=== PATIENT | male | born 1965 | race African-American/Black ===

== ENCOUNTER 2017-12-25 01:18 | Emergency (ER) | payer OTHER ==
[2017-12-25] MEDS ORDERED: LEVETIRACETAM 500 MG/5 ML VIAL IV ONE (01:39)
[2017-12-25] MEDS ORDERED: LORazepam 2 MG/ML VIAL ONE (01:39)
[2017-12-25] MEDS ORDERED: NA CHLORIDE 0.9% 1,000 ML ONE (01:40)
[2017-12-25] MEDS ORDERED: NA CHLORIDE 0.9% 100 ML IV ONE (01:40)
[2017-12-25 01:45] LABS: Absolute Lymphocytes (CBC) 3.4 K/uL (0.7-4.9); Absolute Monocytes 0.6 K/uL (0.1-1.3); Absolute Neutrophil 2.6 K/uL (1.8-8.0); Basophils % 1.4 % (0-1.3); Eosinophils % 2.6 % (0-4.4); Hematocrit 45.6 % (39.6-49.0); Lymphocytes % 49.5 % (15.3-44.8); MCH 29.7 pg (27.0-35.0); MCV 92.3 fL (80-100); MPV 8.7 fL (7.6-11.3); Monocytes % 8.7 % (3.3-12.3); RBC Red Blood Cell Count 4.94 M/uL (4.33-5.43)
[2017-12-25 01:54] LABS: Bicarbonate 17 mEq/L (21-31); Glucose Level 170 mg/dL (65-120); Potassium 3.6 mEq/L (3.6-5.0); Sodium Level 133 mEq/L (135-145)
[2017-12-25 02:00] LABS: ALT/SGPT 57 IU/L (10-60); AST/SGOT 63 IU/L (10-42); Albumin 4.6 g/dL (3.2-5.5); Alkaline Phosphatase 60 IU/L (42-121); BUN Blood Urea Nitrogen 8 mg/dL (6-20); Bilirubin Direct 0.1 mg/dL (0-0.2); Bilirubin Total 1.1 mg/dL (0.3-1.2); Creatine Phosphokinase 294 IU/L (22-269); Magnesium 2.3 mg/dL (1.8-2.5); Protein, Total 7.7 g/dL (6.0-8.3)
[2017-12-25 02:03] LABS: CKMB Creatine Kinase MB 2.4 ng/ml (0.3-4.0)
[2017-12-25 02:36] LABS: Protime INR 1.09
[2017-12-25 02:37] LABS: Alcohol Serum/Plasma < 10 mg/dl; Salicylates Level < 4.0 mg/dl (<30)
--- NOTE | 2017-12-25 03:10 | EDPHYS ---
Physician Documentation [facility] Name: Brenden Osman Age: 52 yrs Sex: Male : 1965 Arrival Date: 12/25/2017 Time: :19 Bed 8 Private MD: ED Pancho Connelly HPI: 12/25 01:20 This 52 yrs old Black Male presents to ER via Unassigned with complaints of Seizure. marciano 01:20 The patient presents after having a single isolated seizure. Character of seizure(s): marciano Loss of consciousness: the patient experienced loss of consciousness, Motor activity: generalized, Incontinence: none, Apnea: the patient did not experience apnea. Seizure onset: just prior to arrival. Context: the seizure(s) was witnessed, by family, . Seizure Hx: Last seizure: The patient's last seizure was approximately 1 month(s) ago. Associated injury: The patient did not suffer any apparent associated injury. Current symptoms: Currently, the patient is not experiencing any symptoms. The patient has not experienced similar symptoms in the past. Historical: - Allergies: 01:22 No Known Allergies; ak1 - Home Meds: 01:22 lisinopril 20 mg Oral tab 1 tab once daily [Active]; Keppra 500 mg Oral tab 1 tab daily ak1 [Active]; - PMHx: 01:22 Hypertension; Seizures; ak1 - PSHx: 01:22 None; ak1 - Immunization history:: Adult Immunizations unknown. - Social history:: Smoking status: Patient/guardian denies using tobacco. - Family history:: not pertinent. ROS: 01:20 Constitutional: Negative for fever, chills, and weight loss, Eyes: Negative for injury, marciano pain, redness, and discharge, ENT: Negative for injury, pain, and discharge, Neck: Negative for injury, pain, and swelling, Cardiovascular: Negative for chest pain, palpitations, and edema, Respiratory: Negative for shortness of breath, cough, wheezing, and pleuritic chest pain, Abdomen/GI: Negative for abdominal pain, nausea, vomiting, diarrhea, and constipation, Back: Negative for injury and pain, : Negative for injury, bleeding, discharge, and swelling, MS/Extremity: Negative for injury and deformity, Skin: Negative for injury, rash, and discoloration, Psych: Negative for depression, anxiety, suicide ideation, homicidal ideation, and hallucinations, Allergy/Immunology: Negative for hives, rash, and allergies, Endocrine: Negative for neck swelling, polydipsia, polyuria, polyphagia, and marked weight changes, Hematologic/Lymphatic: Negative for swollen nodes, abnormal bleeding, and unusual bruising. 01:20 Neuro: Positive for seizure activity. Exam: :20 Constitutional: This is a well developed, well nourished patient who is awake, alert, marciano and in no acute distress. Head/Face: Normocephalic, atraumatic. Eyes: Pupils equal round and reactive to light, extra-ocular motions intact. Lids and lashes normal. Conjunctiva and sclera are non-icteric and not injected. Cornea within normal limits. Periorbital areas with no swelling, redness, or edema. ENT: Nares patent. No nasal discharge, no septal abnormalities noted. Tympanic membranes are normal and external auditory canals are clear. Oropharynx with no redness, swelling, or masses, exudates, or evidence of obstruction, uvula midline. Mucous membranes moist. Neck: Trachea midline, no thyromegaly or masses palpated, and no cervical lymphadenopathy. Supple, full range of motion without nuchal rigidity, or vertebral point tenderness. No Meningismus. Chest/axilla: Normal chest wall appearance and motion. Nontender with no deformity. No lesions are appreciated. Cardiovascular: Regular rate and rhythm with a normal S1 and S2. No gallops, murmurs, or rubs. Normal PMI, no JVD. No pulse deficits. Respiratory: Lungs have equal breath sounds bilaterally, clear to auscultation and percussion. No rales, rhonchi or wheezes noted. No increased work of breathing, no retractions or nasal flaring. Abdomen/GI: Soft, non-tender, with normal bowel sounds. No distension or tympany. No guarding or rebound. No evidence of tenderness throughout. Back: No spinal tenderness. No costovertebral tenderness. Full range of motion. Male : Normal genitalia with no discharge or lesions. Skin: Warm, dry with normal turgor. Normal color with no rashes, no lesions, and no evidence of cellulitis. MS/ Extremity: Pulses equal, no cyanosis. Neurovascular intact. Full, normal range of motion. Neuro: Awake and alert, GCS 15, oriented to person, place, time, and situation. Cranial nerves II-XII grossly intact. Motor strength 5/5 in all extremities. Sensory grossly intact. Cerebellar exam normal. Normal gait. Psych: Awake, alert, with orientation to person, place and time. Behavior, mood, and affect are within normal limits. 02:39 Neck: Trachea: is midline with no obvious abnormalities, no acute changes, marciano ROM/movement: is normal, no acute changes, Meningeal signs: are not present, Kernig's sign is negative, Brudzinski's sign is negative. Vital Signs: 01:19 BP 158 / 90; Pulse 134; Resp 20; Temp 98.7(O); Pulse Ox 97% on R/A; Weight 81.65 kg ak1 (R); Height 6 ft. (182.88 cm) (R); Pain 0/10; 01:49 BP 138 / 95; Pulse 104; Resp 18; Pulse Ox 97% on R/A; Pain 0/10; ak1 02:21 BP 133 / 84; Pulse 94; Resp 18; Pulse Ox 97% on R/A; Pain 0/10; ak1 03:15 BP 144 / 94; Pulse 80; Resp 18; Temp 98; Pulse Ox 97% on R/A; Pain 0/10; ak1 01:19 Body Mass Index 24.41 (81.65 kg, 182.88 cm) ak1 Brandie Coma Score: 01:22 Eye Response: spontaneous(4). Verbal Response: oriented(5). Motor Response: obeys ak1 commands(6). Total: 15. MDM: 01:19 Patient medically screened. [facility] 01:23 Data reviewed: vital signs, nurses notes, lab test result(s), EKG, radiologic studies. [facility] 12/25 01:20 Order name: Basic Metabolic Panel; Complete Time: 03:09 [facility] 12/25 01:20 Order name: BNP; Complete Time: 02:38 [facility] 12/25 01:20 Order name: CBC with Diff; Complete Time: 02:02 [facility] 12/25 01:20 Order name: Ckmb; Complete Time: 03:09 [facility] 12/25 01:20 Order name: CPK; Complete Time: 03:09 [facility] 12/25 01:20 Order name: LFT's; Complete Time: 03:09 [facility] 12/25 01:20 Order name: Magnesium; Complete Time: 03:09 [facility] 12/25 01:20 Order name: PT-INR; Complete Time: 02:38 [facility] 12/25 01:20 Order name: Ptt, Activated; Complete Time: 02:38 [facility] 12/25 01:20 Order name: Troponin (emerg Dept Use Only); Complete Time: 02:02 [facility] 12/25 01:20 Order name: Acetaminophen; Complete Time: 03:09 [facility] 12/25 01:20 Order name: ETOH Level; Complete Time: 03:09 [facility] 12/25 01:20 Order name: Salicylate; Complete Time: 03:09 [facility] 12/25 01:20 Order name: XRAY Chest (1 view) 12/25 01:20 Order name: EKG; Complete Time: 01:21 [facility] 12/25 01:20 Order name: Cardiac monitoring; Complete Time: 01:27 [facility] 12/25 01:20 Order name: EKG - Nurse/Tech; Complete Time: 01:49 [facility] 12/25 01:20 Order name: IV Saline Lock; Complete Time: 01:27 [facility] 12/25 01:20 Order name: Labs collected and sent; Complete Time: 01:37 [facility] 12/25 01:20 Order name: O2 Per Protocol; Complete Time: 01:27 [facility] 12/25 01:20 Order name: O2 Sat Monitoring; Complete Time: 01:27 [facility] 12/25 01:20 Order name: Urine Dipstick-Ancillary (obtain specimen); Complete Time: 03:36 [facility] 12/25 01:26 Order name: Seizure Precautions; Complete Time: 01:27 [facility] 12/25 03:33 Order name: Urine Dipstick--Ancillary (enter results) rg2 Administered Medications: 01:48 Drug: Keppra 1000 mg Route: IV; Rate: per protocol; Site: left antecubital; ak1 02:20 Follow up: IV Status: Completed infusion ak1 01:48 Drug: NS 0.9% 1000 ml Route: IV; Rate: 1 bolus; Site: left antecubital; ak1 02:20 Follow up: IV Status: Completed infusion ak1 01:49 Drug: Ativan 1 mg Route: IVP; Site: left antecubital; ak1 01:58 Follow up: Response: No adverse reaction ak1 Disposition: 12/25/17 03:10 Discharged to Home. Impression: Epilepsy and recurrent seizures. - Condition is Stable. - Discharge Instructions: Seizure, Adult, Seizure, Adult, [id number]. - Prescriptions for Keppra 500 mg Oral Tablet - take 1 tablet by ORAL route every 12 hours; 30 tablet. - Medication Reconciliation Form, Thank You Letter, Antibiotic Education, Prescription Opioid Use form. - Family Work Release (12/25/17 03:37). rg2 - Follow up: Private Physician; When: 2 - 3 days; Reason: Recheck today's complaints, Continuance of care, Re-evaluation by your physician. Follow up: Duy Austin; When: 1 - 2 days; Reason: Recheck today's complaints, Re-evaluation by your physician. - Problem is new. - Symptoms have improved. Signatures: Dispatcher [employer] EDMS Pancho Day MD MD cha Pena, Laura, RN RN lp1 Brittney Lindo RN RN ak1 Jazmyne Johnson rg2 Corrections: (The following items were deleted from the chart) 03:37 03:10 12/25/2017 03:10 Discharged to Home. Impression: Epilepsy and recurrent seizures. lp1 Condition is Stable. Discharge Instructions: Seizure, Adult, Seizure, Adult, [id number]. Prescriptions for Keppra 500 mg Oral Tablet - take 1 tablet by ORAL route every 12 hours; 30 tablet. and Forms are Medication Reconciliation Form, Thank You Letter, Antibiotic Education, Prescription Opioid Use. Follow up: Private Physician; When: 2 - 3 days; Reason: Recheck today's complaints, Continuance of care, Re-evaluation by your physician. Follow up: Duy Austin; When: 1 - 2 days; Reason: Recheck today's complaints, Re-evaluation by your physician. Problem is new. Symptoms have improved. marciano
--- NOTE | 2017-12-25 03:10 | ER ---
Nurse's Notes [facility] Name: Brenden Osman Age: 52 yrs Sex: Male : 1965 Arrival Date: 12/25/2017 Time: :19 Bed 8 Private MD: Diagnosis: Epilepsy and recurrent seizures Presentation: 12/25 01:20 Presenting complaint: EMS states: pt had clonic tonic seizure at midnight. pt A\T\OX4 in ak1 ER8. EMS reports FSBG 142. Transition of care: patient was not received from another setting of care. Onset of symptoms was December 25, 2017. Initial Sepsis Screen: Does the patient meet any 2 criteria? No. Patient's initial sepsis screen is negative. Does the patient have a suspected source of infection? No. Patient's initial sepsis screen is negative. Care prior to arrival: 20g to left AC. 01:20 Method Of Arrival: EMS: [facility] ak1 01:20 Acuity: LUCITA 3 ak1 Triage Assessment: 01:22 General: Appears in no apparent distress. Behavior is calm, cooperative. Pain: Denies ak1 pain. EENT: No signs and/or symptoms were reported regarding the EENT system. Neuro: Level of Consciousness is awake, alert, obeys commands, Oriented to person, place, time, situation, Military Pilot are Moves all extremities. Speech is normal, Facial symmetry appears normal. Cardiovascular: Rhythm is sinus tachycardia. Respiratory: No deficits noted. GI: No signs and/or symptoms were reported involving the gastrointestinal system. : No signs and/or symptoms were reported regarding the genitourinary system. Derm: No signs and/or symptoms reported regarding the dermatologic system. Musculoskeletal: No signs and/or symptoms reported regarding the musculoskeletal system. Historical: - Allergies: : No Known Allergies; ak1 - Home Meds: : lisinopril 20 mg Oral tab 1 tab once daily [Active]; Keppra 500 mg Oral tab 1 tab daily ak1 [Active]; - PMHx: : Hypertension; Seizures; ak1 - PSHx: : None; ak1 - Immunization history:: Adult Immunizations unknown. - Social history:: Smoking status: Patient/guardian denies using tobacco. - Family history:: not pertinent. Screenin: Abuse screen: Denies threats or abuse. Denies injuries from another. Nutritional ak1 screening: No deficits noted. Tuberculosis screening: No symptoms or risk factors identified. Fall Risk None identified. Assessment: 01:25 Reassessment: Patient appears in no apparent distress at this time. No changes from ak1 previously documented assessment. Patient and/or family updated on plan of care and expected duration. Pain level reassessed. Patient is alert, oriented x 3, equal unlabored respirations, skin warm/dry/pink. see triage assessment. 02:22 Reassessment: Patient appears in no apparent distress at this time. No changes from ak1 previously documented assessment. Patient and/or family updated on plan of care and expected duration. Pain level reassessed. Patient is alert, oriented x 3, equal unlabored respirations, skin warm/dry/pink. Vital Signs: 01:19 BP 158 / 90; Pulse 134; Resp 20; Temp 98.7(O); Pulse Ox 97% on R/A; Weight 81.65 kg ak1 (R); Height 6 ft. (182.88 cm) (R); Pain 0/10; 01:49 BP 138 / 95; Pulse 104; Resp 18; Pulse Ox 97% on R/A; Pain 0/10; ak1 02:21 BP 133 / 84; Pulse 94; Resp 18; Pulse Ox 97% on R/A; Pain 0/10; ak1 03:15 BP 144 / 94; Pulse 80; Resp 18; Temp 98; Pulse Ox 97% on R/A; Pain 0/10; ak1 01:19 Body Mass Index 24.41 (81.65 kg, 182.88 cm) ak1 Coeymans Coma Score: 01:22 Eye Response: spontaneous(4). Verbal Response: oriented(5). Motor Response: obeys ak1 commands(6). Total: 15. ED Course: 01:19 Patient arrived in ED. ak1 01:19 Pancho Day MD is Attending Physician. [facility] 01:21 Triage completed. ak1 01:22 Arm band placed on Patient placed in an exam room, on a stretcher, on pulse oximetry, ak1 Patient notified of wait time. 01:24 Seizure precautions initiated. ak1 01:24 Maintain EMS IV. Dressing intact. Good blood return noted. Site clean \T\ dry. Gauge \T\ ak 1 site: 20g left AC. 01:36 Brittney Lindo, RN is Primary Nurse. ak1 01:44 X-ray completed. Portable x-ray completed in exam room. Patient tolerated procedure kw well. 01:45 XRAY Chest (1 view) In Process Unspecified. EDND 03:10 Duy Austin MD is Referral Physician. marciano 03:15 No provider procedures requiring assistance completed. ak1 03:37 IV discontinued, intact, bleeding controlled, No redness/swelling at site. Pressure lp1 dressing applied. Administered Medications: 01:48 Drug: Keppra 1000 mg Route: IV; Rate: per protocol; Site: left antecubital; ak1 02:20 Follow up: IV Status: Completed infusion ak1 01:48 Drug: NS 0.9% 1000 ml Route: IV; Rate: 1 bolus; Site: left antecubital; ak1 02:20 Follow up: IV Status: Completed infusion ak1 01:49 Drug: Ativan 1 mg Route: IVP; Site: left antecubital; ak1 01:58 Follow up: Response: No adverse reaction ak1 Outcome: 03:10 Discharge ordered by . marciano 03:36 Discharged to home ambulatory, with family. lp1 03:36 Condition: good 03:36 Discharge instructions given to patient, family, Instructed on discharge instructions, follow up and referral plans. no drinking with medication, no driving heavy equipment, medication usage, Demonstrated understanding of instructions, follow-up care, medications, Prescriptions given X 1. 03:37 Patient left the ED. lp1 Signatures: Dispatcher [employer] [facility] Pancho Day MD MD cha Whitley, Kimberlee kw Pena, Laura, RN RN lp1 Brittney Lindo, RN RN ak1
[2017-12-25 05:44] LABS: Urine Blood TRACE (NEG); Urine Glucose NEGATIVE (NEG); Urine Protein 1+ (NEG)
--- NOTE | 2017-12-25 08:38 | RAD REPORT ---
EXAM DESCRIPTION: RAD - Chest Single View - 12/25/2017 1:47 am CLINICAL HISTORY: Hypertension, history of seizures COMPARISON: 05/20/2016 FINDINGS: Portable technique limits examination quality. The lungs are grossly clear. The heart is normal in size. Mildly tortuous thoracic aorta. No displace d fractures. IMPRESSION: No acute intrathoracic process suspected.
--- NOTE | 2017-12-25 16:23 | EKG ---
Test Date: 2017-12-25 Test Time: 01:31:38 Baked And Graphite Inspector: MURRAY MEASUREMENT RESULTS: Intervals: Rate: 102 KS: 176 QRSD: 94 QT: 336 QTc: 437 Elizabeth: P: 63 KS: 176 QRS: 55 T: 56 INTERPRETIVE STATEMENTS: Sinus tachycardia Minimal voltage criteria for LVH, may be normal variant Nonspecific T wave abnormality Abnormal ECG Compared to ECG 05/20/2017 01:30:01 Left ventricular hypertrophy now present T-wave abnormality now present ST (T wave) deviation no longer present Electronically Signed On 12-25-17 16:19:58 CDT by Oliver Engel
== END 2017-12-25 03:37 | disposition home or self-care (01) ==
LOC: ER 01:18
DX: G40.802 Other epilepsy, not intractable, without status epilepticus (principal); I10 Essential (primary) hypertension
CPT/HCPCS: 36415; 71045; 80048; 80076; 80320; 80329; 81003; 82550; 82553; 83735; 83880; 84484; 85025; 85610; 85730; 93005; 96361; 96365; 96375; 99284; J1953; J7030

== ENCOUNTER 2018-10-17 11:17 | Emergency (ER) | payer OTHER ==
[2018-10-17] MEDS ORDERED: NA CHLORIDE 0.9% 1,000 ML ONE (11:40)
[2018-10-17] MEDS ORDERED: levETIRAcetam 1,000 MG in NA CHLORIDE 0.9% 100 ML IV ONE (11:45)
[2018-10-17 11:49] LABS: Absolute Lymphocytes (CBC) 1.6 K/uL (0.7-4.9); Absolute Monocytes 0.4 K/uL (0.1-1.3); Basophils % 1.1 % (0-1.3); Eosinophils % 1.6 % (0-4.4); Hematocrit 40.9 % (39.6-49.0); Lymphocytes % 26.6 % (15.3-44.8); MPV 8.7 fL (7.6-11.3); RBC Red Blood Cell Count 4.55 M/uL (4.33-5.43)
[2018-10-17 12:05] LABS: Protime INR 1.08
[2018-10-17 12:09] LABS: Albumin 4.1 g/dL (3.4-5.0); Bilirubin Direct 0.2 mg/dL (0-0.2); Bilirubin Total 0.8 mg/dL (0.2-1.0); Magnesium 1.9 mg/dL (1.8-2.4); Potassium 3.7 mmol/L (3.5-5.1); Protein, Total 7.6 g/dL (6.4-8.2)
[2018-10-17 12:26] LABS: Lipase 77 U/L (73-393); Troponin (Emerg Dept Use Only) < 0.02 ng/mL (0.0-0.045)
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
--- NOTE | 2018-10-18 05:56 | EKG ---
Test Date: 2018-10-17 Test Time: 11:23:14 Child Support Investigator: MEASUREMENT RESULTS: Intervals: Rate: 93 NH: 198 QRSD: 92 QT: 364 QTc: 452 [place]: P: 49 NH: 198 QRS: 26 T: 29 INTERPRETIVE STATEMENTS: Normal sinus rhythm Normal ECG Compared to ECG 12/25/2017 01:31:38 Sinus tachycardia no longer present Left ventricular hypertrophy no longer present T-wave abnormality no longer present Electronically Signed On 10-18-18 05:54:50 CDT by Jori Cartagena
== END 2018-10-17 14:24 | disposition home or self-care (01) ==
LOC: ER 11:17
DX: G40.509 Epileptic seizures related to external causes, not intractable, without status epilepticus (principal); V47.5XXA Car driver injured in collision with fixed or stationary object in traffic accident, initial encounter; I10 Essential (primary) hypertension
CPT/HCPCS: 36415; 70450; 71045; 71260; 72125; 74177; 80048; 80076; 80320; 80329; 83690; 83735; 83880; 84484; 85025; 85610; 85730; 86850; 86900; 86901; 93005; 96361; 96374; 99285; J1953; J7030; Q9967

== ENCOUNTER 2019-06-05 18:30 | Emergency (ER) | payer OTHER ==
[2019-06-05] MEDS ORDERED: NA CHLORIDE 0.9% 1,000 ML ONE ×2 (19:00→20:47)
[2019-06-05] MEDS ORDERED: LEVETIRACETAM 500 MG/5 ML VIAL IV ONE (19:00)
[2019-06-05 19:02] LABS: Absolute Lymphocytes (CBC) 1.5 K/uL (0.7-4.9); Basophils % 0.5 % (0-1.3); Hematocrit 39.4 % (39.6-49.0); Lymphocytes % 10.1 % (15.3-44.8); MPV 8.6 fL (7.6-11.3); RBC Red Blood Cell Count 4.48 M/uL (4.33-5.43)
[2019-06-05 19:05] LABS: Protime INR 1.05
[2019-06-05 19:24] LABS: ALT/SGPT 49 U/L (12-78); AST/SGOT 37 U/L (15-37); Albumin 4.1 g/dL (3.4-5.0); Alkaline Phosphatase 57 U/L (45-117); BUN Blood Urea Nitrogen 9 mg/dL (7-18); Bicarbonate 23 mmol/L (21-32); Bilirubin Direct 0.2 mg/dL (0-0.2); Bilirubin Total 1.1 mg/dL (0.2-1.0); CKMB Creatine Kinase MB 2.1 ng/mL (0.3-3.6); Creatine Phosphokinase 619 U/L (39-308); Glucose Level 116 mg/dL (74-106); Lipase 85 U/L (73-393); Magnesium 2.5 mg/dL (1.8-2.4); Protein, Total 7.8 g/dL (6.4-8.2); Sodium Level 136 mmol/L (136-145); Troponin (Emerg Dept Use Only) 0.02 ng/mL (0.0-0.045)
--- NOTE | 2019-06-05 19:35 | RAD REPORT ---
EXAM DESCRIPTION: CT - Head Brain Wo Cont - 06/05/2019 7:10 pm CLINICAL HISTORY: Alteration of awareness/confusion COMPARISON: 2015 TECHNIQUE: Computed axial tomography of the head was obtained. IV contrast was not requested. All CT scans are performed using dose optimization technique as appropriate and may include automated exposure control or mA/KV adjustment according to patient size. FINDINGS: An intracranial bleed is not seen . The ventricles are normal in caliber. No extra-axial fluid collection is noted. Fluid within the sinuses/ mastoids is not seen. IMPRESSION: No acute intracranial abnormality is seen. If patient's symptoms persist MRI of the bra in would be recommended.
--- NOTE | 2019-06-05 20:44 | ER ---
Nurse's Notes [facility] Name: Brenden Osman Age: 53 yrs Sex: Male : 1965 Arrival Date: 06/05/2019 Time: 18:31 Bed 24 Private MD: Diagnosis: Headache;Fever, unspecified;Altered mental status, unspecified Presentation: 06/05 18:55 Presenting complaint: Patient states: family brought the patient from the house, with rv memory loss. does not know when is today and where he is at. no weakness, no speech and visual disturbance. with history of seizure. Transition of care: patient was not received from another setting of care. Onset of symptoms is unknown. Risk Assessment: Do you want to hurt yourself or someone else? Patient reports no desire to harm self or others. Initial Sepsis Screen: Does the patient meet any 2 criteria? No. Patient's initial sepsis screen is negative. Does the patient have a suspected source of infection? No. Patient's initial sepsis screen is negative. Care prior to arrival: None. 18:55 Method Of Arrival: Ambulatory rv 18:55 Acuity: LUCITA 3 rv Historical: - Allergies: 19:04 No Known Allergies; rv - Home Meds: 19:04 Keppra 500 mg Oral tab 1 tab daily [Active]; lisinopril 20 mg Oral tab 1 tab once daily rv [Active]; - PMHx: 19:04 Hypertension; Seizures; rv - PSHx: 19:04 Unable to obtain; rv - Immunization history:: Adult Immunizations up to date. - Family history:: not pertinent. - Social history:: Smoking status: unknown. - Ebola Screening: : No symptoms or risks identified at this time. - Hospitalizations: : No recent hospitalization is reported. Screenin:04 Abuse screen: Denies threats or abuse. Denies injuries from another. Nutritional rv screening: No deficits noted. Tuberculosis screening: No symptoms or risk factors identified. Fall Risk None identified. Assessment: 19:00 General: Appears in no apparent distress. Behavior is combative, quiet, uncooperative. rv Pain: Denies pain. Neuro: Level of Consciousness is confused, Oriented to person. Cardiovascular: Patient's skin is warm and dry. Rhythm is regular. Respiratory: Airway is patent. GI: No signs and/or symptoms were reported involving the gastrointestinal system. : No signs and/or symptoms were reported regarding the genitourinary system. EENT: No signs and/or symptoms were reported regarding the EENT system. Derm: Skin is intact. Musculoskeletal: No signs and/or symptoms reported regarding the musculoskeletal system. Vital Signs: 18:59 BP 144 / 86; Pulse 72; Resp 16; Temp 99.7; Pulse Ox 96% on R/A; Weight 113.4 kg; rv 20:00 BP 139 / 82; Pulse 74; Resp 17; Pulse Ox 97% on R/A; rv 21:00 BP 138 / 66; Pulse 77; Resp 16; Pulse Ox 98% on R/A; rv 22:00 BP 127 / 79; Pulse 72; Resp 15; Pulse Ox 97% on R/A; rv 23:00 BP 118 / 72; Pulse 87; Resp 16; Pulse Ox 97% on R/A; rv 06/06 00:00 BP 111 / 69; Pulse 80; Resp 17; Pulse Ox 96% on R/A; rv 00:30 BP 114 / 71; Pulse 77; Resp 17; Pulse Ox 96% on R/A; rv ED Course: 06/05 18:31 Patient arrived in ED. mr 18:38 Alexander Nolasco MD is Attending Physician. rn 18:54 Marin Rodrigues, RN is Primary Nurse. rv 18:58 Triage completed. rv 19:01 Inserted saline lock: 20 gauge in right antecubital area, using aseptic technique. rv Blood collected. 19:05 Patient has correct armband on for positive identification. Bed in low position. Call rv light in reach. Side rails up X2. monitor car operator on. Pulse ox on. NIBP on. 19:06 Patient placed in the treatment room, on a stretcher, on awake overnight monitor, on pulse rv oximetry, Patient notified of wait time. Arm band placed on right wrist. EKG completed in triage. Results shown to . 19:10 CT Head Brain wo Cont In Process Unspecified. EDMS 19:10 CT completed. Patient tolerated procedure well. Patient moved back from CT. mw3 20:17 Attending Physician role handed off by Alexander Nolasco MD marciano 20:17 Pancho Day MD is Attending Physician. marciano 20:55 Chest Single View XRAY In Process Unspecified. EDMS 22:24 Assist provider with lumbar puncture: Set up LP tray. Performed by Pancho Day MD rv CSF is clear. Sample collected. Sample sent to lab. Puncture site dressed with band aid, Procedure was successful. Patient tolerated. 06/06 00:49 Patient transferred, IV remains in place. rv Administered Medications: 06/05 19:27 Drug: NS 0.9% 1000 ml Route: IV; Rate: 1000 ml; Site: right antecubital; rv 23:29 Follow up: IV Status: Completed infusion rv 19:28 Drug: Keppra 1000 mg Route: IV; Rate: calculated rate; Site: right antecubital; rv 20:05 Follow up: IV Status: Completed infusion rv 20:45 Drug: NS 0.9% 1000 ml Route: IV; Rate: 125 ml/hr; Site: right antecubital; rv 23:22 Follow up: IV Status: Infusion continued upon transfer rv 20:45 Drug: fentaNYL (PF) 25 mcg Route: IVP; Site: right antecubital; rv 23:23 Follow up: Response: No adverse reaction rv 21:00 Drug: Rocephin 2 grams Route: IV; Rate: per protocol; Site: right antecubital; rv 23:22 Follow up: IV Status: Completed infusion rv 21:00 Drug: Zofran 4 mg Route: IVP; Site: right antecubital; rv 23:23 Follow up: Response: No adverse reaction rv 21:00 Drug: Tylenol 1000 mg Route: PO; rv 23:24 Follow up: Response: No adverse reaction rv 21:15 Drug: fentaNYL (PF) 25 mcg {Note: rass 0.} Route: IVP; Site: right antecubital; rv 23:26 Follow up: Response: No adverse reaction rv 21:30 Drug: Acyclovir (20mg/kg) 800 mg Route: IVPB; Site: right antecubital; rv 23:24 Follow up: IV Status: Completed infusion rv Outcome: 20:43 ER care complete, transfer ordered by MD. tariq 06/06 00:48 Transferred by ground EMS to [facility], Transfer form completed. rv X-rays sent w/ patient. Condition: stable Instructed on the need for transfer. 00:49 Patient left the ED. rv Signatures: Dispatcher [employer] Pancho Carrasquillo MD MD cha Rivera, Mary mr Nieto, Roman, MD MD rn Nahun, Joya mw3 Marin Rodrigues, RISHI RN rv
--- NOTE | 2019-06-05 20:44 | EDPHYS ---
Physician Documentation [facility] Name: Brenden Osman Age: 53 yrs Sex: Male : 1965 Arrival Date: 06/05/2019 Time: 18:31 Bed 24 Private MD: ED Physician Pancho Day HPI: 06/05 18:45 This 53 yrs old Black Male presents to ER via Unassigned with complaints of Memory Loss.rn 18:45 The patient's problem is reported as altered mental status. Onset: The symptoms/episode rn began/occurred at an unknown time. The symptoms are alleviated by nothing. The symptoms are aggravated by nothing. Severity of symptoms: At their worst the symptoms were mild in the emergency department the symptoms are unchanged. It is unknown whether or not the patient has had similar symptoms in the past. Family members went to his house today to check on him, noticed he was acting funny. Has hx of seizures, but no witnessed seizure activity. Denies head injury or trauma. Reports had headache earlier this morning. Doesn't recall much of what happened today. family members state he sometimes gets confused after seizures but since didn't see one and patient couldn't tell them what is wrong decided to bring him here. . Historical: - Allergies: 19:04 No Known Allergies; rv - Home Meds: 19:04 Keppra 500 mg Oral tab 1 tab daily [Active]; lisinopril 20 mg Oral tab 1 tab once daily rv [Active]; - PMHx: 19:04 Hypertension; Seizures; rv - PSHx: 19:04 Unable to obtain; rv - Immunization history:: Adult Immunizations up to date. - Family history:: not pertinent. - Social history:: Smoking status: unknown. - Ebola Screening: : No symptoms or risks identified at this time. - Hospitalizations: : No recent hospitalization is reported. ROS: 18:45 Constitutional: Negative for fever, chills, and weight loss, Eyes: Negative for injury, rn pain, redness, and discharge, Neck: Negative for injury, pain, and swelling, Cardiovascular: Negative for chest pain, palpitations, and edema, Respiratory: Negative for shortness of breath, cough, wheezing, and pleuritic chest pain, Abdomen/GI: Negative for abdominal pain, nausea, vomiting, diarrhea, and constipation, MS/Extremity: Negative for injury and deformity, Skin: Negative for injury, rash, and discoloration, Neuro: Negative for weakness, numbness, tingling Exam: 18:45 Constitutional: This is a well developed, well nourished patient who is awake, alert, rn seems confused but answering all questions. Laying in bed with right arm behind head, seems comfortable. Head/Face: Normocephalic, atraumatic. Eyes: Pupils equal round and reactive to light, extra-ocular motions intact. Lids and lashes normal. Conjunctiva and sclera are non-icteric and not injected. Cornea within normal limits. Periorbital areas with no swelling, redness, or edema. ENT: dry MM Neck: Trachea midline, no thyromegaly or masses palpated, and no cervical lymphadenopathy. Supple, full range of motion without nuchal rigidity, or vertebral point tenderness. No Meningismus. Cardiovascular: Regular rate and rhythm. No pulse deficits. Respiratory: No increased work of breathing, no retractions or nasal flaring. Abdomen/GI: soft, non-tender MS/ Extremity: Pulses equal, no cyanosis. Neurovascular intact. Full, normal range of motion. Equal circumference. Neuro: Awake and alert, GCS 15, oriented to person but not place or time. Thinks it is 1980s, and that this is restaurant. Cranial nerves II-XII grossly intact. Motor strength 5/5 in all extremities. Sensory grossly intact. Cerebellar exam normal. 20:30 Radiologist reports: neg marciano 20:30 Neck: ROM/movement: is normal, no acute changes, Meningeal signs: are not present, marciano Kernig's sign is negative, Brudzinski's sign is negative. Vital Signs: 18:59 BP 144 / 86; Pulse 72; Resp 16; Temp 99.7; Pulse Ox 96% on R/A; Weight 113.4 kg; rv 20:00 BP 139 / 82; Pulse 74; Resp 17; Pulse Ox 97% on R/A; rv 21:00 BP 138 / 66; Pulse 77; Resp 16; Pulse Ox 98% on R/A; rv 22:00 BP 127 / 79; Pulse 72; Resp 15; Pulse Ox 97% on R/A; rv 23:00 BP 118 / 72; Pulse 87; Resp 16; Pulse Ox 97% on R/A; rv 06/06 00:00 BP 111 / 69; Pulse 80; Resp 17; Pulse Ox 96% on R/A; rv 00:30 BP 114 / 71; Pulse 77; Resp 17; Pulse Ox 96% on R/A; rv Procedures: 06/05 22:22 Lumbar Puncture: Patient placed in left lateral decubitus position. Prepped with [facility] Betadine. Draped using sterile technique. Collected 20 ml's of Puncture site dressed with band aid, Patient tolerated well. MDM: 18:38 Patient medically screened. rn 18:58 ED course: According to previous notes, takes keppra but patient and family not sure. rn Ordered CT head and tox workup given drinker, and headache. Unknown onset, possibly in AM. family member last known normal was last night when visited. Possibly just post-ictal given seizure history, but unwitnessed so workup ordered to rule out more serious etiology. . 20:30 Data reviewed: vital signs, nurses notes, lab test result(s), EKG, radiologic studies, [facility] CT scan, plain films. 06/05 18:45 Order name: UDS; Complete Time: 22:06/05 18:45 Order name: Basic Metabolic Panel; Complete Time: 20: 06/05 18:45 Order name: CBC with Diff; Complete Time: 20: 06/05 18:45 Order name: Ckmb; Complete Time: : 06/05 18:45 Order name: CPK; Complete Time: : 06/05 18:45 Order name: Hepatic Function; Complete Time: : 06/05 18:45 Order name: Lipase; Complete Time: : 06/05 18:45 Order name: Magnesium; Complete Time: 20: 06/05 18:45 Order name: Protime (+inr); Complete Time: 20: 06/05 18:45 Order name: Ptt, Activated; Complete Time: 20: 06/05 18:45 Order name: Troponin (emerg Dept Use Only); Complete Time: 20: 06/05 18:45 Order name: Acetaminophen; Complete Time: 20: 06/05 18:45 Order name: ETOH Level; Complete Time: 20: 06/05 18:45 Order name: Salicylate; Complete Time: 20: 06/05 18:45 Order name: CT Head Brain wo Cont; Complete Time: 20:26 06/05 18:49 Order name: AMMONIA; Complete Time: 20: 06/05 19:01 Order name: Glucose, Ancillary Testing; Complete Time: 20:26 [facility]CA 06/05 20:29 Order name: Blood Culture Adult (2) [facility] 06/05 20:29 Order name: Spinal Fluid Profile; Complete Time: 00:47 [facility] 06/05 20:31 Order name: Chest Single View XRAY [facility] 06/05 22:06 Order name: Urine Dipstick--Ancillary (enter results); Complete Time: 22:22 cm6 06/05 22:27 Order name: Body Fluid Cell Count; Complete Time: 00:47 EDMS 06/05 22:27 Order name: CSF Culture [facility] 06/05 22:27 Order name: CSF Bacterial Antigens (Tube 1 [facility] 06/05 18:45 Order name: EKG; Complete Time: 18:46 06/05 18:45 Order name: Cardiac monitoring; Complete Time: 19: 06/05 18:45 Order name: EKG - Nurse/Tech; Complete Time: 19: 06/05 18:45 Order name: IV Saline Lock; Complete Time: 19: 06/05 18:45 Order name: Labs collected and sent; Complete Time: 19: 06/05 18:45 Order name: NPO; Complete Time: 19: 06/05 18:45 Order name: O2 Per Protocol; Complete Time: 19: 06/05 18:45 Order name: O2 Sat Monitoring; Complete Time: 19: 06/05 18:57 Order name: Glucose Level; Complete Time: 19: 06/05 20:29 Order name: Lumbar Puncture Setup; Complete Time: 23:22 [facility] 06/05 20:29 Order name: Lumbar Puncture Consent; Complete Time: 23:22 [facility] Administered Medications: 19:27 Drug: NS 0.9% 1000 ml Route: IV; Rate: 1000 ml; Site: right antecubital; rv 23:29 Follow up: IV Status: Completed infusion rv 19:28 Drug: Keppra 1000 mg Route: IV; Rate: calculated rate; Site: right antecubital; rv 20:05 Follow up: IV Status: Completed infusion rv 20:45 Drug: NS 0.9% 1000 ml Route: IV; Rate: 125 ml/hr; Site: right antecubital; rv 23:22 Follow up: IV Status: Infusion continued upon transfer rv 20:45 Drug: fentaNYL (PF) 25 mcg Route: IVP; Site: right antecubital; rv 23:23 Follow up: Response: No adverse reaction rv 21:00 Drug: Rocephin 2 grams Route: IV; Rate: per protocol; Site: right antecubital; rv 23:22 Follow up: IV Status: Completed infusion rv 21:00 Drug: Zofran 4 mg Route: IVP; Site: right antecubital; rv 23:23 Follow up: Response: No adverse reaction rv 21:00 Drug: Tylenol 1000 mg Route: PO; rv 23:24 Follow up: Response: No adverse reaction rv 21:15 Drug: fentaNYL (PF) 25 mcg {Note: rass 0.} Route: IVP; Site: right antecubital; rv 23:26 Follow up: Response: No adverse reaction rv 21:30 Drug: Acyclovir (20mg/kg) 800 mg Route: IVPB; Site: right antecubital; rv 23:24 Follow up: IV Status: Completed infusion rv Disposition: 06/05/19 20:43 Transfer ordered to [facility]. Diagnosis are Headache, Fever, unspecified, Altered mental status, unspecified. - Reason for transfer: Higher level of care. - Accepting physician is to [facility] , neuro. - Condition is Fair. - Problem is new. - Symptoms have improved. Signatures: Dispatcher [employer] EDMS Pancho Day MD MD cha Nieto, Roman, MD MD rn Vicente, Ronaldo, RN RN rv Corrections: (The following items were deleted from the chart) 18:54 18:45 Constitutional: This is a well developed, well nourished patient who is awake, rn alert, seems confused but answering all questions. Head/Face: Normocephalic, atraumatic. rn 06/06 00:49 06/05 20:43 06/05/2019 20:43 Transfer ordered to [facility]. rv Diagnosis is Headache; Fever, unspecified; Altered mental status, unspecified. Reason for transfer: Higher level of care. Accepting physician is to [facility] , neuro. Condition is Fair. Problem is new. Symptoms have improved. marciano
[2019-06-05] MEDS ORDERED: ACETAMINOPHEN 500 MG TAB ONE (20:47)
[2019-06-05] MEDS ORDERED: LIDOCAINE 1% MPF 5 ML VIAL ONE (20:47)
[2019-06-05] MEDS ORDERED: FENTANYL CITR 100 MCG/2 ML ONE (20:56)
[2019-06-05] MEDS ORDERED: ACYCLOVIR NA 500 MG/VIAL IVPB ONE (20:59)
[2019-06-05] MEDS ORDERED: NA CHLORIDE 0.9% 200 ML IV ONE (21:07)
[2019-06-05] MEDS ORDERED: CEFTRIAXONE 1000 MG/VIAL ONE (21:07)
[2019-06-05] MEDS ORDERED: ONDANSETRON 4 MG/2 ML VIAL ONE (21:07)
[2019-06-05 21:15] LABS: Barbiturates NEGATIVE (NEGATIVE); Benzodiazepines NEGATIVE (NEGATIVE); Cocaine NEGATIVE (NEGATIVE); METHAMPHETAM NEGATIVE (NEGATIVE); Methadone NEGATIVE (NEGATIVE); Opiates NEGATIVE (NEGATIVE); Phencyclidine NEGATIVE (NEGATIVE); THC Cannibis NEGATIVE (NEGATIVE)
[2019-06-05 22:18] LABS: Urine Blood TRACE (NEG); Urine Glucose NEGATIVE (NEG); Urine Protein NEGATIVE (NEG); Urine Specific Gravity 1.015 (1.005-1.030)
[2019-06-05 22:48] LABS: Appearance CLEAR (CLEAR); Body Fluid Source CSF; Color of fluid Colorless (COLORLESS); Fluid Total Volume 3 ml
[2019-06-05 22:50] LABS: CSF Glucose 55 mg/dL (40-70)
[2019-06-05 22:57] LABS: Body Fluid WBC 2 /mm^3
[2019-06-05 23:22] LABS: Appearance CLEAR (CLEAR); Body Fluid Source CSF; Color of fluid Colorless (COLORLESS)
[2019-06-05 23:25] LABS: Body Fluid WBC 3 /mm^3
[2019-06-06 01:46] VITALS: TEMP 99.7
[2019-06-06 01:52] VITALS: O2SAT 96
[2019-06-06 01:53] VITALS: BP 114/71
--- NOTE | 2019-06-06 10:57 | RAD REPORT ---
EXAM DESCRIPTION: RAD - Chest Single View - 06/05/2019 8:57 pm CLINICAL HISTORY: COUGH Chest pain. COMPARISON: Chest Single View dated 10/17/2018; Chest Single View dated 12/25/2017; Chest Single View d ated 05/20/2016 FINDINGS: Portable technique limits examination quality. The lungs are grossly clear. The heart is normal in size. No displaced fractures. IMPRESSION: No acute intrathoracic process suspected.
--- NOTE | 2019-06-06 19:54 | EKG ---
Test Date: 2019-06-05 Test Time: 18:52:06 [employer] Officer: [employer] MEASUREMENT RESULTS: Intervals: Rate: 76 OK: 182 QRSD: 84 QT: 374 QTc: 420 [place]: P: 45 OK: 182 QRS: 34 T: 38 INTERPRETIVE STATEMENTS: Normal sinus rhythm Normal ECG Compared to ECG 10/17/2018 11:23:14 No significant changes Electronically Signed On 06-06-19 19:52:53 CDT by Oliver Engel
== END 2019-06-06 00:49 | disposition short-term general hospital (02) ==
LOC: ER 18:30
PROC: 009U3ZX Drainage of Spinal Canal, Percutaneous Approach, Diagnostic (ICD-10-PCS; principal; 2019-06-06)
DX: R51 Headache (principal); R50.9 Fever, unspecified; I10 Essential (primary) hypertension; G40.909 Epilepsy, unspecified, not intractable, without status epilepticus
CPT/HCPCS: 96365; 96367; 96361; 96368; 93005; 87040 ×2; 87070; 85025; 80048; 36415; 80320; 82140; 89050 ×2; 83735; 82550; 80329 ×2; 84157; 85610; 82945; 82947; 80076; 86403 ×6; 80307 ×8; 85730; 81003; 84484; 82553; 83690; 70450; 71045; 62270 ×2; 96375; 99285; 96366; J3010; J1953; J7030 ×2; J0133; J2405

== ENCOUNTER 2019-11-04 12:11 | Inpatient (IN) | payer OTHER ==
[2019-11-04] MEDS ORDERED: levETIRAcetam 1,000 MG in NA CHLORIDE 0.9% 100 ML IV ONE (12:45)
[2019-11-04] MEDS ORDERED: NA CHLORIDE 0.9% 1,000 ML ONE ×2 (13:02→16:03)
--- NOTE | 2019-11-04 13:16 | RAD REPORT ---
EXAM DESCRIPTION: RAD - Chest Single View - 11/04/2019 1:10 pm CLINICAL HISTORY: FEVER Chest pain. COMPARISON: Chest Single View dated 06/05/2019; Chest Single View dated 10/17/2018; Chest Single View dated 12/25/2017; Chest Single View dated 05/20/2016 FINDINGS: Portable technique limits examination quality. The lungs are grossly clear. The heart is normal in size. Tortuous thoracic aorta. IMPRESSION: No acute intrathoracic process suspected.
[2019-11-04 13:23] LABS: Absolute Lymphocytes (CBC) 0.9 K/uL (0.7-4.9); Basophils % 0.8 % (0-1.3); Hematocrit 40.8 % (39.6-49.0); Lymphocytes % 5.8 % (15.3-44.8); RBC Red Blood Cell Count 4.69 M/uL (4.33-5.43)
[2019-11-04 13:31] LABS: Potassium 3.3 mmol/L (3.5-5.1)
[2019-11-04 13:39] LABS: Albumin 4.3 g/dL (3.4-5.0); Bilirubin Direct 0.2 mg/dL (0-0.2); Bilirubin Total 0.9 mg/dL (0.2-1.0)
--- NOTE | 2019-11-04 14:13 | RAD REPORT ---
EXAM DESCRIPTION: CT - Head Brain Wo Cont - 11/04/2019 2:01 pm CLINICAL HISTORY: FEVER Seizure activity, headache, drowsiness COMPARISON: Head Brain Wo Cont dated 06/05/2019; Head Brain Wo Cont dated 05/20/2017 TECHNIQUE: All CT scans are performed using dose optimization technique as appropriate and may inclu de automated exposure control or mA/KV adjustment according to patient size. FINDINGS: No intracranial hemorrhage, hydrocephalus or extra-axial fluid collection.No areas of brai n edema or evidence of midline shift. The paranasal sinuses and mastoids are clear. The calvarium is intact. IMPRESSION: No acute intracranial abnormality.
[2019-11-04 14:19] LABS: Blood Morphology Comment NOT SEEN (NOT SEEN); Platelet Estimate ADEQ; Urine White Blood Cell Casts OK
[2019-11-04] MEDS ORDERED: VANCOMYCIN/NS 1 gm 1 GM/250 ML BAG IVPB ONE (16:00)
[2019-11-04] MEDS ORDERED: MIDAZOLAM HCL 2 MG/2 ML INJ ONE (16:02)
[2019-11-04] MEDS ORDERED: FENTANYL CITR 100 MCG/2 ML ONE (16:03)
[2019-11-04 16:58] LABS: Fluid Total Volume 7.5 ml
[2019-11-04 17:09] LABS: CSF Glucose 85 mg/dL (40-70)
[2019-11-04 17:23] LABS: Protime INR 1.11
[2019-11-04 17:24] LABS: Barbiturates NEGATIVE (NEGATIVE); Benzodiazepines NEGATIVE (NEGATIVE); Cocaine NEGATIVE (NEGATIVE); METHAMPHETAM NEGATIVE (NEGATIVE); Methadone NEGATIVE (NEGATIVE); Opiates NEGATIVE (NEGATIVE); Phencyclidine NEGATIVE (NEGATIVE); THC Cannibis NEGATIVE (NEGATIVE)
[2019-11-04 17:29] LABS: Urine Blood 2+ (NEG); Urine Glucose NEGATIVE (NEG); Urine Protein 1+ (NEG); Urine pH 5.5 (5.0-7.0)
[2019-11-04 17:48] LABS: Urine Bacteria <20 /HPF (NONE SEEN); Urine Culture Reflex Order NOT NEEDED
[2019-11-04] MEDS ORDERED: ACETAMINOPHEN 500 MG TAB ONE (18:01)
[2019-11-04 18:16] LABS: Troponin (Emerg Dept Use Only) 2.71 ng/mL (0.0-0.045)
--- NOTE | 2019-11-04 18:47 | ER ---
Nurse's Notes [facility] Name: Brenden Osman Age: 54 yrs Sex: Male : 1965 Arrival Date: 11/04/2019 Time: 12:13 Bed 6 Private MD: Diagnosis: Severe sepsis;Altered mental status, unspecified;Epilepsy and recurrent seizures;Rhabdomyolysis Presentation: 11/03 12:13 Chief complaint: EMS states: SEIZURE WITNESSED BY PD. Coronavirus screen: Patient bp denies fever greater than 100.4F, cough, shortness of breath, or difficulty breathing. Proceed with normal triage process. Ebola Screen: No symptoms or risks identified at this time. Initial Sepsis Screen: Does the patient meet any 2 criteria? HR > 90 bpm. No. Patient's initial sepsis screen is negative. Does the patient have a suspected source of infection? No. Patient's initial sepsis screen is negative. Risk Assessment: Do you want to hurt yourself or someone else? Patient reports no desire to harm self or others. 12:13 Method Of Arrival: EMS: [facility] bp 12:13 Acuity: LUCITA 3 bp Triage Assessment: 12:15 General: Appears in no apparent distress. comfortable, Behavior is cooperative, bp anxious. Pain: Denies pain. EENT: No deficits noted. Neuro: Level of Consciousness is awake, obeys commands, confused, Oriented to none. Cardiovascular: No deficits noted. Respiratory: Airway is patent Respiratory effort is even, unlabored, Respiratory pattern is regular, symmetrical. GI: No signs and/or symptoms were reported involving the gastrointestinal system. : No signs and/or symptoms were reported regarding the genitourinary system. Derm: No deficits noted. Musculoskeletal: No deficits noted. Historical: - Allergies: 12:15 No Known Allergies; bp - Home Meds: 12:15 Keppra 500 mg Oral tab 1 tab daily [Active]; lisinopril 20 mg Oral tab 1 tab once daily bp [Active]; - PMHx: 12:15 Seizures; Hypertension; bp - Immunization history:: Adult Immunizations unknown. - Social history:: Smoking status: unknown. Screenin:17 Abuse screen: Denies threats or abuse. Denies injuries from another. Nutritional bp screening: No deficits noted. Tuberculosis screening: No symptoms or risk factors identified. Fall Risk No fall in past 12 months (0 pts). Secondary diagnosis (15 points) seizures, No IV (0 pts). Ambulatory Aid- None/Bed Rest/Nurse Assist (0 pts). Gait- Normal/Bed Rest/Wheelchair (0 pts) Mental Status- Oriented to own ability (0 pts). Total Schroeder Fall Scale indicates Low Risk Score (25-44 pts). Fall prevention measures have been instituted. Side Rails Up X 2 Placed close to Nursing Station Frequent Obs/Assesments occuring As available Patient and Family Educated on Fall Prevention Program and strategies. Assessment: 12:17 General: SEE TRIAGE NOTE. bp 13:35 Reassessment: PT REMAINS APHASIC. NO S/S SZ ACTIVITY. bp 14:29 Reassessment: PT REMAINS APHASIC, FOLLOWING COMMANDS BUT EXPRESSING NO COMPREHENSION OF bp ASKED QUESTIONS. 16:30 Reassessment: LP BY MEHDAT SMITH. PT UNCONSENTABLE, AOx0, CONDITION EMERGENT. 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 SUCTION AND AMBU-BAG AT B/S. SEE CONSCIOUS SEDATION FLOWSHEET FOR DETAILS. 18:00 Reassessment: PT NOW VERBAL, AOx2. PER FAMILY, PT HAS NEVER PREVIOUSLY HAD A POST-ICTAL bp PERIOD OF THIS LENGTH. 18:58 Reassessment: Patient appears in no apparent distress at this time. Patient and/or em family updated on plan of care and expected duration. Pain level reassessed. pt alert and oriented to person, date of and location. 19:30 General: Appears in no apparent distress. comfortable, Behavior is calm, cooperative, rr5 appropriate for age, awaiting for room assignment.. 19:30 Pain: Denies pain. Neuro: Level of Consciousness is awake, alert, obeys commands, rr5 Oriented to person, place, time, situation, Appropriate for age Speech is normal. Cardiovascular: Capillary refill < 3 seconds Patient's skin is warm and dry. 19:30 Respiratory: Airway is patent Respiratory effort is even, unlabored, Respiratory rr5 pattern is regular, symmetrical. GI: Abdomen is round non-distended. : No signs and/or symptoms were reported regarding the genitourinary system. EENT: No signs and/or symptoms were reported regarding the EENT system. Derm: Skin is intact, is healthy with good turgor, Skin is pink, warm \T\ dry. Musculoskeletal: Capillary refill < 3 seconds, Range of motion: limited in right shoulder, right elbow and right wrist. 20:30 Reassessment: Patient appears in no apparent distress at this time. No changes from rr5 previously documented assessment. Patient is alert, oriented x 3, equal unlabored respirations, skin warm/dry/pink. 21:30 Reassessment: Patient appears in no apparent distress at this time. Patient and/or rr5 family updated on plan of care and expected duration. Pain level reassessed. Patient is alert, oriented x 3, equal unlabored respirations, skin warm/dry/pink. no complaints made. vitally stable. 22:24 Reassessment: Patient appears in no apparent distress at this time. Patient is alert, rr5 oriented x 3, equal unlabored respirations, skin warm/dry/pink. for transfer to room 417. vitally stable. Vital Signs: 12:13 BP 127 / 80; Pulse 92; Resp 17; Temp 100.4; Pulse Ox 97% ; Weight 90.72 kg; bp 13:04 BP 127 / 90; Pulse 88; Resp 17; Pulse Ox 95% ; bp 13:35 BP 127 / 90; Pulse 80; Resp 16; Pulse Ox 99% ; bp 14:29 BP 138 / 86; Pulse 87; Resp 16; Temp 100.9; Pulse Ox 96% on R/A; bp 16:14 BP 142 / 85; Pulse 87; Resp 18; Temp 100.3(O); Pulse Ox 98% on 2 lpm NC; Pain 0/10; em 18:00 BP 135 / 86; Pulse 74; Resp 17; Pulse Ox 99% ; bp 18:56 BP 126 / 84; Pulse 68; Resp 18; Temp 98.8(O); Pulse Ox 100% on R/A; em 20:00 BP 129 / 81; Pulse 73; Resp 16; Temp 98.4; Pulse Ox 99% on R/A; rr5 21:00 BP 119 / 68; Pulse 74; Resp 16; Pulse Ox 99% ; rr5 22:11 BP 114 / 72; Pulse 76; Resp 18; Temp 98.5; Pulse Ox 97% ; rr5 Peabody Coma Score: 12:15 Eye Response: spontaneous(4). Verbal Response: none(1). Motor Response: obeys bp commands(6). Total: 11. ED Course: 12:13 Patient arrived in ED. bp 12:13 Luis Rosa, RN is Primary Nurse. em 12:14 Triage completed. bp 12:15 Arm band placed on. bp 12:17 Patient has correct armband on for positive identification. Bed in low position. Call bp light in reach. Side rails up X2. forest fire officer on. Pulse ox on. NIBP on. 12:34 Jason Aguilera PA is PHCP. jr8 12:34 Herbert Rodríguez MD is Attending Physician. jr8 13:00 Inserted saline lock: 20 gauge in right forearm, using aseptic technique. Blood bp collected. 13:14 CXR XRAY In Process Unspecified. EDMS 13:36 Martinez Evans, RISHI is Primary Nurse. bp 14:03 CT Head Brain wo Cont In Process Unspecified. EDMS 14:35 Health Dept notified COVID test sent to lab/ PUI # [id number]/ lab notified. eb 16:30 Assist provider with lumbar puncture: Set up LP tray. Performed by Jason CALHOUN CSF em is clear. Puncture site dressed with band aid, Procedure was successful. Patient tolerated well. 16:50 Urine collected: straight cath specimen, clear, Amount Returned: 200mL Legal drug em screen obtained per protocol. Straight cath inserted, using sterile technique, 16 Fr. Specimen obtained. 17:00 Inserted saline lock: 20 gauge in right hand, using aseptic technique. Blood collected. bp 18:40 Mehreen Rebolledo MD is Hospitalizing Provider. jr8 19:00 Seizure precautions initiated. rr5 19:13 Wellington Verde MD is Hospitalizing Provider. jr8 22:12 Patient admitted, IV remains in place. intact, No redness/swelling at site. rr5 Administered Medications: 13:00 Drug: NS 0.9% 1000 ml Route: IV; Rate: 1000 ml; Site: right forearm; bp 16:20 Follow up: IV Status: Completed infusion; IV Intake: 1000ml em 13:04 Drug: Keppra 1000 mg Route: IV; Rate: calculated rate; Site: right forearm; bp 16:20 Drug: NS 0.9% 1000 ml Route: IV; Rate: 125 ml/hr; Site: right forearm; em 22:12 Follow up: Response: No adverse reaction; IV Status: Infusion continued upon admission; rr5 IV Intake: 375ml 16:26 Drug: fentaNYL (PF) 75 mcg Route: IVP; Site: right forearm; em 16:30 Follow up: Response: No adverse reaction; Marked relief of symptoms em 16:29 Drug: Versed 2 mg Route: IVP; Site: right forearm; em 16:34 Follow up: Response: No adverse reaction; Marked relief of symptoms em 16:34 Drug: Versed 2 mg Route: IVP; Site: right forearm; em 16:40 Follow up: Response: No adverse reaction; Marked relief of symptoms em 16:40 Drug: Versed 2 mg Route: IVP; Site: right forearm; em 16:50 Follow up: Response: No adverse reaction; Marked relief of symptoms em 16:50 Drug: Cefepime 1 grams Route: IVPB; Rate: 200 ml/hr; Infused Over: 30 mins; Site: right em forearm; 17:30 Follow up: Response: No adverse reaction; IV Status: Completed infusion; IV Intake: em 100ml 16:53 Not Given (Other Intervention Used): Versed 3 mg IVP once em 17:00 Drug: vancoMYCIN 1 grams Route: IVPB; Infused Over: 2 hrs; Site: right hand; bp 18:57 Follow up: IV Status: Completed infusion; IV Intake: 250ml em 18:13 Drug: Tylenol 1000 mg Route: PO; bp 18:56 Follow up: Response: No adverse reaction; Marked relief of symptoms; Temperature is em decreased 18:48 Not Given (Physician Discretion): Lovenox 1 mg/kg Sub-Q once bp Intake: 16:20 IV: 1000ml; Total: 1000ml. em 17:30 IV: 100ml; Total: 1100ml. em 18:57 IV: 250ml; Total: 1350ml. em 22:12 IV: 375ml; Total: 1725ml. rr5 Outcome: 18:44 Decision to Hospitalize by Provider. ravindra 22:11 Admitted to Tele accompanied by nora, via stretcher, room 417, with chart, Report rr5 called to kevin 22:11 Condition: stable 22:11 Instructed on 22:45 Patient left the ED. rr5 Signatures: Dispatcher [employer] Luis Mitchell RN RN em Jason Aguilera PA PA jrMartinez Morfin, RN RN bp Debby Tejeda Raymond, RN RN rr5
[2019-11-04 18:54] LABS: Appearance CLEAR (CLEAR); Body Fluid Source CSF; Color of fluid Colorless (COLORLESS)
[2019-11-04 18:55] LABS: Appearance CLEAR (CLEAR); Body Fluid Source CSF; Body Fluid WBC 3 /mm^3; Color of fluid Colorless (COLORLESS)
[2019-11-04 18:56] LABS: Body Fluid WBC 4 /mm^3
[2019-11-04] MEDS ORDERED: ONDANSETRON 4 MG/2 ML VIAL IV PRN (21:13)
[2019-11-04] MEDS ORDERED: ALPRAZOLAM 0.25 MG TABLET PO PRN (21:13)
[2019-11-04] MEDS ORDERED: ACETAMINOPHEN 500 MG TAB PO PRN (21:13)
[2019-11-04] MEDS ORDERED: AZITHROMYCIN IV 500 MG in NA CHLORIDE 0.9% 250 ML IVPB ONE (21:16)
[2019-11-04] MEDS ORDERED: CEFTRIAXONE 1000 MG/VIAL IVP SCH (22:00)
--- NOTE | 2019-11-04 22:47 | EDPHYS ---
Physician Documentation [facility] Name: Brenden Osman Age: 54 yrs Sex: Male : 1965 Arrival Date: 11/04/2019 Time: 12:13 Bed 6 Private MD: ED Physician Herbert Rodríguez HPI: 11/03 17:24 This 54 yrs old Black Male presents to ER via EMS with complaints of Seizure, Fever. jr8 17:24 The patient presents after having a single isolated seizure. Character of seizure(s): jr8 Loss of consciousness: the patient experienced loss of consciousness, Motor activity: generalized, Incontinence: none, Apnea: the patient did not experience apnea, Circulation: the patient did not experience evidence of pulse disturbance, Eye movements: are unknown. Seizure onset: just prior to arrival. Context: the seizure(s) was witnessed, by co-worker(s), occurred at work, occurred while the patient was working. Seizure Hx: Original onset: longstanding. Associated injury: The patient did not suffer any apparent associated injury. Current symptoms: confusion. It is unknown whether or not the patient has had similar symptoms in the past. The patient has not recently seen a physician. EMS stated that patient has been out of his seizure medication. Has seizure today. Noted in ED that patient is also running fever. Historical: - Allergies: 12:15 No Known Allergies; bp - Home Meds: 12:15 Keppra 500 mg Oral tab 1 tab daily [Active]; lisinopril 20 mg Oral tab 1 tab once daily bp [Active]; - PMHx: 12:15 Seizures; Hypertension; bp - Immunization history:: Adult Immunizations unknown. - Social history:: Smoking status: unknown. ROS: 17:24 Unable to obtain ROS due to altered mental status. jr8 Exam: 18:51 Eyes: Pupils equal round and reactive to light, extra-ocular motions intact. Lids and jr8 lashes normal. Conjunctiva and sclera are non-icteric and not injected. Cornea within normal limits. Periorbital areas with no swelling, redness, or edema. ENT: Nares patent. No nasal discharge, no septal abnormalities noted. Tympanic membranes are normal and external auditory canals are clear. Oropharynx with no redness, swelling, or masses, exudates, or evidence of obstruction, uvula midline. Mucous membranes moist. Neck: Trachea midline, no thyromegaly or masses palpated, and no cervical lymphadenopathy. Supple, full range of motion without nuchal rigidity, or vertebral point tenderness. No Meningismus. Cardiovascular: Regular rate and rhythm with a normal S1 and S2. No gallops, murmurs, or rubs. Normal PMI, no JVD. No pulse deficits. Respiratory: Lungs have equal breath sounds bilaterally, clear to auscultation and percussion. No rales, rhonchi or wheezes noted. No increased work of breathing, no retractions or nasal flaring. Abdomen/GI: Soft, non-tender, with normal bowel sounds. No distension or tympany. No guarding or rebound. No evidence of tenderness throughout. Back: No spinal tenderness. No costovertebral tenderness. Full range of motion. Skin: Warm, dry with normal turgor. Normal color with no rashes, no lesions, and no evidence of cellulitis. MS/ Extremity: Pulses equal, no cyanosis. Neurovascular intact. Full, normal range of motion. 18:51 Neuro: Orientation: Not oriented to person, place, time, situation, Mentation: able to follow commands, slow to respond, Memory: unable to test, the patient is post-ictal, Cranial nerves: extraocular movements are intact, Speech is aphasic. Motor: moves all fours, Sensation: no obvious gross deficits, seizure activity, is not currently displayed, but the patient is post-ictal, Abnormal movements: there are no abnormal movements. Vital Signs: 12:13 BP 127 / 80; Pulse 92; Resp 17; Temp 100.4; Pulse Ox 97% ; Weight 90.72 kg; bp 13:04 BP 127 / 90; Pulse 88; Resp 17; Pulse Ox 95% ; bp 13:35 BP 127 / 90; Pulse 80; Resp 16; Pulse Ox 99% ; bp 14:29 BP 138 / 86; Pulse 87; Resp 16; Temp 100.9; Pulse Ox 96% on R/A; bp 16:14 BP 142 / 85; Pulse 87; Resp 18; Temp 100.3(O); Pulse Ox 98% on 2 lpm NC; Pain 0/10; em 18:00 BP 135 / 86; Pulse 74; Resp 17; Pulse Ox 99% ; bp 18:56 BP 126 / 84; Pulse 68; Resp 18; Temp 98.8(O); Pulse Ox 100% on R/A; em 20:00 BP 129 / 81; Pulse 73; Resp 16; Temp 98.4; Pulse Ox 99% on R/A; rr5 21:00 BP 119 / 68; Pulse 74; Resp 16; Pulse Ox 99% ; rr5 22:11 BP 114 / 72; Pulse 76; Resp 18; Temp 98.5; Pulse Ox 97% ; rr5 Brandie Coma Score: 12:15 Eye Response: spontaneous(4). Verbal Response: none(1). Motor Response: obeys bp commands(6). Total: 11. MDM: 12:36 Patient medically screened. jr8 18:44 Data reviewed: vital signs, nurses notes, lab test result(s), EKG, radiologic studies, jr8 CT scan, plain films. Data interpreted: Pulse oximetry: on room air is 99 %. Interpretation: normal. Counseling: I had a detailed discussion with the patient and/or guardian regarding: the historical points, exam findings, and any diagnostic results supporting the discharge/admit diagnosis, lab results, radiology results, the need for further work-up and treatment in the hospital. Physician consultation: Duy Austin MD was called at 18:44, was contacted at 18:44, regarding admission, to the telemetry unit. consult, patient's condition, and will see patient. 18:51 ED course: Patient improving. Now knows his name and where he is. Fever decreased with jr8 antipyretics . 11/03 12:35 Order name: Strep; Complete Time: 13:39 8 11/03 12:35 Order name: Influenza Screen (a \T\ B); Complete Time: 13:39 jr8 11/03 12:35 Order name: UDS; Complete Time: 17:30 jr8 11/03 12:35 Order name: CBC with Diff jr8 11/03 12:35 Order name: Basic Metabolic Panel; Complete Time: 13:39 jr8 11/03 12:44 Order name: LFT's; Complete Time: 13:47 8 11/03 12:44 Order name: Urine Microscopic Only; Complete Time: 18:05 8 11/03 13:27 Order name: Throat Culture EDME 11/03 13:40 Order name: Misc. Lab Test; Complete Time: 15:09 jr8 11/03 14:23 Order name: CBC Smear Scan; Complete Time: 14:30 EDME 11/03 15:20 Order name: Blood Culture Adult (2) [facility] 11/03 15:20 Order name: CPK; Complete Time: 18:[address] [facility] 11/03 15:20 Order name: Lactate; Complete Time: 17:[address] [facility] 11/03 15:20 Order name: Procalcitonin; Complete Time: 18:[address] [facility] 11/03 15:20 Order name: Protime (+inr); Complete Time: 17:[address] [facility] 11/03 15:20 Order name: Ptt, Activated; Complete Time: 17:[address] [facility] 11/03 15:20 Order name: Troponin (emerg Dept Use Only); Complete Time: 18:[address] [facility] 11/03 16:48 Order name: CSF Bacterial Antigens (tube 1); Complete Time: 17:[address] [facility] 11/03 16:48 Order name: Csf Culture [facility] 11/03 16:48 Order name: Fluid Cell Count,Body; Complete Time: 19:[address] [facility] 11/03 16:48 Order name: Spinal Fluid Profile; Complete Time: 19:[address] [facility] 11/03 17:00 Order name: Urine Dipstick--Ancillary (enter results); Complete Time: 17:32 11/03 17:01 Order name: AMMONIA; Complete Time: 17:[address] [facility] 11/03 21:17 Order name: Urinalysis [facility] 11/03 21:17 Order name: CBC with Automated Diff [facility] 11/03 21:17 Order name: CBC with Automated Diff [facility] 11/03 21:17 Order name: Comprehensive Metabolic Panel [facility] 11/03 21:17 Order name: Comprehensive Metabolic Panel [facility] 11/03 21:17 Order name: Magnesium [facility] 11/03 21:17 Order name: Magnesium [facility] 11/03 12:35 Order name: IV; Complete Time: 13:[address] [facility] 11/03 12:36 Order name: Urine Dipstick-Ancillary (obtain specimen); Complete Time: 17:[address] [facility] 11/03 12:39 Order name: CXR XRAY; Complete Time: 13:39 bp 11/03 12:44 Order name: Accucheck; Complete Time: 13:[address] [facility] 11/03 12:44 Order name: Cardiac monitoring; Complete Time: 13:03 11/03 12:44 Order name: EKG - Nurse/Tech; Complete Time: 13:03 11/03 12:44 Order name: IV Saline Lock - Large Bore; Complete Time: 13:03 11/03 12:44 Order name: Labs collected and sent; Complete Time: 13:03 11/03 12:44 Order name: O2 Per Protocol; Complete Time: 13:02 11/03 12:44 Order name: O2 Sat Monitoring; Complete Time: 13:02 11/03 13:40 Order name: CT Head Brain wo Cont; Complete Time: 14:30 11/03 15:20 Order name: Lumbar Puncture Setup; Complete Time: 16:53 11/03 15:22 Order name: Conscious Sedation; Complete Time: 16:53 11/03 15:33 Order name: Oxygen; Complete Time: 16:53 11/03 21:17 Order name: Regular EDMS 11/03 21:17 Order name: Phosphorus EDMS 11/03 21:17 Order name: Phosphorus EDMS Administered Medications: 13:00 Drug: NS 0.9% 1000 ml Route: IV; Rate: 1000 ml; Site: right forearm; bp 16:20 Follow up: IV Status: Completed infusion; IV Intake: 1000ml em 13:04 Drug: Keppra 1000 mg Route: IV; Rate: calculated rate; Site: right forearm; bp 16:20 Drug: NS 0.9% 1000 ml Route: IV; Rate: 125 ml/hr; Site: right forearm; em 22:12 Follow up: Response: No adverse reaction; IV Status: Infusion continued upon admission; rr5 IV Intake: 375ml 16:26 Drug: fentaNYL (PF) 75 mcg Route: IVP; Site: right forearm; em 16:30 Follow up: Response: No adverse reaction; Marked relief of symptoms em 16:29 Drug: Versed 2 mg Route: IVP; Site: right forearm; em 16:34 Follow up: Response: No adverse reaction; Marked relief of symptoms em 16:34 Drug: Versed 2 mg Route: IVP; Site: right forearm; em 16:40 Follow up: Response: No adverse reaction; Marked relief of symptoms em 16:40 Drug: Versed 2 mg Route: IVP; Site: right forearm; em 16:50 Follow up: Response: No adverse reaction; Marked relief of symptoms em 16:50 Drug: Cefepime 1 grams Route: IVPB; Rate: 200 ml/hr; Infused Over: 30 mins; Site: right em forearm; 17:30 Follow up: Response: No adverse reaction; IV Status: Completed infusion; IV Intake: em 100ml 16:53 Not Given (Other Intervention Used): Versed 3 mg IVP once em 17:00 Drug: vancoMYCIN 1 grams Route: IVPB; Infused Over: 2 hrs; Site: right hand; bp 18:57 Follow up: IV Status: Completed infusion; IV Intake: 250ml em 18:13 Drug: Tylenol 1000 mg Route: PO; bp 18:56 Follow up: Response: No adverse reaction; Marked relief of symptoms; Temperature is em decreased 18:48 Not Given (Physician Discretion): Lovenox 1 mg/kg Sub-Q once bp Disposition: 11/04 07:10 Co-signature as Attending Physician, Herbert Rodríguez MD I agree with the assessment and kdr plan of care. 07:12 Co-signature as Attending Physician, Herbert Rodríguez MD I agree with the assessment and kdr plan of care. Disposition: 11/04/19 18:44 Hospitalization ordered by Wellington Verde for Inpatient Admission. Preliminary diagnosis are Severe sepsis, Altered mental status, unspecified, Epilepsy and recurrent seizures, Rhabdomyolysis. - Bed requested for Telemetry/MedSurg (Inpatient). - Status is Inpatient Admission. rr5 - Condition is Fair. - Problem is new. - Symptoms have improved. Signatures: Dispatcher [employer] [facility] Dahiana Diop RN RN Herbert Rodríguez MD MD [facility] Luis Rosa RN RN Jason Aguilera PA PA jr8 Martinez Evans RN RN bp Austen España, RN RN rr5 Corrections: (The following items were deleted from the chart) 11/03 18:45 18:44 Hospitalization Ordered by Mehreen Rebolledo MD for Inpatient Admission. Preliminary jr8 diagnosis is Severe sepsis; Altered mental status, unspecified; Epilepsy and recurrent seizures; Rhabdomyolysis. Bed requested for Telemetry/MedSurg (Inpatient). Status is Inpatient Admission. Condition is Fair. Problem is new. Symptoms have improved. jr8 18:50 18:45 11/04/2019 18:44 Hospitalization Ordered by Mehreen Rebolledo MD for Inpatient jr8 Admission. Preliminary diagnosis is Severe sepsis; Altered mental status, unspecified; Epilepsy and recurrent seizures; Rhabdomyolysis. Bed requested for Intensive Care Unit. Status is Inpatient Admission. Condition is Fair. Problem is new. Symptoms have improved. jr8 18:51 18:44 Physician consultation: Duy Austin MD was called at 18:44, was contacted at jr8 18:44, regarding admission, to the ICU, consult, patient's condition, and will see patient jr8 19:13 18:50 11/04/2019 18:44 Hospitalization Ordered by Mehreen Rebolledo MD for Inpatient jr8 Admission. Preliminary diagnosis is Severe sepsis; Altered mental status, unspecified; Epilepsy and recurrent seizures; Rhabdomyolysis. Bed requested for Telemetry/MedSurg (Inpatient). Status is Inpatient Admission. Condition is Fair. Problem is new. Symptoms have improved. jr8 21:43 19:13 11/04/2019 18:44 Hospitalization Ordered by Wellington Verde MD for Inpatient dw Admission. Preliminary diagnosis is Severe sepsis; Altered mental status, unspecified; Epilepsy and recurrent seizures; Rhabdomyolysis. Bed requested for Telemetry/MedSurg (Inpatient). Status is Inpatient Admission. Condition is Fair. Problem is new. Symptoms have improved. jr8 22:45 21:43 11/04/2019 18:44 Hospitalization Ordered by Wellington eVrde MD for Inpatient rr5 Admission. Preliminary diagnosis is Severe sepsis; Altered mental status, unspecified; Epilepsy and recurrent seizures; Rhabdomyolysis. Bed requested for Telemetry/MedSurg (Inpatient). Status is Inpatient Admission. Condition is Fair. Problem is new. Symptoms have improved. dw
[2019-11-04 23:27] VITALS: O2SAT 97
[2019-11-05] MEDS: NA CHLORIDE 0.9% 1,000 ML IV SCH ×4 (00:02→17:12)
[2019-11-05] MEDS ORDERED: CEFOXITIN 1 GM/10 ML SYR IVP SCH (00:15)
[2019-11-05 00:35] VITALS: BMI 29.5
[2019-11-05] MEDS ORDERED: LEVETIRACETAM 500 MG/5 ML VIAL IV ONE (00:40)
[2019-11-05 00:49] LABS: Urine Appearance CLOUDY; Urine Bilirubin NEGATIVE (NEG); Urine Blood 2+ (NEG); Urine Color YELLOW; Urine Glucose NEGATIVE (NEG); Urine Protein TRACE (NEG); Urine Specific Gravity 1.015 (1.005-1.030); Urine Urobilinogen 0.2 mg/dL (0.2-1.0); Urine pH 5.5 (5.0-7.0)
[2019-11-05 00:52] LABS: Urine Microscopic Reflex ORDER UMIC
[2019-11-05] MEDS ORDERED: AZITHROMYCIN 500 MG INJ IVPB ONE (00:59)
[2019-11-05] MEDS ORDERED: CEFTRIAXONE 1 GM/10 ML SYR IV SCH (01:00)
[2019-11-05] MEDS: levETIRAcetam 1,000 MG in NA CHLORIDE 0.9% 100 ML IV SCH ×3 (01:03→21:22)
[2019-11-05] MEDS ORDERED: NA CHLORIDE 0.9% 100 ML IV ONE (01:04)
[2019-11-05] MEDS ORDERED: NA CHLORIDE 0.9% 250 ML ONE (01:04)
[2019-11-05 01:12] LABS: Urine Bacteria 20-50 /HPF (NONE SEEN); Urine Culture Reflex Order REFLEXED; Urine Mucus 2+ /HPF (NONE SEEN); Urine RBC 20-50 /HPF (NONE SEEN)
[2019-11-05] MEDS: METOPROLOL TAR 25 MG TAB PO SCH ×2 (04:43→17:13)
[2019-11-05 06:39] LABS: Absolute Lymphocytes (CBC) 1.6 K/uL (0.7-4.9); Basophils % 0.5 % (0-1.3); Hematocrit 37.8 % (39.6-49.0); Lymphocytes % 15.4 % (15.3-44.8); MPV 8.6 fL (7.6-11.3); RBC Red Blood Cell Count 4.26 M/uL (4.33-5.43)
[2019-11-05] MEDS ORDERED: levETIRAcetam 1,000 MG in NA CHLORIDE 0.9% 100 ML IV SCH (07:00)
[2019-11-05 07:44] LABS: ALT/SGPT 62 U/L (12-78); AST/SGOT 159 U/L (15-37); Albumin 3.4 g/dL (3.4-5.0); Alkaline Phosphatase 50 U/L (45-117); BUN Blood Urea Nitrogen 9 mg/dL (7-18); Bicarbonate 24 mmol/L (21-32); Bilirubin Total 1.1 mg/dL (0.2-1.0); Glucose Level 103 mg/dL (74-106); Magnesium 2.5 mg/dL (1.8-2.4); Phosphorus 2.6 mg/dL (2.5-4.9); Potassium 3.5 mmol/L (3.5-5.1); Protein, Total 6.8 g/dL (6.4-8.2); Sodium Level 142 mmol/L (136-145)
--- NOTE | 2019-11-05 07:49 | P.HP ---
Certification for Inpatient Patient admitted to: Inpatient With expected LOS: >2 Midnights Patient will require the following post-hospital care: None Practitioner: I am a practitioner with admitting privileges, knowledge of patient current condition, hospital course, and medical plan of care. Services: Services provided to patient in accordance with Admission requirements found in Title 42 Section 412.3 of the Code of Federal Regulations Patient History Date of Service: 11/04/19 Reason for admission: Seizure disorder; fever; elevated troponin; Tristin's paralysis History of Present Illness: Patient is a 54-year-old gentleman who came into the hospital after having a seizure. He apparently had missed his dose this morning when he was going to work. He has not had a seizure in quite a while. After his seizure he had a prolonged postictal state and was running fevers. His labs also came back significantly abnormal including significantly elevated CPK level as well as an elevated troponin. His procalcitonin level was also elevated. He was given multiple antibiotics in the emergency room. Spinal tap was performed and this was normal. After his postictal state resolved after a few hr patient was feeling much better. He did not look is ill as his labs indicated. He was able to communicate completely and he denied being sick. He has not had a cough or congestion. He has not had a sore throat nor has he had a runny nose. He did not have a fever. He normally takes his seizure medication religiously but as he had left it and instruct he was not able to take get in the morning per his routine. He was going to take a when he got home. He does have some weakness in his right upper extremity which is most likely related to his seizure. He has never had Tristin's paralysis in the past so this symptom is new to him. Neurology was consulted and patient was admitted to the hospital for further evaluation. Allergies No Known Allergies Allergy (Verified 11/04/19 23:43) Home Medications: lisinopriL [Prinivil*] 20 mg PO DAILY 05/20/17 levETIRAcetam [Keppra*] 750 mg PO DAILY 11/04/19 - Past Medical/Surgical History Has patient received pneumonia vaccine in the past: No Diabetic: No -: Seizure disorder -: HTN -: stroke Past Surgical History: Patient denies surgical history - Family History Father Family History: Reviewed- Non-Contributory - Social History Smoking Status: Never smoker Alcohol use: Yes CD- Drugs: No Caffeine use: No Place of Residence: Home Review of Systems 10-point ROS is otherwise unremarkable Physical Examination - Vital Signs Temperature: 97.2 F Blood Pressure: 148/82 Pulse: 90 Respirations: 18 Pulse Ox (%): 99 - Physical Exam General: Alert, In no apparent distress, Oriented x3 HEENT: Atraumatic, PERRLA, Mucous membr. moist/pink, EOMI, Sclerae nonicteric Neck: Supple, 2+ carotid pulse no bruit, No LAD, Without JVD or thyroid abnormality Respiratory: Clear to auscultation bilaterally, Normal air movement Cardiovascular: Regular rate/rhythm, Normal S1 S2, No murmurs Gastrointestinal: Normal bowel sounds, Soft and benign, Non-distended, No tenderness Musculoskeletal: No clubbing, No swelling, No tenderness Integumentary: No rashes Neurological: Normal gait, Normal speech, Normal tone, Sensation intact, Cranial nerves 3-12 intact, Normal affect, Abnormal strength (Weakness in the right upper extremity) Lymphatics: No axilla or inguinal lymphadenopathy - Studies Laboratory Data (last 24 hrs) 11/04/19 17:00: PT 13.1 H, INR 1.11, APTT 25.8 11/04/19 12:50: Total Bilirubin 0.9, AST 97 H, ALT 45, Alkaline Phosphatase 64 11/04/19 12:50: Sodium 140, Potassium 3.3 L, BUN 12, Creatinine 1.15, Glucose 114 H 11/04/19 12:50: WBC 14.8 H, Hgb 13.9, Hct 40.8, Plt Count 252 Microbiology Data (last 24 hrs): 11/04/19 16:44 Cerebral Spinal Fluid CSF Bacterial Antigens (Tube 1) - Final 11/04/19 12:50 Nasopharnyx Influenza Type A Antigen Screen - Final 11/04/19 12:50 Nasopharnyx Influenza Type B Antigen Screen - Final 11/04/19 12:50 Throat Group A Streptococcus Rapid Screen - Final Assessment & Plan - Problems (Diagnosis) (1) Tristin's paralysis (postepileptic) Current Visit: Yes Status: Acute (2) Elevated troponin Current Visit: Yes Status: Acute (3) Elevated procalcitonin Current Visit: Yes Status: Acute (4) Rhabdomyolysis Current Visit: Yes Status: Acute (5) Seizure disorder Onset Date: 05/20/17 Current Visit: No Status: Resolved - Plan Plan: 1. Resume anti epileptic 2. neurology consultation 3. COVID-19 test was performed in the ER 4. Strengthening of the right upper extremity digits with passive range of motion while he is in the room. 5. Echocardiogram and serial troponins; this is most likely related to his seizure; echocardiogram pending and Cardiology consultation pending 6. Patient was given antibiotics but he does not appear did have infection. Spinal fluid testing was negative. chest x-ray was negative. Initial UA is negative. We may repeat this as well. His procalcitonin level is elevated. We normally see this elevation in acute phase reactants after tonoclonic seizures. Will continue to monitor him closely as there is a questionable relationship between elevated procalcitonin level and seizure patient's and increased mortality. 7. GI and DVT prophylaxis Discharge Plan: Home Plan to discharge in: Greater than 2 days - Advance Directives Does patient have a Living Will: No Does patient have a Durable POA for Healthcare: No - Code Status/Comfort Care Code Status Assessed: Yes Code Status: Full Code Critical Care: No Time Spent Managing PTS Care (In Minutes): 40
[2019-11-05 08:00] LABS: Troponin I 2.38 ng/mL (0.0-0.045)
[2019-11-05] MEDS ORDERED: INFLUENZA VACCINE (for 3y+) 0.5 ML DOSE IMVAC ONE (08:00)
[2019-11-05] MEDS: CEFTRIAXONE/SWI 1gm 1 GM/10 ML SYR IV SCH (08:13)
[2019-11-05] MEDS: ASPIRIN 81 MG CHEWABLE TABLET PO SCH (08:13)
[2019-11-05] MEDS: CLOPIDOGREL 75 MG TABLET PO SCH (08:14)
[2019-11-05] MEDS: ENOXAPARIN 40 MG/0.4 ML SQ SCH (08:14)
[2019-11-05] MEDS ORDERED: CEFTRIAXONE 1 GM/NS 50 ML 1 GM/50 ML BAG IV SCH (09:00)
[2019-11-05] MEDS ORDERED: CEFTRIAXONE/SWI 1gm 1 GM/10 ML SYR IV SCH (09:00)
--- NOTE | 2019-11-05 12:09 | ECHO ---
HEIGHT: 6 ft 0 in WEIGHT: 217 lb 7 oz DATE OF STUDY: 11/05/[address]: Wellington Verde MD 2-DIMENSIONAL: YES M.MODE: YES DOPPLER: YES COLOR FLOW: YES TDS: NO PORTABLE: NO DEFINITY: NO BUBBLE STUDY: NO DIAGNOSIS: ELEVATED TROPONIN CARDIAC HISTORY: CATHERIZATION: NO SURGERY: NO PROSTHETIC VALVE: NO PACEMAKER: NO MEASUREMENTS (cm) DIASTOLIC (NORMALS) SYSTOLIC (NORMALS) IVSd 1.0 (0.6-1.2) LA Diam 3.8 (1.9-4.0) LVEF 58% LVIDd 5.1 (3.5-5.7) LVIDs 3.5 (2.0-3.5) %FS 31% LVPWd 1.2 (0.6-1.2) Ao Diam 3.8 (2.0-3.7) 2 DIMENSIONAL ASSESSMENT: RIGHT ATRIUM: NORMAL LEFT ATRIUM: NORMAL RIGHT VENTRICLE: NORMAL LEFT VENTRICLE: NORMAL TRICUSPID VALVE: NORMAL MITRAL VALVE: NORMAL PULMONIC VALVE: NORMAL AORTIC VALVE: NORMAL PERICARDIAL EFFUSION: NONE AORTIC ROOT: NORMAL LEFT VENTRICULAR WALL MOTION: NORMAL. DOPPLER/COLOR FLOW: NORMAL. COMMENTS: NORMAL 2D ECHO WITH DOPPLER. NO WALL MOTION ABNORMALITY. NO EFFUSION. TECHNOLOGIST: TANESHA FARRAR
--- NOTE | 2019-11-05 12:32 | P.PN ---
Subjective Date of Service: 11/05/19 Chief Complaint: Seizure disorder; fever; elevated troponin; Tristin's paralysis RUE weakness is resolved. Patient reports fever and weakness, usually after his seizure episodes. Have no suspected acute infection. Denies any chest pain. Physical Examination - Vital Signs Temperature: 97.4 F Blood Pressure: 134/84 Pulse: 72 Respirations: 18 Pulse Ox (%): 97 - Physical Exam General: Alert, In no apparent distress HEENT: Atraumatic, PERRLA, EOMI Neck: Supple, JVD not distended Respiratory: Clear to auscultation bilaterally, Normal air movement Cardiovascular: Regular rate/rhythm, Normal S1 S2 Gastrointestinal: Normal bowel sounds, No tenderness Musculoskeletal: No tenderness Integumentary: No rashes Neurological: Normal speech, Normal tone, Normal affect Lymphatics: No axilla or inguinal lymphadenopathy - Studies Laboratory Data (last 24 hrs) 11/04/19 17:00: PT 13.1 H, INR 1.11, APTT 25.8 11/04/19 12:50: Total Bilirubin 0.9, AST 97 H, ALT 45, Alkaline Phosphatase 64 11/04/19 12:50: Sodium 140, Potassium 3.3 L, BUN 12, Creatinine 1.15, Glucose 114 H 11/04/19 12:50: WBC 14.8 H, Hgb 13.9, Hct 40.8, Plt Count 252 Microbiology Data (last 24 hrs): 11/04/19 16:44 Cerebral Spinal Fluid CSF Bacterial Antigens (Tube 1) - Final 11/04/19 12:50 Nasopharnyx Influenza Type A Antigen Screen - Final 11/04/19 12:50 Nasopharnyx Influenza Type B Antigen Screen - Final 11/04/19 12:50 Throat Group A Streptococcus Rapid Screen - Final Assessment & Plan Physician Review Additional Text: Mr. Osman is 54y/o male with breakthrough seizure. #Breakthrough seizure-Missed dose of medication. -reinitiated on anti epileptic. Continue seizure precaution. -compliance with medication scale high 5s. -Tristin's paralysis has since resolved. -Dr. Austin on consult. #Acute rhabdomyolysis- secondary to seizure episode. Creatinine kinase elevated at expected. -AST and troponin elevated. Echo is unremarkable. Denies any chest pain. -IV hydration. Trend labs. #Fever and leukocytosis with elevated procalcitonin-no evidence of acute infection. Cultures drawn and pending. -acute phase reactants secondary to breakthrough seizure. -empiric ceftriaxone pending cultures. -continue hydration and trend labs in a.m.. -CSF, UA & chest x-ray were all within normal limits. -COVID19 suspected though unlikely. Continue droplet isolation. DVT ppx- SCD Patient is full code. Dispo- possible dc in a.m pending CK.
--- NOTE | 2019-11-05 16:30 | CON ---
Date of Consultation: 11/05/2019 Admitted on 11/04/[address] Verde's service. I saw the patient on 11/05/2019. Reason For Consultation: Elevated troponin. History Of Present Illness: Mr. Osman is a 54-year-old black male without any significant past car diac history. He has a history of hypertension and seizure disorders. 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 He was found to have a troponi n of 2.71. His CPK was 6855. He had a possible UTI. His potassium was 3.3 that was supplemented. His procalcitonin was 5.44 with a white count of 14,000. The patient denied any chest pain. He genoveva ed any nausea, vomiting, or diaphoresis. Denied any PND, orthopnea, pedal edema, palpitations. Was syncopal from the seizures. Past Medical History: Negative as otherwise. Home Medications: Keppra and lisinopril. Allergies: NONE. Review of Systems: Negative. Social History: Negative. Family History: Noncontributory. Physical Examination: Vital Signs: Stable. Afebrile. HEENT: Negative. Neck: Supple with no bruit. Chest: Clear. Cardiac: Revealed a regular rhythm and rate. No murmurs, gallops, or rubs. Abdomen: Benign. Extremities: Revealed no clubbing, cyanosis, or edema. Diagnostic Data: As stated earlier. He also had a chest x-ray, EKG, and CT of his head that were ne gative. Echocardiogram which was done before I saw him was negative. Impression And Plan: 1.Elevated CPK and troponin secondary to seizure disorder. Echocardiogram and EKG are perfectly nor mal without any wall motion abnormalities or ischemia. There were no reports of chest pain. 2.His other problems include hypertension that is well controlled. 3.Seizure disorder, on Keppra. 4.He has hypokalemia that has been corrected. 5.He may have urinary tract infection with elevated white count and procalcitonin. I will leave anabella t up to Dr. Verde to treat. I will sign off his case. No need for any cardiac workup from my standpo int. NB/MODL Voice ID: [id number] Report ID: [id number]
--- NOTE | 2019-11-05 17:42 | CON ---
Reason For Consultation: Consultation called because of seizures. History Of Present Illness: Mr. Osman is a 54-year-old patient, who was seen in clinic for complex partial seizures. Seizures began on the time of heavy alcohol use at least 3 years ago and would oc cur when drinking, but he stopped drinking, and was taking Keppra 750 mg twice daily and was seizure- free for a few years until his last visit, which was actually in December of 2018. Apparently, he ran low on medications and missed perhaps more than 1 dose and developed seizures. He was marked [facility] and had a fever, elevated CPK, perhaps related to his prolonged seizure and troponins were also elevated. He had low potassium and elevated procalcitonin with elevated white count. He receiv ed IV antibiotics in the emergency room, which is Rocephin 1 g daily in addition to stroke risk reduc tion medications of aspirin and Plavix were continued. Keppra was increased to a 1000 mg twice daily and he did have the DVT prophylaxis with Lovenox. He has had no new seizures. He is under precauti on for possible COVID-19 and has test pending. It should be noted that his urinary tract infection d id show 20 to 50 bacteria, 2+ blood, and 20 to 50 red blood cells with 1+ protein, but was negative e sterase and negative nitrites. Past Medical History: Includes stroke, seizures, alcohol abuse, hypertension. Allergies: NO KNOWN DRUG ALLERGIES. Medications: Xanax 0.5 mg as needed, aspirin 324 mg daily, Rocephin 1 g daily, Plavix 75 mg daily, L ovenox 40 mg subcutaneously daily, levetiracetam 1000 mg twice daily, Lopressor 12.5 mg twice daily, Zofran 4 mg as needed. Family History: Noncontributory. Social History: Denies recent alcohol, tobacco, or IV drug use. Review of Systems: Aside from mentioned, negative and that is on a 10-point systems review. Physical Examination: Vital Signs: Blood pressure 136/81, pulse 68, respiratory rate 18, temperature 98.2, oxygen saturati on 99%. Weight 217 pounds, height 6 feet, BMI 29.5. General: Mr. Osman is resting in bed. Extremities: He has mild residual right upper extremity weakness, rated 4/5. Otherwise, 5/5 in the upper and lower extremities. Neurologic: Cranial nerves show no focal deficits. Coordination is intact. Reflex symmetric and ot herwise intact in terms of exam. Laboratory Studies: His complete blood count with differential initially yesterday, white count elev ated to 14.8, likely related to his seizures and possible infection with neutrophils 85.7. Today, 10 .1 WBCs with neutrophils 74.8. His chemistries show elevated CPK and troponin, which Cardiology did review and determine if possibly related to his seizures. He does have an elevated procalcitonin of 5.44. Lactic acid was normal at 0.9. HDL cholesterol 47; LDL cholesterol 57, which is less than 70; triglycerides 376. His lumbar puncture was unremarkable except elevated glucose of 85, protein norm al at 45, and his serum glucose was 114. Assessment And Plan: Mr. Osman is a 54-year-old patient with likely breakthrough seizures related to medication withdrawal, possible fever with an infection potentially bacterial in addition to the p otential risk of COVID-19 infection. His Keppra dosage was adjusted and he does have Ativan as neede d for additional breakthrough seizures. He has received IV hydration and IV antibiotics along with d eep venous thrombosis prophylaxis. He does have aspirin and Plavix for stroke risk reduction. It sh ould be noted his head CT scan done on admission showed no acute ischemic or hemorrhagic abnormalitie s. At this point, the patient does not require further workup for etiology of his seizures. He shou ld continue with the course of treatment including antibiotics, continue the Keppra, may consider fos phenytoin if he has additional seizures and once discharged, he may call the office for Telemedicine visit in1 month. STACIE/ROBERTO CARLOS Voice ID: [id number] Report ID: [id number]
[2019-11-06] MEDS: NA CHLORIDE 0.9% 1,000 ML IV SCH (04:00)
[2019-11-06] MEDS: METOPROLOL TAR 25 MG TAB PO SCH (05:13)
[2019-11-06 06:39] LABS: Absolute Lymphocytes (CBC) 1.9 K/uL (0.7-4.9); Basophils % 0.9 % (0-1.3); Hematocrit 34.4 % (39.6-49.0); Lymphocytes % 33.6 % (15.3-44.8); MPV 8.7 fL (7.6-11.3)
[2019-11-06 07:27] LABS: ALT/SGPT 64 U/L (12-78); AST/SGOT 115 U/L (15-37); Albumin 3.2 g/dL (3.4-5.0); Alkaline Phosphatase 44 U/L (45-117); BUN Blood Urea Nitrogen 7 mg/dL (7-18); Bicarbonate 26 mmol/L (21-32); Bilirubin Total 0.8 mg/dL (0.2-1.0); Glucose Level 107 mg/dL (74-106); Magnesium 2.2 mg/dL (1.8-2.4); Potassium 3.5 mmol/L (3.5-5.1); Protein, Total 6.3 g/dL (6.4-8.2); Sodium Level 142 mmol/L (136-145)
--- NOTE | 2019-11-06 07:27 | P.DS ---
Discharge Date: 11/06/19 Disposition: ROUTINE DISCHARGE Discharge Condition: GOOD Reason for Admission: Seizure disorder; fever; elevated troponin; Tristin's paralysis Consultations: Neurology Cardiology - Problems (1) Tristin's paralysis (postepileptic) Current Visit: Yes Status: Acute (2) Elevated troponin Current Visit: Yes Status: Acute (3) Elevated procalcitonin Current Visit: Yes Status: Acute (4) Rhabdomyolysis Current Visit: Yes Status: Acute (5) Seizure disorder Onset Date: 05/20/17 Current Visit: No Status: Resolved Brief History of Present Illness: Patient is a 54-year-old gentleman who came into the hospital after having a seizure. He apparently had missed his dose this morning when he was going to work. He has not had a seizure in quite a while. After his seizure he had a prolonged postictal state and was running fevers. His labs also came back significantly abnormal including significantly elevated CPK level as well as an elevated troponin. His procalcitonin level was also elevated. He was given multiple antibiotics in the emergency room. Spinal tap was performed and this was normal. After his postictal state resolved after a few hr patient was feeling much better. He did not look is ill as his labs indicated. He was able to communicate completely and he denied being sick. He has not had a cough or congestion. He has not had a sore throat nor has he had a runny nose. He did not have a fever. He normally takes his seizure medication religiously but as he had left it and instruct he was not able to take get in the morning per his routine. He was going to take a when he got home. He does have some weakness in his right upper extremity which is most likely related to his seizure. He has never had Tristin's paralysis in the past so this symptom is new to him. Neurology was consulted and patient was admitted to the hospital for further evaluation. Hospital Course: Patient has done well during hospital stay. His right upper extremity weakness has resolved. Cardiology also evaluated the patient and patient is to follow- up. Elevated troponin related to seizure disorder. Patient was also seen by Neurology and recommended he increase Keppra dosing. Patient is stable for discharge with outpatient follow-up as recommended above. We will discuss with Neurology regarding return to work. Vital Signs/Physical Exam: Temp Pulse Resp BP Pulse Ox 97.6 F 68 18 127/74 100 11/06/19 04:00 11/06/19 05:13 11/06/19 04:00 11/06/19 05:13 11/06/19 04:00 General: Alert, In no apparent distress, Oriented x3 Laboratory Data at Discharge: WBC 5.7 K/uL (4.3-10.9) D 11/06/19 06:15 Hgb 11.7 g/dL (13.6-17.9) L 11/06/19 06:15 Hct 34.4 % (39.6-49.0) L 11/06/19 06:15 Plt Count 180 K/uL (152-406) 11/06/19 06:15 PT 13.1 SECONDS (9.5-12.5) H 11/04/19 17:00 INR 1.11 11/04/19 17:00 APTT 25.8 SECONDS (24.3-36.9) 11/04/19 17:00 Sodium 142 mmol/L (136-145) 11/05/19 06:15 Potassium 3.5 mmol/L (3.5-5.1) 11/05/19 06:15 BUN 9 mg/dL (7-18) 11/05/19 06:15 Creatinine 0.86 mg/dL (0.55-1.3) 11/05/19 06:15 Glucose 103 mg/dL (74-106) 11/05/19 06:15 Phosphorus 2.6 mg/dL (2.5-4.9) 11/05/19 06:15 Magnesium 2.5 mg/dL (1.8-2.4) H 11/05/19 06:15 Total Bilirubin 1.1 mg/dL (0.2-1.0) H 11/05/19 06:15 AST 159 U/L (15-37) H 11/05/19 06:15 ALT 62 U/L (12-78) 11/05/19 06:15 Alkaline Phosphatase 50 U/L (45-117) 11/05/19 06:15 Troponin I 2.32 ng/mL (0.0-0.045) H* 11/05/19 11:05 Triglycerides 376 mg/dL (<150) H 11/05/19 06:15 Cholesterol 179 mg/dL (<200) 03/27/20 06:15 HDL Cholesterol 47 mg/dL (40-60) 11/05/19 06:15 Cholesterol/HDL Ratio 3.81 11/05/19 06:15 Home Medications: lisinopriL [Prinivil*] 20 mg PO DAILY 05/20/17 levETIRAcetam [Keppra*] 750 mg PO DAILY 11/04/19 Levetiracetam [Keppra] 1,000 mg PO BID #60 tablet 11/06/19 New Medications: Levetiracetam [Keppra] 1,000 mg PO BID #60 tablet Patient Discharge Instructions: OK TO DC IV AND DC HOME. FOLLOW-UP WITH PRIMARY CARE PROVIDER IN 1-2 WEEKS. FOLLOW-UP WITH CARDIOLOGY IN 2-4 WEEKS. RETURN TO THE ER IF symptoms worsen. CALL or TEXT DR. SANTIAGO AT [phone] IF ANY QUESTIONS REGARDING HOSPITAL STAY. PLEASE CALL THE FLOOR AT [phone] IF ANY MEDICATION OR NURSING QUESTIONS. Follow with Neurology in 4 weeks Diet: AHA Activity: Fall precautions Time spent managing pt's care (in minutes): 25
[2019-11-06 07:29] LABS: Creatine Phosphokinase 5738 U/L (39-308)
[2019-11-06] MEDS: ASPIRIN 81 MG CHEWABLE TABLET PO SCH (07:47)
[2019-11-06] MEDS: CLOPIDOGREL 75 MG TABLET PO SCH (07:47)
[2019-11-06] MEDS: ENOXAPARIN 40 MG/0.4 ML SQ SCH (07:48)
[2019-11-06] MEDS: CEFTRIAXONE/SWI 1gm 1 GM/10 ML SYR IV SCH (07:48)
[2019-11-06 10:11] VITALS: BP 135/73; TEMP 97.5
[2019-11-06] MEDS: levETIRAcetam 1,000 MG in NA CHLORIDE 0.9% 100 ML IV SCH (10:33)
== END 2019-11-06 11:00 | disposition home or self-care (01) | DRG 101 ==
LOC: ER 12:11 → ERHOLD 21:27 → 4TH 22:15
PROVIDERS: ADMIT Hospitalist; ATTEND Hospitalist
PROC: 009U3ZZ Drainage of Spinal Canal, Percutaneous Approach (ICD-10-PCS; principal; 2019-11-04)
DX: G40.909 Epilepsy, unspecified, not intractable, without status epilepticus (principal); M62.82 Rhabdomyolysis; G83.84 Todd's paralysis (postepileptic); I10 Essential (primary) hypertension; Z86.73 Personal history of transient ischemic attack (TIA), and cerebral infarction without residual deficits; R79.89 Other specified abnormal findings of blood chemistry; Z79.899 Other long term (current) drug therapy; Z03.818 Encounter for observation for suspected exposure to other biological agents ruled out; Z91.14 Patient's other noncompliance with medication regimen; R50.9 Fever, unspecified; D72.829 Elevated white blood cell count, unspecified; E87.6 Hypokalemia; Z79.02 Long term (current) use of antithrombotics/antiplatelets
CPT/HCPCS: 36415; 51702; 62270; 70450; 71045; 80048; 80053; 80061; 80076; 80307; 81003; 81015; 82140; 82550; 82945; 83605; 83735; 84100; 84145; 84157; 84484; 85025; 85610; 85730; 86403; 87040; 87070; 87081; 87086; 87088; 87804; 89050; 93306; 96361; 96365; 96366; 96368; 96375; 99285; J0456; J0696; J1650; J1953; J2250; J3010; J3370; J7030; U0001

== ENCOUNTER 2019-12-21 09:53 | Observation (INO) | payer OTHER ==
[2019-12-21] MEDS ORDERED: LORazepam 2 MG/ML VIAL ONE (10:43)
[2019-12-21] MEDS ORDERED: NA CHLORIDE 0.9% 1,000 ML ONE (10:43)
[2019-12-21] MEDS ORDERED: levETIRAcetam 1,000 MG in NA CHLORIDE 0.9% 100 ML IV ONE (10:45)
--- NOTE | 2019-12-21 10:54 | RAD REPORT ---
EXAM DESCRIPTION: CT - Head Brain Wo Cont - 12/21/2019 10:42 am CLINICAL HISTORY: Dizziness;Mental status change;Seizure Headache, drowsiness COMPARISON: Head Brain Wo Cont dated 11/04/2019; Head Brain Wo Cont dated 06/05/2019 TECHNIQUE: All CT scans are performed using dose optimization technique as appropriate and may inclu de automated exposure control or mA/KV adjustment according to patient size. FINDINGS: No intracranial hemorrhage, hydrocephalus or extra-axial fluid collection.No areas of brai n edema or evidence of midline shift. The paranasal sinuses and mastoids are clear. The calvarium is intact. IMPRESSION: No acute intracranial abnormality.
--- NOTE | 2019-12-21 10:56 | RAD REPORT ---
EXAM DESCRIPTION: RAD - Chest Single View - 12/21/2019 10:50 am CLINICAL HISTORY: COUGH Chest pain. COMPARISON: Chest Single View dated 11/04/2019; Chest Single View dated 06/05/2019; Chest Single View dated 10/17/2018; Chest Single View dated 12/25/2017 FINDINGS: Portable technique limits examination quality. The lungs are grossly clear. The heart is upper limit normal in size with a tortuous thoracic aorta. No displaced fractures. IMPRESSION: No acute intrathoracic process suspected.
--- NOTE | 2019-12-21 11:13 | EKG ---
Test Date: 2019-12-21 Test Time: 10:28:03 Glove Machine Operator: LOLI Hopper MEASUREMENT RESULTS: Intervals: Rate: 82 PA: 188 QRSD: 80 QT: 346 QTc: 404 [place]: P: 43 PA: 188 QRS: 7 T: 22 INTERPRETIVE STATEMENTS: Normal sinus rhythm Normal ECG Compared to ECG 06/05/2019 18:52:06 No significant changes Electronically Signed On 12-21-19 11:12:23 CDT by Oliver Engel
[2019-12-21 11:28] LABS: Absolute Lymphocytes (CBC) 0.8 K/uL (0.7-4.9); Basophils % 0.5 % (0-1.3); Hematocrit 39.2 % (39.6-49.0); Lymphocytes % 5.9 % (15.3-44.8); MPV 8.4 fL (7.6-11.3); RBC Red Blood Cell Count 4.48 M/uL (4.33-5.43)
[2019-12-21 11:30] LABS: Protime INR 1.09
[2019-12-21 11:48] LABS: Albumin 3.8 g/dL (3.4-5.0); Bilirubin Direct 0.2 mg/dL (0-0.2); Bilirubin Total 0.7 mg/dL (0.2-1.0); Magnesium 2.4 mg/dL (1.8-2.4); Potassium 3.9 mmol/L (3.5-5.1); Protein, Total 7.4 g/dL (6.4-8.2); Troponin (Emerg Dept Use Only) 0.12 ng/mL (0.0-0.045)
--- NOTE | 2019-12-21 11:48 | EDPHYS ---
Physician Documentation [facility] Name: Brenden Osman Age: 54 yrs Sex: Male : 1965 Arrival Date: 12/21/2019 Time: 10:00 Bed 3 Private MD: ED Physician Pancho Day HPI: 12/20 11:14 This 54 yrs old Black Male presents to ER via EMS with complaints of Seizure. marciano 11:14 The patient presents with a history of multiple seizures, a total of 2, the episode(s) marciano was witnessed, by family. Character of seizure(s): Loss of consciousness: the patient experienced loss of consciousness, Motor activity: generalized. Seizure onset: just prior to arrival. Context: the seizure(s) was witnessed, by a bystander, by family, occurred at home. Seizure Hx: Last seizure: The patient's last seizure is unknown. Associated injury: The patient did not suffer any apparent associated injury. The patient has experienced similar episodes in the past, multiple times. Historical: - Allergies: 10:00 No Known Allergies; rb1 - Home Meds: 10:00 Keppra 500 mg Oral tab 1 tab daily [Active]; lisinopril 20 mg Oral tab 1 tab once daily rb1 [Active]; - PMHx: 10:00 Hypertension; Seizures; rb1 - Family history:: not pertinent. - Social history:: Smoking status: unknown. ROS: 11:14 Constitutional: Negative for fever, chills, and weight loss, Eyes: Negative for injury, marciano pain, redness, and discharge, ENT: Negative for injury, pain, and discharge, Neck: Negative for injury, pain, and swelling, Cardiovascular: Negative for chest pain, palpitations, and edema, Respiratory: Negative for shortness of breath, cough, wheezing, and pleuritic chest pain, Abdomen/GI: Negative for abdominal pain, nausea, vomiting, diarrhea, and constipation, Back: Negative for injury and pain, : Negative for injury, bleeding, discharge, and swelling, MS/Extremity: Negative for injury and deformity, Skin: Negative for injury, rash, and discoloration, Psych: Negative for depression, anxiety, suicide ideation, homicidal ideation, and hallucinations, Allergy/Immunology: Negative for hives, rash, and allergies, Endocrine: Negative for neck swelling, polydipsia, polyuria, polyphagia, and marked weight changes, Hematologic/Lymphatic: Negative for swollen nodes, abnormal bleeding, and unusual bruising. 11:14 Neuro: Positive for altered mental status, weakness. Exam: 11:14 Constitutional: This is a well developed, well nourished patient who is awake, alert, marciano and in no acute distress. Head/Face: Normocephalic, atraumatic. Eyes: Pupils equal round and reactive to light, extra-ocular motions intact. Lids and lashes normal. Conjunctiva and sclera are non-icteric and not injected. Cornea within normal limits. Periorbital areas with no swelling, redness, or edema. ENT: Nares patent. No nasal discharge, no septal abnormalities noted. Tympanic membranes are normal and external auditory canals are clear. Oropharynx with no redness, swelling, or masses, exudates, or evidence of obstruction, uvula midline. Mucous membranes moist. Neck: Trachea midline, no thyromegaly or masses palpated, and no cervical lymphadenopathy. Supple, full range of motion without nuchal rigidity, or vertebral point tenderness. No Meningismus. Chest/axilla: Normal chest wall appearance and motion. Nontender with no deformity. No lesions are appreciated. Cardiovascular: Regular rate and rhythm with a normal S1 and S2. No gallops, murmurs, or rubs. Normal PMI, no JVD. No pulse deficits. Respiratory: Lungs have equal breath sounds bilaterally, clear to auscultation and percussion. No rales, rhonchi or wheezes noted. No increased work of breathing, no retractions or nasal flaring. Abdomen/GI: Soft, non-tender, with normal bowel sounds. No distension or tympany. No guarding or rebound. No evidence of tenderness throughout. Back: No spinal tenderness. No costovertebral tenderness. Full range of motion. Male : Normal genitalia with no discharge or lesions. Skin: Warm, dry with normal turgor. Normal color with no rashes, no lesions, and no evidence of cellulitis. MS/ Extremity: Pulses equal, no cyanosis. Neurovascular intact. Full, normal range of motion. Psych: Awake, alert, with orientation to person, place and time. Behavior, mood, and affect are within normal limits. 11:14 Neuro: Orientation: unable to test, Mentation: confused, Memory: unable to test, Cerebellar function: is grossly normal, is grossly normal based on the patient's age, no acute changes, Motor: moves all fours, strength is normal, Sensation: unable to test, Gait: not tested. seizure activity, is not displayed by the patient. 11:52 ECG was reviewed by the Attending Physician. [facility] Vital Signs: 10:00 BP 150 / 83; Pulse 79; Resp 23; Pulse Ox 95% on R/A; Weight 81.65 kg; Height 6 ft. 0 rb1 in. (182.88 cm); Pain 0/10; 11:00 BP 145 / 71; Pulse 80; Resp 20; Pulse Ox 94% on 2 lpm NC; rb1 12:00 BP 153 / 79; Pulse 85; Resp 26; Pulse Ox 99% on R/A; rb1 13:00 BP 152 / 79; Pulse 82; Resp 22; Pulse Ox 96% on R/A; rb1 14:00 BP 144 / 77; Pulse 82; Resp 22; Pulse Ox 95% on R/A; rb1 10:00 Body Mass Index 24.41 (81.65 kg, 182.88 cm) rb1 Brandie Coma Score: 10:00 Eye Response: to voice(3). Verbal Response: none(1). Motor Response: localizes pain(5). rb1 Total: 9. MDM: 10:[address] [facility] 11:16 Differential diagnosis: cerebral vascular accident, seizure. Data reviewed: [facility] signs, nurses notes, EMS record, lab test result(s), EKG, radiologic studies, CT scan. Data interpreted: manager pharmacy: rate is 80 beats/min, Pulse oximetry: on 2L(s) per nasal canula, is 94 %. Test interpretation: by ED physician or midlevel provider: ECG, plain radiologic studies. Counseling: I had a detailed discussion with the patient and/or guardian regarding: the historical points, exam findings, and any diagnostic results supporting the discharge/admit diagnosis, lab results, radiology results. 11:51 Medical screen evaluation completed. EMTALA emergency medical condition absent. [facility] 12/20 10:23 Order name: Basic Metabolic Panel; Complete Time: 11:48 [facility] 12/20 10:23 Order name: CBC with Diff; Complete Time: 11:46 [facility] 12/20 10:23 Order name: LFT's; Complete Time: 11:48 [facility] 12/20 10:23 Order name: Magnesium; Complete Time: 11:48 12/20 10:23 Order name: NT PRO-BNP; Complete Time: 11:48 [facility] 12/20 10:23 Order name: PT-INR; Complete Time: 11:46 [facility] 12/20 10:23 Order name: Troponin (emerg Dept Use Only); Complete Time: 11:48 [facility] 12/20 10:23 Order name: XRAY Chest (1 view); Complete Time: 11:21 [facility] 12/20 10:23 Order name: CT Head Brain wo Cont; Complete Time: 11:21 12/20 10:23 Order name: Urine Culture 12/20 10:23 Order name: EKG; Complete Time: 10:24 [facility] 12/20 10:23 Order name: Cardiac monitoring; Complete Time: 11: [facility] 12/20 10:23 Order name: EKG - Nurse/Tech; Complete Time: 11: [facility] 12/20 10:23 Order name: IV Saline Lock; Complete Time: 11: [facility] 12/20 10:23 Order name: Labs collected and sent; Complete Time: 11: [facility] 12/20 10:23 Order name: O2 Per Protocol; Complete Time: 11: [facility] 12/20 10:23 Order name: O2 Sat Monitoring; Complete Time: 11: [facility] 12/20 10:23 Order name: Seizure Precautions; Complete Time: 10:34 [facility] 12/20 11:12 Order name: Labs - recollect needed; Complete Time: 13:34 bd EC:52 Rate is 82 beats/min. Rhythm is regular. QRS Murray is Normal. [place] interval is normal. QRS marciano interval is normal. QT interval is normal. No Q waves. T waves are Normal. No ST changes noted. Clinical impression: Normal ECG and No evidence of ischemia. Interpreted by me. Reviewed by me. Administered Medications: : Drug: Ativan 1 mg Route: IVP; Site: left antecubital; rb1 11:15 Follow up: Response: No adverse reaction rb1 11: Drug: NS 0.9% 1000 ml Route: IV; Rate: 1 bolus; Site: left antecubital; rb1 12:00 Follow up: IV Status: Completed infusion rb1 11: Drug: Keppra 1000 mg Route: IV; Rate: per protocol; Site: left antecubital; rb1 17:26 Follow up: Response: No adverse reaction rb1 13:05 Drug: Pepcid 20 mg Route: IVP; Site: left antecubital; rb1 13:25 Follow up: Response: No adverse reaction rb1 13:05 Drug: Aspirin Chewable Tablet 324 mg Route: PO; rb1 13:40 Follow up: Response: No adverse reaction rb1 13:28 Drug: Depacon 500 mg Volume: 5 ml; Route: IV; Rate: calculated rate; Site: left rb1 antecubital; 14:09 Follow up: IV Status: Infusion continued upon admission rb1 14:19 CANCELLED (provider changed order to pO): Aspirin Suppository 300 mg [place] once rb1 Disposition: 12/21/19 11:48 Hospitalization ordered by Alessandro Leone for Observation. Preliminary diagnosis are Epilepsy and recurrent seizures, Essential (primary) hypertension. - Bed requested for Telemetry/MedSurg (observation). - Status is Observation. rb1 - Condition is Fair. - Problem is new. - Symptoms have improved. Signatures: Dispatcher [employer] EDMS Nesha Salvador Diana, RN RN dw Anderson, Corey, MD MD cha Barber, Rebecca, RISHI RN rb1 Corrections: (The following items were deleted from the chart) 11:50 11:48 Hospitalization Ordered by Alessandro Leone MD for Inpatient Admission. Preliminary marciano diagnosis is Epilepsy and recurrent seizures; Essential (primary) hypertension. Bed requested for Telemetry/MedSurg (observation). Status is Inpatient Admission. Condition is Fair. Problem is new. Symptoms have improved. marciano 12:50 11:50 12/21/2019 11:48 Hospitalization Ordered by Alessandro Leone MD for Observation. dw Preliminary diagnosis is Epilepsy and recurrent seizures; Essential (primary) hypertension. Bed requested for Telemetry/MedSurg (observation). Status is Observation. Condition is Fair. Problem is new. Symptoms have improved. marciano 14:09 12:50 12/21/2019 11:48 Hospitalization Ordered by Alessandro Leone MD for Observation. rb1 Preliminary diagnosis is Epilepsy and recurrent seizures; Essential (primary) hypertension. Bed requested for Telemetry/MedSurg (observation). Status is Observation. Condition is Fair. Problem is new. Symptoms have improved. dw 14:22 14:09 12/21/2019 11:48 Hospitalization Ordered by Alessandro Leone MD for Observation. rb1 Preliminary diagnosis is Epilepsy and recurrent seizures; Essential (primary) hypertension. Bed requested for Telemetry/MedSurg (observation). Status is Observation. Condition is Fair. Problem is new. Symptoms have improved. rb1
--- NOTE | 2019-12-21 11:48 | ER ---
Nurse's Notes [facility] Name: Brenden Osman Age: 54 yrs Sex: Male : 1965 Arrival Date: 12/21/2019 Time: 10:00 Bed 3 Private MD: Diagnosis: Epilepsy and recurrent seizures;Essential (primary) hypertension Presentation: 12/20 10:00 Chief complaint: Patient states: 54 yr. old, is post ictal after having two seizures, rb1 the last one lasted three minutes. Pt. was disoriented when EMS arrived. He is in a post ictal state now. His last seizure was a month ago. He has dried emesis on his mouth. Vital signs and Capnography are stable. NKDA. History of seizures and hypertension. He takes Keppra and Lisinopril. Risk Assessment: Do you want to hurt yourself or someone else? Patient reports no desire to harm self or others. Onset of symptoms is unknown. 10:00 Method Of Arrival: EMS: [facility] rb1 10:00 Acuity: LUCITA 3 rb1 14:00 Coronavirus screen: unknown, pt. is not verbally responding. Ebola Screen: Unable to rb1 complete the Ebola screening because:. Initial Sepsis Screen: Does the patient meet any 2 criteria? No. Patient's initial sepsis screen is negative. Does the patient have a suspected source of infection? No. Patient's initial sepsis screen is negative. Triage Assessment: 10:00 General: Appears in no apparent distress. Behavior is drowsy. Neuro: Level of rb1 Consciousness is post ictal. Cardiovascular: Capillary refill < 3 seconds. Respiratory: Airway is patent Respiratory effort is even, unlabored, Respiratory pattern is regular, symmetrical. Derm: Skin is dry, Skin is normal, Skin temperature is warm. 10:00 Pain: Unable to use pain scale. Patient is disoriented. GI: No signs and/or symptoms rb1 were reported involving the gastrointestinal system. : No signs and/or symptoms were reported regarding the genitourinary system. Historical: - Allergies: 10:00 No Known Allergies; rb1 - Home Meds: 10:00 Keppra 500 mg Oral tab 1 tab daily [Active]; lisinopril 20 mg Oral tab 1 tab once daily rb1 [Active]; - PMHx: 10:00 Hypertension; Seizures; rb1 - Family history:: not pertinent. - Social history:: Smoking status: unknown. Screenin:00 Abuse screen: Denies threats or abuse. Nutritional screening: No deficits noted. rb1 Tuberculosis screening: No symptoms or risk factors identified. Fall Risk None identified. Assessment: 11:00 Reassessment: Pt. will open his eyes when spoken to but he does not respond. rb1 12:00 Reassessment: Patient appears in no apparent distress at this time. No changes from rb1 previously documented assessment. Respirations even, unlabored. 13:00 Reassessment: Patient appears in no apparent distress at this time. Patient and/or rb1 family updated on plan of care and expected duration. Pain level reassessed. Patient is alert, oriented x 3, equal unlabored respirations, skin warm/dry/pink. 13:44 Reassessment: Gave report to RISHI Dunbar information from the SBAR was given. All rb1 questions asked and answered. 14:00 Reassessment: Patient appears in no apparent distress at this time. Pt. is more awake rb1 but will not verbally respond when spoken to. Vital Signs: 10:00 BP 150 / 83; Pulse 79; Resp 23; Pulse Ox 95% on R/A; Weight 81.65 kg; Height 6 ft. 0 rb1 in. (182.88 cm); Pain 0/10; 11:00 BP 145 / 71; Pulse 80; Resp 20; Pulse Ox 94% on 2 lpm NC; rb1 12:00 BP 153 / 79; Pulse 85; Resp 26; Pulse Ox 99% on R/A; rb1 13:00 BP 152 / 79; Pulse 82; Resp 22; Pulse Ox 96% on R/A; rb1 14:00 BP 144 / 77; Pulse 82; Resp 22; Pulse Ox 95% on R/A; rb1 10:00 Body Mass Index 24.41 (81.65 kg, 182.88 cm) rb1 Brandie Coma Score: 10:00 Eye Response: to voice(3). Verbal Response: none(1). Motor Response: localizes pain(5). rb1 Total: 9. ED Course: 10:00 Patient arrived in ED. rb1 10:00 Arm band placed on right wrist. rb1 10:00 Patient has correct armband on for positive identification. Bed in low position. Call rb1 light in reach. Side rails up X2. Seizure precautions initiated. child monitor on. Pulse ox on. NIBP on. Warm blanket given. 10:21 Pancho Day MD is Attending Physician. marciano 10:22 Triage completed. rb1 10:25 Rosanne Banda, RN is Primary Nurse. rb1 10:39 EKG done, by oven technician. reviewed by Pancho Day MD. tc 10:42 CT Head Brain wo Cont In Process Unspecified. EDMS 10:50 XRAY Chest (1 view) In Process Unspecified. EDMS 11:47 Alessandro Leone MD is Hospitalizing Provider. marciano 14:09 No provider procedures requiring assistance completed. Patient admitted, IV remains in rb1 place. 14:19 Primary Nurse role handed off by Rosanne Banda, RN rb1 14:19 Rosanne Banda, RN is Primary Nurse. rb1 Administered Medications: 11:01 Drug: Ativan 1 mg Route: IVP; Site: left antecubital; rb1 11:15 Follow up: Response: No adverse reaction rb1 11:01 Drug: NS 0.9% 1000 ml Route: IV; Rate: 1 bolus; Site: left antecubital; rb1 12:00 Follow up: IV Status: Completed infusion rb1 11:02 Drug: Keppra 1000 mg Route: IV; Rate: per protocol; Site: left antecubital; rb1 17:26 Follow up: Response: No adverse reaction rb1 13:05 Drug: Pepcid 20 mg Route: IVP; Site: left antecubital; rb1 13:25 Follow up: Response: No adverse reaction rb1 13:05 Drug: Aspirin Chewable Tablet 324 mg Route: PO; rb1 13:40 Follow up: Response: No adverse reaction rb1 13:28 Drug: Depacon 500 mg Volume: 5 ml; Route: IV; Rate: calculated rate; Site: left rb1 antecubital; 14:09 Follow up: IV Status: Infusion continued upon admission rb1 14:19 CANCELLED (provider changed order to pO): Aspirin Suppository 300 mg [place] once rb1 Outcome: 11:48 Decision to Hospitalize by Provider. marciano 14:09 Patient left the ED. rb1 14:09 Admitted to Med/surg accompanied by tech, via stretcher, room 219, with chart, Report rb1 called to RISHI Dunbar 14:09 Condition: stable 14:09 Instructed on the need for admit. 14:22 Patient left the ED. rb1 Signatures: Dispatcher [employer] EDBlanca Mendozay, MD MD marciano Lori, Danay, excavation laborer [facility] Rosanne Banda, RN RN rb1
[2019-12-21] MEDS ORDERED: ASPIRIN 600 MG/SUPP PR ONE (12:54)
[2019-12-21] MEDS ORDERED: VALPROATE NA 500 MG/5 ML INJ IV ONE (12:55)
[2019-12-21] MEDS ORDERED: FAMOTIDINE 20 MG/2 ML VIAL IV ONE (12:55)
[2019-12-21] MEDS ORDERED: ASPIRIN 81 MG CHEWABLE TABLET ONE (13:10)
[2019-12-21] MEDS ORDERED: VALPROATE SODIUM INJ 500 MG in NA CHLORIDE 0.9% 100 ML IV ONE (13:15)
[2019-12-21] MEDS ORDERED: ONDANSETRON 4 MG/2 ML VIAL IV PRN (13:45)
[2019-12-21] MEDS ORDERED: ACETAMINOPHEN 500 MG TAB PO PRN (13:45)
[2019-12-21] MEDS: D5 0.45 NS 1,000 ML IV SCH (14:21)
[2019-12-21] MEDS: ENOXAPARIN 40 MG/0.4 ML SQ SCH (14:22)
[2019-12-21 14:26] VITALS: BMI 24.4
[2019-12-21] MEDS ORDERED: POTASSIUM 25 MEQ EFFERV TAB PO ONE (16:00)
[2019-12-21 18:30] LABS: Urine Appearance CLOUDY; Urine Bilirubin NEGATIVE (NEG); Urine Blood 3+ (NEG); Urine Color YELLOW; Urine Glucose TRACE (NEG); Urine Protein NEGATIVE (NEG); Urine Urobilinogen 0.2 mg/dL (0.2-1.0); Urine pH 5.5 (5.0-7.0)
[2019-12-21 18:45] LABS: Urine Bacteria <20 /HPF (NONE SEEN); Urine Culture Reflex Order REFLEXED; Urine RBC 20-50 /HPF (NONE SEEN)
[2019-12-21] MEDS ORDERED: VALPROATE SODIUM INJ 500 MG in NA CHLORIDE 0.9% 100 ML IV SCH (21:00)
[2019-12-21] MEDS: DIVALPROEX DR 500MG TAB PO SCH (21:01)
[2019-12-21] MEDS: levETIRAcetam 500 MG TAB PO SCH (21:01)
--- NOTE | 2019-12-21 23:22 | HP ---
Date of Admission: 12/21/2019 Chief Complaint: Seizure. Consultants: 1. Dr. Austin, Neurology. 2. Dr. Engel with Cardiology. History Of Present Illness: Patient is a 54-year-old male with past medical history of seizure disorder and hypertension, who was brought into the hospital for acute seizure that was witnessed by the family. History was obtained from previous records, ER staff. No family at the bedside. Patient is unable to cooperate due to his postictal state. Patient had 2 witnessed seizures, had loss of consciousness, had generalized tonic-clonic activity, unknown if patient has been compliant with his medications, currently on Keppra 750. Last known seizure is unknown. The patient's symptoms are constant, moderate, progressively worsening. Did not have any injury. Patient has had multiple episodes in the past. Patient was brought into the ER for further evaluation. Workup revealed a white blood cell count of 14,000. Troponin was elevated at 0.12. Head CT scan was negative for any acute changes. Chest x-ray was negative. EKG did not show any acute changes. Normal sinus rhythm. Patient was then referred for admission. Patient was loaded with 1 g of Keppra and Depacon per Neurology recommendations. Patient was also given 2 mg of Ativan and normal saline bolus. When seen in the ER, he was awake, asleep, but arousable, is still postictal. No active seizure. Past Medical History: Hypertension, seizure disorder, history of CVA. Past Surgical History: None. Allergies: NO KNOWN DRUG ALLERGIES. Medications: Lisinopril and Keppra. Family History: No premature coronary artery disease in the family. Social History: The patient is not known to smoke. Does use alcohol occasionally. Lives at home. Review of Systems: Ten-point review of systems unable to be obtained due to patient's medical condition; however, neurological is as per HPI. Physical Examination: Vital Signs: Blood pressure 150/83, pulse 79, respirations 23, O2 of 95% on room air. General: Awake, appears to be postictal, does not respond to commands. HEENT: Normocephalic, atraumatic. PERRLA. EOMI. Moist mucous membranes. Oropharynx is clear. Conjunctivae are anicteric. Neck: Supple. No JVD. CV: S1, S2. Regular rate and rhythm. Peripheral pulses present. Respiratory: Moving air well bilaterally. No wheezing or stridor. Gastrointestinal: Abdomen is soft, nondistended. Positive bowel sounds. Extremities: No clubbing, cyanosis, or edema. Neuro: Patient is postictal, not following commands, but moves all 4 extremities. Unable to assess speech. Laboratory Data: WBC 14.2, H and H 13.2 and 39.2, platelets 216. Sodium 138, potassium 3.9, chloride 105, CO2 of 26, BUN 9, creatinine 1.22, glucose 113, calcium 8, magnesium 2.4. Troponin 0.12. Head CT scan is negative for any acute changes. EKG; normal sinus rhythm, normal EKG, rate of 82. Chest x-ray shows no acute intrathoracic process. Assessment: A 54-year-old male with: 1. Acute seizure, post-ictal. Unable to determine if the patient has been compliant with his medications, was in the hospital in late October for similar issues. Patient has mildly elevated WBC, even likely from his acute seizure. 2. Elevated troponin level. Apparently, patient had echocardiogram done in October, showed 58% ejection fraction, no effusion. No need to repeat echocardiogram. 3. Essential hypertension. We will continue home medications once able to take p.o. for, use p.r.n. medications IV. 4. Deep vein thrombosis prophylaxis with Lovenox. Plan: We will consult Neurology and Cardiology. Troponin elevation likely due to his acute medical condition per Cardiology. Spoke with Dr. Engel. Spoke with Dr. Austin, recommends Keppra and Depakote. We will load with 1 g of Keppra and then resume home dose. We will give Depakene [address] will place on fall precautions and seizure precautions. /ROBERTO CARLOS Voice ID: [id number] [facility]
[2019-12-22] MEDS: D5 0.45 NS 1,000 ML IV SCH ×2 (00:21→09:31)
[2019-12-22 04:35] LABS: Absolute Lymphocytes (CBC) 2.1 K/uL (0.7-4.9); Basophils % 1.1 % (0-1.3); Hematocrit 38.2 % (39.6-49.0); Lymphocytes % 25.1 % (15.3-44.8); MPV 8.5 fL (7.6-11.3); RBC Red Blood Cell Count 4.28 M/uL (4.33-5.43)
[2019-12-22 04:52] LABS: ALT/SGPT 40 U/L (12-78); AST/SGOT 29 U/L (15-37); Albumin 3.4 g/dL (3.4-5.0); Alkaline Phosphatase 52 U/L (45-117); BUN Blood Urea Nitrogen 7 mg/dL (7-18); Bicarbonate 26 mmol/L (21-32); Bilirubin Total 1.3 mg/dL (0.2-1.0); Glucose Level 133 mg/dL (74-106); Magnesium 2.5 mg/dL (1.8-2.4); Phosphorus 2.6 mg/dL (2.5-4.9); Potassium 3.6 mmol/L (3.5-5.1); Protein, Total 7.2 g/dL (6.4-8.2); Sodium Level 139 mmol/L (136-145)
[2019-12-22] MEDS: ENOXAPARIN 40 MG/0.4 ML SQ SCH ×2 (09:00→09:31)
[2019-12-22] MEDS ORDERED: POTASSIUM CL SA 10 MEQ TAB PO ONE (09:00)
[2019-12-22 09:23] VITALS: O2SAT 95
[2019-12-22] MEDS: DIVALPROEX DR 500MG TAB PO SCH (09:32)
[2019-12-22] MEDS: levETIRAcetam 500 MG TAB PO SCH (09:32)
--- NOTE | 2019-12-22 10:17 | CON ---
Date of Consultation: 12/22/2019 Reason For Consultation: Elevated troponin. History Of Present Illness: Mr. Osman is a 54-year-old black male who has a history of hypertensio n and seizure disorder. He was in the hospital approximately a month ago with similar issues. He mcintosh d seizure and he had elevated troponin then. Echocardiogram was perfectly normal. His EKG today is normal. His chest x-ray is normal. He came in with seizure. No report of chest pain, shortness of breath, nausea, vomiting, diaphoresis, PND, orthopnea, pedal edema. He has no palpitations, fevers, or chills. Troponin was slightly elevated at 0.12. Past Medical History: As stated above. Allergies: NONE. Review of Systems: Negative. Social History: Negative. Family History: Negative. Medications: At home include Keppra and lisinopril. Physical Examination: Vital Signs: Stable. Afebrile. No complaint. HEENT: Negative. Neck: Supple with no bruit. Chest: Clear. Cardiac: Revealed a regular rhythm and rate. No murmurs, gallops, or rubs. Abdomen: Benign. Extremities: Revealed no clubbing, cyanosis, or edema. Diagnostic Data: As stated earlier. Impression And Plan: 1.Elevated troponin secondary to seizure disorder. 2.Hypertension. Patient had a normal echo in October 2019. His EKG is normal. His chest x-ray is no rmal. He has no cardiac symptoms or signs of CHF or CAD. I do not recommend any further cardiac wor kup. I will sign off this case. Continue medical therapy. CAMILLA/ROBERTO CARLOS Voice ID: [id number] Report ID: [id number]
[2019-12-22 12:05] VITALS: BP 138/76; TEMP 99.7
--- NOTE | 2019-12-22 12:23 | DS ---
Consultants: 1.Dr. Engel, Cardiology. 2.Dr. Ausitn with Neurology. Discharge Diagnoses: 1.Acute seizure. 2.Elevated troponin level secondary to seizure. No further cardiac workup. 3.Essential hypertension, stable. 4.Hyperbilirubinemia. Hospital Course: Patient is a 54-year-old male who came in with a seizure that was witnessed by stacey hendrix. Patient was postictal. He was admitted to the hospital for further evaluation. He was loaded w ith IV Keppra and started on Depakote as well. Dr. Austin, Neurology, consulted. Patient's seizur es were well controlled after that. He required Ativan in the ER only. Denies any further episodes. Patient was then able to tolerate a diet and he was back to his baseline. He stated that he is radha ing his medications at home as prescribed. He does drink alcohol occasionally. Otherwise, denies an y tobacco use or illicit drug use. No current triggers for this seizure. UA shows no growth. Head CT scan was also negative. Patient did have elevation of his cardiac enzymes at 0.12. This is simil ar to his previous presentation with seizure. He had a recent echocardiogram done in October, which di d not show any abnormalities, EF of 58%. Cardiology was consulted. Dr. Engel did not recommend an y further cardiac workup. His leukocytosis resolved, which was likely secondary to the acute seizure . Patient was then back to baseline, able to tolerate his diet. No further seizures. He will be di scharged on Keppra along with Depakote 500 b.i.d. This can be weaned off by Dr. Austin as an outpa tient. Otherwise, patient did well during the course of the hospital stay. Medications as per medic ation reconciliation list. Diet: Heart healthy. Activity: Seizure precautions. No driving, swimming, unattended heights. Followup: Patient to follow up with his PCP in 1 week. Follow up with neurologist, Dr. Austin in 2-4 weeks. Follow up with prop setter, Dr. Engel per his recommendation. Return to ER for worsen ing condition. Physical Examination: General: Awake, alert, and oriented x3. No acute distress. CVS: S1, S2. Respiratory: Moving air well bilaterally. Abdomen: Abdomen is soft, nontender, nondistended. Positive bowel sounds. Extremities: No clubbing, cyanosis, or edema. Neurologic: Nonfocal. SA/MODL Voice ID: [id number] Report ID: [id number]
[2019-12-22] MEDS ORDERED: HOME MED 1 EA UNK (Levetiracetam [Keppra] 1,000 MG) PO SCH (21:00)
--- NOTE | 2019-12-23 08:39 | EEG ---
CHART: [id number] TEST ID#: [id number] DATE OF STUDY: 12/22/2019 THE EEG WAS RECORDED PORTABLE IN THE PATIENT'S ROOM ON A 17 CHANNEL MACHINE. ELECTRODES WERE APPLIED IN THE USUAL MANNER USING THE INTERNATIONAL 10-20 SYSTEM. THE WAKING BACKGROUND RHYTHM IN THIS RECORD CONSISTS OF WELL DEVELOPED AND WELL ORGANIZED WAVES OF 10 HZ., MAXIMAL IN THE POSTERIOR HEAD REGIONS WHICH ATTENUATE NORMALLY WITH EYE OPENING. LOW-VOLTAGE 18-22 HZ ACTIVITY IS EXPRESSED IN THE FRONTAL REGIONS. THERE ARE NO FOCAL OR LATERALIZING FEATURES. NO EPILEPTIFORM ACTIVITY APPEARS. SLEEP OCCURRED NATURALLY. IN ADDITION NORMAL SLEEP PATTERNS ARE PRESENT. HYPERVENTILATION WAS NOT PERFORMED. PHOTIC STIMULATION PRODUCED GOOD DRIVING BILATERALLY. IMPRESSION: NORMAL EEG FOR THE AGE OF THE PATIENT IN [place], DROWSINESS AND SLEEP.
[2019-12-23] MEDS ORDERED: lisinopriL 20 MG TAB PO SCH (09:00)
== END 2019-12-22 13:17 | disposition home or self-care (01) ==
LOC: ER 09:53 → ERHOLD 12:33 → 2ND 13:55
PROVIDERS: ADMIT Family Medicine; ATTEND Family Medicine
DX: G40.909 Epilepsy, unspecified, not intractable, without status epilepticus (principal); I10 Essential (primary) hypertension; E80.6 Other disorders of bilirubin metabolism; D72.829 Elevated white blood cell count, unspecified; Z86.73 Personal history of transient ischemic attack (TIA), and cerebral infarction without residual deficits
CPT/HCPCS: 96365; 96361; 95816; 93005; 87088; 85025 ×2; 81001; 87086; 80048; 36415; 83735 ×2; 84100; 85610; 80076; 84484; 80053; 83880; 70450; 71045; 97116; 97161; 94760 ×3; 96375; 99285; J1650; J1953; J7799 ×3; J7030; G0378 ×3

== ENCOUNTER 2020-04-10 17:45 | Emergency (ER) | payer OTHER, SELFPAY ==
[2020-04-10] MEDS ORDERED: NA CHLORIDE 0.9% 1,000 ML ONE ×2 (18:40→20:15)
[2020-04-10 18:52] LABS: Absolute Lymphocytes (CBC) 0.8 K/uL (0.7-4.9); Basophils % 0.7 % (0-1.3); Hematocrit 38.2 % (39.6-49.0); Lymphocytes % 6.4 % (15.3-44.8); MPV 8.9 fL (7.6-11.3); RBC Red Blood Cell Count 4.26 M/uL (4.33-5.43)
[2020-04-10 18:56] LABS: Protime INR 1.04
[2020-04-10] MEDS ORDERED: LEVETIRACETAM 500 MG/5 ML VIAL IV ONE (19:02)
[2020-04-10] MEDS ORDERED: NA CHLORIDE 0.9% 100 ML IV ONE (19:03)
[2020-04-10 19:14] LABS: ALT/SGPT 44 U/L (12-78); Albumin 3.9 g/dL (3.4-5.0); Alkaline Phosphatase 62 U/L (45-117); Amylase 80 U/L (25-115); BUN Blood Urea Nitrogen 10 mg/dL (7-18); Bicarbonate 16 mmol/L (21-32); Bilirubin Direct 0.3 mg/dL (0-0.2); Bilirubin Total 1.5 mg/dL (0.2-1.0); CKMB Creatine Kinase MB 1.3 ng/mL (0.3-3.6); Creatine Phosphokinase 721 U/L (39-308); Glucose Level 140 mg/dL (74-106); Lipase 87 U/L (73-393); Protein, Total 8.1 g/dL (6.4-8.2); Sodium Level 137 mmol/L (136-145); Troponin (Emerg Dept Use Only) < 0.02 ng/mL (0.0-0.045)
[2020-04-10 19:17] LABS: AST/SGOT 41 U/L (15-37); Potassium 3.6 mmol/L (3.5-5.1)
[2020-04-10 19:18] LABS: Blood Morphology Comment NOT SEEN (NOT SEEN); Platelet Estimate ADEQ
[2020-04-10] MEDS ORDERED: ACETAMINOPHEN 650MG/RECT SUPP PR ONE (19:21)
[2020-04-10] MEDS ORDERED: ACETAMINOPHEN 325 MG/SUPP PR ONE (19:22)
--- NOTE | 2020-04-10 19:23 | RAD REPORT ---
EXAM DESCRIPTION: CT - Head Brain Wo Cont - 04/10/2020 6:47 pm CLINICAL HISTORY: Fever;Seizure COMPARISON: Head Brain Wo Cont dated 12/21/2019 TECHNIQUE: Axial 5 mm thick images of the head were obtained without IV contrast. All CT scans are performed using dose optimization technique as appropriate and may include automated exposure control or mA/KV adjustment according to patient size. FINDINGS: No intracranial hemorrhage, mass, edema or shift of mid-line structures. No acute infarcti on changes seen. No abnormal extra-axial fluid collections. Ventricles are normal. Minimal thickening of the right frontal scalp soft tissues possibly contusion from trauma. Underlying bone is intact. Mastoid air cells and visualized portions of the paranasal sinuses are clear. No acute bony findings. IMPRESSION: No acute intracranial finding. No significant change from comparison.
--- NOTE | 2020-04-10 19:25 | RAD REPORT ---
EXAM DESCRIPTION: RAD - Chest Single View - 04/10/2020 6:51 pm CLINICAL HISTORY: FEVER, seizure COMPARISON: December 21, 2019 TECHNIQUE: AP portable chest image was obtained 04/10/2020 6:51 pm . FINDINGS: Lung volumes are low. No peripheral mass or consolidation. No significant failure or volum e overload. Granuloma seen in the right lung base. Heart and vasculature are normal. No measurable pl eural effusion and no pneumothorax. No acute bony abnormality seen. No acute aortic findings suspecte d. IMPRESSION: No acute cardiopulmonary process. No significant change from comparison.
[2020-04-10] MEDS ORDERED: ACETAMINOPHEN 500 MG TAB ONE (19:30)
[2020-04-10] MEDS ORDERED: PEN G BENZ LA 1.2MU/2ML SYRINGE IM ONE (20:35)
[2020-04-10] MEDS ORDERED: IBUPROFEN 200 MG TAB PO ONE (21:15)
--- NOTE | 2020-04-10 21:49 | EDPHYS ---
Physician Documentation [facility] Name: Brenden Osman Age: 54 yrs Sex: Male : 1965 Arrival Date: 04/10/2020 Time: 17:46 Bed 7 Private MD: ED Physician Alexander Nolasco HPI: 04/10 18:17 This 54 yrs old Black Male presents to ER via Wheelchair with complaints of Fever, pm1 Seizure. 18:17 The patient presents after having a possible seizure episode, patient reports that he pm1 believes that he had a seizure. Patient reports that he has not taken his seizure medications for some time. Patient also reports cough and fever for 2 days. Seizure onset: the onset is not known. Context: the seizure(s) was witnessed, by no one, occurred at home, Contributing factors: missed recent doses of medications, patient normally takes keppra. Seizure Hx: Seizure medications: Keppra. Associated injury: The patient did not suffer any apparent associated injury. Current symptoms: sleepiness. The patient has experienced similar episodes in the past, multiple times. Historical: - Allergies: 17:59 No Known Allergies; aa5 - Home Meds: 17:58 Keppra 500 mg Oral tab 1 tab daily [Active]; lisinopril 20 mg Oral tab 1 tab once daily aa5 [Active]; - PMHx: 17:58 Hypertension; Seizures; aa5 - Immunization history:: Adult Immunizations unknown. - Social history:: Smoking status: unknown. ROS: 18:17 Eyes: Negative for injury, pain, redness, and discharge. pm1 18:17 Neck: Negative for injury, pain, and swelling, Cardiovascular: Negative for chest pain, palpitations, and edema. 18:17 Abdomen/GI: Negative for abdominal pain, nausea, vomiting, diarrhea, and constipation, Back: Negative for injury and pain, MS/Extremity: Negative for injury and deformity, Skin: Negative for injury, rash, and discoloration. 18:17 Constitutional: Positive for fever. 18:17 ENT: Positive for sore throat, Negative for drainage from ear(s), ear pain. 18:17 Respiratory: Positive for cough, Negative for shortness of breath. 18:17 Neuro: Positive for seizure activity, Negative for numbness, tingling, weakness. Exam: 18:17 Head/Face: Normocephalic, atraumatic. pm1 18:17 Neck: Trachea midline, no thyromegaly or masses palpated, and no cervical lymphadenopathy. Supple, full range of motion without nuchal rigidity, or vertebral point tenderness. No Meningismus. Chest/axilla: Normal chest wall appearance and motion. Nontender with no deformity. No lesions are appreciated. 18:17 Skin: Warm, dry with normal turgor. Normal color with no rashes, no lesions, and no evidence of cellulitis. MS/ Extremity: Pulses equal, no cyanosis. Neurovascular intact. Full, normal range of motion. 18:17 Constitutional: The patient appears in no acute distress, alert, awake, comfortable, non-diaphoretic, non-toxic, well developed, well hydrated, well groomed, well nourished, febrile. 18:17 ENT: External ear(s): are unremarkable, Ear canal(s): are normal, Posterior pharynx: Tonsils: bilaterally enlarged, with erythema, no exudate, no ulcerations, erythema. 18:17 Cardiovascular: Exam negative for acute changes, Rate: normal, Rhythm: regular, Pulses: no pulse deficits are appreciated, Edema: is not appreciated. 18:17 Respiratory: Exam negative for acute changes, respiratory distress, shortness of breath. 18:17 Abdomen/GI: Exam negative for acute changes, Inspection: abdomen appears normal, Palpation: abdomen is soft and non-tender, in all quadrants. 18:17 Neuro: Orientation: is normal, Mentation: sleepy, Motor: is normal, moves all fours. Vital Signs: 17:54 BP 140 / 84; Pulse 84; Resp 20 S; Temp 103.1(O); Pulse Ox 98% on R/A; aa5 19:42 BP 130 / 75; Pulse 82; Resp 18; Pulse Ox 98% on R/A; mg2 19:59 Temp 102.7(O); mg2 20:42 BP 112 / 61; Pulse 70; Resp 18; Temp 102.1(O); Pulse Ox 98% on R/A; mg2 21:39 BP 128 / 72; Pulse 82; Resp 18; Temp 100.6(O); Pulse Ox 98% on R/A; mg2 Brandie Coma Score: 19:42 Eye Response: spontaneous(4). Verbal Response: oriented(5). Motor Response: obeys mg2 commands(6). Total: 15. MDM: 18:05 Patient medically screened. pm1 21:35 Data reviewed: vital signs. Data interpreted: Pulse oximetry: on room air is 98 %. pm1 Interpretation: normal. 21:47 Counseling: I had a detailed discussion with the patient and/or guardian regarding: the pm1 historical points, exam findings, and any diagnostic results supporting the discharge/admit diagnosis, lab results, radiology results, the need for outpatient follow up, to return to the emergency department if symptoms worsen or persist or if there are any questions or concerns that arise at home. 21:47 ED course: Patient without any further seizures in the ER, source of fever determined pm1 to be strep throat and patient treated with Bicillin-LA due to possible medications compliance issues, and patient loaded with Keppra for seizures. Patient does not meet admission criteria. Discussed with hospitalist and agrees that patient does not meet admission criteria. Vital signs stable and temperature improved with antipyretics. Patient reports that he has not been taking his Keppra for an extended time. Will discharge the patient home with a prescription for keppra. 04/10 18:10 Order name: Amylase, Serum pm1 04/10 18:10 Order name: Basic Metabolic Panel pm1 04/10 18:10 Order name: Blood Culture Adult (2) pm1 04/10 18:10 Order name: CBC with Diff pm1 04/10 18:10 Order name: Ckmb pm1 04/10 18:10 Order name: CPK pm1 04/10 18:10 Order name: LFT's; Complete Time: 19:32 pm04/10 18:10 Order name: Lipase; Complete Time: 19:32 pm04/10 18:10 Order name: Procalcitonin; Complete Time: 20:08 pm1 04/10 18:10 Order name: Protime (+inr); Complete Time: 18:59 pm1 04/10 18:10 Order name: Ptt, Activated; Complete Time: 18:59 pm1 04/10 18:10 Order name: Troponin (emerg Dept Use Only); Complete Time: 19:32 pm1 04/10 18:10 Order name: Chest Single View XRAY; Complete Time: 19:32 pm04/10 18:10 Order name: Flu; Complete Time: 20:08 pm1 04/10 18:10 Order name: Strep; Complete Time: 20:08 pm1 04/10 18:10 Order name: COVID-19 pm1 04/10 18:10 Order name: CT Head Brain wo Cont; Complete Time: 19:32 pm1 04/10 18:11 Order name: Amylase; Complete Time: 19:32 EDMS 04/10 18:11 Order name: Basic Metabolic Panel; Complete Time: 19:32 EDMS 04/10 18:11 Order name: Blood Culture EDMS 04/10 18:11 Order name: CBC with Automated Diff; Complete Time: 19:32 EDMS 04/10 18:11 Order name: CKMB Creatine Kinase MB; Complete Time: 19:32 EDMS 04/10 18:11 Order name: Creatine Phosphokinase; Complete Time: 19:32 EDMS 04/10 18:53 Order name: Glucose, Ancillary Testing; Complete Time: 18:59 EDMS 04/10 18:54 Order name: Manual Differential; Complete Time: 19:32 EDMS 04/10 18:10 Order name: Accucheck; Complete Time: 18:37 pm1 04/10 18:10 Order name: Cardiac monitoring; Complete Time: 18:37 pm1 04/10 18:10 Order name: EKG - Nurse/Tech; Complete Time: 18:37 pm1 04/10 18:10 Order name: IV Saline Lock - Large Bore; Complete Time: 18:37 pm1 04/10 18:10 Order name: Labs collected and sent; Complete Time: 18:37 pm1 04/10 18:10 Order name: O2 Per Protocol; Complete Time: 18:37 pm1 04/10 18:10 Order name: O2 Sat Monitoring; Complete Time: 18:37 pm1 Administered Medications: 18:36 Drug: NS 0.9% 1000 ml Route: IV; Rate: 1000 ml; Site: right forearm; ca1 20:00 Follow up: Response: No adverse reaction; IV Status: Completed infusion; IV Intake: mg2 1000ml 19:15 Drug: Keppra 1000 mg Route: IV; Rate: calculated rate; Site: right antecubital; mg2 20:00 Follow up: Response: No adverse reaction; IV Status: Completed infusion; IV Intake: mg2 100ml 19:21 Drug: Tylenol 1000 mg Route: PO; mg2 19:59 Follow up: Response: No adverse reaction; Temperature is decreased mg2 19:22 Not Given (Patient Refused): Tylenol Suppository 650 mg AL once mg2 19:22 Not Given (Patient Refused): Tylenol Suppository 325 mg AL once mg2 20:08 Drug: NS 0.9% 1000 ml Route: IV; Rate: 1000 ml; Site: right antecubital; mg2 21:00 Follow up: Response: No adverse reaction; IV Status: Completed infusion; IV Intake: rr5 1000ml 20:29 Drug: Bicillin L-A 1.2 million units Route: IM; Site: left gluteus; mg2 21:44 Follow up: Response: No adverse reaction mg2 21:07 Drug: Ibuprofen 600 mg Route: PO; mg2 21:44 Follow up: Response: No adverse reaction; Temperature is decreased mg2 Disposition: 04/11 07:14 Co-signature as Attending Physician, Alexander Nolasco MD. rn Disposition: 04/10/20 21:48 Discharged to Home. Impression: Streptococcal pharyngitis, Epilepsy and recurrent seizures. - Condition is Stable. - Discharge Instructions: Strep Throat, Seizure, Adult, [id number]. - Prescriptions for Keppra 500 mg Oral Tablet - take 1 tablet by ORAL route every 12 hours; 20 tablet. - Medication Reconciliation Form, Thank You Letter, Antibiotic Education, Prescription Opioid Use form. - Follow up: Emergency Department; When: As needed; Reason: Worsening of condition. Follow up: Private Physician; When: 2 - 3 days; Reason: Recheck today's complaints, Continuance of care, Re-evaluation by your physician. - Problem is new. - Symptoms have improved. Signatures: Dispatcher [employer] EDMS Alexander Nolasco MD MD rn Calderon, Audri, RN RN aa5 Jaylan Hood, NURSE PRACTITIONER PHYSICIANS ASSISTANT NURSE PRACTITIONER PHYSICIANS ASSISTANT pm1 Delon Mendoza RN RN jl7 Ron Amin RN RN mg2 Georgina Pierce RN RN ca1 Austen España RN rr5 Corrections: (The following items were deleted from the chart) 04/10 22:24 21:48 04/10/2020 21:48 Discharged to Home. Impression: Streptococcal pharyngitis; mg2 Epilepsy and recurrent seizures. Condition is Stable. Forms are Medication Reconciliation Form, Thank You Letter, Antibiotic Education, Prescription Opioid Use. Follow up: Emergency Department; When: As needed; Reason: Worsening of condition. Follow up: Private Physician; When: 2 - 3 days; Reason: Recheck today's complaints, Continuance of care, Re-evaluation by your physician. Problem is new. Symptoms have improved. pm1
--- NOTE | 2020-04-10 21:49 | ER ---
Nurse's Notes [facility] Name: Brenden Osman Age: 54 yrs Sex: Male : 1965 Arrival Date: 04/10/2020 Time: 17:46 Bed 7 Private MD: Diagnosis: Streptococcal pharyngitis;Epilepsy and recurrent seizures Presentation: 04/10 17:54 Chief complaint: Pt's daughter states "I've been calling him and he hasn't been aa5 answering and when he does this it means he probably had a seizure". Pt currently non-verbal, pt's daughter states "he normally is out of it and doesn't talk after he's had a seizure". 17:54 Coronavirus screen: fever. Ebola Screen: Patient negative for fever greater than or aa5 equal to 101.5 degrees Fahrenheit, and additional compatible Ebola Virus Disease symptoms. Initial Sepsis Screen: Does the patient meet any 2 criteria? Temp <36.0*C (96.8*F)) or > 38.3*C (100.9*F). Does the patient have a suspected source of infection? No. Patient's initial sepsis screen is negative. Risk Assessment: Do you want to hurt yourself or someone else? Unable to obtain. Onset of symptoms was April 10, 2020. 17:54 Method Of Arrival: Wheelchair aa5 17:54 Acuity: LUCITA 2 aa5 Historical: - Allergies: 17:59 No Known Allergies; aa5 - Home Meds: 17:58 Keppra 500 mg Oral tab 1 tab daily [Active]; lisinopril 20 mg Oral tab 1 tab once daily aa5 [Active]; - PMHx: 17:58 Hypertension; Seizures; aa5 - Immunization history:: Adult Immunizations unknown. - Social history:: Smoking status: unknown. Screenin:15 Abuse screen: Denies threats or abuse. Denies injuries from another. Nutritional jl7 screening: No deficits noted. Tuberculosis screening: No symptoms or risk factors identified. 18:41 Fall Risk IV access (20 points). Total Schroeder Fall Scale indicates No Risk (0-24 pts). jl7 Assessment: 18:41 General: Appears in no apparent distress. uncomfortable, Behavior is quiet, jl7 uncooperative. Pain: Unable to use pain scale. Does not appear to understand pain scale. Neuro: Level of Consciousness is awake, alert, Oriented to none Speech with expressive aphasia noted. Cardiovascular: Patient's skin is warm and dry. Respiratory: Airway is patent Respiratory effort is even, unlabored, Respiratory pattern is regular, symmetrical. Derm: Skin is dry, Skin is normal, Skin temperature is hot. 19:31 Reassessment: [phone] aj Goldstein. ca1 19:41 General: Appears in no apparent distress. comfortable. Pain: Denies pain. Neuro: Level mg2 of Consciousness is awake, alert, obeys commands, Oriented to person. Cardiovascular: Capillary refill < 3 seconds. Respiratory: Airway is patent Respiratory effort is even, unlabored, Respiratory pattern is regular, symmetrical. GI: No signs and/or symptoms were reported involving the gastrointestinal system. : No signs and/or symptoms were reported regarding the genitourinary system. EENT: No signs and/or symptoms were reported regarding the EENT system. Derm: Skin is intact, is healthy with good turgor, Skin is pink, warm \\T\\ dry. normal. Musculoskeletal: Circulation, motion, and sensation intact. Capillary refill < 3 seconds. 21:47 Reassessment: Gisselle Osman will come and pick the patient up. [phone]. mg2 Vital Signs: 17:54 BP 140 / 84; Pulse 84; Resp 20 S; Temp 103.1(O); Pulse Ox 98% on R/A; aa5 19:42 BP 130 / 75; Pulse 82; Resp 18; Pulse Ox 98% on R/A; mg2 19:59 Temp 102.7(O); mg2 20:42 BP 112 / 61; Pulse 70; Resp 18; Temp 102.1(O); Pulse Ox 98% on R/A; mg2 21:39 BP 128 / 72; Pulse 82; Resp 18; Temp 100.6(O); Pulse Ox 98% on R/A; mg2 Brandie Coma Score: 19:42 Eye Response: spontaneous(4). Verbal Response: oriented(5). Motor Response: obeys mg2 commands(6). Total: 15. ED Course: 17:46 Patient arrived in ED. as 17:55 Arm band placed on. aa5 17:58 Triage completed. aa5 18:04 Delon Mendoza RN is Primary Nurse. jl7 18:05 Jaylan Hood NP is PHCP. pm1 18:05 Alexander Nolasco MD is Attending Physician. pm1 18:15 Patient has correct armband on for positive identification. Placed in gown. Bed in low jl7 position. Call light in reach. Side rails up X2. Seizure precautions initiated. compliance monitor on. Pulse ox on. NIBP on. 18:15 EKG done, by ED staff, reviewed by Jaylan Hood NP. jl7 18:41 Initial lab(s) drawn, by al, sent to lab. Inserted saline lock: 20 gauge in right jl7 forearm, using aseptic technique. Blood collected. 18:46 CT Head Brain wo Cont In Process Unspecified. EDMS 18:51 Chest Single View XRAY In Process Unspecified. EDMS 19:22 No provider procedures requiring assistance completed. Flu and/or RSV swab sent to lab. mg2 Strep swab sent to lab. covid swab sent to lab. 22:08 Primary Nurse role handed off by Delon Mendoza RN sg 22:23 IV discontinued, intact, bleeding controlled, No redness/swelling at site. Pressure mg2 dressing applied. Administered Medications: 18:36 Drug: NS 0.9% 1000 ml Route: IV; Rate: 1000 ml; Site: right forearm; ca1 20:00 Follow up: Response: No adverse reaction; IV Status: Completed infusion; IV Intake: mg2 1000ml 19:15 Drug: Keppra 1000 mg Route: IV; Rate: calculated rate; Site: right antecubital; mg2 20:00 Follow up: Response: No adverse reaction; IV Status: Completed infusion; IV Intake: mg2 100ml 19:21 Drug: Tylenol 1000 mg Route: PO; mg2 19:59 Follow up: Response: No adverse reaction; Temperature is decreased mg2 19:22 Not Given (Patient Refused): Tylenol Suppository 650 mg WA once mg2 19:22 Not Given (Patient Refused): Tylenol Suppository 325 mg WA once mg2 20:08 Drug: NS 0.9% 1000 ml Route: IV; Rate: 1000 ml; Site: right antecubital; mg2 21:00 Follow up: Response: No adverse reaction; IV Status: Completed infusion; IV Intake: rr5 1000ml 20:29 Drug: Bicillin L-A 1.2 million units Route: IM; Site: left gluteus; mg2 21:44 Follow up: Response: No adverse reaction mg2 21:07 Drug: Ibuprofen 600 mg Route: PO; mg2 21:44 Follow up: Response: No adverse reaction; Temperature is decreased mg2 Intake: 20:00 IV: 100ml; Total: 100ml. mg2 20:00 IV: 1000ml; Total: 1100ml. mg2 21:00 IV: 1000ml; Total: 2100ml. rr5 Outcome: 21:48 Discharge ordered by MD. pm1 22:24 Discharged to home via wheelchair, with family. mg2 22:24 Condition: stable 22:24 Discharge instructions given to patient, family, Instructed on discharge instructions, follow up and referral plans. medication usage, Demonstrated understanding of instructions, follow-up care, medications, Prescriptions given X 1. 22:24 Patient left the ED. mg2 Addendum: 04/14/2020 12:42 Addendum: COVID-19 Result: Negative result given to RN to notify pt. Notified pt of d m5 negative COVID 19 swab results. Pt advised that even with a negative test result they should remain in isolation until symptom free for 3 days without medication. Pt also advised to return to the ED for worsening symptoms. Signatures: Dispatcher [employer] EDMS Michelle Blum RN RN dm5 Angel Bangura RN Luna Zepeda Audri, RN RN aa5 Jaylan Hood, JESSICA ELECTRONICS MECHANIC pm1 Delon Mendoza RN RN jl7 Ron Amin RN RN mg2 Austen España RN RN rr5 Georgina Pierce RN RN ca1 Corrections: (The following items were deleted from the chart) 04/10 18:07 17:54 Acuity: LUCITA 3 aa5 aa5
--- NOTE | 2020-04-12 12:27 | EKG ---
Test Date: 2020-04-10 Test Time: 18:14:16 Wind Turbine Installer: DENISE MEASUREMENT RESULTS: Intervals: Rate: 82 IA: 184 QRSD: 84 QT: 356 QTc: 415 Conrad: P: 37 IA: 184 QRS: 20 T: 40 INTERPRETIVE STATEMENTS: Normal sinus rhythm Minimal voltage criteria for LVH, may be normal variant Borderline ECG Compared to ECG 12/21/2019 10:28:03 Left ventricular hypertrophy now present Electronically Signed On 04-12-20 12:23:09 CDT by Oliver Engel
[2020-04-13 15:02] VITALS: O2SAT 98
[2020-04-13 15:07] VITALS: BP 128/72; TEMP 100.6
== END 2020-04-10 22:24 | disposition home or self-care (01) ==
LOC: ER 17:45
DX: J02.0 Streptococcal pharyngitis (principal); Z20.828 Contact with and (suspected) exposure to other viral communicable diseases; G40.802 Other epilepsy, not intractable, without status epilepticus; I10 Essential (primary) hypertension
CPT/HCPCS: 36415; 70450; 71045; 80048; 80076; 82150; 82550; 82553; 82947; 83690; 84145; 84484; 85025; 85610; 85730; 87040; 87081; 87804; 93005; 96361; 96365; 96372; 99285; J0561; J1953; J7030; U0002

== ENCOUNTER 2020-06-26 17:54 | Emergency (ER) | payer OTHER, SELFPAY ==
[2020-06-26] MEDS ORDERED: LORazepam 2 MG/ML VIAL ONE (18:17)
--- NOTE | 2020-06-26 18:35 | RAD REPORT ---
EXAM DESCRIPTION: RAD - Chest Single View - 06/26/2020 6:27 pm CLINICAL HISTORY: seizure Chest pain. COMPARISON: Chest Single View dated 04/10/2020; Chest Single View dated 12/21/2019; Chest Single View dated 11/04/2019; Chest Single View dated 06/05/2019 FINDINGS: Portable technique limits examination quality. The lungs are grossly clear. The heart is normal in size. No displaced fractures. IMPRESSION: No acute intrathoracic process suspected.
[2020-06-26 18:38] LABS: Absolute Lymphocytes (CBC) 1.4 K/uL (0.7-4.9); Basophils % 0.7 % (0-1.3); Hematocrit 35.3 % (39.6-49.0); Lymphocytes % 16.3 % (15.3-44.8); RBC Red Blood Cell Count 4.06 M/uL (4.33-5.43)
[2020-06-26 18:40] LABS: Protime INR 1.07
[2020-06-26] MEDS ORDERED: levETIRAcetam 1,000 MG in NA CHLORIDE 0.9% 100 ML IV ONE (18:45)
[2020-06-26 18:47] LABS: ALT/SGPT 54 U/L (12-78); AST/SGOT 32 U/L (15-37); Alkaline Phosphatase 69 U/L (45-117); BUN Blood Urea Nitrogen 7 mg/dL (7-18); Bicarbonate 26 mmol/L (21-32); Bilirubin Direct 0.1 mg/dL (0-0.2); Bilirubin Total 0.6 mg/dL (0.2-1.0); Glucose Level 115 mg/dL (74-106); Potassium 3.5 mmol/L (3.5-5.1); Protein, Total 7.3 g/dL (6.4-8.2); Sodium Level 136 mmol/L (136-145)
[2020-06-26 19:40] LABS: Urine Blood NEGATIVE (NEG); Urine Glucose NEGATIVE (NEG); Urine Protein NEGATIVE (NEG); Urine Specific Gravity 1.025 (1.005-1.030)
[2020-06-26 19:52] LABS: Barbiturates NEGATIVE (NEGATIVE); Benzodiazepines NEGATIVE (NEGATIVE); Cocaine NEGATIVE (NEGATIVE); METHAMPHETAM NEGATIVE (NEGATIVE); Methadone NEGATIVE (NEGATIVE); Opiates NEGATIVE (NEGATIVE); Phencyclidine NEGATIVE (NEGATIVE); THC Cannibis NEGATIVE (NEGATIVE)
--- NOTE | 2020-06-26 20:12 | RAD REPORT ---
EXAM DESCRIPTION: CT - Head Brain Wo Cont - 06/26/2020 7:33 pm CLINICAL HISTORY: SEIZURE Headache, hypertension, seizure COMPARISON: Head Brain Wo Cont dated 04/10/2020; Head Brain Wo Cont dated 12/21/2019 TECHNIQUE: All CT scans are performed using dose optimization technique as appropriate and may inclu de automated exposure control or mA/KV adjustment according to patient size. FINDINGS: No intracranial hemorrhage, hydrocephalus or extra-axial fluid collection.No areas of brai n edema or evidence of midline shift. The paranasal sinuses and mastoids are clear. The calvarium is intact. IMPRESSION: No acute intracranial abnormality.
[2020-06-26] MEDS ORDERED: ACETAMINOPHEN 500 MG TAB ONE (21:50)
--- NOTE | 2020-06-26 22:36 | EDPHYS ---
Physician Documentation [facility] Name: Brenden Osman Age: 54 yrs Sex: Male : 1965 Arrival Date: 06/26/2020 Time: 17:58 Bed 16 Private MD: ED Physician Alexander Nolasco HPI: 06/26 18:04 This 54 yrs old Black Male presents to ER via Ambulatory with complaints of Tremor. pm1 18:04 The patient's problem is reported as Seizures and Tremors. Onset: The symptoms/episode pm1 began/occurred today. Duration: The episode is continuous. Context: occurred at home, Possible contributing factors include: Unknown. The symptoms are alleviated by nothing. The symptoms are aggravated by medication noncompliance. Missed a dose of keppra last night and is currently out of keppra. Associated signs and symptoms: Pertinent positives: headache, Pertinent negatives: chest pain, nausea, shortness of breath, vomiting. The patient has experienced similar episodes in the past, multiple times, and the symptoms today are exactly the same. The patient has been recently seen by a physician: Discharged from another hospital with the same complaints of seizures and tremors. Historical: - Allergies: 18:06 No Known Allergies; ss - Home Meds: 18:58 Keppra 500 mg Oral tab 1 tab daily [Active]; lisinopril 20 mg Oral tab 1 tab once daily zb [Active]; - PMHx: 18:06 Hypertension; Seizures; ss - Immunization history:: Adult Immunizations up to date. - Social history:: Smoking status: Patient denies any tobacco usage or history of. ROS: 18:04 Constitutional: Negative for fever, chills, and weight loss, Eyes: Negative for injury, pm1 pain, redness, and discharge, ENT: Negative for injury, pain, and discharge, Neck: Negative for injury, pain, and swelling, Cardiovascular: Negative for chest pain, palpitations, and edema, Respiratory: Negative for shortness of breath, cough, wheezing, and pleuritic chest pain, Abdomen/GI: Negative for abdominal pain, nausea, vomiting, diarrhea, and constipation, Back: Negative for injury and pain, MS/Extremity: Negative for injury and deformity, Skin: Negative for injury, rash, and discoloration. 18:04 Neuro: Positive for seizure activity, tremor. Exam: 18:04 Constitutional: This is a well developed, well nourished patient who is awake, alert, pm1 and in no acute distress. Head/Face: Normocephalic, atraumatic. ENT: Nares patent. No nasal discharge, no septal abnormalities noted. Tympanic membranes are normal and external auditory canals are clear. Oropharynx with no redness, swelling, or masses, exudates, or evidence of obstruction, uvula midline. Mucous membranes moist. Chest/axilla: Normal chest wall appearance and motion. Nontender with no deformity. No lesions are appreciated. Cardiovascular: Regular rate and rhythm with a normal S1 and S2. No gallops, murmurs, or rubs. Normal PMI, no JVD. No pulse deficits. Respiratory: Lungs have equal breath sounds bilaterally, clear to auscultation and percussion. No rales, rhonchi or wheezes noted. No increased work of breathing, no retractions or nasal flaring. Abdomen/GI: Soft, non-tender, with normal bowel sounds. No distension or tympany. No guarding or rebound. No evidence of tenderness throughout. Back: No spinal tenderness. No costovertebral tenderness. Full range of motion. Skin: Warm, dry with normal turgor. Normal color with no rashes, no lesions, and no evidence of cellulitis. MS/ Extremity: Pulses equal, no cyanosis. Neurovascular intact. Full, normal range of motion. 18:04 Neuro: Orientation: is normal, Mentation: is normal, Motor: is normal, moves all fours, Patient is able to stop tremors on command and is awake alert and talking through his seizures. 20:06 Radiologist reports: No acute findings pm1 Vital Signs: 18:23 BP 153 / 91; Pulse 82; Resp 18; Pulse Ox 99% on R/A; ph 19:16 BP 161 / 71; Pulse 88; Resp 16; Pulse Ox 98% on R/A; ea 20:03 Pulse 58; Resp 16; Temp 98.7; Pulse Ox 98% ; ea 22:50 BP 160 / 70; Pulse 60; Resp 18; Pulse Ox 98% on R/A; wh MDM: 17:59 Patient medically screened. pm1 21:53 ED course: Patient missed a dose of Keppra yesterday and has run out of his Keppra. pm1 Does not need a prescription for Keppra because he just needs to pick it up from the pharmacy. 22:34 Data reviewed: vital signs. Data interpreted: Pulse oximetry: on room air is 98 %. pm1 Interpretation: normal. Counseling: I had a detailed discussion with the patient and/or guardian regarding: the historical points, exam findings, and any diagnostic results supporting the discharge/admit diagnosis, lab results, radiology results, the need for outpatient follow up, a neurologist, to return to the emergency department if symptoms worsen or persist or if there are any questions or concerns that arise at home. 06/26 18:04 Order name: Acetaminophen pm1 06/26 18:04 Order name: Basic Metabolic Panel pm1 06/26 18:04 Order name: CBC with Diff pm1 06/26 18:04 Order name: ETOH Level pm1 06/26 18:04 Order name: Hepatic Function pm1 06/26 18:04 Order name: PT-INR pm1 06/26 18:04 Order name: Ptt, Activated pm1 06/26 18:04 Order name: Salicylate pm1 06/26 18:04 Order name: Urine Drug Screen pm1 06/26 18:04 Order name: Flu; Complete Time: 19:04 pm1 06/26 18:04 Order name: Strep pm1 06/26 18:04 Order name: Acetaminophen Level; Complete Time: 18:53 EDMS 06/26 18:04 Order name: Basic Metabolic Panel; Complete Time: 18:53 EDMS 06/26 18:04 Order name: EKG; Complete Time: 18:04 pm1 06/26 18:04 Order name: EKG - Nurse/Tech; Complete Time: 19:14 pm1 06/26 18:04 Order name: IV Saline Lock; Complete Time: 19:14 pm1 06/26 18:04 Order name: CBC with Automated Diff; Complete Time: 18:44 EDMS 06/26 18:04 Order name: Alcohol Serum/Plasma; Complete Time: 18:53 EDMS 06/26 18:04 Order name: Liver (Hepatic) Function; Complete Time: 18:53 EDMS 06/26 18:04 Order name: Protime (+INR); Complete Time: 18:44 EDMS 06/26 18:04 Order name: PTT, Activated Partial Thromb; Complete Time: 18:44 EDMS 06/26 18:04 Order name: Salicylates Level; Complete Time: 18:53 [facility] 06/26 18:04 Order name: Urine Drug Screen; Complete Time: 19:55 [facility] 06/26 18:05 Order name: Chest Single View XRAY; Complete Time: 18:38 pm1 06/26 18:40 Order name: CT Head Brain wo Cont; Complete Time: 20:22 pm1 06/26 19:26 Order name: Urine Dipstick--Ancillary (enter results); Complete Time: 19:51 mt 06/26 18:04 Order name: Labs collected and sent; Complete Time: 19:14 pm1 06/26 18:04 Order name: Urine Dipstick-Ancillary (obtain specimen); Complete Time: 19:25 pm1 Administered Medications: 19:06 Drug: Keppra 1000 mg Route: IV; Rate: calculated rate; Site: left antecubital; ea 19:25 Follow up: Response: No adverse reaction; IV Status: Completed infusion; IV Intake: ea 100ml 21:39 Drug: Tylenol 1000 mg Route: PO; 22:50 Drug: Bicillin L-A 1.2 million units Route: IM; Site: left gluteus; Disposition: 06/26/20 22:35 Discharged to Home. Impression: Epilepsy and recurrent seizures, Streptococcal pharyngitis. - Condition is Stable. - Discharge Instructions: Strep Throat, Seizure, Adult, [id number]. - Medication Reconciliation Form, Thank You Letter, Antibiotic Education, Prescription Opioid Use form. - Follow up: Emergency Department; When: As needed; Reason: Worsening of condition. Follow up: Private Physician; When: 2 - 3 days; Reason: Recheck today's complaints, Continuance of care, Re-evaluation by your physician. - Problem is new. - Symptoms have improved. Addendum: 06/28/2020 18:57 Co-signature as Attending Physician, Alexander Nolasco MD. r n Signatures: Dispatcher [employer] Alexander Campos MD MD rn Smirch, Shelby, RN RN ss Marinas, Patrick, LOAN PROCESSING SUPERVISOR LOAN PROCESSING SUPERVISOR pm1 Sulma Agudelo RN RN ea Habalo, Winsy Ruth Ann Montgomery RN RISHI zb Corrections: (The following items were deleted from the chart) 11/16 22:43 22:35 06/26/2020 22:35 Discharged to Home. Impression: Epilepsy and recurrent seizures. pm1 Condition is Stable. Forms are Medication Reconciliation Form, Thank You Letter, Antibiotic Education, Prescription Opioid Use. Follow up: Emergency Department; When: As needed; Reason: Worsening of condition. Follow up: Private Physician; When: 2 - 3 days; Reason: Recheck today's complaints, Continuance of care, Re-evaluation by your physician. Problem is new. Symptoms have improved. pm1 23:13 22:43 06/26/2020 22:35 Discharged to Home. Impression: Epilepsy and recurrent seizures; wh Streptococcal pharyngitis. Condition is Stable. Discharge Instructions: Seizure, Adult, Pooz-[id number]. Forms are Medication Reconciliation Form, Thank You Letter, Antibiotic Education, Prescription Opioid Use. Follow up: Emergency Department; When: As needed; Reason: Worsening of condition. Follow up: Private Physician; When: 2 - 3 days; Reason: Recheck today's complaints, Continuance of care, Re-evaluation by your physician. Problem is new. Symptoms have improved. pm1
--- NOTE | 2020-06-26 22:36 | ER ---
Nurse's Notes [facility] Name: Brenden Osman Age: 54 yrs Sex: Male : 1965 Arrival Date: 06/26/2020 Time: 17:58 Bed 16 [facility] MD: Diagnosis: Epilepsy and recurrent seizures;Streptococcal pharyngitis Presentation: 06/26 18:01 Chief complaint: Patient states: discharged from [facility] with diagnosis of ss seizures earlier today. It is noted that patient has tremors at this time. Coronavirus screen: Client denies travel out of the [place] in the last 14 days. Ebola Screen: Patient denies exposure to infectious person. Patient denies travel to an Ebola-affected area in the 21 days before illness onset. Initial Sepsis Screen: Does the patient meet any 2 criteria? No. Patient's initial sepsis screen is negative. Does the patient have a suspected source of infection? No. Patient's initial sepsis screen is negative. Risk Assessment: Do you want to hurt yourself or someone else? Patient reports no desire to harm self or others. Onset of symptoms is unknown. 18:01 Method Of Arrival: Ambulatory ss 18:01 Acuity: LUCITA 3 ss Historical: - Allergies: 18:06 No Known Allergies; ss - Home Meds: 18:58 Keppra 500 mg Oral tab 1 tab daily [Active]; lisinopril 20 mg Oral tab 1 tab once daily zb [Active]; - PMHx: 18:06 Hypertension; Seizures; ss - Immunization history:: Adult Immunizations up to date. - Social history:: Smoking status: Patient denies any tobacco usage or history of. Screenin:43 Abuse screen: Denies threats or abuse. Denies injuries from another. Nutritional zb screening: No deficits noted. Tuberculosis screening: No symptoms or risk factors identified. Fall Risk No fall in past 12 months (0 pts). Secondary diagnosis (15 points) seizures, IV access (20 points). Ambulatory Aid- None/Bed Rest/Nurse Assist (0 pts). Gait- Normal/Bed Rest/Wheelchair (0 pts) Mental Status- Oriented to own ability (0 pts). Total Schroeder Fall Scale indicates Low Risk Score (25-44 pts). Fall prevention measures have been instituted. Side Rails Up X 2 Placed close to Nursing Station Frequent Obs/Assesments occuring Family Present and informed to notify staff if they need to leave bedside As available Patient and Family Educated on Fall Prevention Program and strategies. Assessment: 18:44 General: Appears in no apparent distress. uncomfortable, Behavior is agitated, anxious, zb Denies fever, fatigue, chills. Pain: Complains of pain in scalp. Neuro: Level of Consciousness is awake, alert, obeys commands, Oriented to person, place, time, situation. Neuro: pt has intermittent tremor especially to the right side. . Reports headache Tremors. Cardiovascular: Capillary refill < 3 seconds in bilateral fingers Clubbing of nail beds is absent Patient's skin is warm and dry. Respiratory: Airway is patent Respiratory effort is even, unlabored, Respiratory pattern is regular. GI: No signs and/or symptoms were reported involving the gastrointestinal system. Abdomen is flat, non-distended. : No signs and/or symptoms were reported regarding the genitourinary system. EENT: No signs and/or symptoms were reported regarding the EENT system. Derm: Skin is intact, is healthy with good turgor. Musculoskeletal: Circulation, motion, and sensation intact. Capillary refill < 3 seconds, in bilateral fingers. 18:44 Reassessment: pt refused covid swab stated " he didn't like anything in his nose". zb 19:00 General: Appears in no apparent distress. Behavior is anxious. Neuro: Level of ea Consciousness is awake, alert, obeys commands, Oriented to person, place, time, situation. Cardiovascular: Patient's skin is warm and dry. Respiratory: Airway is patent Respiratory effort is even, unlabored, Respiratory pattern is regular, symmetrical. Derm: Skin is pink, warm \\T\\ dry. Musculoskeletal: Circulation, motion, and sensation intact. 19:28 Reassessment: Pt taken to CT. ea 20:52 Reassessment: Patient and/or family updated on plan of care and expected duration. Pain ea level reassessed. Patient is alert, oriented x 3, equal unlabored respirations, skin warm/dry/pink. 21:59 Reassessment: Patient and/or family updated on plan of care and expected duration. Pain ea level reassessed. Patient is alert, oriented x 3, equal unlabored respirations, skin warm/dry/pink. 23:10 Reassessment: Patient and/or family updated on plan of care and expected duration. Pain wh level reassessed. Patient is alert, oriented x 3, equal unlabored respirations, skin warm/dry/pink. Discharge instruction given to patient verbalized the understanding of instruction . Vital Signs: 18:23 BP 153 / 91; Pulse 82; Resp 18; Pulse Ox 99% on R/A; ph 19:16 BP 161 / 71; Pulse 88; Resp 16; Pulse Ox 98% on R/A; ea 20:03 Pulse 58; Resp 16; Temp 98.7; Pulse Ox 98% ; ea 22:50 BP 160 / 70; Pulse 60; Resp 18; Pulse Ox 98% on R/A; wh ED Course: 17:58 Patient arrived in ED. pm1 17:59 Jaylan Hood NP is PHCP. pm1 17:59 Alexander Nolasco MD is Attending Physician. pm1 18:06 Triage completed. ss 18:06 Arm band placed on right wrist. ss 18:27 Chest Single View XRAY In Process Unspecified. EDMS 18:42 Ruth Ann Montgomery, RN is Primary Nurse. zb 18:42 Flu Sent. zb 18:49 Patient has correct armband on for positive identification. Bed in low position. Call zb light in reach. Side rails up X2. Adult w/ patient. Seizure precautions initiated. teletypesetter monitor on. Pulse ox on. NIBP on. Door closed. Noise minimized. Warm blanket given. 18:50 Missed attempt(s): 20 gauge in left wrist. Inserted saline lock: 20 gauge in left zb antecubital area, using aseptic technique. 19:33 CT Head Brain wo Cont In Process Unspecified. EDMS 23:11 No provider procedures requiring assistance completed. IV discontinued, intact, wh bleeding controlled, No redness/swelling at site. Pressure dressing applied. Administered Medications: 19:06 Drug: Keppra 1000 mg Route: IV; Rate: calculated rate; Site: left antecubital; ea 19:25 Follow up: Response: No adverse reaction; IV Status: Completed infusion; IV Intake: ea 100ml 21:39 Drug: Tylenol 1000 mg Route: PO; wh 22:50 Drug: Bicillin L-A 1.2 million units Route: IM; Site: left gluteus; wh Intake: 19:25 IV: 100ml; Total: 100ml. ea Outcome: 22:35 Discharge ordered by . pm1 23:11 Discharged to home ambulatory, with family. 23:11 Condition: stable 23:11 Discharge instructions given to patient, Instructed on discharge instructions, follow up and referral plans. Demonstrated understanding of instructions, follow-up care. 23:13 Patient left the ED. Signatures: Dispatcher [employer] EDMS Vida Valle RN RN Taylor Gentile RN RN ph Marinas, Patrick, ARTIST SUSPECT ARTIST SUSPECT pm1 Sulma Agudelo RN RN ea Habalo, Winsy Ruth Ann Montgomery RN RN zb
[2020-06-26] MEDS ORDERED: PEN G BENZ LA 1.2MU/2ML SYRINGE IM ONE (23:06)
--- NOTE | 2020-06-27 06:00 | EKG ---
Test Date: 2020-06-26 Test Time: 18:27:37 Vice Chairman: MARK MEASUREMENT RESULTS: Intervals: Rate: 79 MI: 186 QRSD: 84 QT: 358 QTc: 410 [place]: P: 39 MI: 186 QRS: 10 T: 30 INTERPRETIVE STATEMENTS: Normal sinus rhythm Normal ECG Compared to ECG 04/10/2020 18:14:16 Left ventricular hypertrophy no longer present Electronically Signed On 06-27-20 05:59:34 NEUROLOGY TECH by Oliver Engel
[2020-06-27 07:41] VITALS: O2SAT 98
[2020-06-27 07:43] VITALS: TEMP 98.7
[2020-06-27 07:44] VITALS: BP 160/70
== END 2020-06-26 23:13 | disposition home or self-care (01) ==
LOC: ER 17:54
DX: J02.0 Streptococcal pharyngitis (principal); I10 Essential (primary) hypertension
CPT/HCPCS: 36415; 70450; 71045; 80048; 80076; 80307; 80320; 80329; 81003; 85025; 85610; 85730; 87081; 87804; 93005; 96365; 96372; 99284; J0561; J1953

== ENCOUNTER 2021-01-01 11:31 | Emergency (ER) | payer OTHER, SELFPAY ==
[2021-01-01] MEDS ORDERED: LEVETIRACETAM 500 MG/5 ML VIAL IV ONE (12:54)
[2021-01-01] MEDS ORDERED: NA CHLORIDE 0.9% 100 ML ONE (12:54)
[2021-01-01 12:59] LABS: Absolute Lymphocytes (CBC) 1.6 K/uL (0.7-4.9); Basophils % 1.4 % (0-1.3); Hematocrit 40.8 % (39.6-49.0); Lymphocytes % 43.9 % (15.3-44.8); MPV 8.7 fL (7.6-11.3); RBC Red Blood Cell Count 4.75 M/uL (4.33-5.43)
--- NOTE | 2021-01-01 13:05 | RAD REPORT ---
EXAM DESCRIPTION: CT - Head Brain Wo Cont - 01/01/2021 12:54 pm CLINICAL HISTORY: HEADACHE Headache, hypertension COMPARISON: Head Brain Wo Cont dated 06/26/2020; Head Brain Wo Cont dated 04/10/2020 TECHNIQUE: All CT scans are performed using dose optimization technique as appropriate and may inclu de automated exposure control or mA/KV adjustment according to patient size. FINDINGS: No intracranial hemorrhage, hydrocephalus or extra-axial fluid collection.No areas of brai n edema or evidence of midline shift. The paranasal sinuses and mastoids are clear. The calvarium is intact. IMPRESSION: No acute intracranial abnormality.
[2021-01-01 14:46] LABS: Bicarbonate 25 mmol/L (21-32); Glucose Level 110 mg/dL (74-106); Sodium Level 140 mmol/L (136-145)
[2021-01-01 14:47] LABS: ALT/SGPT 73 U/L (12-78); Albumin 3.8 g/dL (3.4-5.0); Alkaline Phosphatase 64 U/L (45-117); BUN Blood Urea Nitrogen 8 mg/dL (7-18); Bilirubin Total 0.8 mg/dL (0.2-1.0); Protein, Total 7.1 g/dL (6.4-8.2)
[2021-01-01 14:49] LABS: AST/SGOT 59 U/L (15-37); Potassium 3.6 mmol/L (3.5-5.1)
[2021-01-01] MEDS ORDERED: ACETAMINOPHEN 500 MG TAB ONE (15:15)
--- NOTE | 2021-01-01 15:30 | EDPHYS ---
Physician Documentation [facility] Name: Brenden Osman Age: 55 yrs Sex: Male : 1965 Arrival Date: 01/01/2021 Time: 11:33 Bed 15 Private MD: ED Physician Pancho Day HPI: 01/01 12:32 This 55 yrs old Black Male presents to ER via Ambulatory with complaints of High Blood pm1 Pressure, Headache. 12:32 The patient has elevated blood pressure and discovered this at a physician's office, pm1 and sent to the emergency department for evaluation. Onset: The symptoms/episode began/occurred just prior to arrival. Modifying factors: The symptoms are aggravated by nothing. Associated signs and symptoms: Pertinent positives: headache, feels like he is about to have a seizure, Pertinent negatives: chest pain, nausea, vomiting. Severity of symptoms: in the emergency department the blood pressure is improved. The patient has been recently seen by a physician: Dr. Austin his neurology. He went to see him because he felt that he was about to have a seizure. Historical: - Allergies: 11:56 No Known Allergies; ca1 - Home Meds: 11:56 Keppra 1500 mg Oral tab 1 tab 2 times per day [Active]; lisinopril 20 mg Oral tab 1 tab ca1 once daily [Active]; - PMHx: 11:56 Hypertension; Seizures; ca1 - PSHx: 11:56 None; ca1 - Immunization history:: Client reports receiving the 2nd dose of the Covid vaccine, Client reports receiving the 1st dose of the Covid vaccine, Flu vaccine is not up to date. - Social history:: Smoking status: Patient denies any tobacco usage or history of. ROS: 12:32 Constitutional: Negative for fever, chills, and weight loss, Eyes: Negative for injury, pm1 pain, redness, and discharge, ENT: Negative for injury, pain, and discharge, Neck: Negative for injury, pain, and swelling, Cardiovascular: Negative for chest pain, palpitations, and edema, Respiratory: Negative for shortness of breath, cough, wheezing, and pleuritic chest pain, Abdomen/GI: Negative for abdominal pain, nausea, vomiting, diarrhea, and constipation, Back: Negative for injury and pain, MS/Extremity: Negative for injury and deformity, Skin: Negative for injury, rash, and discoloration. 12:32 Neuro: Positive for headache, Negative for numbness, seizure activity, tingling. Exam: 12:32 Constitutional: This is a well developed, well nourished patient who is awake, alert, pm1 and in no acute distress. Head/Face: Normocephalic, atraumatic. 12:32 Back: No spinal tenderness. No costovertebral tenderness. Full range of motion. Skin: Warm, dry with normal turgor. Normal color with no rashes, no lesions, and no evidence of cellulitis. MS/ Extremity: Pulses equal, no cyanosis. Neurovascular intact. Full, normal range of motion. 12:32 Eyes: Exam is negative for acute changes, Periorbital structures: appear normal, Extraocular movements: no acute changes, Conjunctiva: normal, Corneas: are normal, Sclera: no appreciated abnormality. 12:32 ENT: Mouth: Lips: normal, Oral mucosa: normal, pink and intact, moist. 12:32 Cardiovascular: Exam negative for acute changes, Rate: normal, Rhythm: regular, Pulses: no pulse deficits are appreciated, Edema: is not appreciated. 12:32 Respiratory: Exam negative for acute changes, respiratory distress, shortness of breath. 12:32 Abdomen/GI: Inspection: abdomen appears normal, Palpation: abdomen is soft and non-tender, in all quadrants. 12:32 Neuro: Exam negative for acute changes, Orientation: is normal, Mentation: is normal, Motor: is normal, moves all fours, strength is normal, strength is 5/5 in all extremities, Gait: is steady, at a normal pace, without difficulty. Vital Signs: 11:54 BP 171 / 108; Pulse 69; Resp 18 S; Temp 97.6(TE); Pulse Ox 100% on R/A; Weight 92.99 kg ca1 (R); Height 6 ft. 0 in. (182.88 cm) (R); Pain 5/10; 12:03 BP 161 / 102; Pulse 61; Resp 18; Pulse Ox 97% on R/A; tr6 12:19 BP 165 / 104 LA (auto/); Pulse 54; Resp 18; Pulse Ox 98% on R/A; tr6 14:10 BP 152 / 97; Pulse 56; Resp 18; Pulse Ox 97% on R/A; tr6 16:18 BP 150 / 90; Pulse 58; Resp 18; Pulse Ox 100% ; tr6 11:54 Body Mass Index 27.80 (92.99 kg, 182.88 cm) ca1 MDM: 12:25 Patient medically screened. pm1 14:33 Data reviewed: vital signs. Data interpreted: Pulse oximetry: on room air is 97 %. pm1 Interpretation: normal. 14:36 Physician consultation: Duy Austin MD was called at 14:29, was contacted at 14:29, pm1 regarding consult, patient's condition, Informed Dr. Austin that the patient's feeling of impending seizure resolved with Keppra IV. Familiar with the patient's prior ER visits and he typically is noncompliant with his medications. Patient currently has a headache. Ct negative. Dr. Austin recommends Tylenol for his headache and will follow up with the patient . 15:00 Counseling: I had a detailed discussion with the patient and/or guardian regarding: the pm1 historical points, exam findings, and any diagnostic results supporting the discharge/admit diagnosis, lab results, radiology results, the need for outpatient follow up, to return to the emergency department if symptoms worsen or persist or if there are any questions or concerns that arise at home. 01/01 12:32 Order name: CBC with Diff; Complete Time: 13:55 pm1 01/01 12:32 Order name: CMP; Complete Time: 14:52 pm1 01/01 12:32 Order name: CT Head Brain wo Cont; Complete Time: 13:55 pm1 01/01 12:32 Order name: IV Saline Lock; Complete Time: 12:48 pm1 Administered Medications: 12:48 Drug: Keppra (levETIRAcetam) 1000 mg Route: IV; Rate: bolus; Site: right antecubital; tr6 14:59 Drug: Tylenol 1000 mg Route: PO; tr6 Disposition: 01/02 10:01 Co-signature as Attending Physician, Pancho Day MD I agree with the assessment and marciano plan of care. Disposition: 01/01/21 15:29 Discharged to Home. Impression: Headache, Essential (primary) hypertension. - Condition is Stable. - Discharge Instructions: General Headache Without Cause, Hypertension, How to Take Your Blood Pressure, Ppoe-va-Hihq, DASH Eating Plan, Managing Your Hypertension. - Medication Reconciliation Form, Thank You Letter, Antibiotic Education, Prescription Opioid Use form. - Follow up: Emergency Department; When: As needed; Reason: Worsening of condition. Follow up: Private Physician; When: 2 - 3 days; Reason: Recheck today's complaints, Continuance of care, Re-evaluation by your physician. - Problem is new. - Symptoms have improved. Signatures: Dispatcher [employer] EDMS Pancho Day MD MD cha Marinas, Patrick MANUSCRIPT EDITOR MANUSCRIPT EDITOR pm1 Georgina Pierce RN RN ca1 Ramnanan, Tiffany, RN RN tr6 Corrections: (The following items were deleted from the chart) 01/01 16:19 15:29 01/01/2021 15:29 Discharged to Home. Impression: Headache; Essential (primary) tr6 hypertension. Condition is Stable. Forms are Medication Reconciliation Form, Thank You Letter, Antibiotic Education, Prescription Opioid Use. Follow up: Emergency Department; When: As needed; Reason: Worsening of condition. Follow up: Private Physician; When: 2 - 3 days; Reason: Recheck today's complaints, Continuance of care, Re-evaluation by your physician. Problem is new. Symptoms have improved. pm1
--- NOTE | 2021-01-01 15:30 | ER ---
Nurse's Notes [facility] Name: Brenden Osman Age: 55 yrs Sex: Male : 1965 Arrival Date: 01/01/2021 Time: 11:33 Bed 15 Private MD: Diagnosis: Headache;Essential (primary) hypertension Presentation: 01/01 11:54 Chief complaint: Patient states: I went to the doctor cause I wasn't feeling right, ca1 they took my BP and it was 180/120 then they sent me straight here. Reports headaches since this morning. Coronavirus screen: Client denies travel out of the [place] in the last 14 days. headache, Client presents with at least one sign or symptom that may indicate coronavirus-19. Standard/surgical mask placed on the client. Provider contacted for isolation considerations. Ebola Screen: Patient negative for fever greater than or equal to 101.5 degrees Fahrenheit, and additional compatible Ebola Virus Disease symptoms Patient denies exposure to infectious person. Patient denies travel to an Ebola-affected area in the 21 days before illness onset. No symptoms or risks identified at this time. Initial Sepsis Screen: Does the patient meet any 2 criteria? No. Patient's initial sepsis screen is negative. Does the patient have a suspected source of infection? No. Patient's initial sepsis screen is negative. Risk Assessment: Do you want to hurt yourself or someone else? Patient reports no desire to harm self or others. Onset of symptoms was January 01, 2021. 11:54 Method Of Arrival: Ambulatory ca1 11:54 Acuity: LUCITA 2 ca1 Triage Assessment: 12:20 Headache History: The patient has had previous headaches and this one is similar to tr6 previous episodes. General: Appears in no apparent distress. Pain: Also complains of. Pain: Pain currently is 7 out of 10 on a pain scale. Pain began gradually. Historical: - Allergies: 11:56 No Known Allergies; ca1 - Home Meds: 11:56 Keppra 1500 mg Oral tab 1 tab 2 times per day [Active]; lisinopril 20 mg Oral tab 1 tab ca1 once daily [Active]; - PMHx: 11:56 Hypertension; Seizures; ca1 - PSHx: 11:56 None; ca1 - Immunization history:: Client reports receiving the 2nd dose of the Covid vaccine, Client reports receiving the 1st dose of the Covid vaccine, Flu vaccine is not up to date. - Social history:: Smoking status: Patient denies any tobacco usage or history of. Screenin:19 Abuse screen: Denies threats or abuse. Denies injuries from another. Nutritional tr6 screening: No deficits noted. Tuberculosis screening: No symptoms or risk factors identified. Fall Risk None identified. Assessment: 12:15 General: Appears in no apparent distress. Behavior is calm, cooperative, appropriate tr6 for age. Pain: Complains of pain in c/o headache "since earlier this morning". Neuro: No deficits noted. Cardiovascular: No deficits noted. Respiratory: No deficits noted. GI: No deficits noted. : No deficits noted. EENT: No deficits noted. Derm: No deficits noted. Musculoskeletal: No deficits noted. 12:50 Reassessment: transported to CT. tr6 12:57 Reassessment: pt returned from CT. tr6 14:53 Reassessment: lab requests a 4th recollect. STACKER DRIVER Erwin informed. pending results after tr6 redraw. Vital Signs: 11:54 BP 171 / 108; Pulse 69; Resp 18 S; Temp 97.6(TE); Pulse Ox 100% on R/A; Weight 92.99 kg ca1 (R); Height 6 ft. 0 in. (182.88 cm) (R); Pain 5/10; 12:03 BP 161 / 102; Pulse 61; Resp 18; Pulse Ox 97% on R/A; tr6 12:19 BP 165 / 104 LA (auto/); Pulse 54; Resp 18; Pulse Ox 98% on R/A; tr6 14:10 BP 152 / 97; Pulse 56; Resp 18; Pulse Ox 97% on R/A; tr6 16:18 BP 150 / 90; Pulse 58; Resp 18; Pulse Ox 100% ; tr6 11:54 Body Mass Index 27.80 (92.99 kg, 182.88 cm) ca1 ED Course: 11:33 Patient arrived in ED. as 11:55 Triage completed. ca1 11:56 Arm band placed on right wrist. ca1 12:03 Danay Urias, RN is Primary Nurse. tr6 12:19 Patient has correct armband on for positive identification. Placed in gown. Bed in low tr6 position. Call light in reach. Side rails up X2. Seizure precautions initiated. Pulse ox on. NIBP on. Door closed. Noise minimized. Lights dimmed. Warm blanket given. 12:19 No provider procedures requiring assistance completed. tr6 12:25 Jaylan Hood NP is PHCP. pm1 12:25 Pancho Day MD is Attending Physician. pm1 12:50 Inserted saline lock: 20 gauge in right antecubital area, using aseptic technique. tr6 Blood collected. 12:54 CT Head Brain wo Cont In Process Unspecified. EDMS 16:17 IV discontinued, intact, bleeding controlled, No redness/swelling at site. Pressure tr6 dressing applied. Administered Medications: 12:48 Drug: Keppra (levETIRAcetam) 1000 mg Route: IV; Rate: bolus; Site: right antecubital; tr6 14:59 Drug: Tylenol 1000 mg Route: PO; tr6 Outcome: 15:29 Discharge ordered by . pm1 16:16 Discharged to home ambulatory. tr6 16:16 Condition: improved 16:16 Discharge instructions given to patient, Instructed on discharge instructions, follow up and referral plans. medication usage, safety practices, Demonstrated understanding of instructions, follow-up care, medications. 16:19 Patient left the ED. tr6 Signatures: Dispatcher [employer] EDMS Luna Rivera as Jaylan Hood NP STACKER DRIVER pm1 Georgina Piecre RN RN ca1 Danay Urias RN RN tr6
[2021-01-01 16:28] VITALS: TEMP 97.6
[2021-01-01 16:34] VITALS: BP 150/90; O2SAT 100
== END 2021-01-01 16:19 | disposition home or self-care (01) ==
LOC: ER 11:31
DX: I10 Essential (primary) hypertension (principal); G40.909 Epilepsy, unspecified, not intractable, without status epilepticus
CPT/HCPCS: 85025; 36415; 80053; 70450; J1953; 96374; 99284

== ENCOUNTER 2023-01-29 13:50 | Emergency (ER) | payer SELFPAY ==
[2023-01-29 14:37] LABS: Absolute Lymphocytes (CBC) 1.9 K/uL (0.7-4.9); Hematocrit 42.2 % (39.6-49.0); Lymphocytes % 42.7 % (15.3-44.8); MCV 87.6 fL (80-100); MPV 8.6 fL (7.6-11.3); RBC Red Blood Cell Count 4.82 M/uL (4.33-5.43)
[2023-01-29] MEDS ORDERED: NA CHLORIDE 0.9% 1,000 ML ONE (14:50)
[2023-01-29] MEDS ORDERED: FAMOTIDINE 20 MG/2 ML VIAL IV ONE (14:50)
[2023-01-29] MEDS ORDERED: MORPHINE 4 MG/ML SYR ONE (14:50)
[2023-01-29 14:51] LABS: Albumin 4.1 g/dL (3.4-5.0); Potassium 3.6 mEq/L (3.5-5.1); Protein, Total 7.8 g/dL (6.4-8.2)
[2023-01-29] MEDS ORDERED: KETOROLAC 30 MG/ML INJ ONE (16:11)
[2023-01-29] MEDS ORDERED: NA CHLORIDE 0.9% 250 ML ONE (16:11)
[2023-01-29] MEDS ORDERED: DIPHENHYDRAMINE 50 MG/ML VIAL ONE (16:11)
[2023-01-29 16:20] LABS: Specific Gravity 1.006 (1.005-1.030); Urine Bilirubin NEGATIVE (Negative); Urine Blood Negative (Negative); Urine Clarity Clear (Clear); Urine Color Colorless (Yellow); Urine Glucose NEGATIVE (Negative); Urine Protein NEGATIVE (Negative); Urine Urobilinogen Normal (Normal); Urine pH 6.5 (5.0-7.0)
[2023-01-29] MEDS ORDERED: NA CHLORIDE 0.9% 100 ML ONE (17:47)
[2023-01-29] MEDS ORDERED: LORazepam 2 MG/ML VIAL ONE (17:47)
[2023-01-29] MEDS ORDERED: LEVETIRACETAM 500 MG/5 ML VIAL IV ONE (17:47)
--- NOTE | 2023-01-29 18:07 | RAD REPORT ---
EXAM DESCRIPTION: CT - Head Brain Wo Cont - 01/29/2023 5:19 pm CLINICAL HISTORY: HEADACHE COMPARISON: Head Brain Wo Cont dated 01/01/2021; Head Brain Wo Cont dated 06/26/2020 TECHNIQUE: Noncontrast head CT images were obtained without IV contrast. Multiplanar reformats were generated and reviewed. All CT scans are performed using dose optimization technique as appropriate and may include automated exposure control or mA/KV adjustment according to patient size. FINDINGS: No intracranial hemorrhage, mass, or edema. Midline structures are unremarkable. Normal ventricular caliber for age. Kim-white matter differentiation is preserved, without evidence of acute infarct. No abnormal extra- axial fluid collections. Mastoid air cells and visualized portions of the paranasal sinuses are clear. No acute bony findings. IMPRESSION: No evidence of an acute intracranial process.
--- NOTE | 2023-01-29 18:17 | EDPHYS ---
Physician Documentation [facility] Name: Brenden Osman Age: 57 yrs Sex: Male : 1965 Arrival Date: 01/29/2023 Time: 13:50 Bed 7 Private MD: ED Physician Sb Christensen HPI: 01/29 15:05 This 57 yrs old Black Male presents to ER via EMS with complaints of Seizure. snw 15:05 The patient presents after having a single isolated seizure, that lasted 5 minute(s). snw Character of seizure(s): Motor activity: generalized, shaking all over. Seizure onset: 1300. Context: the seizure(s) was witnessed, by family, occurred at home, occurred while the patient was at rest, lying down. Seizure Hx: Last seizure: The patient's last seizure was approximately 2 month(s) ago, seizure activity every couple of months. Seizure Hx: Seizure medications: Keppra. Associated injury: The patient did not suffer any apparent associated injury. EMS care: IV fluids, supplemental oxygen. The patient has experienced similar episodes in the past. sees Dr. Austin. Historical: - Allergies: 14:05 No Known Allergies; ld1 - Home Meds: 14:05 Keppra 1500 mg Oral tab 1 tab 2 times per day [Active]; lisinopril 20 mg Oral tab 1 tab ld1 once daily [Active]; - PMHx: 14:05 Hypertension; Seizures; ld1 - Immunization history:: Client reports receiving the 2nd dose of the Covid vaccine. - Social history:: Smoking status: Patient denies any tobacco usage or history of. ROS: 14:16 Eyes: Negative for injury, pain, redness, and discharge, ENT: Negative for injury, snw pain, and discharge, Neck: Negative for injury, pain, and swelling, Cardiovascular: Negative for chest pain, palpitations, and edema, Respiratory: Negative for shortness of breath, cough, wheezing, and pleuritic chest pain, Abdomen/GI: Negative for abdominal pain, nausea, vomiting, diarrhea, and constipation, Back: Negative for injury and pain, : Negative for injury, bleeding, discharge, and swelling, MS/Extremity: Negative for injury and deformity, Skin: Negative for injury, rash, and discoloration, Psych: Negative for depression, anxiety, suicide ideation, homicidal ideation, and hallucinations. 14:16 Constitutional: Positive for headache, seizure today. 14:16 Neuro: Positive for headache, seizure activity. Exam: 14:16 Constitutional: This is a well developed, well nourished patient who is awake, alert, snw and in no acute distress. Head/Face: Normocephalic, atraumatic. Eyes: Pupils equal round and reactive to light, extra-ocular motions intact. Lids and lashes normal. Conjunctiva and sclera are non-icteric and not injected. Cornea within normal limits. Periorbital areas with no swelling, redness, or edema. ENT: Nares patent. No nasal discharge, no septal abnormalities noted. Tympanic membranes are normal and external auditory canals are clear. Oropharynx with no redness, swelling, or masses, exudates, or evidence of obstruction, uvula midline. Mucous membranes moist. Neck: Trachea midline, no thyromegaly or masses palpated, and no cervical lymphadenopathy. Supple, full range of motion without nuchal rigidity, or vertebral point tenderness. No Meningismus. Chest/axilla: Normal chest wall appearance and motion. Nontender with no deformity. No lesions are appreciated. Cardiovascular: Regular rate and rhythm with a normal S1 and S2. No gallops, murmurs, or rubs. Normal PMI, no JVD. No pulse deficits. Respiratory: Lungs have equal breath sounds bilaterally, clear to auscultation and percussion. No rales, rhonchi or wheezes noted. No increased work of breathing, no retractions or nasal flaring. Abdomen/GI: Soft, non-tender, with normal bowel sounds. No distension or tympany. No guarding or rebound. No evidence of tenderness throughout. Back: No spinal tenderness. No costovertebral tenderness. Full range of motion. Skin: Warm, dry with normal turgor. Normal color with no rashes, no lesions, and no evidence of cellulitis. MS/ Extremity: Pulses equal, no cyanosis. Neurovascular intact. Full, normal range of motion. Neuro: Awake and alert, GCS 15, oriented to person, place, time, and situation. Cranial nerves II-XII grossly intact. Motor strength 5/5 in all extremities. Sensory grossly intact. Cerebellar exam normal. Normal gait. Psych: Awake, alert, with orientation to person, place and time. Behavior, mood, and affect are within normal limits. Vital Signs: 14:06 BP 176 / 108; Pulse 71; Resp 15; Temp 98.4(TE); Pulse Ox 100% on R/A; Weight 95.25 kg; ld1 Height 6 ft. 1 in. ; Pain 7/10; 14:36 BP 150 / 101; ss 15:10 BP 136 / 89; Pulse 69; Resp 18; Pulse Ox 99% on R/A; ld1 16:12 BP 143 / 86; Pulse 61; Resp 18; Pulse Ox 100% on R/A; ld1 18:02 BP 158 / 101; Pulse 60; Resp 18; Pulse Ox 99% on R/A; ld1 19:17 BP 146 / 81; Pulse 60; Resp 17; Pulse Ox 100% ; jj7 14:06 Body Mass Index 27.71 (95.25 kg, 185.42 cm) ld1 14:06 Pain Scale: Adult ld1 Brandie Coma Score: 14:06 Eye Response: spontaneous(4). Motor Response: obeys commands(6). Verbal Response: ld1 oriented(5). Total: 15. MDM: 14:12 Patient medically screened. snw 15:07 Differential diagnosis: seizure, TIA. Data reviewed: vital signs, nurses notes. snw Historians other than the Patient: Family Member: Spouse. Care significantly affected by the following chronic conditions: seizure d/o post TBI. Counseling: I had a detailed discussion with the patient and/or guardian regarding: the historical points, exam findings, and any diagnostic results supporting the discharge/admit diagnosis, lab results, the need for outpatient follow up, for definitive care. Response to treatment: the patient's symptoms have markedly improved after treatment, the patient's symptoms have resolved after treatment. Special discussion: I have referred the patient to see his PCP for further evaluation of high blood pressure. Based on the history and exam findings, there is no indication for further emergent testing or inpatient evaluation. I discussed with the patient/guardian the need to see the neurologist for further evaluation of the symptoms. I discussed with the patient/guardian the need to see the primary care provider for further evaluation of the symptoms. 15:41 Response to treatment: pressure improved, headache without resolution. snw 17:40 Awaiting: CT scan results, pt with hx of seizure that are generally preceded by a snw headache. Pt had a headache this afternoon and had a seizure. The headache did not resolve even with improvement of blood pressure so CT ordered. When pt returned to exam room post CT, seizure activity recurred with stiffening of upper body and movement of head. Not a lot of postictal symptoms. As pt takes 2gm of Keppra daily and max is 3gm. Will load pt with 1gm IV while awaiting CT results.. 01/29 14:15 Order name: CBC with Diff; Complete Time: 14:44 snw 01/29 14:15 Order name: CMP; Complete Time: 14:52 snw 01/29 14:15 Order name: Lipase; Complete Time: 14:52 snw 01/29 14:15 Order name: Urinalysis w/ reflexes; Complete Time: 16:25 snw 01/29 16:41 Order name: CT Head Brain wo Cont; Complete Time: 18:16 snw 01/29 14:15 Order name: IV Saline Lock; Complete Time: 14:18 snw 01/29 14:15 Order name: Labs collected and sent; Complete Time: 14:18 snw 01/29 14:15 Order name: Recheck B/P; Complete Time: 14:36 snw Administered Medications: 14:52 Drug: NS 0.9% IV 1000 ml Route: IV; Rate: 1 bolus; Site: right upper arm; bp 19:35 Follow up: Response: No adverse reaction; IV Status: Completed infusion; IV Intake: as6 1000ml 14:52 Drug: Famotidine IVP 20 mg Route: IVP; Site: right upper arm; bp 19:35 Follow up: Response: No adverse reaction as6 14:52 Drug: morphine IVP or IV 4 mg Route: IVP; Infused Over: 4 mins; Site: right upper arm; bp 19:35 Follow up: Response: No adverse reaction as6 16:00 Drug: Ketorolac IVP 30 mg Route: IVP; Site: right upper arm; bp 19:35 Follow up: Response: No adverse reaction as6 16:00 Drug: NS 0.9% IV 250 ml Route: IV; Rate: bolus; Site: right upper arm; bp 19:35 Follow up: Response: No adverse reaction; IV Status: Completed infusion; IV Intake: as6 250ml 16:00 Drug: diphenhydrAMINE IVP 25 mg Route: IVP; Site: right upper arm; bp 19:35 Follow up: Response: No adverse reaction as6 17:43 Drug: Ativan IVP 1 mg Route: IVP; Site: right upper arm; bp 19:34 Follow up: Response: No adverse reaction as6 17:43 Drug: Keppra IV 1000 mg Route: IV; Rate: calculated rate; Site: right upper arm; bp 19:34 Follow up: Response: No adverse reaction; IV Status: Completed infusion; IV Intake: as6 100ml Disposition: 21:24 Co-signature as Attending Physician, Sb Christensen MD I reviewed the patient's care rt provided by the Advanced Practice Provider and agree with the diagnosis and treatment plan. Disposition Summary: 01/29/23 18:16 Discharge Ordered Location: Home snw Condition: Stable snw Diagnosis - Epileptic seizures related to external causes, not intractable, without status snw epilepticus Followup: snw - With: Emergency Department - When: As needed - Reason: Worsening of condition Followup: snw - With: - When: Tomorrow - Reason: Recheck today's complaints, Continuance of care, Re-evaluation by your physician Discharge Instructions: - Discharge Summary Sheet snw - Seizure, Adult snw Forms: - Medication Reconciliation Form snw - Thank You Letter snw - Antibiotic Education snw - Prescription Opioid Use snw Signatures: Dispatcher [employer] Una Huerta FNP-C INTEGRATED CIRCUIT LAYOUT DESIGNER-Csnw Martinez Evans RN RN bp Soni Nelson RN RN ld1 Sb Christensen MD MD rt James Mireles RN as6
--- NOTE | 2023-01-29 18:17 | ER ---
Nurse's Notes [facility] Name: Brenden Osman Age: 57 yrs Sex: Male : 1965 Arrival Date: 01/29/2023 Time: 13:50 Bed 7 Private MD: Diagnosis: Epileptic seizures related to external causes, not intractable, without status epilepticus Presentation: 01/29 14:05 Acuity: LUCITA 2 ld1 14:06 Chief complaint: EMS states: Seizure lasting 5 minutes. Last seizure was in November 2022. ld1 Pt c/o headache. Coronavirus screen: Client denies travel out of the [place] in the last 14 days. Ebola Screen: Patient denies exposure to infectious person. Patient denies travel to an Ebola-affected area in the 21 days before illness onset. Initial Sepsis Screen: Does the patient meet any 2 criteria? No. Patient's initial sepsis screen is negative. Does the patient have a suspected source of infection? No. Patient's initial sepsis screen is negative. Risk Assessment: Do you want to hurt yourself or someone else? Patient reports no desire to harm self or others. Onset of symptoms was January 29, 2023. 14:06 Method Of Arrival: EMS: [facility] ld1 Historical: - Allergies: 14:05 No Known Allergies; ld1 - Home Meds: 14:05 Keppra 1500 mg Oral tab 1 tab 2 times per day [Active]; lisinopril 20 mg Oral tab 1 tab ld1 once daily [Active]; - PMHx: 14:05 Hypertension; Seizures; ld1 - Immunization history:: Client reports receiving the 2nd dose of the Covid vaccine. - Social history:: Smoking status: Patient denies any tobacco usage or history of. Screenin:10 [facility] ED Fall Risk Assessment (Adult) History of falling in the last 3 months, ss including since admission Yes- physiologic fall (2 pts) Confusion or Disorientation No (0 pts) Intoxicated or Sedated No (0 pts) Impaired Gait No (0 pts) Mobility Assist Device Used No (0 pt) Altered Elimination No (0 pt) Score/Fall Risk Level. Abuse screen: Denies threats or abuse. Denies injuries from another. Nutritional screening: No deficits noted. Tuberculosis screening: Never had TB. Assessment: 14:11 General: Appears in no apparent distress. comfortable, Behavior is calm, cooperative. ss Pain: Complains of pain in generalized headache Pain currently is 7 out of 10 on a pain scale. Neuro: Level of Consciousness is awake, alert, obeys commands, Oriented to person, place, time, situation, Speech is normal. Respiratory: Airway is patent Respiratory effort is even, unlabored, Respiratory pattern is regular, symmetrical. GI: Patient currently denies abdominal pain, nausea. Derm: Skin is intact, is healthy with good turgor, Skin is pink, warm \T\ dry. normal. 16:30 Reassessment: No changes from previously documented assessment. Patient is alert, bp oriented x 3, equal unlabored respirations, skin warm/dry/pink. 18:38 Reassessment: DC ON HOLD FOR DROWSINESS. bp 19:17 Reassessment: ASSUMED CARE OF PT. PT SLEEPING. NO DISTRESS NOTED. PT HAS BEEN jj7 DISCHARGED BUT WAS INFORMED BY OFF GOING SHIFT THAT HE IS VERY SLEEPY. FAMILY SAID THEY CAN NOT TAKE HIM HOME UNTIL HE IS MORE AWAKE. STAFF AGREED. VS STABLE. 19:25 Reassessment: PT AWAKE.A\T\OX3. STATES HE IS READY TO GO HOME. NO DISTRESS NOTED. jj7 Vital Signs: 14:06 BP 176 / 108; Pulse 71; Resp 15; Temp 98.4(TE); Pulse Ox 100% on R/A; Weight 95.25 kg; ld1 Height 6 ft. 1 in. ; Pain 7/10; 14:36 BP 150 / 101; ss 15:10 BP 136 / 89; Pulse 69; Resp 18; Pulse Ox 99% on R/A; ld1 16:12 BP 143 / 86; Pulse 61; Resp 18; Pulse Ox 100% on R/A; ld1 18:02 BP 158 / 101; Pulse 60; Resp 18; Pulse Ox 99% on R/A; ld1 19:17 BP 146 / 81; Pulse 60; Resp 17; Pulse Ox 100% ; jj7 14:06 Body Mass Index 27.71 (95.25 kg, 185.42 cm) ld1 14:06 Pain Scale: Adult ld1 Brandie Coma Score: 14:06 Eye Response: spontaneous(4). Motor Response: obeys commands(6). Verbal Response: ld1 oriented(5). Total: 15. ED Course: 14:05 Patient arrived in ED. ld1 14:05 Triage completed. ld1 14:06 Arm band placed on right wrist. ld1 14:10 Patient has correct armband on for positive identification. Bed in low position. Call ss light in reach. Client placed on continuous cardiac and pulse oximetry monitoring. NIBP monitoring applied. Warm blanket given. 14:10 Inserted saline lock: 22 gauge in right upper arm, using aseptic technique. Blood ss collected. 14:12 Una Brewer FNP-C is PHCP. snw 14:12 Sb Christensen MD is Attending Physician. snw 14:38 Martinez Evans, RISHI is Primary Nurse. bp 17:21 CT Head Brain wo Cont In Process Unspecified. EDMS 18:16 Duy Austin MD is Referral Physician. snw 19:15 Side rails up X2. Adult w/ patient. Seizure precautions initiated. jj7 19:28 No provider procedures requiring assistance completed. IV discontinued, intact, jj7 bleeding controlled, No redness/swelling at site. Pressure dressing applied. Administered Medications: 14:52 Drug: NS 0.9% IV 1000 ml Route: IV; Rate: 1 bolus; Site: right upper arm; bp 19:35 Follow up: Response: No adverse reaction; IV Status: Completed infusion; IV Intake: as6 1000ml 14:52 Drug: Famotidine IVP 20 mg Route: IVP; Site: right upper arm; bp 19:35 Follow up: Response: No adverse reaction as6 14:52 Drug: morphine IVP or IV 4 mg Route: IVP; Infused Over: 4 mins; Site: right upper arm; bp 19:35 Follow up: Response: No adverse reaction as6 16:00 Drug: Ketorolac IVP 30 mg Route: IVP; Site: right upper arm; bp 19:35 Follow up: Response: No adverse reaction as6 16:00 Drug: NS 0.9% IV 250 ml Route: IV; Rate: bolus; Site: right upper arm; bp 19:35 Follow up: Response: No adverse reaction; IV Status: Completed infusion; IV Intake: as6 250ml 16:00 Drug: diphenhydrAMINE IVP 25 mg Route: IVP; Site: right upper arm; bp 19:35 Follow up: Response: No adverse reaction as6 17:43 Drug: Ativan IVP 1 mg Route: IVP; Site: right upper arm; bp 19:34 Follow up: Response: No adverse reaction as6 17:43 Drug: Keppra IV 1000 mg Route: IV; Rate: calculated rate; Site: right upper arm; bp 19:34 Follow up: Response: No adverse reaction; IV Status: Completed infusion; IV Intake: as6 100ml Medication: 14:10 VIS not applicable for this client. ss Intake: 19:34 IV: 100ml; Total: 100ml. as6 19:35 IV: 250ml; Total: 350ml. as6 19:35 IV: 1000ml; Total: 1350ml. as6 Outcome: 18:16 Discharge ordered by MD. melani 19:28 Discharged to home via wheelchair, with family. jj7 19:28 Condition: improved 19:28 Discharge instructions given to patient, family, Instructed on discharge instructions, follow up and referral plans. safety practices, Demonstrated understanding of instructions, follow-up care. 19:34 Patient left the ED. as6 Signatures: Dispatcher [employer] EDMS Una Brewer, NOTCH MACHINE OPERATOR-C NOTCH MACHINE OPERATOR-Csnw Vida Luevano, RISHI RN ss Martinez Evans, RN RN bp Soni Nelson RN RN ld1 James Mireles RN RN as6 Heather Oleary RN RN jj7
[2023-01-29 19:39] VITALS: TEMP 98.4
[2023-01-29 19:47] VITALS: BP 146/81; O2SAT 100
== END 2023-01-29 19:34 | disposition home or self-care (01) ==
LOC: ER 13:50
DX: G40.509 Epileptic seizures related to external causes, not intractable, without status epilepticus (principal)
CPT/HCPCS: 36415; 70450; 80053; 81003; 83690; 85025; J1200; J1953; J7030; J7050

== ENCOUNTER 2023-02-13 06:35 | Emergency (ER) | payer SELFPAY ==
[2023-02-13 07:33] LABS: Absolute Lymphocytes (CBC) 1.3 K/uL (0.7-4.9); Hematocrit 43.1 % (39.6-49.0); Lymphocytes % 38.2 % (15.3-44.8); MCV 87.6 fL (80-100); MPV 8.7 fL (7.6-11.3); RBC Red Blood Cell Count 4.92 M/uL (4.33-5.43)
[2023-02-13] MEDS ORDERED: NA CHLORIDE 0.9% 1,000 ML ONE (07:42)
[2023-02-13 07:49] LABS: Albumin 3.9 g/dL (3.4-5.0); Bilirubin Total 0.6 mg/dL (0.2-1.0); Potassium 3.3 mEq/L (3.5-5.1); Protein, Total 7.5 g/dL (6.4-8.2)
[2023-02-13 07:53] LABS: BUN Blood Urea Nitrogen 9 mg/dL (7-18); Bicarbonate 26 mEq/L (21-32); Glomerular Filtration Rate 100 ml/min (=/>90); Glucose Level 143 mg/dL (74-106); Magnesium 2.2 mg/dL (1.6-2.4); Potassium 3.3 mEq/L (3.5-5.1); Sodium Level 138 mEq/L (136-145); Troponin High Sensitivity 14.2 pg/mL (<58.9)
[2023-02-13 07:55] LABS: NT PRO-BNP < 5 pg/mL (<125)
[2023-02-13 08:00] LABS: Protime INR 1.09
--- NOTE | 2023-02-13 08:40 | RAD REPORT ---
EXAM DESCRIPTION: RAD - Chest Single View - 02/13/2023 8:32 am CLINICAL HISTORY: COUGH Chest pain. COMPARISON: Chest Single View dated 11/25/2022; Chest Single View dated 11/01/2022; Chest Single View dated 06/26/2020; Chest Single View dated 04/10/2020 FINDINGS: Portable technique limits examination quality. The lungs are grossly clear. The heart is normal in size. No displaced fractures. IMPRESSION: No acute intrathoracic process suspected.
--- NOTE | 2023-02-13 09:27 | ER ---
Nurse's Notes [facility] Name: Brenden Osman Age: 57 yrs Sex: Male : 1965 Arrival Date: 02/13/2023 Time: 06:35 Bed 18 Private MD: Diagnosis: Diarrhea, unspecified;Anorexia;Hypokalemia Presentation: 02/13 06:49 Chief complaint: Patient states: 2 days of diarrhea, on and off fever, headache and sg5 chills. Coronavirus screen: Client denies travel out of the [place] in the last 14 days. Ebola Screen: No symptoms or risks identified at this time. Initial Sepsis Screen: Does the patient meet any 2 criteria? No. Patient's initial sepsis screen is negative. Does the patient have a suspected source of infection? No. Patient's initial sepsis screen is negative. Risk Assessment: Do you want to hurt yourself or someone else? Patient reports no desire to harm self or others. Onset of symptoms was February 11, 2023. 06:49 Method Of Arrival: Ambulatory sg5 06:49 Acuity: LUCITA 3 sg5 Triage Assessment: 06:51 General: Appears in no apparent distress. comfortable, Behavior is calm, cooperative, sg5 appropriate for age. Pain: Denies pain. GI: Reports diarrhea. Historical: - Allergies: 07:29 No Known Allergies; aa5 - Home Meds: 06:51 Keppra 1500 mg Oral tab 1 tab 2 times per day [Active]; lisinopril 20 mg Oral tab 1 tab sg5 once daily [Active]; aspirin 81 mg Oral capsule daily [Active]; - PMHx: 06:51 Hypertension; Seizures; sg5 - Immunization history:: Adult Immunizations up to date, Client reports receiving the 2nd dose of the Covid vaccine, Last tetanus immunization: up to date Pneumococcal vaccine is not up to date, Flu vaccine is not up to date. - Social history:: Smoking status: Patient denies any tobacco usage or history of. Patient uses alcohol, only on a social basis. - Family history:: not pertinent. Screenin:15 [facility] ED Fall Risk Assessment (Adult) History of falling in the last 3 months, aa5 including since admission No falls in past 3 months (0 pts) Confusion or Disorientation No (0 pts) Intoxicated or Sedated No (0 pts) Impaired Gait No (0 pts) Mobility Assist Device Used No (0 pt) Altered Elimination No (0 pt) Score/Fall Risk Level 0 - 2 = Low Risk Oriented to surroundings, Maintained a safe environment, Educated pt \T\ family on fall prevention, incl call for assistance when getting out of bed. Abuse screen: Denies threats or abuse. Nutritional screening: No deficits noted. Tuberculosis screening: No symptoms or risk factors identified. Assessment: 07:15 General: Appears comfortable, Behavior is calm, cooperative. Pain: Denies pain. Neuro: aa5 Level of Consciousness is awake, alert, obeys commands, Oriented to person, place, time, situation, Appropriate for age Denies headache. Cardiovascular: Heart tones S1 S2 present Rhythm is regular. Respiratory: Airway is patent Respiratory effort is even, unlabored, Respiratory pattern is regular, symmetrical. GI: Abdomen is round non-distended, Bowel sounds present X 4 quads. Abd is soft and non tender X 4 quads. Reports diarrhea, Patient currently denies abdominal pain, nausea, vomiting. : No signs and/or symptoms were reported regarding the genitourinary system. EENT: No signs and/or symptoms were reported regarding the EENT system. Derm: Skin is pink, warm \T\ dry. Musculoskeletal: Range of motion: intact in all extremities. 07:49 Reassessment: Pt and notified of wait time for results. Warm blankets provided for aa5 comfort. Call jaimes within reach and bed side rails up. . 09:00 Reassessment: Patient appears in no apparent distress at this time. Patient and/or eh3 family updated on plan of care and expected duration. Pain level reassessed. Patient is alert, oriented x 3, equal unlabored respirations, skin warm/dry/pink. Pt states he will try to provide a urine sample, urinal at bedside. Vital Signs: 06:49 BP 133 / 74; Pulse 61; Resp 18; Temp 98.6(O); Pulse Ox 98% on R/A; Weight 97.52 kg; sg5 Height 6 ft. 0 in. ; Pain 0/10; 09:00 BP 114 / 73; Pulse 59; Resp 15; Pulse Ox 96% on R/A; eh3 06:49 Body Mass Index 29.16 (97.52 kg, 182.88 cm) sg5 06:49 Pain Scale: Adult sg5 ED Course: 06:38 Patient arrived in ED. ja2 06:51 Triage completed. sg5 06:51 Arm band placed on right wrist. sg5 06:59 Inserted saline lock: 20 gauge in right antecubital area, using aseptic technique. sg5 Blood collected. 07:15 Patient has correct armband on for positive identification. Bed in low position. Call aa5 light in reach. Side rails up X2. Adult w/ patient. 07:19 Zenaida Boone, RN is Primary Nurse. aa5 07:24 Pancho Day MD is Attending Physician. [facility] 07:24 Initial lab(s) drawn, by ED staff, sent to lab. aa5 08:34 XRAY Chest (1 view) In Process Unspecified. EDWA 09:00 Report received from RISHI Estevez. eh3 09:59 No provider procedures requiring assistance completed. IV discontinued, intact, eh3 bleeding controlled, No redness/swelling at site. Pressure dressing applied. Administered Medications: 07:49 Drug: NS 0.9% IV 1000 ml Route: IV; Rate: 1 bolus; Site: right antecubital; aa5 09:13 Follow up: IV Status: Completed infusion; IV Intake: 1000ml eh3 09:32 Drug: Potassium PO Effervescent Tablet 50 mEq Route: PO; eh3 Medication: 08:51 VIS not applicable for this client. aa5 Intake: 09:13 IV: 1000ml; Total: 1000ml. eh3 Outcome: 09:27 Discharge ordered by . [facility] 09:59 Discharged to home ambulatory, with family. eh3 09:59 Condition: stable 09:59 Discharge instructions given to patient, family, Instructed on discharge instructions, follow up and referral plans. medication usage, Demonstrated understanding of instructions, follow-up care, medications, Prescriptions given X 2. 09:59 Patient left the ED. eh3 Signatures: Dispatcher [employer] EDWA Pancho Day MD MD cha Calderon, Audri, RN RN larry5 Brenda Fernandes [facility] Magdalena Gentile RN RN 3 Kelsy Tobar RN RN sg5 Corrections: (The following items were deleted from the chart) 09:13 09:00 Reassessment: Patient appears in no apparent distress at this time. Patient eh3 and/or family updated on plan of care and expected duration. Pain level reassessed. Patient is alert, oriented x 3, equal unlabored respirations, skin warm/dry/pink. eh3
--- NOTE | 2023-02-13 09:27 | EDPHYS ---
Physician Documentation [facility] Name: Brenden Osman Age: 57 yrs Sex: Male : 1965 Arrival Date: 02/13/2023 Time: 06:35 Bed 18 Private MD: JULIETTE Physician Pancho Day HPI: 02/13 08:01 This 57 yrs old Black Male presents to ER via Ambulatory with complaints of Diarrhea, marciano Decreased Appetite. 08:01 The patient presents to the emergency department with nausea, diarrhea, abdominal pain. marciano Onset: The symptoms/episode began/occurred 3 day(s) ago. Possible causes: unknown. The symptoms are aggravated by nothing. The symptoms are alleviated by nothing. Associated signs and symptoms: The patient has no apparent associated signs or symptoms. Severity of symptoms: At their worst the symptoms were mild in the emergency department the symptoms are unchanged. The patient has not experienced similar symptoms in the past. Historical: - Allergies: 07:29 No Known Allergies; aa5 - Home Meds: 06:51 Keppra 1500 mg Oral tab 1 tab 2 times per day [Active]; lisinopril 20 mg Oral tab 1 tab sg5 once daily [Active]; aspirin 81 mg Oral capsule daily [Active]; - PMHx: 06:51 Hypertension; Seizures; sg5 - Immunization history:: Adult Immunizations up to date, Client reports receiving the 2nd dose of the Covid vaccine, Last tetanus immunization: up to date Pneumococcal vaccine is not up to date, Flu vaccine is not up to date. - Social history:: Smoking status: Patient denies any tobacco usage or history of. Patient uses alcohol, only on a social basis. - Family history:: not pertinent. ROS: 08:01 Constitutional: Negative for fever, chills, and weight loss, Eyes: Negative for injury, marciano pain, redness, and discharge, ENT: Negative for injury, pain, and discharge, Neck: Negative for injury, pain, and swelling, Cardiovascular: Negative for chest pain, palpitations, and edema, Respiratory: Negative for shortness of breath, cough, wheezing, and pleuritic chest pain, Back: Negative for injury and pain, : Negative for injury, bleeding, discharge, and swelling, MS/Extremity: Negative for injury and deformity, Skin: Negative for injury, rash, and discoloration, Neuro: Negative for headache, weakness, numbness, tingling, and seizure, Psych: Negative for depression, anxiety, suicide ideation, homicidal ideation, and hallucinations, Allergy/Immunology: Negative for hives, rash, and allergies, Endocrine: Negative for neck swelling, polydipsia, polyuria, polyphagia, and marked weight changes, Hematologic/Lymphatic: Negative for swollen nodes, abnormal bleeding, and unusual bruising. 08:01 Abdomen/GI: Positive for nausea, diarrhea, abdominal cramps. Exam: 08:01 Constitutional: This is a well developed, well nourished patient who is awake, alert, marciano and in no acute distress. Head/Face: Normocephalic, atraumatic. Eyes: Pupils equal round and reactive to light, extra-ocular motions intact. Lids and lashes normal. Conjunctiva and sclera are non-icteric and not injected. Cornea within normal limits. Periorbital areas with no swelling, redness, or edema. ENT: Nares patent. No nasal discharge, no septal abnormalities noted. Tympanic membranes are normal and external auditory canals are clear. Oropharynx with no redness, swelling, or masses, exudates, or evidence of obstruction, uvula midline. Mucous membranes moist. Neck: Trachea midline, no thyromegaly or masses palpated, and no cervical lymphadenopathy. Supple, full range of motion without nuchal rigidity, or vertebral point tenderness. No Meningismus. Chest/axilla: Normal chest wall appearance and motion. Nontender with no deformity. No lesions are appreciated. Cardiovascular: Regular rate and rhythm with a normal S1 and S2. No gallops, murmurs, or rubs. Normal PMI, no JVD. No pulse deficits. Respiratory: Lungs have equal breath sounds bilaterally, clear to auscultation and percussion. No rales, rhonchi or wheezes noted. No increased work of breathing, no retractions or nasal flaring. Abdomen/GI: Soft, non-tender, with normal bowel sounds. No distension or tympany. No guarding or rebound. No evidence of tenderness throughout. Back: No spinal tenderness. No costovertebral tenderness. Full range of motion. Male : Normal genitalia with no discharge or lesions. Skin: Warm, dry with normal turgor. Normal color with no rashes, no lesions, and no evidence of cellulitis. MS/ Extremity: Pulses equal, no cyanosis. Neurovascular intact. Full, normal range of motion. Neuro: Awake and alert, GCS 15, oriented to person, place, time, and situation. Cranial nerves II-XII grossly intact. Motor strength 5/5 in all extremities. Sensory grossly intact. Cerebellar exam normal. Normal gait. Psych: Awake, alert, with orientation to person, place and time. Behavior, mood, and affect are within normal limits. 08:04 ECG was reviewed by the Attending Physician. [facility] Vital Signs: 06:49 BP 133 / 74; Pulse 61; Resp 18; Temp 98.6(O); Pulse Ox 98% on R/A; Weight 97.52 kg; sg5 Height 6 ft. 0 in. ; Pain 0/10; 09:00 BP 114 / 73; Pulse 59; Resp 15; Pulse Ox 96% on R/A; eh3 06:49 Body Mass Index 29.16 (97.52 kg, 182.88 cm) sg5 06:49 Pain Scale: Adult sg5 MDM: 07:24 Patient medically screened. [facility] 08:05 Differential diagnosis: Nonspecific abd pain, gastritis, diverticulitis, viral marciano gastroenteritis, gastroenteritis. Data reviewed: vital signs, nurses notes, lab test result(s), EKG, radiologic studies, plain films. Consideration of Admission/Observation Escalation of care including admission/observation considered. I considered the following discharge prescriptions or medication management in the emergency department Medications were administered in the Emergency Department. See MAR. Test considered but Not performed: CT: no ct ab pel. Care significantly affected by the following chronic conditions: Hypertension, seizure hx. Counseling: I had a detailed discussion with the patient and/or guardian regarding: the historical points, exam findings, and any diagnostic results supporting the discharge/admit diagnosis, lab results, radiology results, the need for outpatient follow up, for definitive care, a family practitioner. 02/13 07:19 Order name: CBC with Diff; Complete Time: : 02/13 07:19 Order name: CMP; Complete Time: : [facility] 02/13 07:19 Order name: Lipase; Complete Time: :25 [facility] 02/13 07:27 Order name: Basic Metabolic Panel; Complete Time: : [facility] 02/13 07:27 Order name: Magnesium; Complete Time: : [facility] 02/13 07:27 Order name: NT PRO-BNP; Complete Time: 09:25 [facility] 02/13 07:27 Order name: PT-INR; Complete Time: 09:25 [facility] 02/13 07:27 Order name: Troponin HS; Complete Time: 09:25 [facility] 02/13 07:27 Order name: XRAY Chest (1 view); Complete Time: 09:25 [facility] 02/13 07:27 Order name: EKG; Complete Time: 07:28 [facility] 02/13 07:19 Order name: IV Saline Lock; Complete Time: 07:19 [facility] 02/13 07:19 Order name: Labs collected and sent; Complete Time: 07:19 [facility] 02/13 07:27 Order name: Cardiac monitoring; Complete Time: 07:49 [facility] 02/13 07:27 Order name: EKG - Nurse/Tech; Complete Time: 07:49 [facility] 02/13 07:27 Order name: O2 Per Protocol; Complete Time: 07:29 [facility] 02/13 07:27 Order name: O2 Sat Monitoring; Complete Time: 07:29 [facility] EC:04 Rate is 67 beats/min. Rhythm is regular. QRS [place] is Normal. [place] interval is normal. QRS marciano interval is normal. QT interval is normal. No Q waves. T waves are Normal. No ST changes noted. Clinical impression: NSR w/ Non-specific ST/T Changes and No evidence of ischemia. Interpreted by me. Reviewed by me. Administered Medications: 07:49 Drug: NS 0.9% IV 1000 ml Route: IV; Rate: 1 bolus; Site: right antecubital; aa5 09:13 Follow up: IV Status: Completed infusion; IV Intake: 1000ml 3 09:32 Drug: Potassium PO Effervescent Tablet 50 mEq Route: PO; eh3 Disposition Summary: 02/13/23 09:27 Discharge Ordered Location: Home marciano Problem: new marciano Symptoms: have improved marciano Condition: Stable marciano Diagnosis - Diarrhea, unspecified marciano - Anorexia marciano - Hypokalemia marciano Followup: marciano - With: Private Physician - When: 2 - 3 days - Reason: Recheck today's complaints, Continuance of care, Re-evaluation by your physician Discharge Instructions: - Discharge Summary Sheet marciano - Anorexia Nervosa marciano - Food Choices to Help Relieve Diarrhea, Adult marciano - Diarrhea, Adult marciano - Potassium Content of Foods marciano - Hypokalemia marciano Forms: - Medication Reconciliation Form marciano - Thank You Letter marciano - Antibiotic Education marciano - Prescription Opioid Use [facility] - [email or web address] [facility] Prescriptions: - Zofran 4 mg Oral Tablet - take 1 tablet by ORAL route every 12 hours As needed; 20 tablet; Refills: 0, marciano Product Selection Permitted - dicyclomine 20 mg Oral Tablet - take 1 tablet by ORAL route 4 times per day; 28 tablet; Refills: 0, Product [facility] Selection Permitted Signatures: Dispatcher [employer] Pancho Carrasquillo MD MD cha Calderon, Audri, RN RN aa5 Magdalena Gentile RN RN eh3 Kelsy Tobar RN RN sg5
[2023-02-13] MEDS ORDERED: POTASSIUM 25 MEQ EFFERV TAB ONE (09:36)
[2023-02-13 10:31] VITALS: TEMP 98.6
[2023-02-13 10:33] VITALS: BP 114/73; O2SAT 96
--- NOTE | 2023-02-15 16:25 | EKG ---
Test Date: 2023-02-13 Test Time: 07:41:45 Er Tech: COURTNEY MEASUREMENT RESULTS: Intervals: Rate: 67 NV: 200 QRSD: 104 QT: 422 QTc: 445 [place]: P: 50 NV: 200 QRS: 32 T: 47 INTERPRETIVE STATEMENTS: Normal sinus rhythm Nonspecific ST and T wave abnormality Abnormal ECG Compared to ECG 11/01/2022 03:40:22 ST (T wave) deviation now present Electronically Signed On 02-15-23 16:21:12 CDT by Thanh Mccormick
== END 2023-02-13 09:59 | disposition home or self-care (01) ==
LOC: ER 06:35
DX: E87.6 Hypokalemia (principal); R63.0 Anorexia
CPT/HCPCS: 36415; 71045; 80048; 80053; 83690; 83735; 83880; 84484; 85025; 85610; 93005; 96360; 99284; J7030

== ENCOUNTER 2023-02-25 10:10 | Emergency (ER) | payer SELFPAY ==
--- NOTE | 2023-02-25 10:58 | RAD REPORT ---
EXAM DESCRIPTION: RAD - Ankle Right 3 View - 02/25/2023 10:43 am CLINICAL HISTORY: Right ankle pain FINDINGS: No fracture or dislocation is seen. Lateral soft tissue swelling
--- NOTE | 2023-02-25 11:02 | ER ---
Nurse's Notes [facility] Name: Brenden Osman Age: 57 yrs Sex: Male : 1965 Arrival Date: 02/25/2023 Time: 10:10 Bed 13 Private MD: Jonathan Mendoza Diagnosis: Sprain of unspecified ligament of right ankle, initial encounter Presentation: 02/25 10:20 Chief complaint: Patient states: tripped and rolled right ankle yesterday. Pt c/o pain aa5 to right ankle. 10:20 Coronavirus screen: At this time, the client does not indicate any symptoms associated aa5 with coronavirus-19. Ebola Screen: Patient denies travel to an Ebola-affected area in the 21 days before illness onset. Initial Sepsis Screen: Does the patient meet any 2 criteria? No. Patient's initial sepsis screen is negative. Does the patient have a suspected source of infection? No. Patient's initial sepsis screen is negative. Risk Assessment: Do you want to hurt yourself or someone else? Patient reports no desire to harm self or others. Onset of symptoms was February 2023. 10:20 Acuity: LUCITA 4 aa5 10:20 Method Of Arrival: Wheelchair aa5 Historical: - Allergies: 10:21 No Known Allergies; aa5 - PMHx: 10:20 Hypertension; Seizures; aa5 - Immunization history:: Adult Immunizations unknown. - Social history:: Smoking status: Patient denies any tobacco usage or history of. - Family history:: not pertinent. - Hospitalizations: : No recent hospitalization is reported. Screenin:15 [facility] ED Fall Risk Assessment (Adult) History of falling in the last 3 months, ko1 including since admission No falls in past 3 months (0 pts) Confusion or Disorientation No (0 pts) Intoxicated or Sedated No (0 pts) Impaired Gait Yes (1 pt) Mobility Assist Device Used Yes (1 pt) Altered Elimination No (0 pt) Score/Fall Risk Level 0 - 2 = Low Risk Oriented to surroundings, Maintained a safe environment, Educated pt \T\ family on fall prevention, incl call for assistance when getting out of bed, Assessed \T\ reinforced patient's understanding of fall precautions, Provided non-skid footwear, Hourly rounding (assess needs \T\ fall precautionary measures) done, Used ambulatory aids as needed (educated on \T\ assisted with). Abuse screen: Denies threats or abuse. Denies injuries from another. Nutritional screening: No deficits noted. Tuberculosis screening: No symptoms or risk factors identified. Assessment: 10:15 General: Appears distressed, uncomfortable, Behavior is calm, cooperative, appropriate ko1 for age. Pain: Complains of pain in right ankle. Neuro: No deficits noted. Cardiovascular: No deficits noted. Respiratory: No deficits noted. GI: No deficits noted. : No deficits noted. EENT: No deficits noted. Derm: No deficits noted. Musculoskeletal: Swelling present in right ankle. Vital Signs: 10:20 BP 140 / 86; Pulse 80; Resp 18 S; Temp 97.7(TE); Pulse Ox 97% on R/A; Weight 97.52 kg aa5 (R); Height 6 ft. 0 in. (R); 11:39 BP 147 / 82; Pulse 78; Resp 18; Pulse Ox 100% ; ko1 10:20 Body Mass Index 29.16 (97.52 kg, 182.88 cm) aa5 ED Course: 10:11 Patient arrived in ED. am2 10:11 Jonathan Mendoza MD is Private Physician. am2 10:13 Alexander Nolasco MD is Attending Physician. rn 10:15 Patient has correct armband on for positive identification. Bed in low position. Call ko1 light in reach. Side rails up X 1. Provided Education on: NA. 10:20 Arm band placed on Patient placed in an exam room, on a stretcher. aa5 10:23 Triage completed. aa5 10:27 Lauren Oh, RN is Primary Nurse. ko1 10:45 XRAY Ankle RIGHT 3 view In Process Unspecified. EDMS 11:39 No provider procedures requiring assistance completed. Patient did not have IV access ko1 during this emergency room visit. Ludin wrap to right ankle. Administered Medications: No medications were administered Medication: 11:39 VIS not applicable for this client. ko1 Outcome: 11:02 Discharge ordered by . rn 11:39 Discharged to home via wheelchair, with family. ko1 11:39 Condition: stable 11:39 Discharge instructions given to patient, family, Instructed on discharge instructions, follow up and referral plans. medication usage, Demonstrated understanding of instructions, follow-up care, medications. 11:40 Patient left the ED. ko1 Signatures: Dispatcher [employer] EDAlexander Campos MD MD rn Calderon, Audri RN RN Holly Askew Kathy, RN RN ko1
--- NOTE | 2023-02-25 11:02 | EDPHYS ---
Physician Documentation [facility] Name: Brenden Osman Age: 57 yrs Sex: Male : 1965 Arrival Date: 02/25/2023 Time: 10:10 Bed 13 Private MD: Jonathan Mendoza ED Physician Alexander Nolasco HPI: 02/25 10:27 This 57 yrs old Black Male presents to ER via Wheelchair with complaints of Ankle rn Injury. 10:27 The patient presents with decreased range of motion, an injury, pain. The complaints rn affect the right ankle. Onset: The symptoms/episode began/occurred yesterday. Associated signs and symptoms: Pertinent positives: swelling, Pertinent negatives: warmth, weakness. Modifying factors: The symptoms are alleviated by nothing, the symptoms are aggravated by weight bearing, movement. Severity of symptoms: At their worst the symptoms were moderate, in the emergency department the symptoms are unchanged. The patient has not experienced similar symptoms in the past. Pt reports twisted ankle yesterday, fell walking, was wearing boots, able to walk on it last night, woke up with increased swelling and pain. . Historical: - Allergies: 10:21 No Known Allergies; aa5 - PMHx: 10:20 Hypertension; Seizures; aa5 - Immunization history:: Adult Immunizations unknown. - Social history:: Smoking status: Patient denies any tobacco usage or history of. - Family history:: not pertinent. - Hospitalizations: : No recent hospitalization is reported. ROS: 10:27 Constitutional: Negative for fever, chills, and weight loss, MS/Extremity: + right rn ankle injury and pain Exam: 10:27 Constitutional: This is a well developed, well nourished patient who is awake, alert, rn and in no acute distress. MS/ Extremity: Pulses equal, no cyanosis. Neurovascular intact. + tenderness bilateral malleoli, with moderate swelling, no open wound, strong DP pulses. No tenderness of midfoot or toes. No proximal/mid tib/fib tenderness or swelling. Vital Signs: 10:20 BP 140 / 86; Pulse 80; Resp 18 S; Temp 97.7(TE); Pulse Ox 97% on R/A; Weight 97.52 kg aa5 (R); Height 6 ft. 0 in. (R); 11:39 BP 147 / 82; Pulse 78; Resp 18; Pulse Ox 100% ; ko1 10:20 Body Mass Index 29.16 (97.52 kg, 182.88 cm) aa5 MDM: 10:13 Patient medically screened. rn 11:02 Differential diagnosis: fracture, sprain. Data reviewed: vital signs, nurses notes, rn radiologic studies, plain films, and as a result, I will discharge patient. Counseling: I had a detailed discussion with the patient and/or guardian regarding: the historical points, exam findings, and any diagnostic results supporting the discharge/admit diagnosis, radiology results, the need for outpatient follow up, to return to the emergency department if symptoms worsen or persist or if there are any questions or concerns that arise at home. Special discussion: I discussed with the patient/guardian in detail that at this point there is no indication for admission to the hospital. It is understood, however, that if the symptoms persist or worsen the patient needs to return immediately for re-evaluation. 02/25 10:25 Order name: XRAY Ankle RIGHT 3 view; Complete Time: 11:02 rn 02/25 11:25 Order name: Ludin Wrap; Complete Time: 11:40 rn Administered Medications: No medications were administered Disposition Summary: 02/25/23 11:02 Discharge Ordered Location: Home rn Problem: new rn Symptoms: have improved rn Condition: Stable rn Diagnosis - Sprain of unspecified ligament of right ankle, initial encounter rn Followup: rn - With: Private Physician - When: As needed - Reason: Recheck today's complaints, Re-evaluation by your physician Discharge Instructions: - Discharge Summary Sheet rn - Ankle Sprain rn Forms: - Medication Reconciliation Form rn - Thank You Letter rn - Antibiotic patternmaker helper - Prescription Opioid Use rn - Patient Portal Instructions rn Signatures: Dispatcher [employer] Alexander Cunningham MD MD rn Calderon, Audri RN RN aa5
[2023-02-25 11:51] VITALS: TEMP 97.7
[2023-02-25 11:52] VITALS: BP 147/82; O2SAT 100
== END 2023-02-25 11:40 | disposition home or self-care (01) ==
LOC: ER 10:10
DX: S93.401A Sprain of unspecified ligament of right ankle, initial encounter (principal)
CPT/HCPCS: 99283

== ENCOUNTER 2023-05-15 11:38 | Emergency (ER) | payer SELFPAY ==
[2023-05-15] MEDS ORDERED: LORazepam 2 MG/ML VIAL ONE (12:03)
[2023-05-15 13:35] LABS: Absolute Lymphocytes (CBC) 1.5 K/uL (0.7-4.9); Hematocrit 40.1 % (39.6-49.0); Lymphocytes % 32.3 % (15.3-44.8); MCV 87.6 fL (80-100); MPV 8.1 fL (7.6-11.3); Platelets 199 thou/uL (152-406); RBC Red Blood Cell Count 4.57 M/uL (4.33-5.43)
[2023-05-15 13:38] LABS: Blood Morphology Comment NOT SEEN (NOT SEEN); Platelet Estimate ADEQ; White Blood Cell Scan OK (OK)
[2023-05-15 13:58] LABS: Albumin 3.6 g/dL (3.4-5.0); Bilirubin Total 0.6 mg/dL (0.2-1.0); Potassium 3.5 mEq/L (3.5-5.1)
--- NOTE | 2023-05-15 14:06 | ER ---
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 Austin for seizures. Coronavirus screen: At this time, the client does not indicate any symptoms associated with coronavirus-19. Ebola Screen: Patient negative for fever greater than or equal to 101.5 degrees Fahrenheit, and additional compatible Ebola Virus Disease symptoms Patient denies exposure to infectious person. Patient denies travel to an Ebola-affected area in the 21 days before illness onset. No symptoms or risks identified at this time. Initial Sepsis Screen: Does the patient meet any 2 criteria? No. Patient's initial sepsis screen is negative. Does the patient have a suspected source of infection? No. Patient's initial sepsis screen is negative. Risk Assessment: Do you want to hurt yourself or someone else? Patient reports no desire to harm self or others. Onset of symptoms was May 15, 2023. 11:53 Method Of Arrival: Ambulatory iw 11:53 Acuity: LUCITA 3 iw Historical: - Allergies: 11:55 No Known Allergies; iw - PMHx: 11:55 Hypertension; Seizures; iw Screenin:05 [facility] ED Fall Risk Assessment (Adult) History of falling in the last 3 months, kc6 including since admission No falls in past 3 months (0 pts) Confusion or Disorientation No (0 pts) Intoxicated or Sedated No (0 pts) Impaired Gait No (0 pts) Mobility Assist Device Used No (0 pt) Altered Elimination No (0 pt) Score/Fall Risk Level 0 - 2 = Low Risk. Abuse screen: Denies threats or abuse. Denies injuries from another. Nutritional screening: No deficits noted. Tuberculosis screening: No symptoms or risk factors identified. Assessment: 12:06 General: Appears in no apparent distress. comfortable, Behavior is cooperative, kc6 appropriate for age, shaking. Pain: Denies pain. Neuro: Level of Consciousness is obeys commands, drowsy. Oriented to person, place, time, situation, Appropriate for age Seizure activity reported prior to arrival. Cardiovascular: Capillary refill < 3 seconds. Respiratory: Airway is patent Trachea midline Respiratory effort is even, unlabored, Respiratory pattern is regular, symmetrical. GI: No signs and/or symptoms were reported involving the gastrointestinal system. : No signs and/or symptoms were reported regarding the genitourinary system. EENT: No signs and/or symptoms were reported regarding the EENT system. Derm: No signs and/or symptoms reported regarding the dermatologic system. Skin is intact, is healthy with good turgor, Skin is pink, warm \T\ dry. Musculoskeletal: No signs and/or symptoms reported regarding the musculoskeletal system. Circulation, motion, and sensation intact. Capillary refill < 3 seconds, Range of motion: intact in all extremities. 12:46 Reassessment: phlebotomy paged for assistance with recollect labs. [facility] 12:52 Reassessment: spoke with Danna from phlebotomy. stated she is on her way. kc6 13:06 Reassessment: Patient appears in no apparent distress at this time. Patient and/or kc6 family updated on plan of care and expected duration. Pain level reassessed. Patient is alert, oriented x 3, equal unlabored respirations, skin warm/dry/pink. Patient denies pain at this time. Patient states feeling better. Patient states symptoms have improved. 13:17 Reassessment: phlebotomy at bedside collecting labs. 6 13:53 Reassessment: Patient appears in no apparent distress at this time. Patient and/or ph family updated on plan of care and expected duration. Pain level reassessed. Patient is alert, oriented x 3, equal unlabored respirations, skin warm/dry/pink. 14:35 Reassessment: Patient appears in no apparent distress at this time. No changes from 6 previously documented assessment. Patient and/or family updated on plan of care and expected duration. Pain level reassessed. Patient is alert, oriented x 3, equal unlabored respirations, skin warm/dry/pink. Vital Signs: 11:55 BP 178 / 97; Pulse 74; Resp 18; Pulse Ox 95% on R/A; iw 13:17 BP 145 / 91; Pulse 63; Resp 18 S; Pulse Ox 98% ; kc6 13:53 BP 124 / 78; Pulse 60; Resp 18; Pulse Ox 96% on R/A; ph 14:35 BP 135 / 89; Pulse 53; Resp 17 S; Pulse Ox 99% on R/A; kc6 Vernal Coma Score: 12:05 Eye Response: to voice(3). Motor Response: obeys commands(6). Verbal Response: kc6 oriented(5). Total: 14. ED Course: 11:41 Patient arrived in ED. im 11:41 Terry Nelson DO is Attending Physician. ms3 11:55 Triage completed. iw 11:55 Arm band placed on. iw 12:00 Cyn Main RN is Primary Nurse. kc6 12:05 Patient has correct armband on for positive identification. Placed in gown. Bed in low kc6 position. Call light in reach. Side rails up X2. Adult w/ patient. Seizure precautions initiated. Client placed on continuous cardiac and pulse oximetry monitoring. NIBP monitoring applied. 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 14:05 Duy Austin MD is Referral Physician. ms3 14:42 No provider procedures requiring assistance completed. IV discontinued, intact, kc6 bleeding controlled, No redness/swelling at site. Pressure dressing applied. Administered Medications: 12:05 Drug: Ativan IVP 1 mg IVP once Route: IVP; Site: right hand; kc6 12:45 Follow up: Response: No adverse reaction; Anxiety decreased; RASS: Alert and Calm (0) kc6 Medication: 14:42 VIS not applicable for this client. kc6 Outcome: 14:06 Discharge ordered by . ms3 14:42 Discharged to home ambulatory, with significant other, kc6 14:42 Condition: improved 14:42 Discharge instructions given to patient, Instructed on discharge instructions, follow up and referral plans. Demonstrated understanding of instructions, follow-up care, 14:42 Patient left the ED. kc6 Signatures: Louisa Henderson RN RN iw Taylor Gentile RN RN Terry Nelson DO DO ms3 Cyn Main RN RN kc Pebbles Burger im
--- NOTE | 2023-05-15 14:06 | EDPHYS ---
Physician Documentation [facility] Name: Brenden Osman Age: 57 yrs Sex: Male : 1965 Arrival Date: 05/15/2023 Time: 11:38 Bed 3 Private MD: ED Physician Terry Nelson HPI: 05/15 12:59 This 57 yrs old Black Male presents to ER via Ambulatory with complaints of Probable ms3 Seizure. 12:59 57-year-old male with past medical history of hypertension, seizures presents with his ms3 after having seizures at 11:15 AM. Patient's states patient's eyes glassed over and began not responding when she was talking to him. Patient's notes patient has had seizures since 2019. Patient's states the seizure was typical of his seizures.. Historical: - Allergies: 11:55 No Known Allergies; iw - PMHx: 11:55 Hypertension; Seizures; iw ROS: 12:59 Constitutional: Negative for fever, and chills. Neck: Negative for injury, pain, and ms3 swelling, Cardiovascular: Negative for chest pain, and palpitations. Respiratory: Negative for shortness of breath, cough, wheezing, and pleuritic chest pain, Abdomen/GI: Negative for abdominal pain, nausea, vomiting, diarrhea, and constipation, MS/Extremity: Negative for injury and deformity, Skin: Negative for injury, rash, and discoloration, 12:59 Neuro: Positive for seizure activity, 12:59 All other systems are negative, Exam: 12:59 Constitutional: This is a well developed, well nourished patient who is awake, alert, ms3 and in no acute distress. Head/Face: Normocephalic, atraumatic. Chest/axilla: Normal chest wall appearance and motion. Nontender with no deformity. Cardiovascular: Regular rate and rhythm with a normal S1 and S2. No gallops, murmurs, or rubs. Normal PMI, no JVD. No pulse deficits. Respiratory: Lungs have equal breath sounds bilaterally, clear to auscultation and percussion. No rales, rhonchi or wheezes noted. No increased work of breathing, no retractions or nasal flaring. Abdomen/GI: Soft, non-tender, with normal bowel sounds. No distension or tympany. No guarding or rebound. No evidence of tenderness throughout. Skin: Warm, dry with normal turgor. Normal color with no rashes, no lesions, and no evidence of cellulitis. MS/ Extremity: Pulses equal, no cyanosis. Neurovascular intact. Full, normal range of motion. 12:59 Neuro: Orientation: is normal, Mentation: is normal, Memory: is normal, Cranial nerves: CN I not tested, CN II- XII are normal as tested, Motor: is normal, Sensation: is normal, seizure activity, Shaking of the bilateral upper extremities with confusion, 13:08 ECG was reviewed by the Attending Physician. ms3 Vital Signs: 11:55 BP 178 / 97; Pulse 74; Resp 18; Pulse Ox 95% on R/A; iw 13:17 BP 145 / 91; Pulse 63; Resp 18 S; Pulse Ox 98% ; kc6 13:53 BP 124 / 78; Pulse 60; Resp 18; Pulse Ox 96% on R/A; ph 14:35 BP 135 / 89; Pulse 53; Resp 17 S; Pulse Ox 99% on R/A; kc6 Brandie Coma Score: 12:05 Eye Response: to voice(3). Motor Response: obeys commands(6). Verbal Response: kc6 oriented(5). Total: 14. MDM: 11:55 Patient medically screened. ms3 12:59 Differential diagnosis: seizure, Electrolyte abnormality. ms3 14:04 Data reviewed: vital signs, nurses notes, and as a result, I will discharge patient. ms3 Management of patient was discussed with the following: Nursing Scheduler: Dr Austin- If patient has returned to baseline he can follow up in clinic.. I considered the following discharge prescriptions or medication management in the emergency department Medications were administered in the Emergency Department. See MAR. Historians other than the Patient: Spouse/Significant Other: Patient's . Care significantly affected by the following chronic conditions: Hypertension, Seizures. Counseling: I had a detailed discussion with the patient and/or guardian regarding the historical points, exam findings, and any diagnostic results supporting the discharge/admit diagnosis, lab results, the need for outpatient follow up, to return to the emergency department if symptoms worsen or persist or if there are any questions or concerns that arise at home. Special discussion: I discussed with the patient/guardian in detail that at this point there is no indication for admission to the hospital. It is understood, however, that if the symptoms persist or worsen the patient needs to return immediately for re-evaluation. ED course: Discussed labs and conversation with Dr. Larose with patient and his . They understand and agree with plan. All questions were answered. Return precautions discussed include worsening symptoms, or any other concerns. On reevaluation patient is at baseline, alert and oriented, in no apparent distress, nontoxic-appearing, speaking full sentences. 05/15 11:55 Order name: CBC with Diff; Complete Time: 14:03 ms3 05/15 11:55 Order name: CMP; Complete Time: 14:03 ms3 05/15 12:18 Order name: CBC Smear Scan; Complete Time: 14:03 EDMS 05/15 12:16 Order name: Labs - recollect needed: Please recollect green and lavender top; Complete em1 Time: 13:28 EC:08 Rate is 66 beats/min. Rhythm is regular. QRS [place] is Normal. ME interval is normal. QRS ms3 interval is normal. QT interval is normal. Clinical impression: Normal ECG. Interpreted by me. Reviewed by me. Administered Medications: 12:05 Drug: Ativan IVP 1 mg IVP once Route: IVP; Site: right hand; kc6 12:45 Follow up: Response: No adverse reaction; Anxiety decreased; RASS: Alert and Calm (0) kc6 Disposition Summary: 05/15/23 14:06 Discharge Ordered Notes: Location: Home ms3 Condition: Stable ms3 Diagnosis - Epileptic seizures related to external causes, not intractable, without status ms3 epilepticus Followup: ms3 - With: Duy Austin MD - When: 2 - 3 days - Reason: Recheck today's complaints Discharge Instructions: - Discharge Summary Sheet ms3 - Seizure, Adult ms3 Forms: - Medication Reconciliation Form ms3 - Thank You Letter ms3 - Antibiotic Education ms3 - Prescription Opioid Use ms3 - Patient Portal Instructions ms3 - Leadership Thank You Letter ms3 Signatures: Dispatcher [employer] Louisa Renner, RN Herbert Akins em1 Terry Nelson DO DO ms3 Cyn Main RN RN kc6
[2023-05-15 14:58] VITALS: BP 135/89; O2SAT 99
== END 2023-05-15 14:42 | disposition home or self-care (01) ==
LOC: ER 11:38
DX: G40.509 Epileptic seizures related to external causes, not intractable, without status epilepticus (principal)
CPT/HCPCS: 36415; 80053; 85025; 96374; 99284

== ENCOUNTER → 2023-08-19 | Emergency (ER) | payer SELFPAY ==
[~2023-08-19] MED LIST: KETOROLAC 30 MG/ML INJ ONE; LORazepam 2 MG/ML VIAL ONE
--- NOTE | 2023-08-19 08:13 | RAD REPORT ---
EXAM DESCRIPTION: CT - Head Brain W Cont - 08/19/2023 8:01 am CLINICAL HISTORY: Headache COMPARISON: January 2023 TECHNIQUE: Computed axial tomography of the head was obtained. IV contrast was not requested. All CT scans are performed using dose optimization technique as appropriate and may include automated exposure control or mA/KV adjustment according to patient size. FINDINGS: An intracranial bleed is not seen The ventricles are normal in caliber No significant hypodense areas within the brain visualized No extra-axial fluid collection is noted. Fluid within the sinuses/ mastoids is not seen IMPRESSION: No acute intracranial abnormality is seen If patient's symptoms persist MRI of the brain would be recommended
[2023-08-19 08:28] LABS: Absolute Lymphocytes (CBC) 1.8 K/uL (0.7-4.9); Hematocrit 40.1 % (39.6-49.0); Lymphocytes % 40.5 % (15.3-44.8); MCV 87.8 fL (80-100); MPV 8.6 fL (7.6-11.3); Platelets 203 thou/uL (152-406); RBC Red Blood Cell Count 4.56 M/uL (4.33-5.43)
[2023-08-19 08:39] LABS: Albumin 3.7 g/dL (3.4-5.0); Bilirubin Total 0.7 mg/dL (0.2-1.0); Potassium 3.6 mEq/L (3.5-5.1); Protein, Total 7.1 g/dL (6.4-8.2)
--- NOTE | 2023-08-19 09:18 | EDPHYS ---
Physician Documentation [facility] Name: Brenden Osman Age: 57 yrs Sex: Male : 1965 Arrival Date: 08/19/2023 Time: 07:31 Bed 4 Private MD: Jonathan Mendoza ED Physician Terry Nelson HPI: 08/19 07:50 This 57 yrs old Black Male presents to ER via Wheelchair with complaints of Headache, ms3 Seizure. 07:50 57-year-old male with past medical history of hypertension, seizures presents to the [facility] emergency department for headache that has been ongoing for 3 days and became worse this morning. Patient states on waking up his headache was a 10/10 and is currently a 5/10. Patient's states patient developed headaches and then has seizures. Patient's notes patient had 1 seizure in the lobby and 1 seizure on arrival to the room. Patient did not have postictal state after seizure.. Historical: - PMHx: 07:44 Hypertension; Seizures; iw ROS: 07:50 Constitutional: Negative for fever, and chills. Neck: Negative for injury, pain, and ms3 swelling, Cardiovascular: Negative for chest pain, and palpitations. Respiratory: Negative for shortness of breath, cough, wheezing, and pleuritic chest pain, Abdomen/GI: Negative for abdominal pain, nausea, vomiting, diarrhea, and constipation, 07:50 Neuro: Positive for headache, seizure activity, 07:50 All other systems are negative, Exam: 07:50 Constitutional: This is a well developed, well nourished patient who is awake, alert, ms3 and in no acute distress. Head/Face: Normocephalic, atraumatic. Neck: Trachea midline, no cervical lymphadenopathy. Supple, full range of motion without nuchal rigidity, or vertebral point tenderness. No Meningismus. Chest/axilla: Normal chest wall appearance and motion. Nontender with no deformity. Cardiovascular: Regular rate and rhythm with a normal S1 and S2. No gallops, murmurs, or rubs. Normal PMI, no JVD. No pulse deficits. Respiratory: Lungs have equal breath sounds bilaterally, clear to auscultation and percussion. No rales, rhonchi or wheezes noted. No increased work of breathing, no retractions or nasal flaring. Abdomen/GI: Soft, non-tender, with normal bowel sounds. No distension or tympany. No guarding or rebound. No evidence of tenderness throughout. Skin: Warm, dry with normal turgor. Normal color with no rashes, no lesions, and no evidence of cellulitis. Vital Signs: 07:43 BP 161 / 90; Pulse 90; Resp 19; Pulse Ox 95% on R/A; iw 08:20 Temp 98; Weight 88.45 kg; Height 5 ft. 8 in. ; mb9 08:37 BP 140 / 96; Pulse 80; Resp 18; Pulse Ox 96% on R/A; mb9 09:53 BP 135 / 86; Pulse 66; Resp 18; Pulse Ox 100% on R/A; mb9 08:20 Body Mass Index 29.65 (88.45 kg, 172.72 cm) mb9 MDM: 07:48 Patient medically screened. ms3 09:12 Differential diagnosis: intracerebral hemorrhage, migraine, subarachnoid bleed, ms3 subdural hematoma, tension headache. Data reviewed: vital signs, nurses notes, lab test result(s), radiologic studies, CT scan, and as a result, I will discharge patient. I considered the following discharge prescriptions or medication management in the emergency department Medications were administered in the Emergency Department. See MAR. Independent interpretation of the following test(s) in the Emergency Department CT Scan: My interpretation is CT Head without contrast images reviewed by me do not reveal ICH. Historians other than the Patient: Spouse/Significant Other: Patient's . Care significantly affected by the following chronic conditions: Hypertension, Seizures. Counseling: I had a detailed discussion with the patient and/or guardian regarding the historical points, exam findings, and any diagnostic results supporting the discharge/admit diagnosis, lab results, radiology results, the need for outpatient follow up, to return to the emergency department if symptoms worsen or persist or if there are any questions or concerns that arise at home. ED course: Discussed CT head and labs with patient and his . Patient symptoms improved after Ativan and Toradol. Patient to follow-up with primary care physician in 2 to 3 days. Patient understands and agrees with plan. All questions were answered. Return precautions discussed include worsening symptoms, or any other concerns. Patient given seizure precautions/restrictions.. 08/19 07:49 Order name: CBC with Diff; Complete Time: 08:45 ms3 08/19 07:49 Order name: CMP; Complete Time: 08:45 ms3 08/19 07:49 Order name: CT Head Brain w Cont; Complete Time: 08:29 ms3 08/19 07:49 Order name: Seizure Precautions; Complete Time: 07:52 ms3 08/19 07:51 Order name: IV Saline Lock; Complete Time: 07:51 mb9 08/19 08:08 Order name: Labs - recollect needed: recollect all tubes; Complete Time: 08:19 bd Administered Medications: 07:51 Drug: Ativan IVP 1 mg IVP once Route: IVP; Site: left hand; mb9 08:31 Follow up: Response: No adverse reaction mb9 08:37 Drug: Ketorolac IVP 10 mg 10 mg IVP once Route: IVP; Site: left hand; mb9 Disposition Summary: 08/19/23 09:17 Discharge Ordered Notes: Location: Home ms3 Condition: Stable ms3 Diagnosis - Other seizures ms3 - Headache ms3 Followup: ms3 - With: Duy Austin MD - When: 2 - 3 days - Reason: Recheck today's complaints Discharge Instructions: - Discharge Summary Sheet ms3 - General Headache Without Cause ms3 - Seizure, Adult ms3 Forms: - Medication Reconciliation Form ms3 - Thank You Letter ms3 - Antibiotic Education ms3 - Prescription Opioid Use ms3 - Patient Portal Instructions ms3 - Leadership Thank You Letter ms3 Signatures: Dispatcher [employer] Nesha López Irene, RN RN iw Sims, Marcus, DO DO ms3 Sameera Denney RN RN mb9
--- NOTE | 2023-08-19 09:18 | ER ---
Nurse's Notes [facility] Name: Brenden Osman Age: 57 yrs Sex: Male : 1965 Arrival Date: 08/19/2023 Time: 07:31 Bed 4 Private MD: Jonathan Mendoza Diagnosis: Other seizures;Headache Presentation: 08/19 07:43 Chief complaint: Spouse and/or significant other states: he has been complaining of a iw headache for past 3 days, it was worse this morning and that's when I know he's about to have a seizure , pt takes keppra and vimpat daily. Coronavirus screen: At this time, the client does not indicate any symptoms associated with coronavirus-19. Ebola Screen: Patient negative for fever greater than or equal to 101.5 degrees Fahrenheit, and additional compatible Ebola Virus Disease symptoms Patient denies exposure to infectious person. Patient denies travel to an Ebola-affected area in the 21 days before illness onset. No symptoms or risks identified at this time. 07:43 Method Of Arrival: Wheelchair iw 07:44 Initial Sepsis Screen: Does the patient meet any 2 criteria? No. Patient's initial iw sepsis screen is negative. Does the patient have a suspected source of infection? No. Patient's initial sepsis screen is negative. Risk Assessment: Do you want to hurt yourself or someone else? Patient reports no desire to harm self or others. Onset of symptoms was August 19, 2023. 07:44 Acuity: LUCITA 3 iw Historical: - PMHx: 07:44 Hypertension; Seizures; iw Screenin:51 [facility] ED Fall Risk Assessment (Adult) History of falling in the last 3 months, mb9 including since admission No falls in past 3 months (0 pts) Confusion or Disorientation No (0 pts) Intoxicated or Sedated No (0 pts) Impaired Gait No (0 pts) Mobility Assist Device Used No (0 pt) Altered Elimination No (0 pt) Score/Fall Risk Level 0 - 2 = Low Risk Oriented to surroundings, Maintained a safe environment, Educated pt \T\ family on fall prevention, incl call for assistance when getting out of bed. Abuse screen: Denies threats or abuse. Nutritional screening: No deficits noted. Tuberculosis screening: No symptoms or risk factors identified. Assessment: 07:35 Reassessment: pt actively seizing. Dr. Nelson at bedside. VO for 1 mg of Ativan IV. mb9 08:20 General: Appears in no apparent distress. comfortable. Pain: Denies pain. Neuro: mb9 Leo Agitation-Sedation Scale (RASS): 0 - Alert and Calm Level of Consciousness is awake, alert, obeys commands, Oriented to person, place, time, situation, Appropriate for age Reports headache. Cardiovascular: Patient's skin is warm and dry. Respiratory: Airway is patent Respiratory effort is even, unlabored, Respiratory pattern is regular, symmetrical, Breath sounds are clear bilaterally. GI: Abdomen is round non-distended, Bowel sounds present X 4 quads. Abd is soft and non tender X 4 quads. : No signs and/or symptoms were reported regarding the genitourinary system. EENT: No signs and/or symptoms were reported regarding the EENT system. Derm: Skin is pink, warm \T\ dry. Musculoskeletal: Range of motion: intact in all extremities. 09:53 Reassessment: No changes from previously documented assessment. Patient and/or family mb9 updated on plan of care and expected duration. Pain level reassessed. Patient is alert, oriented x 3, equal unlabored respirations, skin warm/dry/pink. Vital Signs: 07:43 BP 161 / 90; Pulse 90; Resp 19; Pulse Ox 95% on R/A; iw 08:20 Temp 98; Weight 88.45 kg; Height 5 ft. 8 in. ; mb9 08:37 BP 140 / 96; Pulse 80; Resp 18; Pulse Ox 96% on R/A; mb9 09:53 BP 135 / 86; Pulse 66; Resp 18; Pulse Ox 100% on R/A; mb9 08:20 Body Mass Index 29.65 (88.45 kg, 172.72 cm) mb9 ED Course: 07:33 Patient arrived in ED. rg4 07:33 Jonathan Mendoza MD is Private Physician. rg4 07:37 Terry Nelson DO is Attending Physician. ms3 07:44 Triage completed. iw 07:45 Arm band placed on. iw 07:50 Sameera Denney RN is Primary Nurse. mb9 07:51 Inserted saline lock: 20 gauge in left hand, using aseptic technique. Blood collected. mb9 07:52 Placed in gown. Bed in low position. Call light in reach. Side rails up X 1. Client mb9 placed on continuous cardiac and pulse oximetry monitoring. NIBP monitoring applied. security monitor on. 07:52 CMP Sent. mb9 07:52 CBC with Diff Sent. mb9 08:02 CT Head Brain w Cont In Process Unspecified. EDMS 09:17 Duy Austin MD is Referral Physician. ms3 09:53 No provider procedures requiring assistance completed. IV discontinued, intact, mb9 bleeding controlled, No redness/swelling at site. Pressure dressing applied. Administered Medications: 07:51 Drug: Ativan IVP 1 mg IVP once Route: IVP; Site: left hand; mb9 08:31 Follow up: Response: No adverse reaction mb9 08:37 Drug: Ketorolac IVP 10 mg 10 mg IVP once Route: IVP; Site: left hand; mb9 Medication: 09:53 VIS not applicable for this client. mb9 Outcome: 09:17 Discharge ordered by . ms3 09:53 Discharged to home via wheelchair, with family, mb9 09:53 Condition: stable 09:53 Discharge instructions given to patient, family, Instructed on discharge instructions, follow up and referral plans. Demonstrated understanding of instructions, follow-up care, 09:54 Patient left the ED. mb9 Signatures: Dispatcher [employer] Louisa Renner, RN Rufina Rashid rg4 Trery Nelson DO DO ms3 Олег, Sameera Calvert RN RN mb9 Corrections: (The following items were deleted from the chart) 08:21 08:20 88.45 kg; Height 5 ft. 8 in.; BMI: 29.6; mb9 mb9 08:38 08:20 Neuro: Leo Agitation-Sedation Scale (RASS): 0 - Alert and Calm Level of mb9 Consciousness is awake, alert, obeys commands, Oriented to person, place, time, situation, Appropriate for age mb9
[2023-08-19 10:12] VITALS: TEMP 98
[2023-08-19 10:13] VITALS: BP 135/86; O2SAT 100
== END ==
LOC: ER 07:31
DX: R56.9 Unspecified convulsions (principal); R51.9 Headache, unspecified; I10 Essential (primary) hypertension
CPT/HCPCS: 36415; 70460; 80053; 85025; 96374; 96375; 99285

== ENCOUNTER 2023-09-26 09:56 | Observation (INO) | payer OTHER, SELFPAY ==
[2023-09-26] MEDS ORDERED: LEVETIRACETAM 500 MG/5 ML VIAL IV ONE (10:20)
[2023-09-26] MEDS ORDERED: NA CHLORIDE 0.9% 100 ML ONE (10:21)
[2023-09-26 10:25] LABS: Absolute Lymphocytes (CBC) 1.6 K/uL (0.7-4.9); Hematocrit 38.7 % (39.6-49.0); Lymphocytes % 37.7 % (15.3-44.8); MCV 87.7 fL (80-100); MPV 8.5 fL (7.6-11.3); Platelets 194 thou/uL (152-406); RBC Red Blood Cell Count 4.41 M/uL (4.33-5.43)
[2023-09-26 10:39] LABS: Protime INR 1.15
[2023-09-26 10:48] LABS: Albumin 3.5 g/dL (3.4-5.0); Bilirubin Direct 0.1 mg/dL (0-0.2); Bilirubin Indirect, Calculated 0.5 mg/dL (0.2-0.8); Bilirubin Total 0.6 mg/dL (0.2-1.0); Magnesium 1.6 mg/dL (1.6-2.4); Potassium 3.6 mEq/L (3.5-5.1); Troponin High Sensitivity 19.1 pg/mL (<58.9)
--- NOTE | 2023-09-26 12:40 | RAD REPORT ---
EXAM DESCRIPTION: [place] Single View09/26/2023 10:24 am CLINICAL HISTORY: Seizure COMPARISON: 2022 FINDINGS: The lungs appear clear of acute infiltrate. The heart is normal size IMPRESSION: No acute abnormalities displayed
--- NOTE | 2023-09-26 12:43 | RAD REPORT ---
EXAM DESCRIPTION: CT - Head Brain Wo Cont - 09/26/2023 10:46 am CLINICAL HISTORY: SEIZURE COMPARISON: Head Brain W Cont dated 08/19/2023; Head Brain Wo Cont dated 01/29/2023 TECHNIQUE: Noncontrast head CT images were obtained without IV contrast. Multiplanar reformats were generated and reviewed. All CT scans are performed using dose optimization technique as appropriate and may include automated exposure control or mA/KV adjustment according to patient size. FINDINGS: No intracranial hemorrhage, mass, or edema. Midline structures are unremarkable. Normal ventricular caliber for age. Kim-white matter differentiation is preserved, without evidence of acute infarct. No abnormal extra- axial fluid collections. Mastoid air cells and visualized portions of the paranasal sinuses are clear. No acute bony findings. IMPRESSION: No evidence of an acute intracranial process.
--- NOTE | 2023-09-26 13:34 | EDPHYS ---
Physician Documentation [facility] Name: Brenden Osman Age: 58 yrs Sex: Male : 1965 Arrival Date: 09/26/2023 Time: 09:56 Bed 2 Private MD: ED Physician Alexander Nolasco HPI: 09/26 10:22 This 58 yrs old Black Male presents to ER via Unassigned with complaints of seizures. rn 10:22 The patient presents with a history of multiple seizures, a total of 5. Character of rn seizure(s): Loss of consciousness: the patient experienced loss of consciousness, Motor activity: generalized, Incontinence: none, Apnea: the patient did not experience apnea, Circulation: the patient did not experience evidence of pulse disturbance. Seizure onset: this morning. Associated injury: The patient did not suffer any apparent associated injury. Current symptoms: decreased level of consciousness, headache. The patient has experienced similar episodes in the past. EMS reports 5 seizures today. Called to Dr. Sykes office for seizure activity. Given 2 mg Ativan IM initially followed by Versed IV. Seizures have stopped. Patient reports feels sleepy and has headache. 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 Takes Keppra. Denies recent illness. Reports even when he takes medication still has breakthrough seizures. Last seizure was 2 days ago and had 2 seizures. Historical: - Allergies: 10:27 No Known Allergies; hb - PMHx: 10:27 Hypertension; Seizures; hb - Immunization history:: Adult Immunizations up to date. - Social history:: Smoking status: Patient denies any tobacco usage or history of. - Family history:: not pertinent. - Hospitalizations: : No recent hospitalization is reported. ROS: 10:22 Constitutional: Negative for fever, chills, and weight loss, Cardiovascular: Negative rn for chest pain, palpitations, and edema, Respiratory: Negative for shortness of breath, cough, wheezing, and pleuritic chest pain, Abdomen/GI: Negative for abdominal pain, nausea, vomiting, diarrhea, and constipation, Back: Negative for injury and pain, MS/Extremity: Negative for injury and deformity, Skin: Negative for injury, rash, and discoloration, Neuro: Positive for headache and seizure Exam: 10:22 Constitutional: This is a well developed, well nourished patient who is awake, alert, rn and in no acute distress. Head/Face: Normocephalic, atraumatic. Eyes: Pupils equal round and reactive to light, extra-ocular motions intact. Cardiovascular: Regular rate and rhythm. No pulse deficits. Respiratory: No increased work of breathing, no retractions or nasal flaring. Abdomen/GI: Soft, non-tender MS/ Extremity: Pulses equal, no cyanosis. Neurovascular intact. Full, normal range of motion. Equal circumference. Neuro: Awake and alert, GCS 15, oriented to person, place, time, and situation. Cranial nerves II-XII grossly intact. Motor strength 4/5 in upper extremities, 3+/5 in bilateral lower extremities. Sensory grossly intact. Vital Signs: 10:08 BP 139 / 99; Pulse 94; Resp 17; Temp 98.3; Pulse Ox 97% on R/A; Weight 99.79 kg; Height hb 6 ft. 1 in. ; Pain 0/10; 11:57 BP 128 / 93; Pulse 74; Resp 16 S; Pulse Ox 100% on 2 lpm NC; kc6 13:11 BP 127 / 88; Pulse 79; Resp 14 S; Pulse Ox 99% on 2 lpm NC; kc6 16:42 BP 132 / 86; Pulse 77; Resp 16 S; Pulse Ox 99% on 2 lpm NC; kc6 18:47 BP 115 / 82; Pulse 81; Resp 15; Pulse Ox 99% on R/A; hb 10:08 Body Mass Index 29.03 (99.79 kg, 185.42 cm) hb 10:08 Pain Scale: Adult hb MDM: 10:09 Patient medically screened. rn 10:47 ED course: EKG shows diffuse ST elevation, no change from prior, not in specific rn territory. 13:31 Differential diagnosis: cardiac arrhythmia, seizure, Electrolyte disorder. Data rn reviewed: vital signs, nurses notes, lab test result(s), EKG, radiologic studies, CT scan, plain films, and as a result, I will admit patient. Consideration of Admission/Observation Patient was admitted/placed on observation. Escalation of care including admission/observation considered. Counseling: I had a detailed discussion with the patient and/or guardian regarding the historical points, exam findings, and any diagnostic results supporting the discharge/admit diagnosis, lab results, radiology results, the need for further work-up and treatment in the hospital. Response to treatment: the patient's symptoms have markedly improved after treatment, and as a result, I will admit patient. ED course: Patient without further seizures since arrival and Keppra load. CT head negative. Workup. Grossly negative. Unclear why patient had so many breakthrough seizures today. is here and confirms that he is compliant with seizure medication. Patient now not completely back to baseline but slow improvement. Will admit to hospitalist service for neurological consult and further observation. 09/26 10:10 Order name: Basic Metabolic Panel; Complete Time: :09/26 10:10 Order name: CBC with Diff; Complete Time: :09/26 10:10 Order name: Hepatic Function; Complete Time: 09/26 10:10 Order name: Magnesium; Complete Time: 09/26 10:10 Order name: Protime (+inr); Complete Time: 09/26 10:10 Order name: Ptt, Activated; Complete Time: 09/26 10:10 Order name: Troponin High Sensitivity; Complete Time: 09/26 15:09 Order name: COVID-19/FLU A+B EDMS 09/26 15:09 Order name: Basic Metabolic Panel EDMS 09/26 15:09 Order name: Basic Metabolic Panel EDMS 09/26 15:09 Order name: CBC with Automated Diff EDMS 09/26 15:09 Order name: CBC with Automated Diff EDMS 09/26 15:30 Order name: KEPPRA (LEVETIRACETAM) EDMS 09/26 10:10 Order name: CT Head Brain wo Cont; Complete Time: 12:59 rn 09/26 10:10 Order name: Chest Single View XRAY; Complete Time: 12:59 09/26 10:10 Order name: EKG; Complete Time: 10:09/26 10:10 Order name: Cardiac monitoring; Complete Time: 09/26 10:10 Order name: EKG - Nurse/Tech; Complete Time: :09/26 10:10 Order name: IV Saline Lock; Complete Time: 09/26 10:10 Order name: Labs collected and sent; Complete Time: 09/26 10:10 Order name: NPO; Complete Time: rn 09/26 10:10 Order name: O2 Per Protocol; Complete Time: rn 09/26 10:10 Order name: O2 Sat Monitoring; Complete Time: : rn Administered Medications: 10:29 Drug: Keppra IV 1000 mg IV at calculated rate once Route: IV; Rate: calculated rate; kc6 Site: right antecubital; 16:44 Follow up: Response: No adverse reaction; IV Status: Completed infusion; IV Intake: kc6 100ml Disposition Summary: 09/26/23 13:33 Hospitalization Ordered Notes: Hospitalization Status: Inpatient Admission rn Provider: Ny Lazaro rn Location: Telemetry/MedSurg (Inpatient) rn Condition: Stable rn Problem: new rn Symptoms: have improved rn Bed/Room Type: Standard rn Room Assignment: 221(09/26/23 19:28) km Diagnosis - Epilepsy, unspecified, not intractable, with status epilepticus rn - Altered mental status, unspecified rn Forms: - Medication Reconciliation Form rn - SBAR form rn - Leadership Thank You Letter rn Signatures: Dispatcher [employer] Alexander Cunningham MD MD rn Baxter, Heather RN Cyn Huston RN RN kc6 Cecilia Skinner km Corrections: (The following items were deleted from the chart) : 13:33 rn kmf
--- NOTE | 2023-09-26 13:34 | ER ---
Nurse's Notes [facility] Name: Brenden Osman Age: 58 yrs Sex: Male : 1965 Arrival Date: 09/26/2023 Time: 09:56 Bed 2 Private MD: Diagnosis: Epilepsy, unspecified, not intractable, with status epilepticus;Altered mental status, unspecified Presentation: 09/26 10:08 Chief complaint: Chief complaint: EMS states: Witnessed seizures x 5 since this hb morning. Hx of seizures. Ativan 2 mg IM, Versed 2.5 mg IVP, and NS 300 mls administered VARNISH MELTER. 10:08 Coronavirus screen: At this time, the client does not indicate any symptoms associated hb with coronavirus-19. Ebola Screen: No symptoms or risks identified at this time. Initial Sepsis Screen: Does the patient meet any 2 criteria? No. Patient's initial sepsis screen is negative. Does the patient have a suspected source of infection? No. Patient's initial sepsis screen is negative. Risk Assessment: Do you want to hurt yourself or someone else? Patient reports no desire to harm self or others. Onset of symptoms was September 26, 2023. 10:08 Method Of Arrival: EMS: [facility] hb 10:08 Acuity: LUCITA 3 hb Historical: - Allergies: 10:27 No Known Allergies; hb - PMHx: 10:27 Hypertension; Seizures; hb - Immunization history:: Adult Immunizations up to date. - Social history:: Smoking status: Patient denies any tobacco usage or history of. - Family history:: not pertinent. - Hospitalizations: : No recent hospitalization is reported. Screenin:08 [facility] ED Fall Risk Assessment (Adult) History of falling in the last 3 months, kc6 including since admission No falls in past 3 months (0 pts) Confusion or Disorientation Yes (5 pts) Intoxicated or Sedated No (0 pts) Impaired Gait No (0 pts) Mobility Assist Device Used No (0 pt) Altered Elimination No (0 pt) Score/Fall Risk Level 0 - 2 = Low Risk. Abuse screen: Denies threats or abuse. Denies injuries from another. Nutritional screening: No deficits noted. Tuberculosis screening: No symptoms or risk factors identified. Assessment: 10:10 General: Appears in no apparent distress. Behavior is calm, cooperative. Pain: Denies hb pain. Neuro: Level of Consciousness is obeys commands, post ictal, Oriented to person, place, time, situation. Cardiovascular: Patient's skin is warm and dry. Respiratory: Respiratory effort is even, unlabored, Respiratory pattern is regular, symmetrical. GI: No signs and/or symptoms were reported involving the gastrointestinal system. : No signs and/or symptoms were reported regarding the genitourinary system. EENT: No signs and/or symptoms were reported regarding the EENT system. Derm: Skin is normal. Musculoskeletal: No signs and/or symptoms reported regarding the musculoskeletal system. 11:21 Reassessment: Patient appears in no apparent distress at this time. Patient and/or hb family updated on plan of care and expected duration. Pain level reassessed. Patient is alert, oriented x 3, equal unlabored respirations, skin warm/dry/pink. 13:11 Reassessment: Patient appears in no apparent distress at this time. No changes from kc6 previously documented assessment. Patient and/or family updated on plan of care and expected duration. Pain level reassessed. Patient is alert, oriented x 3, equal unlabored respirations, skin warm/dry/pink. 14:11 Reassessment: Patient appears in no apparent distress at this time. No changes from kc6 previously documented assessment. Patient and/or family updated on plan of care and expected duration. Pain level reassessed. Patient is alert, oriented x 3, equal unlabored respirations, skin warm/dry/pink. 15:11 Reassessment: Patient appears in no apparent distress at this time. No changes from kc6 previously documented assessment. Patient and/or family updated on plan of care and expected duration. Pain level reassessed. Patient is alert, oriented x 3, equal unlabored respirations, skin warm/dry/pink. 16:11 Reassessment: Patient appears in no apparent distress at this time. No changes from kc6 previously documented assessment. Patient and/or family updated on plan of care and expected duration. Pain level reassessed. Patient is alert, oriented x 3, equal unlabored respirations, skin warm/dry/pink. 17:30 Reassessment: Patient appears in no apparent distress at this time. Patient and/or hb family updated on plan of care and expected duration. Pain level reassessed. Patient is alert, oriented x 3, equal unlabored respirations, skin warm/dry/pink. 18:47 Reassessment: Patient appears in no apparent distress at this time. Patient and/or hb family updated on plan of care and expected duration. Pain level reassessed. Patient is alert, oriented x 3, equal unlabored respirations, skin warm/dry/pink. 19:33 General: attempted to call report. bed not assigned . lg3 19:58 General: attempted to call report. no answer from nurse. lg3 Vital Signs: 10:08 BP 139 / 99; Pulse 94; Resp 17; Temp 98.3; Pulse Ox 97% on R/A; Weight 99.79 kg; Height hb 6 ft. 1 in. ; Pain 0/10; 11:57 BP 128 / 93; Pulse 74; Resp 16 S; Pulse Ox 100% on 2 lpm NC; kc6 13:11 BP 127 / 88; Pulse 79; Resp 14 S; Pulse Ox 99% on 2 lpm NC; kc6 16:42 BP 132 / 86; Pulse 77; Resp 16 S; Pulse Ox 99% on 2 lpm NC; kc6 18:47 BP 115 / 82; Pulse 81; Resp 15; Pulse Ox 99% on R/A; hb 10:08 Body Mass Index 29.03 (99.79 kg, 185.42 cm) hb 10:08 Pain Scale: Adult hb ED Course: 10:08 Patient arrived in ED. rn 10:08 Alexander Nolasco MD is Attending Physician. rn 10:15 Maintain EMS IV. Dressing intact. Good blood return noted. Site clean \T\ dry. Gauge \T\ aa 5 site: 20G to R AC . 10:15 Initial lab(s) drawn, by me, sent to lab. aa5 10:26 Chest Single View XRAY In Process Unspecified. EDMS 10:27 Triage completed. hb 10:27 Arm band placed on. hb 10:33 EKG done, by ED staff, reviewed by Alexander Nolasco MD. aa5 10:48 CT Head Brain wo Cont In Process Unspecified. EDMS 10:54 Cyn Main, RN is Primary Nurse. kc6 11:08 Patient has correct armband on for positive identification. Bed in low position. Call kc6 light in reach. Side rails up X2. Adult w/ patient. Client placed on continuous cardiac and pulse oximetry monitoring. NIBP monitoring applied. furnace mechanic helper on. 13:32 Ny Lazaro MD is Hospitalizing Provider. rn 20:36 No provider procedures requiring assistance completed. Patient admitted, IV remains in lg3 place. Administered Medications: 10:29 Drug: Keppra IV 1000 mg IV at calculated rate once Route: IV; Rate: calculated rate; kc6 Site: right antecubital; 16:44 Follow up: Response: No adverse reaction; IV Status: Completed infusion; IV Intake: kc6 100ml Medication: 20:37 VIS not applicable for this client. lg3 Intake: 16:44 IV: 100ml; Total: 100ml. kc6 Outcome: 13:33 Decision to Hospitalize by Provider. rn 20:36 Admitted to Med/surg accompanied by tech, via stretcher, room 221, Report called to [facility] [place] 20:36 Condition: stable 20:36 Instructed on the need for admit, Demonstrated understanding of instructions, 20:37 Patient left the ED. 3 Signatures: Dispatcher [employer] EDMS Alexander Nolasco MD MD rn Calderon, Audri RN RN aa5 Linda Rehman RN Alina Pitts RN RN lg3 Cyn Main RN RN kc6 Corrections: (The following items were deleted from the chart) 10:27 10:24 Chief complaint: hb hb
--- NOTE | 2023-09-26 14:45 | P.HP ---
Certification for Inpatient Patient admitted to: Observation With expected LOS: <2 Midnights Patient will require the following post-hospital care: None Practitioner: I am a practitioner with admitting privileges, knowledge of patient current condition, hospital course, and medical plan of care. Services: Services provided to patient in accordance with Admission requirements found in Title 42 Section 412.3 of the Code of Federal Regulations <Una Brewer - Last Filed: 09/26/23 15:11> Patient History Date of Service: 09/26/23 Primary Care Provider: Phong King Reason for admission: seizures with increased frequency History of Present Illness: Mr. Brenden Osman is a 58-year-old male with a history of a traumatic brain injury with resultant seizures. There have been no changes in his anticonvulsant therapy. He had 2 seizures on Friday of this week. Went for follow-up in his PCP office today snd had 5 seizures at that time. The character of the seizures has not changed he has tonic-clonic seizures, no incontinence, no cyanosis, no bradycardia. He did not sustain any secondary injury. He has an appointment with his new Neurologist on 03/15 of this year. His PCP is trying to expedite that appointment. Mr. Osman received Ativan, Versed, and was loaded with Keppra in the ED. He will be observed overnight to evaluate his seizure pattern. Home medications list reviewed: Yes - Past Medical/Surgical History Diabetic: No -: Seizure disorder -: HTN -: stroke -: TBI -: denies - Family History Family History: Reviewed- Non-Contributory - Social History Smoking Status: Never smoker Alcohol use: Yes CD- Drugs: No Caffeine use: No Place of Residence: Home <Una Brewer - Last Filed: 09/26/23 15:11> Date of Service: 09/26/23 <Ny Lazaro - Last Filed: 09/26/23 15:29> Allergies No Known Allergies Allergy (Verified 11/04/19 23:43) Home Medications: lisinopriL [Prinivil*] 20 mg PO DAILY 05/20/17 Levothyroxine Sodium [Levothyroxine] 25 mcg PO DAILY #30 tab 11/26/22 Phenytoin Sodium Extended 300 mg PO BEDTIME #90 tab 11/26/22 levETIRAcetam [Levetiracetam] 750 mg PO BID #180 tab 11/26/22 Review of Systems 10-point ROS is otherwise unremarkable General: Unremarkable Eyes: Unremarkable ENT: Unremarkable Respiratory: Unremarkable Cardiovascular: Unremarkable Gastrointestinal: Unremarkable Genitourinary: Unremarkable Musculoskeletal: Shoulder Pain (appt with Ortho next week) Integumentary: Unremarkable Neurological: Seizures Lymphatics: Unremarkable <OsmanUna - Last Filed: 09/26/23 15:11> Physical Examination - Physical Exam General: Alert, In no apparent distress, Oriented x3 HEENT: Atraumatic, Normocephalic Neck: Supple, 2+ carotid pulse no bruit Respiratory: Clear to auscultation bilaterally, Normal air movement Cardiovascular: No edema, Normal pulses, Regular rate/rhythm Capillary refill: <2 Seconds Gastrointestinal: Normal bowel sounds, Soft and benign Musculoskeletal: No clubbing, No swelling Integumentary: No rashes, No breakdown Neurological: Normal speech, Normal tone, Other (seizure pads present) Lymphatics: No axilla or inguinal lymphadenopathy External genitalia: Deferred Rectal: Deferred - Studies Laboratory Data (last 24 hrs) 09/26/23 09/26/23 09/26/23 10:15 10:15 10:15 WBC 4.20 L Hgb 13.5 L Hct 38.7 L Plt Count 194 PT 12.6 H INR 1.15 APTT 27.7 Sodium 136 Potassium 3.6 BUN 11 Creatinine 1.02 Glucose 129 H Magnesium 1.6 Total Bilirubin 0.6 AST 12 L ALT 51 Alkaline Phosphatase 52 <BrewerUna - Last Filed: 09/26/23 15:11> - Studies Laboratory Data (last 24 hrs) 09/26/23 09/26/23 09/26/23 10:15 10:15 10:15 WBC 4.20 L Hgb 13.5 L Hct 38.7 L Plt Count 194 PT 12.6 H INR 1.15 APTT 27.7 Sodium 136 Potassium 3.6 BUN 11 Creatinine 1.02 Glucose 129 H Magnesium 1.6 Total Bilirubin 0.6 AST 12 L ALT 51 Alkaline Phosphatase 52 <Ny Lazaro - Last Filed: 09/26/23 15:29> Assessment and Plan - Problems (Diagnosis) (1) Seizure Current Visit: Yes Status: Acute Plan: 04/23 IMPRESSION: NORMAL EEG FOR THE AGE OF THE PATIENT IN [place], DROWSINESS AND SLEEP. Dictated By: Duy Austin MD 11/26/22 1600 Pt also had a Brain MRI 12/01 that showed no abnormality per EHR Continue Keppra continue current anticonvulsant therapy (please clarify - Lacosamide 50mg po BID) seizure precautions Monitor labs to see if underlying problem has changed seizure threshhold Patient asks not to consult Neurology unless absolutely necessary Discharge tomorrow prn seizure control (2) Hypertension Current Visit: Yes Status: Acute Plan: Continue lisinopril 20mg po daily monitor VS Qualifiers: Hypertension type: primary hypertension Qualified Code(s): I10 - Essential (primary) hypertension - Advance Directives Does patient have a Living Will: No Does patient have a Durable POA for Healthcare: No - Code Status/Comfort Care Code Status Assessed: Yes (full) <Una Brewer - Last Filed: 09/26/23 15:11> Physician Review Additional Text: Pt seen and examined. I agree with the note by the CORPORATE ACCOUNTING MANAGER. Pt is a 58 yo male with past medical history of seizure d/o, HLD, asthma, and Htn who presents in the ER after seizure activity x 5. It started while at her PCPs office. Pt lost consciousness but did not bite his tongue or urinate on himself. Pt had 2 episodes of seizure at home 2 days ago. Pt endorses compliance with keppra at home. On admission, lab studies show WBC 4.2, Hgb 13.5, K 3.6, Cr 1.02, glucose 129. At bedside, pt is in NAD. A/P: Seizure d/o: Will check keppra levlel and prolactin. Continue Keppra and lincosamide. Will consult Neurology. Will defer to neurology to add another AED. Will continue home med for other chronic medical problem. DVT ppx: SCD Code: full <Ny Lazaro - Last Filed: 09/26/23 15:29>
[2023-09-26] MEDS ORDERED: ACETAMINOPHEN 500 MG TAB PO PRN (15:02)
[2023-09-26] MEDS ORDERED: LORazepam 2 MG/ML VIAL IV PRN (15:02)
[2023-09-26] MEDS: LACOSAMIDE 50 MG TABLET PO SCH (15:12)
[2023-09-26 16:20] LABS: SARS-COV-2 RT PCR NEGATIVE (NEGATIVE)
[2023-09-26 20:50] VITALS: O2SAT 99
[2023-09-26] MEDS ORDERED: levETIRAcetam 500 MG TAB PO SCH (21:00)
[2023-09-26] MEDS: levETIRAcetam 500 MG TAB PO SCH (21:39)
[2023-09-26] MEDS: NA CHLORIDE 0.9% 1,000 ML IV SCH (21:40)
[2023-09-26 22:41] VITALS: BMI 29.6
[2023-09-27 03:04] LABS: Absolute Lymphocytes (CBC) 2.2 K/uL (0.7-4.9); Hematocrit 38.3 % (39.6-49.0); Lymphocytes % 40.6 % (15.3-44.8); MCV 88.4 fL (80-100); MPV 9.1 fL (7.6-11.3); Platelets 198 thou/uL (152-406); RBC Red Blood Cell Count 4.34 M/uL (4.33-5.43)
[2023-09-27 03:22] LABS: Potassium 3.7 mEq/L (3.5-5.1)
[2023-09-27] MEDS: LEVOTHYROXINE SOD 0.025 MG TAB PO SCH (06:04)
[2023-09-27] MEDS: lisinopriL 20 MG TAB PO SCH (08:15)
--- NOTE | 2023-09-27 08:48 | P.DS ---
Admission Date: 09/26/23 Discharge Date: 09/27/23 Primary Care Provider: Phong King Reason for Admission: seizures with increased frequency - Problems (1) Seizure Status: Acute (2) Hypertension Status: Acute Qualifiers: Hypertension type: primary hypertension Qualified Code(s): I10 - Essential (primary) hypertension Brief History of Present Illness: Mr. Brenden Osman is a 58-year-old male with a history of a traumatic brain injury with resultant seizures. There have been no changes in his anticonvulsant therapy. He had 2 seizures on Friday of this week. Went for follow-up in his PCP office today snd had 5 seizures at that time. The character of the seizures has not changed he has tonic-clonic seizures, no incontinence, no cyanosis, no bradycardia. He did not sustain any secondary injury. He has an appointment with his new Neurologist on 03/15 of this year. His PCP is trying to expedite that appointment. Mr. Osman received Ativan, Versed, and was loaded with Keppra in the ED. He will be observed overnight to evaluate his seizure pattern. <Una Brewer - Last Filed: 09/27/23 16:54> Admission Date: 09/26/23 Discharge Date: 09/27/23 Hospital Course: Mr. Brenden Osman is a 58yo male with past medical history of traumatic brain injury with resultant seizures who presented with recurrent seizure activity. Pt had 2 episodes of seizure activity 2 days before this admission. On the admission, pt had 5 episodes of seizure activity at his PCP's office. Pt endorsed compliance with keppra 1500mg po BID and vimpat 50mg po daily. We checked the keppra level. We continued keppra 1500mg po BID and vimpat 50mg po daily. Neurologist recommended dilantin 300mg po qhs. Pt did not want to see Dr. Austin. HE will follow up with his new Neurologist in clinic within 1 week. Pt was in NAD prior to discharge. <Ny Lazaro - Last Filed: 09/27/23 21:26> Disposition: ROUTINE DISCHARGE Discharge Condition: GOOD Vital Signs/Physical Exam: Temp Pulse Resp BP Pulse Ox 97.5 F 65 18 116/75 99 09/27/23 04:00 09/27/23 04:00 09/27/23 04:00 09/27/23 04:00 09/27/23 04:00 General: Alert, In no apparent distress, Oriented x3 HEENT: Atraumatic, Normocephalic, PERRLA Neck: Supple, 2+ carotid pulse no bruit Respiratory: Clear to auscultation bilaterally, Normal air movement Cardiovascular: No edema, Normal pulses Capillary refill: <2 Seconds Gastrointestinal: Normal bowel sounds, Soft and benign Musculoskeletal: No clubbing, No swelling Integumentary: No rashes, No breakdown Neurological: Normal speech, Normal strength at 5/5 x4 extr, Other (no seizures overnight) Lymphatics: No axilla or inguinal lymphadenopathy External genitalia: Deferred Rectal: Deferred Laboratory Data at Discharge: WBC 5.50 thou/uL (4.3-10.9) 09/27/23 02:16 Hgb 13.3 g/dL (13.6-17.9) L 09/27/23 02:16 Hct 38.3 % (39.6-49.0) L 09/27/23 02:16 Plt Count 198 thou/uL (152-406) 09/27/23 02:16 PT 12.6 SECONDS (9.5-12.5) H 09/26/23 10:15 INR 1.15 09/26/23 10:15 APTT 27.7 SECONDS (24.3-36.9) 09/26/23 10:15 Sodium 140 mEq/L (136-145) 09/27/23 02:16 Potassium 3.7 mEq/L (3.5-5.1) 09/27/23 02:16 BUN 8 mg/dL (7-18) 09/27/23 02:16 Creatinine 0.85 mg/dL (0.70-1.30) 09/27/23 02:16 Glucose 116 mg/dL (74-106) H 09/27/23 02:16 Magnesium 1.6 mg/dL (1.6-2.4) 09/26/23 10:15 Total Bilirubin 0.6 mg/dL (0.2-1.0) 09/26/23 10:15 AST 12 U/L (15-37) L 09/26/23 10:15 ALT 51 U/L (16-61) 09/26/23 10:15 Alkaline Phosphatase 52 U/L (45-117) 09/26/23 10:15 <OsmanUna - Last Filed: 09/27/23 16:54> Vital Signs/Physical Exam: Temp Pulse Resp BP Pulse Ox 0 F L 87 15 151/83 H 98 09/27/23 12:30 09/27/23 12:00 09/27/23 12:00 09/27/23 12:00 09/27/23 12:00 Laboratory Data at Discharge: WBC 5.50 thou/uL (4.3-10.9) 09/27/23 02:16 Hgb 13.3 g/dL (13.6-17.9) L 09/27/23 02:16 Hct 38.3 % (39.6-49.0) L 09/27/23 02:16 Plt Count 198 thou/uL (152-406) 09/27/23 02:16 PT 12.6 SECONDS (9.5-12.5) H 09/26/23 10:15 INR 1.15 09/26/23 10:15 APTT 27.7 SECONDS (24.3-36.9) 09/26/23 10:15 Sodium 140 mEq/L (136-145) 09/27/23 02:16 Potassium 3.7 mEq/L (3.5-5.1) 09/27/23 02:16 BUN 8 mg/dL (7-18) 09/27/23 02:16 Creatinine 0.85 mg/dL (0.70-1.30) 09/27/23 02:16 Glucose 116 mg/dL (74-106) H 09/27/23 02:16 Magnesium 1.6 mg/dL (1.6-2.4) 09/26/23 10:15 Total Bilirubin 0.6 mg/dL (0.2-1.0) 09/26/23 10:15 AST 12 U/L (15-37) L 09/26/23 10:15 ALT 51 U/L (16-61) 09/26/23 10:15 Alkaline Phosphatase 52 U/L (45-117) 09/26/23 10:15 <Ny Lazaro - Last Filed: 09/27/23 21:26> Diet: Regular Activity: Ad nicho <Una Brewer - Last Filed: 09/27/23 16:54> <Ny Lazaro - Last Filed: 09/27/23 21:26> Home Medications: Albuterol Sulfate [Albuterol Sulfate Hfa] 90 mcg IH Q6HR 09/26/23 Aspirin [Aspirin EC] 81 mg PO DAILY 09/26/23 Atorvastatin Calcium [Lipitor*] 20 mg PO BEDTIME 09/26/23 Lacosamide 50 mg PO BID 09/26/23 Lisinopril [Zestril] 40 mg PO DAILY 09/26/23 levETIRAcetam [Levetiracetam] 1,500 mg PO BID 09/26/23 PHENYTOIN ER Cap [Dilantin ER Cap*] 300 mg PO BEDTIME 30 Days #30 cap 09/27/23 New Medications: PHENYTOIN ER Cap [Dilantin ER Cap*] 300 mg PO BEDTIME 30 Days #30 cap Physician Discharge Instructions: Continue to attempt more expedient Neurology follow up. Keppra at maximum dose, Keppra level is a send out lab and has not returned, continue current dose. May increase Vimpat dose to to 50mg po in am and 100mg po in the evening. Followup: Malcolm Sykes DO [Primary Care Provider] -
[2023-09-27] MEDS ORDERED: HOME MED 1 EA UNK (Levothyroxine Sodium [Levothyroxine Sodium] 25 MCG Capsule) PO SCH (09:00)
[2023-09-27 12:32] VITALS: TEMP 0
[2023-09-27 13:35] VITALS: BP 151/83
[2023-09-27] MEDS ORDERED: PHENYTOIN ER 100 MG CAP PO SCH (21:00)
--- NOTE | 2023-09-29 11:04 | EKG ---
Test Date: 2023-09-26 Test Time: 10:31:05 [employer] Fishing Vessel: KELI MEASUREMENT RESULTS: Intervals: Rate: 86 MD: 216 QRSD: 98 QT: 366 QTc: 437 [place]: P: 43 MD: 216 QRS: 20 T: 37 INTERPRETIVE STATEMENTS: Sinus rhythm with 1st degree AV block ST elevation, consider early repolarization, pericarditis, or injury Abnormal ECG Compared to ECG 02/13/2023 07:41:45 First degree AV block now present ST (T wave) deviation still present Electronically Signed On 09-29-23 10:59:35 FEED RESEARCH AIDE by Ramiro Saab
== END 2023-09-27 16:00 | disposition home or self-care (01) ==
LOC: ER 09:56 → 2ND 19:39
PROVIDERS: ADMIT Hospitalist; ATTEND Hospitalist
DX: G40.89 Other seizures (principal); I10 Essential (primary) hypertension; R41.82 Altered mental status, unspecified; Z87.820 Personal history of traumatic brain injury; Z86.73 Personal history of transient ischemic attack (TIA), and cerebral infarction without residual deficits; Z11.52 Encounter for screening for COVID-19
CPT/HCPCS: 96365; 85025 ×2; 80048 ×2; 36415 ×2; 83735; 85610; 80076; 85730; 84484; 80177; 0240U; 70450; 71045; 99285; 96366; J1953; J7030; 93005

== ENCOUNTER → 2023-09-30 | Emergency (ER) | payer OTHER ==
[~2023-09-30] MED LIST changes: +ACETAMINOPHEN 500 MG TAB ONE; +FOLIC ACID 1 MG, MULTIVITAMINS INJ 10 ML, THIAMINE HCL 100 MG in NA CHLORIDE 0.9% 1,000 ML IV ONE; -KETOROLAC 30 MG/ML INJ ONE; +NA CHLORIDE 0.9% 1,000 ML ONE
[2023-09-30 16:12] LABS: Absolute Lymphocytes (CBC) 2.3 K/uL (0.7-4.9); Hematocrit 41.4 % (39.6-49.0); Lymphocytes % 39.5 % (15.3-44.8); MPV 8.6 fL (7.6-11.3); Platelets 213 thou/uL (152-406)
[2023-09-30 16:53] LABS: Albumin 3.7 g/dL (3.4-5.0); Bilirubin Total 0.4 mg/dL (0.2-1.0); Protein, Total 7.2 g/dL (6.4-8.2)
[2023-09-30 16:54] LABS: Magnesium 1.9 mg/dL (1.6-2.4); Potassium 3.9 mEq/L (3.5-5.1)
--- NOTE | 2023-09-30 19:28 | ER ---
Nurse's Notes [facility] Name: Brenden Osman Age: 58 yrs Sex: Male : 1965 Arrival Date: 09/30/2023 Time: 15:47 Bed 4 Private MD: Diagnosis: Other seizures Presentation: 09/30 16:09 Chief complaint: Patient states: Multiple seizures the past week. More frequent than ll1 usual per . Coronavirus screen: Client denies travel out of the [place] in the last 14 days. At this time, the client does not indicate any symptoms associated with coronavirus-19. Ebola Screen: Patient denies travel to an Ebola-affected area in the 21 days before illness onset. Initial Sepsis Screen: Does the patient meet any 2 criteria? HR > 90 bpm. No. Patient's initial sepsis screen is negative. Does the patient have a suspected source of infection? No. Patient's initial sepsis screen is negative. Risk Assessment: Do you want to hurt yourself or someone else? Patient reports no desire to harm self or others. Onset of symptoms was September 23, 2023. 16:09 Method Of Arrival: Wheelchair ll1 16:09 Acuity: LUCITA 2 ll1 Historical: - Allergies: 15:59 No Known Allergies; ll1 - PMHx: 15:59 Hypertension; Seizures; ll1 - Immunization history:: Adult Immunizations up to date. - Social history:: Smoking status: Patient denies any tobacco usage or history of. Screenin:11 [facility] ED Fall Risk Assessment (Adult) History of falling in the last 3 months, ld1 including since admission No falls in past 3 months (0 pts). Abuse screen: Denies threats or abuse. Denies injuries from another. Nutritional screening: No deficits noted. Tuberculosis screening: No symptoms or risk factors identified. Assessment: 16:11 General: Appears in no apparent distress. comfortable, Behavior is calm, cooperative, ld1 appropriate for age. Pain: Denies pain. Neuro: Level of Consciousness is awake, alert, obeys commands, Oriented to person, place, time, situation, Appropriate for age Seizure activity reported prior to arrival. Cardiovascular: Capillary refill < 3 seconds Patient's skin is warm and dry. Rhythm is sinus rhythm. Respiratory: Airway is patent Respiratory effort is even, unlabored. Respiratory: GI: Abdomen is round non-distended. : No signs and/or symptoms were reported regarding the genitourinary system. EENT: No signs and/or symptoms were reported regarding the EENT system. Derm: No signs and/or symptoms reported regarding the dermatologic system. Musculoskeletal: No signs and/or symptoms reported regarding the musculoskeletal system. 17:40 Reassessment: Patient appears in no apparent distress at this time. No changes from ld1 previously documented assessment. Patient and/or family updated on plan of care and expected duration. Pain level reassessed. Patient is alert, oriented x 3, equal unlabored respirations, skin warm/dry/pink. 18:12 Reassessment: No changes from previously documented assessment. Patient and/or family ld1 updated on plan of care and expected duration. Pain level reassessed. Vital Signs: 16:09 BP 170 / 102; Pulse 98; Resp 20; Temp 98; Pulse Ox 98% ; ll1 16:11 BP 149 / 98; Pulse 88; Resp 18; Pulse Ox 97% on R/A; ld1 17:40 BP 135 / 91; Pulse 87; Resp 18; Pulse Ox 100% on R/A; ld1 19:00 BP 138 / 94; Pulse 72; Resp 17; Temp 98; Pulse Ox 99% on R/A; rv Brandie Coma Score: 19:00 Eye Response: spontaneous(4). Motor Response: obeys commands(6). Verbal Response: rv oriented(5). Total: 15. ED Course: 15:52 Patient arrived in ED. bd 15:52 Sb Christensen MD is Attending Physician. ms3 15:55 Arm band placed on Patient placed in an exam room, on a stretcher. ll1 16:11 Patient has correct armband on for positive identification. Placed in gown. Bed in low ld1 position. Call light in reach. Side rails up X2. surveillance monitor on. Pulse ox on. NIBP on. Door closed. Noise minimized. Warm blanket given. 16:11 No provider procedures requiring assistance completed. ld1 16:12 Triage completed. ll1 16:12 Inserted saline lock: 22 gauge in right ,using aseptic technique. foot Blood collected. ll1 16:46 Joya Renae, RN is Primary Nurse. me1 18:12 Soni Nelson, RISHI is Primary Nurse. ld1 19:44 IV discontinued, intact, bleeding controlled, No redness/swelling at site. Pressure rv dressing applied. Administered Medications: 16:13 Drug: LORazepam IM 2 mg IM once {Note: R foot IV.} Route: IM; Site: Other; ll1 19:16 Follow up: Response: No adverse reaction rv 17:05 Drug: Banana Bag - (Multivitamin IV 1 amp, NS 0.9% IV 1000 ml, Thiamine IV 100 mg, ld1 foLIC Acid IVPB 1 mg) IV at calculated rate once Route: IV; Rate: calculated rate; Site: Other; 19:44 Follow up: IV Status: Order to discontinue infusion rv 17:05 Drug: Acetaminophen PO 1000 mg PO once Route: PO; ld1 19:16 Follow up: Response: No adverse reaction rv Medication: 16:11 VIS not applicable for this client. ld1 Outcome: 19:27 Discharge ordered by MD. rt 19:44 Discharged to home ambulatory, with family, rv 19:44 Condition: good 19:44 Discharge instructions given to patient, family, Instructed on discharge instructions, follow up and referral plans. Demonstrated understanding of instructions, follow-up care, 19:45 Patient left the ED. rv Signatures: Nesha Salvador Ronaldo, RN RN rv Stacey Davis RN RN ll1 Terry Nelson DO DO ms3 Soni Nelson, RN RN ld1 Sb Christensen MD MD rt Joya Renae, RISHI RN me1
--- NOTE | 2023-09-30 19:28 | EDPHYS ---
Physician Documentation [facility] Name: Brenden Osman Age: 58 yrs Sex: Male : 1965 Arrival Date: 09/30/2023 Time: 15:47 Bed 4 Private MD: ED Physician Sb Christensen HPI: 09/30 16:31 This 58 yrs old Black Male presents to ER via Wheelchair with complaints of seizure. rt 16:31 Patient presents to the ED with reported seizure-like activity, increasing in frequency rt compared to usual. Patient's significant other states that he has been compliant with his medications. On , patient does have an appoint with an epilepsy specialist. Denies other acute complaints at this time, symptoms are moderate in severity, no other aggravating or alleviating factors.. Historical: - Allergies: 15:59 No Known Allergies; ll1 - PMHx: 15:59 Hypertension; Seizures; ll1 - Immunization history:: Adult Immunizations up to date. - Social history:: Smoking status: Patient denies any tobacco usage or history of. ROS: 16:31 Constitutional: Negative for fever, chills, and weight loss, Cardiovascular: Negative rt for chest pain, palpitations, and edema, Respiratory: Negative for shortness of breath, cough, wheezing, and pleuritic chest pain, Abdomen/GI: Negative for abdominal pain, nausea, vomiting, diarrhea, and constipation, MS/Extremity: Negative for injury and deformity, Skin: Negative for injury, rash, and discoloration, Psych: Negative for depression, anxiety, suicide ideation, homicidal ideation, and hallucinations, 16:31 Neuro: Positive for seizure activity, Negative for altered mental status, Exam: 16:31 Constitutional: This is a well developed, well nourished patient who is awake, alert, rt and in no acute distress. Head/Face: Normocephalic, atraumatic. Chest/axilla: Normal chest wall appearance and motion. Nontender with no deformity. No lesions are appreciated. Cardiovascular: Regular rate and rhythm with a normal S1 and S2. No gallops, murmurs, or rubs. Normal PMI, no JVD. No pulse deficits. Respiratory: Lungs have equal breath sounds bilaterally, clear to auscultation and percussion. No rales, rhonchi or wheezes noted. No increased work of breathing, no retractions or nasal flaring. Abdomen/GI: Soft, non-tender, with normal bowel sounds. No distension or tympany. No guarding or rebound. No evidence of tenderness throughout. Skin: Warm, dry with normal turgor. Normal color with no rashes, no lesions, and no evidence of cellulitis. MS/ Extremity: Pulses equal, no cyanosis. Neurovascular intact. Full, normal range of motion. Neuro: Awake and alert, GCS 15, oriented to person, place, time, and situation. Cranial nerves II-XII grossly intact. Motor strength 5/5 in all extremities. Sensory grossly intact. Cerebellar exam normal. Normal gait. Vital Signs: 16:09 BP 170 / 102; Pulse 98; Resp 20; Temp 98; Pulse Ox 98% ; ll1 16:11 BP 149 / 98; Pulse 88; Resp 18; Pulse Ox 97% on R/A; ld1 17:40 BP 135 / 91; Pulse 87; Resp 18; Pulse Ox 100% on R/A; ld1 19:00 BP 138 / 94; Pulse 72; Resp 17; Temp 98; Pulse Ox 99% on R/A; rv Brandie Coma Score: 19:00 Eye Response: spontaneous(4). Motor Response: obeys commands(6). Verbal Response: rv oriented(5). Total: 15. MDM: 15:58 Patient medically screened. rt 20:08 Differential Diagnosis Seizure, pseudoseizure, alcohol withdrawal. Data reviewed: vital rt signs, nurses notes, lab test result(s). Consideration of Admission/Observation Escalation of care including admission/observation considered. Vital signs not consistent with alcohol withdrawal, has resolution of symptoms, does have an appointment with an epilepsy specialist in 2 days, stable for outpatient care.. I considered the following discharge prescriptions or medication management in the emergency department Medications were administered in the Emergency Department. See MAR. Test considered but Not performed: CT: No head trauma, CT scan not indicated. Care significantly affected by the following chronic conditions: Seizure disorder. Counseling: I had a detailed discussion with the patient and/or guardian regarding the historical points, exam findings, and any diagnostic results supporting the discharge/admit diagnosis, lab results, the need for outpatient follow up. Response to treatment: the patient's symptoms have markedly improved after treatment. 09/30 15:59 Order name: CBC with Diff; Complete Time: 16:55 rt 02 15:59 Order name: CMP; Complete Time: 16:55 rt 09/30 15:59 Order name: Magnesium; Complete Time: 16:55 rt 09/30 17:29 Order name: ETOH Level; Complete Time: 19:23 rt Administered Medications: 16:13 Drug: LORazepam IM 2 mg IM once {Note: R foot IV.} Route: IM; Site: Other; 1 19:16 Follow up: Response: No adverse reaction rv 17:05 Drug: Banana Bag - (Multivitamin IV 1 amp, NS 0.9% IV 1000 ml, Thiamine IV 100 mg, ld1 foLIC Acid IVPB 1 mg) IV at calculated rate once Route: IV; Rate: calculated rate; Site: Other; 19:44 Follow up: IV Status: Order to discontinue infusion rv 17:05 Drug: Acetaminophen PO 1000 mg PO once Route: PO; ld1 19:16 Follow up: Response: No adverse reaction rv Disposition Summary: 09/30/23 19:27 Discharge Ordered Notes: Location: Home rt Problem: new rt Symptoms: have improved rt Condition: Stable rt Diagnosis - Other seizures rt Followup: rt - With: Private Physician - When: 2 - 3 days - Reason: Discharge Instructions: - Discharge Summary Sheet rt - Seizure, Adult rt Forms: - Medication Reconciliation Form rt - Thank You Letter rt - Antibiotic Education rt - Prescription Opioid Use rt - Patient Portal Instructions rt - Leadership Thank You Letter rt Signatures: Dispatcher [employer] Stacey John RN RN ll1 Soni Nelson RN RN ld1 Sb Christensen MD MD rt Marin Rodrigues RN rv
[2023-09-30 20:07] VITALS: BP 138/94; TEMP 98; O2SAT 99
== END ==
LOC: ER 15:47
DX: G40.89 Other seizures (principal); I10 Essential (primary) hypertension
CPT/HCPCS: 85025; 36415; 83735; 80053; 82077; J3411; J7030 ×2

== ENCOUNTER → 2023-10-20 | Emergency (ER) | payer OTHER ==
[~2023-10-20] MED LIST changes: -ACETAMINOPHEN 500 MG TAB ONE; +DIAZEPAM 10 MG/2 ML INJ SYRINGE ONE; +DIPHENHYDRAMINE 50 MG/ML VIAL ONE; -FOLIC ACID 1 MG, MULTIVITAMINS INJ 10 ML, THIAMINE HCL 100 MG in NA CHLORIDE 0.9% 1,000 ML IV ONE; +HALOPERIDOL LACT 5 MG/ML INJ ONE; +LEVETIRACETAM 500 MG/5 ML VIAL IV ONE; -LORazepam 2 MG/ML VIAL ONE; -NA CHLORIDE 0.9% 1,000 ML ONE; +NA CHLORIDE 0.9% 100 ML ONE
[2023-10-20 13:33] LABS: Absolute Basophils 0.1 K/uL (0-0.5); Absolute Eosinophils 0.2 K/uL (0-0.5); Absolute Lymphocytes (CBC) 1.8 K/uL (0.7-4.9); Eosinophils % 1.9 % (0-4.4); Hematocrit 41.8 % (39.6-49.0); Hemoglobin 14.3 g/dL (13.6-17.9); MCV 87.9 fL (80-100); MPV 8.5 fL (7.6-11.3); Platelets 270 thou/uL (152-406); RBC Red Blood Cell Count 4.75 M/uL (4.33-5.43)
[2023-10-20 13:52] LABS: Albumin 4.2 g/dL (3.4-5.0); Albumin/Globulin Ratio 1.2 (1.1-1.8); Anion Gap 11.2 mEq/L (5.0-15.0); Globulin 3.6 g/dL (2.3-3.5); Potassium 4.2 mEq/L (3.5-5.1); Protein, Total 7.8 g/dL (6.4-8.2)
--- NOTE | 2023-10-20 14:20 | RAD REPORT ---
EXAM DESCRIPTION: CT - Head Brain Wo Cont - 10/20/2023 1:41 pm CLINICAL HISTORY: Alteration of awareness/confusion COMPARISON: September 2023 TECHNIQUE: Computed axial tomography of the head was obtained. IV contrast was not requested. All CT scans are performed using dose optimization technique as appropriate and may include automated exposure control or mA/KV adjustment according to patient size. FINDINGS: An intracranial bleed is not seen The ventricles are normal in caliber No extra-axial fluid collection is noted. No significant hypodensity within the brain noted Fluid within the sinuses/ mastoids is not seen. IMPRESSION: No acute intracranial abnormality is seen If patient's symptoms persist MRI of the brain would be recommended
--- NOTE | 2023-10-20 15:20 | EDPHYS ---
Physician Documentation [facility] Name: Brenden Osman Age: 58 yrs Sex: Male : 1965 Arrival Date: 10/20/2023 Time: 13:09 Bed 14 Private MD: ED Physician Cullen Vargas HPI: 10/19 13:20 This 58 yrs old Black Male presents to ER via Unassigned with complaints of Probable ec2 Seizure. 13:20 Patient arrives today for evaluation of possible seizures. Patient with staring ec2 episodes, history of seizures, taking Keppra as well as another medication. Normal state of health, no vomiting, no diarrhea. No recent URI signs and symptoms. Reportedly has medication compliance per .. Historical: - Allergies: 13:33 No Known Allergies; me1 - Home Meds: 13:33 lorazepam 2 mg oral tablet 1 tab every 6 hours for prn seizure [Active]; lacosamide 100 me1 mg oral tablet 1 tab 2 times per day for status epilepticus [Active]; levetiracetam 1,000 mg oral tablet 1.5 tabs 2 times per day for tonic-clonic epilepsy treatment adjunct [Active]; - PMHx: 13:33 Hypertension; Seizures; me1 - Immunization history:: Adult Immunizations up to date. - Social history:: Smoking status: unknown. ROS: 13:20 Constitutional: as per hpi ec2 Exam: 13:20 Constitutional: GEN: NAD Head: atraumatic Eyes: EOMI Ears: External ears are ec2 normal. CV: regular rate LUNGS: no respiratory distress ABD: non-distended, soft, nontender, no guarding, not rigid SKIN: no evidence of rashes MSK: no evidence of trauma NEURO: moves all extremities equally, ambulatory Vital Signs: 13:11 BP 186 / 117; Pulse 88; Resp 18 S; Temp 97.8(TE); Pulse Ox 100% on R/A; aa5 13:37 BP 137 / 88; Pulse 86; Resp 18; Pulse Ox 97% on R/A; me1 14:00 BP 128 / 78; Pulse 87; Resp 16; Pulse Ox 98% on R/A; me1 15:00 BP 143 / 86; Pulse 90; Resp 16; Pulse Ox 99% on R/A; me1 15:30 BP 133 / 92; Pulse 91; Resp 16; Pulse Ox 98% on R/A; me1 [place] Coma Score: 13:15 Eye Response: spontaneous(4). Motor Response: obeys commands(6). Verbal Response: me1 oriented(5). Total: 15. MDM: 13:13 Patient medically screened. ec2 13:20 Data reviewed: vital signs. ED course: Patient arrives today for evaluation of possible ec2 seizure. Examination remarkable for well-appearing nontoxic neuro intact individual. Will obtain lab work, CT imaging, give patient Keppra, give the patient 10 of Valium as well. Currently evaluating for electrolyte disturbances, intracranial mass, anemia, renal dysfunction. . 13:57 ED course: Metabolic Profile reassuring. Troponin within normal ranges. . ec2 14:02 ED course: Patient continues to have these episodes at the because of seizure, ec2 patient attempted to stand up and thrashes, patient is redirectable, did not appear to be true seizures. I will give the patient Haldol and Benadryl. Suspect these movements may be psychiatric in nature.. 14:13 ED course: EKG independently reviewed and interpreted by me, shows normal sinus rhythm, ec2 rate of 84, no acute ST segment elevations, nonconcerning intervals.. 14:43 ED course: CT scan of the head shows no acute intracranial process.. ec2 15:18 ED course: On reassessment patient without any repeat episodes of these abnormal ec2 movements. Will discharge home. Return precautions given. I instructed him follow-up with primary care and neurologist.. 10/19 13:20 Order name: CBC with Diff; Complete Time: 13:43 ec2 10/19 13:20 Order name: CMP; Complete Time: 13:57 ec2 10/19 13:20 Order name: Troponin HS; Complete Time: 13:57 ec2 10/19 13:20 Order name: CT Head Brain wo Cont; Complete Time: 14:43 ec2 10/19 13:20 Order name: EKG - Nurse/Tech; Complete Time: 15:48 ec2 Administered Medications: 13:29 Drug: Keppra IV 1000 mg IV at calculated rate once Route: IV; Rate: calculated rate; me1 Site: right hand; 13:50 Follow up: Response: No adverse reaction; IV Status: Completed infusion me1 13:29 Drug: Diazepam IVP 10 mg IVP once Route: IVP; Site: right hand; me1 15:41 Follow up: Response: No adverse reaction me1 14:02 Drug: Haloperidol IVP 5 mg IVP once Route: IVP; Site: right hand; db 15:42 Follow up: Response: No adverse reaction; Marked relief of symptoms me1 14:02 Drug: diphenhydrAMINE IVP 50 mg IVP once Route: IVP; Site: right hand; db 15:42 Follow up: Response: No adverse reaction; Marked relief of symptoms me1 Disposition Summary: 10/20/23 15:19 Discharge Ordered Notes: Location: Home ec2 Condition: Stable ec2 Diagnosis - Abnormal head movements ec2 Followup: ec2 - With: Private Physician - When: - Reason: Re-evaluation by your physician Forms: - Medication Reconciliation Form ec2 - Thank You Letter ec2 - Antibiotic Education ec2 - Prescription Opioid Use ec2 - Patient Portal Instructions ec2 - Leadership Thank You Letter ec2 Signatures: Dispatcher [employer] Annette Ferro, RISHI RN Joya Renae RN RN me1 Cullen Vargas MD MD ec2
--- NOTE | 2023-10-20 15:20 | ER ---
Nurse's Notes [facility] Name: Brenden Osman Age: 58 yrs Sex: Male : 1965 Arrival Date: 10/20/2023 Time: 13:09 Bed 14 Private MD: Diagnosis: Abnormal head movements Presentation: 10/19 13:11 Chief complaint: Pt's states "he just had [address] Pt aa5 currently awake and able to follow some commands but confused. 13:11 Acuity: LUCITA 2 aa5 13:11 Coronavirus screen: At this time, the client does not indicate any symptoms associated aa5 with coronavirus-19. Ebola Screen: Patient denies travel to an Ebola-affected area in the 21 days before illness onset. Initial Sepsis Screen: Does the patient meet any 2 criteria? No. Patient's initial sepsis screen is negative. Does the patient have a suspected source of infection? No. Patient's initial sepsis screen is negative. Risk Assessment: Do you want to hurt yourself or someone else? Unable to obtain. Onset of symptoms was October 20, 2023. 13:11 Method Of Arrival: Wheelchair aa5 Historical: - Allergies: 13:33 No Known Allergies; me1 - Home Meds: 13:33 lorazepam 2 mg oral tablet 1 tab every 6 hours for prn seizure [Active]; lacosamide 100 me1 mg oral tablet 1 tab 2 times per day for status epilepticus [Active]; levetiracetam 1,000 mg oral tablet 1.5 tabs 2 times per day for tonic-clonic epilepsy treatment adjunct [Active]; - PMHx: 13:33 Hypertension; Seizures; me1 - Immunization history:: Adult Immunizations up to date. - Social history:: Smoking status: unknown. Screenin:00 [facility] ED Fall Risk Assessment (Adult) History of falling in the last 3 months, me1 including since admission No falls in past 3 months (0 pts) Confusion or Disorientation No (0 pts) Intoxicated or Sedated No (0 pts) Impaired Gait No (0 pts) Mobility Assist Device Used No (0 pt) Altered Elimination No (0 pt) Score/Fall Risk Level 0 - 2 = Low Risk Oriented to surroundings, Provided non-skid footwear, Hourly rounding (assess needs \\T\\ fall precautionary measures) done. Abuse screen: Denies threats or abuse. Nutritional screening: No deficits noted. Tuberculosis screening: No symptoms or risk factors identified. Assessment: 14:00 General: Appears uncomfortable, well groomed, well developed, well nourished, Behavior me1 is calm, cooperative, appropriate for age, Reports family member reports that patient had [address] here[address] Jerking movement noted, able to follow some commands at this time. Pain: Complains of pain in head Pain does not radiate. Pain currently is 10 out of 10 on a pain scale. Quality of pain is described as aching, Pain began 2 hours ago. Is continuous. Neuro: Level of Consciousness is awake, alert, obeys commands, Oriented to person, place, time, situation, Appropriate for age Seizure activity seizure activity reported by family member. Patient has intermittent jerking movement but can follow some commands at the time of the jerking movement. Cardiovascular: Capillary refill < 3 seconds Patient's skin is warm and dry. Respiratory: Airway is patent Trachea midline Respiratory effort is even, unlabored, Respiratory pattern is regular, symmetrical. Derm: Skin is intact, is healthy with good turgor, Skin is pink, warm \\T\\ dry. 14:02 Reassessment: PATIENT ATTEMPTING TO CLIMB OUT OF BED. STATES PATIENT IS HAVING A db SEIZURE BECAUSE HE HAS A BAD HEADACHE. NOTIFIED DR. VARGAS. SEE OCT. 14:04 : Denies incontinence. me1 Vital Signs: 13:11 BP 186 / 117; Pulse 88; Resp 18 S; Temp 97.8(TE); Pulse Ox 100% on R/A; aa5 13:37 BP 137 / 88; Pulse 86; Resp 18; Pulse Ox 97% on R/A; me1 14:00 BP 128 / 78; Pulse 87; Resp 16; Pulse Ox 98% on R/A; me1 15:00 BP 143 / 86; Pulse 90; Resp 16; Pulse Ox 99% on R/A; me1 15:30 BP 133 / 92; Pulse 91; Resp 16; Pulse Ox 98% on R/A; me1 [place] Coma Score: 13:15 Eye Response: spontaneous(4). Motor Response: obeys commands(6). Verbal Response: me1 oriented(5). Total: 15. ED Course: 13:10 Patient arrived in ED. ra3 13:11 Cullen Vargas MD is Attending Physician. ec2 13:11 Arm band placed on. aa5 13:17 Joya Renae, RN is Primary Nurse. me1 13:40 Triage completed. aa5 13:43 CT Head Brain wo Cont In Process Unspecified. EDMS 14:00 Patient has correct armband on for positive identification. Bed in low position. Call me1 light in reach. Side rails up X2. Provided Education on: POC. Verbalized understanding. . 14:00 No provider procedures requiring assistance completed. me1 14:00 EKG done. me1 15:47 Seizure precautions initiated. me1 15:47 IV discontinued, intact, bleeding controlled, No redness/swelling at site. Pressure me1 dressing applied. Administered Medications: 13:29 Drug: Keppra IV 1000 mg IV at calculated rate once Route: IV; Rate: calculated rate; me1 Site: right hand; 13:50 Follow up: Response: No adverse reaction; IV Status: Completed infusion me1 13:29 Drug: Diazepam IVP 10 mg IVP once Route: IVP; Site: right hand; me1 15:41 Follow up: Response: No adverse reaction me1 14:02 Drug: Haloperidol IVP 5 mg IVP once Route: IVP; Site: right hand; db 15:42 Follow up: Response: No adverse reaction; Marked relief of symptoms me1 14:02 Drug: diphenhydrAMINE IVP 50 mg IVP once Route: IVP; Site: right hand; db 15:42 Follow up: Response: No adverse reaction; Marked relief of symptoms me1 Medication: 14:00 VIS not applicable for this client. me1 Outcome: 15:19 Discharge ordered by . ec2 15:47 Discharged to home via wheelchair, with significant other, me1 15:47 Condition: stable 15:47 Discharge instructions given to patient, significant other, Instructed on discharge instructions, follow up and referral plans. Demonstrated understanding of instructions, follow-up care, 15:48 Patient left the ED. me1 Signatures: Dispatcher [employer] EDMI Zenaida Boone RN RN aa5 Annette Tejada RN RN db Eddleman, Michelle, RN RN me1 Cullen Vargas MD MD ec2 Zoe Erickson ra3 Corrections: (The following items were deleted from the chart) 14:04 14:00 General: Appears uncomfortable, well groomed, well developed, well nourished, me1 Behavior is calm, cooperative, appropriate for age, Reports family member reports that patient had [address] here[address] Jerking movement noted, able to follow some commands at this time. me1
[2023-10-20 16:08] VITALS: BP 133/92; TEMP 97.8; O2SAT 98
== END ==
LOC: ER 13:09
DX: R25.0 Abnormal head movements (principal); G40.909 Epilepsy, unspecified, not intractable, without status epilepticus; I10 Essential (primary) hypertension
CPT/HCPCS: 85025; 36415; 84484; 80053; 70450; J1953; J1630; J1200; J3360; 96365; 96375; 99284

== ENCOUNTER 2024-02-13 09:05 | Emergency (ER) | payer OTHER ==
[2024-02-13 10:32] LABS: SARS-CoV-2 Antigen CONTROL BLUE LINE VIS/BG OK
[2024-02-13 10:34] LABS: SARS-CoV-2 Antigen Rapid Res Positive (Negative)
--- NOTE | 2024-02-13 11:01 | ER ---
Nurse's Notes [facility] Name: Brenden Osman Age: 58 yrs Sex: Male : 1965 Arrival Date: 02/13/2024 Time: 09:05 Bed 12 Private MD: Diagnosis: SARS-associated coronavirus as the cause of diseases classified elsewhere Presentation: 02/12 09:17 Chief complaint: Patient states: Cough, congestion, fever since Friday morning. ll1 Slight sore throat. Coronavirus screen: Client denies travel out of the [place] in the last 14 days. cough unrelated to allergies, fatigue, fever, runny nose, sore throat. Ebola Screen: Patient denies travel to an Ebola-affected area in the 21 days before illness onset. Initial Sepsis Screen: Does the patient meet any 2 criteria? No. Patient's initial sepsis screen is negative. Does the patient have a suspected source of infection? No. Patient's initial sepsis screen is negative. Risk Assessment: Do you want to hurt yourself or someone else? Patient reports no desire to harm self or others. Onset of symptoms was February 11, 2024. 09:17 Method Of Arrival: Ambulatory ll1 09:17 Acuity: LUCITA 4 ll1 Triage Assessment: 09:18 General: Appears uncomfortable, Behavior is calm, cooperative, appropriate for age, ll1 Reports fatigue for. Pain: Denies pain. EENT: Reports nasal congestion pain when swallowing. Respiratory: Reports cough that is. Historical: - Allergies: 09:18 No Known Allergies; ll1 - PMHx: 09:18 Hypertension; Seizures; Hypercholesterolemia; ll1 - Immunization history:: Adult Immunizations up to date. - Infectious Disease History:: Denies. - Social history:: Smoking status: Patient denies any tobacco usage or history of. - Family history:: not pertinent. - Hospitalizations: : No recent hospitalization is reported. Screenin:00 [facility] ED Fall Risk Assessment (Adult) History of falling in the last 3 months, hb including since admission No falls in past 3 months (0 pts) Confusion or Disorientation No (0 pts) Intoxicated or Sedated No (0 pts) Impaired Gait No (0 pts) Mobility Assist Device Used No (0 pt) Altered Elimination No (0 pt) Score/Fall Risk Level 0 - 2 = Low Risk Oriented to surroundings, Maintained a safe environment, Educated pt \T\ family on fall prevention, incl call for assistance when getting out of bed. Abuse screen: Denies threats or abuse. Denies injuries from another. Nutritional screening: No deficits noted. Tuberculosis screening: No symptoms or risk factors identified. Assessment: 09:59 General: Appears in no apparent distress. Behavior is calm, cooperative. Pain: Denies hb pain. Neuro: Level of Consciousness is awake, alert, obeys commands, Oriented to person, place, time, situation. Cardiovascular: Patient's skin is warm and dry. Respiratory: Reports cough that is Respiratory effort is even, unlabored, Respiratory pattern is regular, symmetrical. EENT: Reports nasal congestion sore throat. 11:40 Reassessment: Patient appears in no apparent distress at this time. Patient and/or hb family updated on plan of care and expected duration. Pain level reassessed. Patient is alert, oriented x 3, equal unlabored respirations, skin warm/dry/pink. Vital Signs: 09:17 BP 150 / 86; Pulse 80; Resp 16; Temp 98.3(O); Pulse Ox 99% on R/A; Weight 99.79 kg; ll1 Height 6 ft. 1 in. ; 09:17 Body Mass Index 29.03 (99.79 kg, 185.42 cm) ll1 ED Course: 09:10 Patient arrived in ED. im 09:11 Alexander Nolasco MD is Attending Physician. rn 09:18 Triage completed. ll1 09:19 Arm band placed on Patient placed in an exam room, on a stretcher. ll1 09:56 Patient has correct armband on for positive identification. Bed in low position. Call hb light in reach. Provided Education on: use of call light, bathroom location, tests and result times. Warm blanket given. PO fluids given. 09:56 Strep Sent. hb 09:56 Flu Sent. hb 09:56 SARS RAPID Sent. hb 09:56 No provider procedures requiring assistance completed. COVID swab sent to lab. Flu hb and/or RSV swab sent to lab. Strep swab sent to lab. Patient did not have IV access during this emergency room visit. Administered Medications: No medications were administered Medication: 10:00 VIS not applicable for this client. hb Outcome: 11:00 Discharge ordered by . rn 11:42 Patient left the ED. hb 12:19 Discharged to home ambulatory, hb 12:19 Condition: stable 12:19 Discharge instructions given to patient, Instructed on discharge instructions, follow up and referral plans. medication usage, Demonstrated understanding of instructions, follow-up care, medications, Signatures: Alexander Nolasco MD MD rn Baxter, Heather, RN RN hb Lewis, Lynsay, RN RN ll1 Pebbles Burger Corrections: (The following items were deleted from the chart) 12:20 12:19 Discharge instructions given to patient, Instructed on discharge instructions, hb follow up and referral plans. medication usage, Demonstrated understanding of instructions, follow-up care, medications, Prescriptions given X 1, hb
--- NOTE | 2024-02-13 11:02 | EDPHYS ---
Physician Documentation [facility] Name: Brenden Osman Age: 58 yrs Sex: Male : 1965 Arrival Date: 02/13/2024 Time: 09:05 Bed 12 Private MD: ED Physician Alexander Nolasco HPI: 02/12 09:41 This 58 yrs old Black Male presents to ER via Ambulatory with complaints of Flu rn Symptoms. 09:41 The patient or guardian reports cough, that is intermittent, described as mild, with rn productive sputum. Onset: The symptoms/episode began/occurred 2 day(s) ago. Severity of symptoms: At their worst the symptoms were mild, in the emergency department the symptoms are unchanged. Modifying factors: The symptoms are alleviated by nothing, the symptoms are aggravated by nothing. Associated signs and symptoms: Pertinent positives: fever, rhinorrhea, sore throat, Pertinent negatives: chest pain. The patient has not recently seen a physician. 09:41 Patient reports "I have a cold". rn Historical: - Allergies: 09:18 No Known Allergies; ll1 - PMHx: 09:18 Hypertension; Seizures; Hypercholesterolemia; ll1 - Immunization history:: Adult Immunizations up to date. - Infectious Disease History:: Denies. - Social history:: Smoking status: Patient denies any tobacco usage or history of. - Family history:: not pertinent. - Hospitalizations: : No recent hospitalization is reported. ROS: 09:41 Constitutional: Positive for subjective fever ENT: Positive for nasal congestion and rn sore throat Neck: Negative for injury, pain, and swelling, Cardiovascular: Negative for chest pain, palpitations, and edema, Respiratory: Positive for cough, negative for shortness of breath Abdomen/GI: Negative for abdominal pain, nausea, vomiting, diarrhea, and constipation, MS/Extremity: Negative for injury and deformity, Skin: Negative for injury, rash, and discoloration, Neuro: Negative for headache, weakness, numbness, tingling, and seizure, Exam: 09:41 Constitutional: This is a well developed, well nourished patient who is awake, alert, rn and in no acute distress. Head/Face: Normocephalic, atraumatic. ENT: Mild pharyngeal erythema. No exudate. No stridor. Uvula midline. Neck: Trachea midline, no masses palpated. Supple, full range of motion without nuchal rigidity, or vertebral point tenderness. No Meningismus. Cardiovascular: Regular rate and rhythm. No pulse deficits. Respiratory: No increased work of breathing, no retractions or nasal flaring. Neuro: Awake and alert, GCS 15 Vital Signs: 09: BP 150 / 86; Pulse 80; Resp 16; Temp 98.3(O); Pulse Ox 99% on R/A; Weight 99.79 kg; ll1 Height 6 ft. 1 in. ; :17 Body Mass Index 29.03 (99.79 kg, 185.42 cm) ll1 MDM: 09:11 Patient medically screened. rn 11:00 Differential Diagnosis: Bronchitis Influenza Upper Respiratory Infection Sinusitis rn Pharyngitis Viral Syndrome. Data reviewed: vital signs, nurses notes, lab test result(s), and as a result, I will discharge patient. Counseling: I had a detailed discussion with the patient and/or guardian regarding the historical points, exam findings, and any diagnostic results supporting the discharge/admit diagnosis, lab results, the need for outpatient follow up, to return to the emergency department if symptoms worsen or persist or if there are any questions or concerns that arise at home. Special discussion: I discussed with the patient/guardian in detail that at this point there is no indication for admission to the hospital. It is understood, however, that if the symptoms persist or worsen the patient needs to return immediately for re-evaluation. ED course: Patient is COVID-positive. No oxygen requirement. Stable vital signs. I have personally reviewed all of the results, including but not limited to blood tests deemed necessary to safely discharge this patient at this time. All results given to and printed out for patient. I personally went over all the results with the patient and answered all questions. Patient will follow-up with PCP and or specialist as discussed. Return precautions given and understood.. 02/12 09:20 Order name: Strep rn 02/12 09:20 Order name: SARS RAPID; Complete Time: 10:36 rn 02/12 09:20 Order name: Flu; Complete Time: 10:45 rn 02/12 10:29 Order name: Throat Culture EDMS Administered Medications: No medications were administered Disposition Summary: 02/13/24 11:00 Discharge Ordered Notes: Location: Home rn Problem: new rn Symptoms: have improved rn Condition: Stable rn Diagnosis - SARS-associated coronavirus as the cause of diseases classified elsewhere rn Followup: rn - With: Private Physician - When: As needed - Reason: Recheck today's complaints, Re-evaluation by your physician Discharge Instructions: - Discharge Summary Sheet rn - COVID-19 rn - 10 Things You Can Do to Manage Your COVID-19 Symptoms at Home - [facility] (02/23/2021) rn - Viral Illness, Adult rn Forms: - Medication Reconciliation Form rn - Antibiotic edge burnisher - Prescription Opioid Use rn - Patient Portal Instructions rn - Leadership Thank You Letter rn Signatures: Dispatcher [employer] EDAlexander Campos MD MD rn Stacey Davis RN RN ll1
[2024-02-13 12:08] VITALS: BP 150/86; TEMP 98.3; O2SAT 99
== END 2024-02-13 11:42 | disposition home or self-care (01) ==
LOC: ER 09:05
DX: U07.1 COVID-19 (principal)
CPT/HCPCS: 36415; 87070; 87081; 87804; 87811; 99283

== ENCOUNTER 2024-08-12 14:03 | Emergency (ER) | payer MEDICAID, OTHER ==
[2024-08-12] MEDS ORDERED: LORazepam 2 MG/ML VIAL ONE (14:05)
[2024-08-12] MEDS ORDERED: NA CHLORIDE 0.9% 200 ML ONE (14:08)
[2024-08-12] MEDS ORDERED: LEVETIRACETAM 500 MG/5 ML VIAL IV ONE (14:08)
[2024-08-12] MEDS ORDERED: KETOROLAC 30 MG/ML INJ ONE (14:33)
[2024-08-12] MEDS ORDERED: NA CHLORIDE 0.9% 1,000 ML ONE (14:33)
[2024-08-12] MEDS ORDERED: METOCLOPRAMIDE 10 MG/2mL INJ ONE (14:33)
[2024-08-12] MEDS ORDERED: DIPHENHYDRAMINE 50 MG/ML VIAL ONE (14:33)
--- NOTE | 2024-08-12 14:46 | RAD REPORT ---
EXAMINATION: ONE VIEW CHEST XR CLINICAL INDICATION: COUGH TECHNIQUE: Frontal chest projection is submitted. Examination is limited by patient positioning and t echnique. COMPARISON: 01/17/2024 FINDINGS: Mildly prominent interstitial markings bilaterally. No focal consolidation seen. The heart is upper l imit of normal in size. No displaced fractures identified.
--- NOTE | 2024-08-12 14:51 | RAD REPORT ---
EXAM: CT brain without contrast HISTORY: SEIZURE COMPARISON: 01/17/2024 TECHNIQUE: Multiple contiguous axial images were obtained and a CT of the brain without contrast. Sag ittal and coronal reformats were performed. One or more of the following dose reduction techniques were used: Automated exposure control, adjust ment of the mA and/or kV according to patient size, and/or iterative reconstruction. FINDINGS: No evidence of hydrocephalus, intracranial hemorrhage, or extra-axial fluid collection. The brain is normal in morphology. Tiny indeterminate 2 mm hyperdensity adjacent to the left frontal horn. No evidence of midline shift or areas of brain edema. The calvarium is intact. The visualized paranasal sinuses and mastoid air cells are essentially clear . IMPRESSION: No evidence of acute intracranial abnormality. 2 mm hyperdensity noted which is quite small adjacent to left frontal horn may be artifactual or repr esent a small real finding. Recommend nonemergent MRI brain follow-up for further evaluation.
[2024-08-12 15:27] LABS: Absolute Eosinophils 0.1 K/uL (0-0.5); Absolute Lymphocytes (CBC) 1.2 K/uL (0.7-4.9); Absolute Monocytes 0.2 K/uL (0.1-1.3); Absolute Neutrophil 4.2 K/uL (1.8-8.0); Basophils % 0.6 % (0-1.3); Eosinophils % 1.9 % (0-4.4); Hematocrit 46.3 % (39.6-49.0); Hemoglobin 15.6 g/dL (13.6-17.9); Lymphocytes % 20.4 % (15.3-44.8); MCH 30.4 pg (27.0-35.0); MCHC 33.8 g/dL (32.0-36.0); MCV 89.9 fL (80-100); MPV 8.8 fL (7.6-11.3); Monocytes % 4.3 % (3.3-12.3); Neutrophils % 72.8 % (41.7-73.7); Nucleated Red Blood Cells % 0.1 % (0-0); Platelets 212 thou/uL (152-406); RBC Red Blood Cell Count 5.14 M/uL (4.33-5.43); Red Cell Distribution Width 13.4 % (12.1-15.2)
[2024-08-12 15:32] LABS: PT Prothrombin Time 12.1 SECONDS (9.4-12.5); Protime INR 1.08
[2024-08-12 15:48] LABS: ALT/SGPT 41 U/L (16-61); AST/SGOT 26 U/L (15-37); Albumin 3.7 g/dL (3.4-5.0); Albumin/Globulin Ratio 0.9 (1.1-1.8); Alkaline Phosphatase 54 U/L (45-117); Anion Gap 9.8 mEq/L (5.0-15.0); BUN Blood Urea Nitrogen 11 mg/dL (7-18); Bicarbonate 26 mEq/L (21-32); Bilirubin Direct 0.2 mg/dL (0-0.2); Bilirubin Indirect, Calculated 0.4 mg/dL (0.2-0.8); Bilirubin Total 0.6 mg/dL (0.2-1.0); Globulin 3.9 g/dL (2.3-3.5); Glomerular Filtration Rate 88 ml/min (=/>90); Glucose Level 130 mg/dL (74-106); Magnesium 1.8 mg/dL (1.6-2.4); NT PRO-BNP 34 pg/mL (<125); Potassium 3.8 mEq/L (3.5-5.1); Protein, Total 7.6 g/dL (6.4-8.2); Sodium Level 137 mEq/L (136-145); Troponin High Sensitivity 27.4 pg/mL (<58.9)
--- NOTE | 2024-08-12 16:07 | ER ---
Nurse's Notes [facility] Name: Brenden Osman Age: 58 yrs Sex: Male : 1965 Arrival Date: 08/12/2024 Time: 14:03 Bed 19 Private MD: Diagnosis: Other seizures;Headache Presentation: 08/12 14:21 Chief complaint: Spouse and/or significant other states: seizure that started about 15 me1 mins ago. c/o headache [employer] and was sent here by his dr. Coronavirus screen: Vaccine status: Patient reports receiving the 2nd dose of the covid vaccine. Ebola Screen: No symptoms or risks identified at this time. Initial Sepsis Screen: Does the patient meet any 2 criteria? No. Patient's initial sepsis screen is negative. Does the patient have a suspected source of infection? No. Patient's initial sepsis screen is negative. Risk Assessment: Do you want to hurt yourself or someone else? Patient reports no desire to harm self or others. Onset of symptoms was August 12, 2024 at 14:00. 14:21 Method Of Arrival: Wheelchair md1 14:21 Acuity: LUCITA 3 me1 Triage Assessment: 14:25 General: Appears uncomfortable, well groomed, well developed, well nourished, Behavior me1 is cooperative, appropriate for age, anxious, Reports on arrival patient's reports that patient is seizing. Patient has tremors, able to speak while having tremors. c/o headache 8/10. States his head hurts like this before seizing. Pain: Complains of pain in head Pain does not radiate. Pain currently is 8 out of 10 on a pain scale. Quality of pain is described as throbbing, Pain began suddenly, 30 min ago. Is continuous. EENT: No signs and/or symptoms were reported regarding the EENT system. Neuro: Level of Consciousness is awake, alert, obeys commands, Oriented to person, place, time, situation, Appropriate for age Seizure activity noted at this time. Cardiovascular: Patient's skin is warm and dry. Respiratory: Airway is patent Respiratory effort is even, unlabored, Respiratory pattern is regular, symmetrical. GI: No signs and/or symptoms were reported involving the gastrointestinal system. : No signs and/or symptoms were reported regarding the genitourinary system. Derm: Skin is intact, is healthy with good turgor, Skin is pink, warm \T\ dry. Musculoskeletal: No signs and/or symptoms reported regarding the musculoskeletal system. Historical: - Allergies: 14:25 No Known Allergies; me1 - PMHx: 14:25 Hypercholesterolemia; Hypertension; Seizures; me1 - Immunization history:: Adult Immunizations up to date. - Infectious Disease History:: Denies. - Social history:: Smoking status: Patient denies any tobacco usage or history of. - Family history:: not pertinent. Screenin:28 [facility] ED Fall Risk Assessment (Adult) History of falling in the last 3 months, me1 including since admission No falls in past 3 months (0 pts) Confusion or Disorientation No (0 pts) Intoxicated or Sedated No (0 pts) Impaired Gait No (0 pts) Mobility Assist Device Used No (0 pt) Altered Elimination No (0 pt) Score/Fall Risk Level 0 - 2 = Low Risk Maintained a safe environment, Provided non-skid footwear, Hourly rounding (assess needs \T\ fall precautionary measures) done. Abuse screen: Denies threats or abuse. Nutritional screening: No deficits noted. Tuberculosis screening: No symptoms or risk factors identified. Assessment: 14:28 General: See triage assessment. me1 Vital Signs: 14:21 BP 155 / 88; Pulse 69; Resp 18; Temp 98.6; Pulse Ox 98% ; Weight 99.79 kg; Height 6 ft. me1 1 in. ; Pain 8/10; 15:00 BP 144 / 85; Pulse 75; Resp 16; Pulse Ox 97% ; me1 15:54 Pain 3/10; me1 15:54 Pain 3/10; me1 16:00 BP 138 / 79; Pulse 80; Resp 16; Pulse Ox 96% ; me1 16:30 BP 137 / 77; Pulse 81; Resp 16; Temp 98.4; Pulse Ox 96% on R/A; me1 14:21 Body Mass Index 29.03 (99.79 kg, 185.42 cm) me1 14:21 Pain Scale: Adult me1 15:54 Pain Scale: Adult me1 15:54 Pain Scale: Adult me1 NIH Stroke Scale Scores: 15:59 NIHSS Score: 0 marciano ED Course: 14:04 Patient arrived in ED. iw 14:04 Joya Renae, RN is Primary Nurse. me1 14:04 Pancho Day MD is Attending Physician. marciano 14:25 Triage completed. me1 14:25 Arm band placed on Patient placed in an exam room. me1 14:28 Patient has correct armband on for positive identification. Bed in low position. Call me1 light in reach. Side rails up X2. Provided Education on: POC. Verbalized understanding.. Client placed on continuous cardiac and pulse oximetry monitoring. NIBP monitoring applied. Pulse ox on. NIBP on. 14:28 No provider procedures requiring assistance completed. me1 14:34 XRAY Chest (1 view) In Process Unspecified. EDMS 14:37 CT Head Brain wo Cont In Process Unspecified. EDMS 15:00 Initial lab(s) drawn, by r and d lab technician, sent to lab. EKG done, by ED staff, reviewed by me1 Pancho Day MD. 16:06 Duy Austin MD is Referral Physician. marciano 16:48 IV discontinued, intact, bleeding controlled, No redness/swelling at site. Pressure me1 dressing applied. Administered Medications: 14:14 Drug: Ativan IVP 2 mg IVP once Route: IVP; Site: right hand; me1 14:42 Follow up: Response: No adverse reaction; RASS: Alert and Calm (0) me1 14:14 CANCELLED (Duplicate Order): [id number] mg IV at per protocol once [facility] 14:30 Drug: Keppra IV 1000 mg IV at per protocol once Route: IV; Rate: per protocol; Site: [facility] right hand; 14:50 Follow up: Response: No adverse reaction; IV Status: Completed infusion me1 14:41 Drug: NS 0.9% IV 1000 ml IV at 1000 ml once; to be given as a bolus over 60 minutes me1 Route: IV; Rate: 1000 ml; Site: right hand; 16:35 Follow up: Response: No adverse reaction; IV Status: Completed infusion; IV Intake: me1 1000ml 14:41 Drug: Ketorolac IVP 15 mg IVP once Route: IVP; Site: right hand; me1 15:53 Follow up: Response: No adverse reaction me1 15:53 Follow up: Response: No adverse reaction; Pain is decreased me1 14:41 Drug: diphenhydrAMINE IVP 50 mg IVP once Route: IVP; Site: right hand; md1 15:54 Follow up: Pain 3/10 Adult; Response: No adverse reaction; Pain is decreased me1 14:41 Drug: metoCLOPramide IVP 10 mg IVP once; over 1 to 2 minutes Route: IVP; Site: right me1 hand; 15:54 Follow up: Pain 3/10 Adult; Response: No adverse reaction; Pain is decreased me1 Medication: 14:28 VIS not applicable for this client. md1 Intake: 16:35 IV: 1000ml; Total: 1000ml. me1 Outcome: 16:06 Discharge ordered by . marciano 16:48 Discharged to home via wheelchair, with significant other, [facility] 16:48 Condition: stable 16:48 Discharge instructions given to patient, significant other, Instructed on discharge instructions, follow up and referral plans. medication usage, Demonstrated understanding of instructions, follow-up care, medications, Prescriptions given X 2, 16:49 Patient left the ED. md1 NIH Stroke Scale - NIH Stroke Score Date: 08/12/2024 Time: 15:59 Total Score = 0 10. Dysarthria (speech clarity - read or repeat words) - 0(Normal) 11. Extinction and Inattention (visual/tactile/auditory/spatial/personal) - 0(No abnormality) 1a. Level of Consciousness (LOC) - 0(Alert) 1b. Level of Consciousness (LOC) (Month \T\ Age) - 0(Both) 1c. LOC Commands (Open \T\ Closes Eyes/Second Language Tutor) - 0(Both) 2. Best Gaze (Lateral Gaze Paresis) - 0(Normal) 3. Visual Field Loss - 0(No visual loss) 4. Facial Palsy - 0(Normal) 5a. Left Arm: Motor (10-second hold) - 0(No drift) 5b. Right Arm: Motor (10-second hold) - 0(No drift) 6a. Left Leg: Motor (5-second hold - always test supine) - 0(No drift) 6b. Right Leg: Motor (5-second hold - always test supine) - 0(No drift) 7. Limb Ataxia (finger/nose \T\ heel/cheung - test with eyes open) - 0(Absent) 8. Sensory Loss (pinprick arms/legs/face) - 0(Normal) 9. Best Language: Aphasia (description/naming/reading) - 0(No aphasia) Initials: marciano Signatures: Dispatcher [employer] Pancho Carrasquillo MD MD cha Williams, Irene, RN RN iw Joya Renae RN RN me1 Corrections: (The following items were deleted from the chart) 14:29 14:25 Neuro: Level of Consciousness is awake, alert, obeys commands, Oriented me1 to person, place, time, situation, Appropriate for age me1
--- NOTE | 2024-08-12 16:07 | EDPHYS ---
Physician Documentation [facility] Name: Brenden Osman Age: 58 yrs Sex: Male : 1965 Arrival Date: 08/12/2024 Time: 14:03 Bed 19 Private MD: Pancho Healy HPI: 08/12 15:59 This 58 yrs old Black Male presents to ER via Wheelchair with complaints of SEIZURE, HX marciano OF SEIZURES. 15:59 The patient presents with a history of multiple seizures, an unknown number. Character marciano of seizure(s): Loss of consciousness: the patient did not lose consciousness, Motor activity: generalized, Incontinence: none, Apnea: the patient did not experience apnea, Circulation: the patient did not experience evidence of pulse disturbance, Eye movements: are unknown, TALKS THROUGH SEIZURE. Seizure onset: just prior to arrival, this morning. Context: the seizure(s) was witnessed, by family, occurred at home, occurred while the patient was USUAL , NOTHING. Seizure Hx: Original onset: longstanding, Cause: unknown. Associated injury: The patient did not suffer any apparent associated injury. Current symptoms: headache, that is moderate. Historical: - Allergies: 14:25 No Known Allergies; me1 - PMHx: 14:25 Hypercholesterolemia; Hypertension; Seizures; me1 - Immunization history:: Adult Immunizations up to date. - Infectious Disease History:: Denies. - Social history:: Smoking status: Patient denies any tobacco usage or history of. - Family history:: not pertinent. ROS: 15:59 Constitutional: Negative for fever, chills, and weight loss, Eyes: Negative for injury, marciano pain, redness, and discharge, ENT: Negative for injury, pain, and discharge, Neck: Negative for injury, pain, and swelling, Cardiovascular: Negative for chest pain, palpitations, and edema, Respiratory: Negative for shortness of breath, cough, wheezing, and pleuritic chest pain, Abdomen/GI: Negative for abdominal pain, nausea, vomiting, diarrhea, and constipation, Back: Negative for injury and pain, MS/Extremity: Negative for injury and deformity, Skin: Negative for injury, rash, and discoloration, Psych: Negative for depression, anxiety, suicide ideation, homicidal ideation, and hallucinations, Allergy/Immunology: Negative for hives, rash, and allergies, Endocrine: Negative for neck swelling, polydipsia, polyuria, polyphagia, and marked weight changes, Hematologic/Lymphatic: Negative for swollen nodes, abnormal bleeding, and unusual bruising, 15:59 Neuro: Positive for headache, SHAKING , TALKING, MOVING EVERYTHING NORMALLY, Exam: 15:59 Constitutional: This is a well developed, well nourished patient who is awake, alert, marciano and in no acute distress. Head/Face: Normocephalic, atraumatic. Eyes: Pupils equal round and reactive to light, extra-ocular motions intact. Lids and lashes normal. Conjunctiva and sclera are non-icteric and not injected. Cornea within normal limits. Periorbital areas with no swelling, redness, or edema. ENT: Nares patent. No nasal discharge, no septal abnormalities noted. Tympanic membranes are normal and external auditory canals are clear. Oropharynx with no redness, swelling, or masses, exudates, or evidence of obstruction, uvula midline. Mucous membranes moist. Neck: Trachea midline, no thyromegaly or masses palpated, and no cervical lymphadenopathy. Supple, full range of motion without nuchal rigidity, or vertebral point tenderness. No Meningismus. Chest/axilla: Normal chest wall appearance and motion. Nontender with no deformity. No lesions are appreciated. Cardiovascular: Regular rate and rhythm with a normal S1 and S2. No gallops, murmurs, or rubs. Normal PMI, no JVD. No pulse deficits. Respiratory: Lungs have equal breath sounds bilaterally, clear to auscultation and percussion. No rales, rhonchi or wheezes noted. No increased work of breathing, no retractions or nasal flaring. Abdomen/GI: Soft, non-tender, with normal bowel sounds. No distension or tympany. No guarding or rebound. No evidence of tenderness throughout. Back: No spinal tenderness. No costovertebral tenderness. Full range of motion. Skin: Warm, dry with normal turgor. Normal color with no rashes, no lesions, and no evidence of cellulitis. MS/ Extremity: Pulses equal, no cyanosis. Neurovascular intact. Full, normal range of motion., bilateral aka Neuro: Awake and alert, GCS 15, oriented to person, place, time, and situation. Cranial nerves II-XII grossly intact. Motor strength 5/5 in all extremities. Sensory grossly intact. Cerebellar exam normal. Normal gait. Psych: Awake, alert, with orientation to person, place and time. Behavior, mood, and affect are within normal limits. 16:36 ECG was reviewed by the Attending Physician. [facility] Vital Signs: 14:21 BP 155 / 88; Pulse 69; Resp 18; Temp 98.6; Pulse Ox 98% ; Weight 99.79 kg; Height 6 ft. me1 1 in. ; Pain 8/10; 15:00 BP 144 / 85; Pulse 75; Resp 16; Pulse Ox 97% ; me1 15:54 Pain 3/10; me1 15:54 Pain 3/10; me1 16:00 BP 138 / 79; Pulse 80; Resp 16; Pulse Ox 96% ; me1 16:30 BP 137 / 77; Pulse 81; Resp 16; Temp 98.4; Pulse Ox 96% on R/A; me1 14:21 Body Mass Index 29.03 (99.79 kg, 185.42 cm) me1 14:21 Pain Scale: Adult me1 15:54 Pain Scale: Adult me1 15:54 Pain Scale: Adult me1 NIH Stroke Scale Scores: 15:59 NIHSS Score: 0 marciano MDM: 14:04 Medical Screening Exam initiated [facility] 16:03 Differential diagnosis: cerebral vascular accident, drug overdose, cardiac arrhythmia, marciano seizure, TIA. Data reviewed: vital signs, nurses notes, lab test result(s), EKG, radiologic studies, CT scan. Consideration of Admission/Observation Escalation of care including admission/observation considered. I considered the following discharge prescriptions or medication management in the emergency department Medications were administered in the Emergency Department. See MAR. Independent interpretation of the following test(s) in the Emergency Department EKG: See my EKG interpretation above. Historians other than the Patient: Spouse/Significant Other: WELL INFORMED. Care significantly affected by the following chronic conditions: Hypertension, SEIZURE DO, HIGH CHLESTEROL. Counseling: I had a detailed discussion with the patient and/or guardian regarding the historical points, exam findings, and any diagnostic results supporting the discharge/admit diagnosis, lab results, radiology results, the need for outpatient follow up, for definitive care, a family practitioner, a neurologist. 16:08 ED course: DR ALFRED , MRI OUT PATIENT , NON EMERGENT. [facility] 08/12 14:06 Order name: Basic Metabolic Panel; Complete Time: 15:53 [facility] 08/12 14:06 Order name: CBC with Diff; Complete Time: 15:53 [facility] 08/12 14:06 Order name: LFT's; Complete Time: 15:53 [facility] 08/12 14:06 Order name: Magnesium; Complete Time: 15:53 [facility] 08/12 14:06 Order name: NT PRO-BNP; Complete Time: 15:53 [facility] 08/12 14:06 Order name: PT-INR; Complete Time: 15:53 [facility] 08/12 14:06 Order name: Troponin HS; Complete Time: 15:53 [facility] 08/12 14:06 Order name: Acetaminophen; Complete Time: 15:53 [facility] 08/12 14:06 Order name: ETOH Level; Complete Time: 15:53 [facility] 08/12 14:06 Order name: Ptt, Activated; Complete Time: 15:53 [facility] 08/12 14:06 Order name: Salicylate 08/12 14:06 Order name: XRAY Chest (1 view); Complete Time: 15:53 [facility] 08/12 14:06 Order name: CT Head Brain wo Cont; Complete Time: 15:53 [facility] 08/12 14:06 Order name: EKG; Complete Time: 14:06 [facility] 08/12 14:06 Order name: Cardiac monitoring; Complete Time: 16:35 [facility] 08/12 14:06 Order name: EKG - Nurse/Tech; Complete Time: 16:36 [facility] 08/12 14:06 Order name: IV Saline Lock; Complete Time: 14:30 [facility] 08/12 14:06 Order name: Labs collected and sent; Complete Time: 14:30 [facility] 08/12 14:06 Order name: O2 Per Protocol; Complete Time: 14:30 [facility] 08/12 14:06 Order name: O2 Sat Monitoring; Complete Time: 14:30 [facility] 08/12 14:06 Order name: Suicide Screening ([place]); Complete Time: 14:30 [facility] 08/12 14:06 Order name: Seizure Precautions; Complete Time: 14:30 [facility] EC:36 Rate is 81 beats/min. Rhythm is regular. QRS [place] is Normal. MA interval is normal. QRS marciano interval is normal. QT interval is normal. No Q waves. T waves are Normal. No ST changes noted. Clinical impression: NSR w/ Non-specific ST/T Changes and No evidence of ischemia. Interpreted by me. Reviewed by me. Administered Medications: 14:14 Drug: Ativan IVP 2 mg IVP once Route: IVP; Site: right hand; me1 14:42 Follow up: Response: No adverse reaction; RASS: Alert and Calm (0) me1 14:14 CANCELLED (Duplicate Order): [id number] mg IV at per protocol once marciano 14:30 Drug: Keppra IV 1000 mg IV at per protocol once Route: IV; Rate: per protocol; Site: wv1 right hand; 14:50 Follow up: Response: No adverse reaction; IV Status: Completed infusion me1 14:41 Drug: NS 0.9% IV 1000 ml IV at 1000 ml once; to be given as a bolus over 60 minutes me1 Route: IV; Rate: 1000 ml; Site: right hand; 16:35 Follow up: Response: No adverse reaction; IV Status: Completed infusion; IV Intake: me1 1000ml 14:41 Drug: Ketorolac IVP 15 mg IVP once Route: IVP; Site: right hand; me1 15:53 Follow up: Response: No adverse reaction me1 15:53 Follow up: Response: No adverse reaction; Pain is decreased me1 14:41 Drug: diphenhydrAMINE IVP 50 mg IVP once Route: IVP; Site: right hand; me1 15:54 Follow up: Pain 3/10 Adult; Response: No adverse reaction; Pain is decreased me1 14:41 Drug: metoCLOPramide IVP 10 mg IVP once; over 1 to 2 minutes Route: IVP; Site: right wv1 hand; 15:54 Follow up: Pain 3/10 Adult; Response: No adverse reaction; Pain is decreased me1 Disposition Summary: 08/12/24 16:06 Discharge Ordered Notes: Location: Home marciano Problem: new marciano Symptoms: have improved marciano Condition: Stable marciano Diagnosis - Other seizures marciano - Headache marciano Followup: marciano - With: Private Physician - When: 2 - 3 days - Reason: Recheck today's complaints, Continuance of care, Re-evaluation by your physician Followup: marciano - With: Duy Austin MD - When: 2 - 3 days - Reason: Recheck today's complaints, Re-evaluation by your physician Discharge Instructions: - Discharge Summary Sheet marciano - Epilepsy marciano - General Headache Without Cause marciano - Seizure, Adult marciano - General Headache Without Cause, [id number] [facility] Forms: - Medication Reconciliation Form marciano - Antibiotic Education marciano - Prescription Opioid Use [facility] - Patient Portal Instructions [facility] - Leadership Thank You Letter [facility] Prescriptions: - Ibuprofen 600 mg Oral tablet - take 1 tablet ORAL route every 6 hours As needed take with food; 20 tablet; marciano Refills: 0, Product Selection Permitted - Keppra 500 mg Oral tablet - take 2 tablet ORAL route every 12 hours; 42 tablet; Refills: 0, Product [facility] Selection Permitted NIH Stroke Scale - NIH Stroke Score Date: 08/12/2024 Time: 15:59 Total Score = 0 10. Dysarthria (speech clarity - read or repeat words) - 0(Normal) 11. Extinction and Inattention (visual/tactile/auditory/spatial/personal) - 0(No abnormality) 1a. Level of Consciousness (LOC) - 0(Alert) 1b. Level of Consciousness (LOC) (Month \T\ Age) - 0(Both) 1c. LOC Commands (Open \T\ Closes Eyes/Pay Station Department Manager) - 0(Both) 2. Best Gaze (Lateral Gaze Paresis) - 0(Normal) 3. Visual Field Loss - 0(No visual loss) 4. Facial Palsy - 0(Normal) 5a. Left Arm: Motor (10-second hold) - 0(No drift) 5b. Right Arm: Motor (10-second hold) - 0(No drift) 6a. Left Leg: Motor (5-second hold - always test supine) - 0(No drift) 6b. Right Leg: Motor (5-second hold - always test supine) - 0(No drift) 7. Limb Ataxia (finger/nose \T\ heel/cheung - test with eyes open) - 0(Absent) 8. Sensory Loss (pinprick arms/legs/face) - 0(Normal) 9. Best Language: Aphasia (description/naming/reading) - 0(No aphasia) Initials: [facility] Signatures: Dispatcher [employer] Pancho Carrasquillo MD MD cha Eddleman, Michelle, RN RN me1 Corrections: (The following items were deleted from the chart) 14:07 14:06 BASIC METABOLIC PANEL+C.LAB.BRZ ordered. EDMS EDMS 14:07 14:06 CBC+H.LAB.BRZ ordered. EDMS EDMS 14:07 14:06 HEPATIC FUNCTION+C.LAB.BRZ ordered. EDMS EDMS 14: 14:06 MAGNESIUM+C.LAB.BRZ ordered. EDMS EDMS 14: 14:06 PROBNP+C.LAB.BRZ ordered. EDMS EDMS 14: 14:06 PROTIME (+INR)+COAG.LAB.BRZ ordered. EDMS EDMS 14: 14:06 Troponin High Sensitivity+C.LAB.BRZ ordered. EDMS EDMS 14: 14:06 ACETAMINOPHEN+C.LAB.BRZ ordered. EDMS EDMS 14: 14:06 ETHANOL+C.LAB.BRZ ordered. EDMS EDMS 14: 14:06 PTT, ACTIVATED+COAG.LAB.BRZ ordered. EDMS EDMS 14: 14:06 SALICYLATE+C.LAB.BRZ ordered. EDMS EDMS 14: 14:06 Urinalysis+U.LAB.BRZ ordered. EDMS EDMS 14: 14:06 URINE DRUG SCREEN+UC.LAB.BRZ ordered. EDMS EDMS 14: 14:06 Keppra IV 2000 mg IV at per protocol once ordered. marciano tariq
[2024-08-12 18:54] VITALS: O2SAT 96
[2024-08-12 18:56] VITALS: BP 137/77; TEMP 98.4
--- NOTE | 2024-08-13 12:42 | EKG ---
Test Date: 2024-08-12 Test Time: 16:32:53 Maintenance Shop Technician: MEASUREMENT RESULTS: Intervals: Rate: 81 VA: 204 QRSD: 94 QT: 368 QTc: 427 [place]: P: 46 VA: 204 QRS: 26 T: 41 INTERPRETIVE STATEMENTS: Normal sinus rhythm Nonspecific ST abnormality Abnormal ECG Compared to ECG 01/17/2024 12:59:12 ST (T wave) deviation now present Electronically Signed On 08-13-24 12:40:21 [employer] OPERATOR by Ramiro Saab
== END 2024-08-12 16:49 | disposition home or self-care (01) ==
LOC: ER 14:03
DX: G40.89 Other seizures (principal); R51.9 Headache, unspecified; I10 Essential (primary) hypertension; E78.00 Pure hypercholesterolemia, unspecified
CPT/HCPCS: 96365; 96361; 93005; 85025; 80048; 36415; 83735; 85610; 80076; 85730; 84484; 83880; 70450; 71045; 96375; 99284; 80143; 80179; 82077; J1953; J2765; J1200; J7030

== ENCOUNTER 2024-11-22 05:14 | Inpatient (IN) | payer MEDICAID ==
[2024-11-22] MEDS ORDERED: LORazepam 2 MG/ML VIAL ONE (05:20)
[2024-11-22] MEDS ORDERED: LEVETIRACETAM 500 MG/5 ML VIAL IV ONE (05:21)
[2024-11-22] MEDS ORDERED: NA CHLORIDE 0.9% 100 ML ONE (05:21)
[2024-11-22] MEDS ORDERED: MORPHINE 4 MG/ML SYR ONE (05:40)
[2024-11-22] MEDS ORDERED: ONDANSETRON 4 MG/2 ML VIAL ONE (05:40)
[2024-11-22] MEDS ORDERED: NA CHLORIDE 0.9% 1,000 ML ONE (05:40)
[2024-11-22 05:45] LABS: PT Prothrombin Time 11.8 SECONDS (10-13.0); Protime INR 1.04
[2024-11-22] MEDS ORDERED: ASPIRIN 81 MG CHEWABLE TABLET ONE (05:54)
[2024-11-22 05:56] LABS: Absolute Monocytes 0.3 K/uL (0.1-1.3); MCHC 35.3 g/dL (32.0-36.0)
[2024-11-22 06:05] LABS: Absolute Basophils 0.1 K/uL (0-0.5); Absolute Eosinophils 0.3 K/uL (0-0.5); Absolute Lymphocytes (CBC) 3.3 K/uL (0.7-4.9); Absolute Neutrophil 1.4 K/uL (1.8-8.0); Basophils % 1.7 % (0-1.3); Eosinophils % 4.8 % (0-4.4); Hematocrit 42.6 % (39.6-49.0); Lymphocytes % 62.4 % (15.3-44.8); MCV 87.6 fL (80-100); MPV 9.2 fL (7.6-11.3); Monocytes % 5.2 % (3.3-12.3); Neutrophils % 25.9 % (41.7-73.7); Nucleated Red Blood Cells % 0.4 % (0-0); Platelets 262 thou/uL (152-406); RBC Red Blood Cell Count 4.86 M/uL (4.33-5.43); Red Cell Distribution Width 13.5 % (12.1-15.2)
--- NOTE | 2024-11-22 06:16 | RAD REPORT ---
EXAM: Chest Single View HISTORY: 59 years Male CHEST PAIN COMPARISON: 08/12/2024 FINDINGS: LUNGS/PLEURA: The lungs are clear. No pleural effusions or pneumothorax. No pulmonary edema. CARDIAC/MEDIASTINUM: The cardiac silhouette is within normal limits. UPPER ABDOMEN: No significant abnormality. BONES: No acute abnormality. LINES/TUBES/OTHER: N/A IMPRESSION: No evidence of acute cardiopulmonary disease.
[2024-11-22 06:33] LABS: ALT/SGPT 57 U/L (16-61); Albumin 3.4 g/dL (3.4-5.0); Alkaline Phosphatase 60 U/L (45-117); Anion Gap 15.1 mEq/L (5.0-15.0); BUN Blood Urea Nitrogen 14 mg/dL (7-18); Bicarbonate 20 mEq/L (21-32); Bilirubin Total 0.4 mg/dL (0.2-1.0); C-Reactive Protein 3.72 mg/L (<3.00); Globulin 3.4 g/dL (2.3-3.5); Glomerular Filtration Rate 103 ml/min (=/>90); Glucose Level 159 mg/dL (74-106); Lipase 32 U/L (13-75); NT PRO-BNP 12 pg/mL (<125); Protein, Total 6.8 g/dL (6.4-8.2); Sodium Level 138 mEq/L (136-145); Troponin High Sensitivity 24.2 pg/mL (<58.9)
[2024-11-22 06:41] LABS: AST/SGOT 29 U/L (15-37); Bilirubin Direct < 0.2 mg/dL (0-0.2); Bilirubin Indirect, Calculated 0.2 mg/dL (0.2-0.8); Magnesium 1.6 mg/dL (1.6-2.4); Potassium 3.1 mEq/L (3.5-5.1)
--- NOTE | 2024-11-22 07:12 | EDPHYS ---
Physician Documentation [facility] Name: Brenden Osman Age: 59 yrs Sex: Male : 1965 Arrival Date: 11/22/2024 Time: 05:14 Bed 2 Private MD: ED Physician Vic Jones HPI: 11/22 06:57 This 59 yrs old Black Male presents to ER via Wheelchair with complaints of Probable sp4 Seizure. 07:06 59-year-old male presents with acute moderate severe midsternal chest pain associated sp4 with tachycardia and palpitations.. 07:11 Patient has history of epilepsy. He takes lacosamide 100 mg p.o. twice daily, Keppra sp4 1500 mg p.o. twice daily, also albuterol as needed aspirin 81 mg daily, atorvastatin 20 mg bedtime, lisinopril 40 mg daily.. Historical: - Allergies: 05:35 No Known Allergies; bm8 - Home Meds: 05:35 lacosamide 100 mg Oral tablet 1 tab 2 times per day for status epilepticus [Active]; bm8 lorazepam 2 mg Oral tablet 1 tab every 6 hours for prn seizure [Active]; 07:56 levetiracetam 1500 mg oral Tablet, Extended Release 24 hr 2 times per day [Active]; iw atorvastatin 10 mg oral tablet daily [Active]; lisinopril 40 mg Oral tablet daily [Active]; aspirin 81 mg Oral capsule daily [Active]; Fish Oil oral daily [Active]; - PMHx: 05:35 Hypercholesterolemia; Hypertension; Seizures; bm8 - PSHx: 05:35 None; bm8 - Immunization history:: Adult Immunizations up to date. - Infectious Disease History:: Denies. - Social history:: Smoking status: Patient denies any tobacco usage or history of. - Family history:: not pertinent. ROS: 07:06 Constitutional: Negative for fever, chills, and weight loss, Cardiovascular: Positive sp4 chest pain , positive palpitations, positive tachycardia 07:06 All other systems are negative, Exam: 07:06 Constitutional: This is a well developed, well nourished patient who is awake, alert, sp4 and in no acute distress. Head/Face: Normocephalic, atraumatic. Eyes: Pupils equal round and reactive to light, extra-ocular motions intact. Lids and lashes normal. Conjunctiva and sclera are not injected. Cornea within normal limits. Periorbital areas with no swelling, redness, or edema. ENT: Nares patent. No nasal discharge, no septal abnormalities noted. Tympanic membranes are normal and external auditory canals are clear. Oropharynx with no redness, swelling, or masses, exudates, or evidence of obstruction, uvula midline. Mucous membranes moist. Neck: Trachea midline, no thyromegaly or masses palpated, and no cervical lymphadenopathy. Supple, full range of motion without nuchal rigidity, or vertebral point tenderness. Chest/axilla: Normal chest wall appearance and motion. Nontender with no deformity. No lesions are appreciated. Cardiovascular: Regular rate and rhythm with a normal S1 and S2. No gallops, murmurs, or rubs. Normal PMI, no JVD. No pulse deficits. Respiratory: Lungs have equal breath sounds bilaterally, clear to auscultation and percussion. No rales, rhonchi or wheezes noted. No increased work of breathing, no retractions or nasal flaring. Abdomen/GI: Soft, with normal bowel sounds. No distension or tympany. No guarding or rebound. No evidence of tenderness throughout. Back: No spinal tenderness. No costovertebral tenderness. Skin: Warm, dry with normal turgor. Normal color with no rashes, no lesions, and no evidence of cellulitis. MS/ Extremity: Pulses equal, no cyanosis. Neurovascular intact. Full, normal range of motion. Neuro: Awake and alert, GCS 15, oriented to person, place, time, and situation. Cranial nerves II-XII grossly intact. Motor strength 5/5 in all extremities. Sensory grossly intact. Psych: Awake, alert, with orientation to person, place and time. Behavior, mood, and affect are within normal limits 07:06 ECG was reviewed by the Attending Physician. 102 Vital Signs: 05:33 BP 135 / 89; Pulse 87; Resp 18; Temp 98.5; Pulse Ox 97% ; Weight 102.06 kg; Height 6 bm8 ft. 1 in. ; Pain 7/10; 06:45 BP 125 / 86; Pulse 85; Resp 16; Pulse Ox 94% on R/A; dd2 05:33 Body Mass Index 29.68 (102.06 kg, 185.42 cm) bm8 05:33 Pain Scale: Adult bm8 Brandie Coma Score: 05:35 Eye Response: spontaneous(4). Motor Response: obeys commands(6). Verbal Response: bm8 oriented(5). Total: 15. 05:37 Eye Response: spontaneous(4). Motor Response: obeys commands(6). Verbal Response: bm8 oriented(5). Total: 15. 07:06 Eye Response: spontaneous(4). Motor Response: obeys commands(6). Verbal Response: sp4 oriented(5). Total: 15. MDM: 05:23 Medical Screening Exam initiated sp4 06:59 ED course: HISTORY: 59 years Male CHEST PAIN COMPARISON: 08/12/2024 FINDINGS: sp4 LUNGS/PLEURA: The lungs are clear. No pleural effusions or pneumothorax. No pulmonary edema. CARDIAC/MEDIASTINUM: The cardiac silhouette is within normal limits. UPPER ABDOMEN: No significant abnormality. BONES: No acute abnormality. LINES/TUBES/OTHER: N/A IMPRESSION: No evidence of acute cardiopulmonary disease. . 07:09 Differential diagnosis: cerebral vascular accident, cardiac arrhythmia, seizure, TIA. sp4 Data reviewed: vital signs, nurses notes, lab test result(s), EKG, radiologic studies, plain films. Consideration of Admission/Observation Patient was admitted/placed on observation. Escalation of care including admission/observation considered. Management of patient was discussed with the following: Hospitalist: Admit team . ED course: Pain much improved. Patient stable for hospital admission for further workup and monitoring.. 11/22 05:22 Order name: Basic Metabolic Panel; Complete Time: 06:56 sp4 11/22 05:22 Order name: CBC with Diff sp4 11/22 05:22 Order name: LFT's; Complete Time: 06:56 sp4 11/22 05:22 Order name: Magnesium; Complete Time: 06:56 sp4 11/22 05:22 Order name: NT PRO-BNP; Complete Time: 06:56 sp4 11/22 05:22 Order name: PT-INR; Complete Time: 06:56 sp4 11/22 05:22 Order name: Troponin HS; Complete Time: 06:56 sp4 11/22 05:23 Order name: TSH; Complete Time: 06:56 sp4 11/22 05:23 Order name: T4 Free; Complete Time: 06:56 sp4 11/22 05:23 Order name: CRP; Complete Time: 06:56 sp4 11/22 05:23 Order name: Lipase; Complete Time: 06:56 sp4 11/22 06:21 Order name: Manual Differential EDMS 11/22 07:33 Order name: Troponin High Sensitivity EDMS 11/22 07:38 Order name: Urinalysis w/ reflexes EDMS 11/22 07:38 Order name: Basic Metabolic Panel EDMS 11/22 07:38 Order name: Basic Metabolic Panel EDMS 11/22 07:38 Order name: CBC with Automated Diff EDMS 11/22 07:38 Order name: CBC with Automated Diff EDMS 11/22 07:38 Order name: Magnesium EDMS 11/22 07:38 Order name: Magnesium EDMS 11/22 07:38 Order name: NT PRO-BNP EDMS 11/22 07:38 Order name: NT PRO-BNP EDMS 11/22 07:38 Order name: Troponin High Sensitivity EDMS 11/22 07:38 Order name: Troponin High Sensitivity EDMS 11/22 05:22 Order name: XRAY Chest (1 view); Complete Time: 06:56 sp4 11/22 05:22 Order name: EKG; Complete Time: 05:23 sp4 11/22 07:33 Order name: CONS Physician Consult EDMS 11/22 05:22 Order name: Cardiac monitoring; Complete Time: 05:47 sp4 11/22 05:22 Order name: EKG - Nurse/Tech; Complete Time: 05:47 sp4 11/22 05:22 Order name: IV Saline Lock; Complete Time: 05:47 sp4 11/22 05:22 Order name: Labs collected and sent; Complete Time: 05:47 sp4 11/22 05:22 Order name: O2 Per Protocol; Complete Time: 05:47 sp4 11/22 05:22 Order name: O2 Sat Monitoring; Complete Time: 05:47 sp4 EC:20 Rate is 102 beats/min. Rhythm is regular, Sinus tachycardia. QRS [place] is Normal. [place] sp4 interval is normal. QRS interval is normal. QT interval is normal. No Q waves. T waves are Normal. No ST changes noted. Clinical impression: No evidence of ischemia. Interpreted by me. Reviewed by me. Administered Medications: 05:33 Drug: LORazepam IM 2 mg IM once {Note: GIVEN IVP AT RAC.} Route: IM; Site: Other; ha1 06:23 Follow up: Response: No adverse reaction bm8 05:36 Drug: Keppra IV 1000 mg IV at per protocol once Route: IV; Rate: per protocol; Site: dd2 right antecubital; 06:03 Follow up: IV Status: Completed infusion dd2 06:02 Drug: Aspirin PO Chewable Tablet 324 mg PO once; 81 mg tablets x 4 Route: PO; dd2 06:23 Follow up: Response: No adverse reaction bm8 06:02 Drug: NS 0.9% IV 1000 ml IV at 1 bolus Per protocol; to be given as a bolus over 60 dd2 minutes Route: IV; Rate: 1 bolus; Site: right antecubital; 06:22 Follow up: Response: No adverse reaction; IV Status: Completed infusion bm8 06:02 Drug: morphine IVP or IV 4 mg IVP once over 4 mins Route: IVP; Infused Over: 4 mins; dd2 Site: right antecubital; 06:22 Follow up: Response: No adverse reaction bm8 06:02 Drug: Ondansetron IVP 8 mg IVP once; over 2 minutes Route: IVP; Site: right antecubital;dd2 06:22 Follow up: Response: No adverse reaction bm8 Disposition Summary: 11/22/24 07:11 Hospitalization Ordered Notes: Hospitalization Status: Observation sp4 Provider: Keshav Wahl [facility] sp4 Condition: Stable sp4 Problem: new sp4 Symptoms: have improved sp4 Bed/Room Type: Standard sp4 Room Assignment: 205(11/22/24 07:53) Diagnosis - Angina pectoris, unspecified sp4 - History of epilepsy sp4 Forms: - Medication Reconciliation Form sp4 - SBAR form sp4 - Leadership Thank You Letter sp4 Signatures: Dispatcher [employer] Louisa Renner RN RN Vida Luevano RN RN ss Leilani Barrow RN RN ha1 Potepalov, Sergey, MD MD sp4 Talha Aparicio RN RN bm8 MALLORY BOWIE RN RN dd2 Corrections: (The following items were deleted from the chart) 05:23 05:23 THYROID STIMULAT HORMONE+C.LAB.BRZ ordered. EDMS EDMS 05:23 05:23 T4 FREE+C.LAB.BRZ ordered. EDMS EDMS 05:23 05:23 C-REACTIVE PROTEIN+C.LAB.BRZ ordered. EDMS EDMS 05:23 05:23 LIPASE+C.LAB.BRZ ordered. EDMS EDMS 07:53 07:11 sp4 ss 07:58 05:35 Home Meds: levetiracetam 1 Oral tablet 1.5 tabs 2 times per day for Tonic-Clonic iw Epilepsy Treatment Adjunct; bm8 08:05 07:38 Troponin High Sensitivity ordered. EDMS EDMS
--- NOTE | 2024-11-22 07:12 | ER ---
Nurse's Notes [facility] Name: Brenden Osman Age: 59 yrs Sex: Male : 1965 Arrival Date: 11/22/2024 Time: 05:14 Bed 2 Private MD: Diagnosis: Angina pectoris, unspecified;History of epilepsy Presentation: 11/22 05:33 Chief complaint: Spouse and/or significant other states: he started having shaking fits bm8 around 0445. Coronavirus screen: At this time, the client does not indicate any symptoms associated with coronavirus-19. Ebola Screen: Patient negative for fever greater than or equal to 101.5 degrees Fahrenheit, and additional compatible Ebola Virus Disease symptoms Patient denies exposure to infectious person. Patient denies travel to an Ebola-affected area in the 21 days before illness onset. No symptoms or risks identified at this time. Initial Sepsis Screen: Does the patient meet any 2 criteria? No. Patient's initial sepsis screen is negative. Does the patient have a suspected source of infection? No. Patient's initial sepsis screen is negative. Risk Assessment: Do you want to hurt yourself or someone else? Patient reports no desire to harm self or others. Onset of symptoms was November 22, 2024 at 04:45. 05:33 Acuity: LUCITA 2 bm8 05:33 Method Of Arrival: Wheelchair 8 Triage Assessment: 05:35 General: Appears distressed, uncomfortable, Behavior is cooperative, appropriate for bm8 age, anxious. Pain: Complains of pain in chest and head Pain currently is 7 out of 10 on a pain scale. EENT: No deficits noted. No signs and/or symptoms were reported regarding the EENT system. Neuro: No deficits noted. Level of Consciousness is awake, alert, obeys commands, Oriented to person, place, time, situation, Appropriate for age Information Architect are equal bilaterally Moves all extremities. Full function Speech is normal, Facial symmetry appears normal, Pupils are PERRLA, Pupil Size: 4 mm. Cardiovascular: Reports chest pain, Heart tones S1 S2 present Capillary refill < 3 seconds in bilateral fingers Patient's skin is warm and dry. Rhythm is sinus rhythm. Respiratory: Airway is patent Respiratory effort is even, unlabored, Respiratory pattern is regular, symmetrical, Breath sounds are clear bilaterally. GI: No signs and/or symptoms were reported involving the gastrointestinal system. : No signs and/or symptoms were reported regarding the genitourinary system. Derm: No signs and/or symptoms reported regarding the dermatologic system. Musculoskeletal: No signs and/or symptoms reported regarding the musculoskeletal system. Historical: - Allergies: 05:35 No Known Allergies; bm8 - Home Meds: 05:35 lacosamide 100 mg Oral tablet 1 tab 2 times per day for status epilepticus [Active]; bm8 lorazepam 2 mg Oral tablet 1 tab every 6 hours for prn seizure [Active]; 07:56 levetiracetam 1500 mg oral Tablet, Extended Release 24 hr 2 times per day [Active]; iw atorvastatin 10 mg oral tablet daily [Active]; lisinopril 40 mg Oral tablet daily [Active]; aspirin 81 mg Oral capsule daily [Active]; Fish Oil oral daily [Active]; - PMHx: 05:35 Hypercholesterolemia; Hypertension; Seizures; bm8 - PSHx: 05:35 None; bm8 - Immunization history:: Adult Immunizations up to date. - Infectious Disease History:: Denies. - Social history:: Smoking status: Patient denies any tobacco usage or history of. - Family history:: not pertinent. Screenin:36 [facility] ED Fall Risk Assessment (Adult) History of falling in the last 3 months, ha1 including since admission No falls in past 3 months (0 pts) Confusion or Disorientation No (0 pts) Intoxicated or Sedated No (0 pts) Impaired Gait No (0 pts) Mobility Assist Device Used No (0 pt) Altered Elimination No (0 pt) Score/Fall Risk Level 3 or more points = High Risk Oriented to surroundings, Maintained a safe environment, Educated pt \T\ family on fall prevention, incl call for assistance when getting out of bed, Hourly rounding (assess needs \T\ fall precautionary measures) done. Abuse screen: Denies threats or abuse. Denies injuries from another. Nutritional screening: No deficits noted. Tuberculosis screening: No symptoms or risk factors identified. Assessment: 05:37 Reassessment: see triage assessment. 8 07:37 General: Appears in no apparent distress. Behavior is calm, cooperative. Pain: Denies iw pain. Neuro: Level of Consciousness is awake, alert, obeys commands, Oriented to person, place, time, situation, Moves all extremities. Full function. Cardiovascular: Patient's skin is warm and dry. Respiratory: Respiratory effort is even, unlabored, Respiratory pattern is regular, symmetrical. GI: Abdomen is non-distended. Derm: Skin is intact, is healthy with good turgor. Musculoskeletal: Range of motion: intact in all extremities. Vital Signs: 05:33 BP 135 / 89; Pulse 87; Resp 18; Temp 98.5; Pulse Ox 97% ; Weight 102.06 kg; Height 6 bm8 ft. 1 in. ; Pain 7/10; 06:45 BP 125 / 86; Pulse 85; Resp 16; Pulse Ox 94% on R/A; dd2 05:33 Body Mass Index 29.68 (102.06 kg, 185.42 cm) bm8 05:33 Pain Scale: Adult bm8 Grayling Coma Score: 05:35 Eye Response: spontaneous(4). Motor Response: obeys commands(6). Verbal Response: bm8 oriented(5). Total: 15. 05:37 Eye Response: spontaneous(4). Motor Response: obeys commands(6). Verbal Response: bm8 oriented(5). Total: 15. 07:06 Eye Response: spontaneous(4). Motor Response: obeys commands(6). Verbal Response: sp4 oriented(5). Total: 15. ED Course: 05:19 Patient arrived in ED. kmf 05:22 Vic Jones MD is Attending Physician. sp4 05:32 Talha Aparicio, RN is Primary Nurse. bm8 05:35 Triage completed. bm8 05:35 Arm band placed on left wrist. bm8 05:37 Patient has correct armband on for positive identification. Placed in gown. Bed in low bm8 position. Side rails up X2. Adult w/ patient. Seizure precautions initiated. Client placed on continuous cardiac and pulse oximetry monitoring. NIBP monitoring applied. electronic device monitor on. Pulse ox on. NIBP on. Door closed. Noise minimized. Warm blanket given. Verbal reassurance given. Head of bed elevated. 05:37 No provider procedures requiring assistance completed. Initial lab(s) drawn, by johan daniels sent to lab. EKG done, by ED staff, reviewed by Vic oJnes MD. Inserted saline lock: 20 gauge in right antecubital area, using aseptic technique. Blood collected. Flushed with 10 mL NS. Patient maintains SpO2 saturation greater than 95% on room air. 05:50 XRAY Chest (1 view) In Process Unspecified. EDMS 07:11 Keshav Wahl is Hospitalizing Provider. sp4 Administered Medications: 05:33 Drug: LORazepam IM 2 mg IM once {Note: GIVEN IVP AT RAC.} Route: IM; Site: Other; ha1 06:23 Follow up: Response: No adverse reaction bm8 05:36 Drug: Keppra IV 1000 mg IV at per protocol once Route: IV; Rate: per protocol; Site: dd2 right antecubital; 06:03 Follow up: IV Status: Completed infusion dd2 06:02 Drug: Aspirin PO Chewable Tablet 324 mg PO once; 81 mg tablets x 4 Route: PO; dd2 06:23 Follow up: Response: No adverse reaction bm8 06:02 Drug: NS 0.9% IV 1000 ml IV at 1 bolus Per protocol; to be given as a bolus over 60 dd2 minutes Route: IV; Rate: 1 bolus; Site: right antecubital; 06:22 Follow up: Response: No adverse reaction; IV Status: Completed infusion bm8 06:02 Drug: morphine IVP or IV 4 mg IVP once over 4 mins Route: IVP; Infused Over: 4 mins; dd2 Site: right antecubital; 06:22 Follow up: Response: No adverse reaction bm8 06:02 Drug: Ondansetron IVP 8 mg IVP once; over 2 minutes Route: IVP; Site: right antecubital;dd2 06:22 Follow up: Response: No adverse reaction bm8 Medication: 05:37 VIS not applicable for this client. bm8 Outcome: 07:11 Decision to Hospitalize by Provider. sp4 09:04 Patient left the ED. ll1 Signatures: Dispatcher [employer] EDAZ Louisa Henderson RN RN iw Lewis, Lynsay, RN RN ll1 Leilani Barrow RN RN ha1 Potepalov, Sergey, MD MD sp4 Cecilia Skinner Brad, RN RN bm8 MALLORY BOWIE RN RN dd2 Corrections: (The following items were deleted from the chart) 07:58 05:35 Home Meds: levetiracetam 1 Oral tablet 1.5 tabs 2 times per day for Tonic-Clonic iw Epilepsy Treatment Adjunct; bm8
--- NOTE | 2024-11-22 07:29 | P.HP ---
Patient History Date of Service: 11/22/24 Reason for admission: Chest pain History of Present Illness: 59-year-old male with a past medical history of hypertension, hyperlipidemia, Seizure disorder, presents to the emergency room with chest pain. He reports chest pain started prior to arrival. He reported associated palpitations, tachycardia. Chest pain described as dull, nonradiating, no reported shortness of breath. Fever, cough, edema. Patient had a seizure on arrival for the emergency room. is at bedside is primary historian reported 3 seizures on arrival to the emergency room. He reports seeing Dr. Moulton in [place] for seizure disorder. Plan to admit for chest pain rule out NC, breakthrough seizure Allergies No Known Allergies Allergy (Verified 11/04/19 23:43) Home Medications: Albuterol Sulfate [Albuterol Sulfate Hfa] 90 mcg IH Q6HR 09/26/23 Aspirin [Aspirin EC] 81 mg PO DAILY 09/26/23 Atorvastatin Calcium [Lipitor*] 20 mg PO BEDTIME 09/26/23 Lacosamide 50 mg PO BID 09/26/23 levETIRAcetam [Levetiracetam] 1,500 mg PO BID 09/26/23 lisinopriL [Zestril] 40 mg PO DAILY 09/26/23 PHENYTOIN ER Cap [Dilantin ER Cap*] 300 mg PO BEDTIME 30 Days #30 cap 09/27/23 - Past Medical/Surgical History Diabetic: No -: Seizure disorder -: HTN -: stroke -: TBI -: denies - Social History Alcohol use: No CD- Drugs: No Caffeine use: No Review of Systems 10-point ROS is otherwise unremarkable Physical Examination - Physical Exam General: Alert, In no apparent distress, Oriented x3 HEENT: Atraumatic, Normocephalic, PERRLA Neck: Supple, 2+ carotid pulse no bruit Respiratory: Clear to auscultation bilaterally, Normal air movement Cardiovascular: Normal pulses, Regular rate/rhythm, Normal S1 S2 Capillary refill: <2 Seconds Gastrointestinal: Normal bowel sounds, Soft and benign Musculoskeletal: No swelling, No contractures Integumentary: No breakdown, No significant lesion Neurological: Normal speech, Normal strength at 5/5 x4 extr - Studies Laboratory Data (last 24 hrs) 11/22/24 11/22/24 11/22/24 05:52 05:30 05:30 WBC 5.30 Hgb 15.0 Hct 42.6 Plt Count 262 PT 11.8 INR 1.04 Sodium 138 Potassium 3.1 L BUN 14 Creatinine 0.76 Glucose 159 H Magnesium 1.6 Total Bilirubin 0.4 AST 29 ALT 57 Alkaline Phosphatase 60 Lipase 32 Assessment and Plan - Problems (Diagnosis) (1) Breakthrough seizure Current Visit: Yes Status: Acute (2) Chest pain Current Visit: Yes Status: Acute (3) Hypertension Current Visit: No Status: Acute Qualifiers: Hypertension type: primary hypertension Qualified Code(s): I10 - Essential (primary) hypertension (4) Hyperlipidemia Current Visit: Yes Status: Acute Qualifiers: Hyperlipidemia type: unspecified Qualified Code(s): E78.5 - Hyperlipidemia, unspecified - Plan Admit to [facility] Chest pain Cardiology to consult for chest pain Serial troponin EKG sinus tachycardia rate 102, no ST no ST abnormality Breakthrough seizure Neurology consulted Resume home meds Seizure precautions Hypertension Hyperlipidemia Resume appropriate home meds Full code DVT Lovenox Diet cardiac Discharge Plan: Home - Advance Directives Does patient have a Living Will: No Does patient have a Durable POA for Healthcare: No - Code Status/Comfort Care Code Status: Full Code Time Spent Managing Pts Care (In Minutes): 55
[2024-11-22] MEDS ORDERED: ONDANSETRON 4 MG/2 ML VIAL IV PRN (07:31)
[2024-11-22] MEDS ORDERED: MORPHINE 2 MG/ML SYR IV PRN (07:33)
[2024-11-22] MEDS ORDERED: ALBUTEROL 2.5 MG/3 ML NEB SOL NEB PRN ×2 (07:35→14:09)
[2024-11-22 08:51] LABS: Atypical Lymphocytes 40 %; Blood Morphology Comment NOT SEEN (NOT SEEN); Differential Total Cells Count 100; Eosinophils 5 % (0-3); Lymphocytes 18 % (15-42); Monocytes 4 % (0-10); Platelet Estimate ADEQ; Reactive Lymphocytes 5 %; Segmented Neutrophils 27 % (40-80); Smudge Cells PRESENT
[2024-11-22] MEDS: levETIRAcetam 500 MG TAB PO SCH ×2 (09:00→13:05)
--- NOTE | 2024-11-22 10:46 | EKG ---
Test Date: 2024-11-22 Test Time: 05:20:18 [employer]ing Center Manager: VAZQUEZ MEASUREMENT RESULTS: Intervals: Rate: 102 WA: 190 QRSD: 80 QT: 350 QTc: 456 [place]: P: 56 WA: 190 QRS: 16 T: 62 INTERPRETIVE STATEMENTS: Sinus tachycardia Otherwise normal ECG Compared to ECG 08/12/2024 16:32:53 Sinus rhythm no longer present ST (T wave) deviation no longer present Electronically Signed On 11-22-24 10:46:20 CDT by Ramiro Saab
[2024-11-22 11:07] VITALS: BMI 29.7
[2024-11-22] MEDS: LACOSAMIDE 50 MG TABLET PO SCH (11:27)
[2024-11-22] MEDS: lisinopriL 20 MG TAB PO SCH (11:27)
[2024-11-22] MEDS: ASPIRIN EC 81 MG TAB PO SCH (11:27)
[2024-11-22 11:45] LABS: Urine Bilirubin NEGATIVE (Negative); Urine Blood Negative (Negative); Urine Clarity Clear (Clear); Urine Color Light-Yellow (Yellow); Urine Glucose NEGATIVE (Negative); Urine Ketones NEGATIVE (Negative); Urine Microscopic Reflex YN NO UMIC; Urine Nitrite NEGATIVE (Negative); Urine Protein NEGATIVE (Negative); Urine Urobilinogen Normal (Normal)
--- NOTE | 2024-11-22 12:18 | P.CNS ---
Date of Consult: 11/22/24 Chief Complaint: Chest pain History of Present Illness: Patient with PMH of HTN, HLD, Seizure disorder presented with chest pain happened this morning dull in nature, no radiation, resolved now, no associated symptoms, also had a seizure in the ER. Allergies No Known Allergies Allergy (Verified 11/04/19 23:43) Home medications list reviewed: Yes Home Medications: Albuterol Sulfate [Albuterol Sulfate Hfa] 90 mcg IH Q6HR 09/26/23 Aspirin [Aspirin EC] 81 mg PO DAILY 09/26/23 Atorvastatin Calcium [Lipitor*] 20 mg PO BEDTIME 09/26/23 Lacosamide 50 mg PO BID 09/26/23 levETIRAcetam [Levetiracetam] 1,500 mg PO BID 09/26/23 lisinopriL [Zestril] 40 mg PO DAILY 09/26/23 PHENYTOIN ER Cap [Dilantin ER Cap*] 300 mg PO BEDTIME 30 Days #30 cap 09/27/23 - Past Medical/Surgical History Diabetic: No -: Seizure disorder -: HTN -: stroke -: TBI -: denies - Social History Smoking Status: Unknown if ever smoked Alcohol use: Yes CD- Drugs: No Caffeine use: No Review of Systems 10-point ROS is otherwise unremarkable Physical Examination Temp Pulse Resp BP Pulse Ox 97.7 F 64 16 113/69 99 11/22/24 12:00 11/22/24 12:00 11/22/24 12:00 11/22/24 12:00 11/22/24 12:00 General: Alert, In no apparent distress HEENT: Atraumatic, PERRLA, Mucous membr. moist/pink, EOMI, Sclerae nonicteric Neck: Supple, 2+ carotid pulse no bruit, No LAD, Without JVD or thyroid abnormality Respiratory: Clear to auscultation bilaterally, Normal air movement Cardiovascular: Regular rate/rhythm, Normal S1 S2 Gastrointestinal: Normal bowel sounds, No tenderness Musculoskeletal: No tenderness Integumentary: No rashes Neurological: Normal gait, Normal speech, Normal tone, Normal affect Lymphatics: No axilla or inguinal lymphadenopathy Laboratory Data (last 24 hrs) 11/22/24 11/22/24 11/22/24 05:52 05:30 05:30 WBC 5.30 Hgb 15.0 Hct 42.6 Plt Count 262 PT 11.8 INR 1.04 Sodium 138 Potassium 3.1 L BUN 14 Creatinine 0.76 Glucose 159 H Magnesium 1.6 Total Bilirubin 0.4 AST 29 ALT 57 Alkaline Phosphatase 60 Lipase 32 - Problems (1) Hypertension Current Visit: No Status: Acute Plan: reconcile and resume home medications. Qualifiers: Hypertension type: primary hypertension Qualified Code(s): I10 - Essential (primary) hypertension (2) Chest pain Current Visit: Yes Status: Acute Plan: resolved now, EKG no significant ST-T wave changes. continue to trend Troponin x 3 sets 8 hours apart if troponin are negative then outpatient follow up with cardiology for echo and stress test ASA 81 mg daily Lipitor 40 mg daily
[2024-11-22] MEDS: POTASSIUM CL SA 10 MEQ TAB PO ONE (12:55)
[2024-11-22] MEDS ORDERED: LORAZEPAM 1 MG TABLET PO PRN (14:03)
[2024-11-22] MEDS: ENOXAPARIN 40 MG/0.4 ML SQ SCH (17:00)
[2024-11-22] MEDS ORDERED: levETIRAcetam 500 MG TAB PO SCH (18:00)
--- NOTE | 2024-11-22 20:21 | CON ---
Reason For Consultation: Consultation was called because of possible TIA versus seizure. History Of Present Illness: Mr. Osman is a 59-year-old patient with a long histor y of seizures, who has been on multiple antiepileptic medications and continues to drink alcohol on a regular basis. He drinks vodka apparently at least 5 days a week and says probably it is not necess leland going to stop. He has had perhaps over 30 hospital visits in the last 9 years and is perhaps abo ut over 20-[address] scans of his head and multiple brain MRIs not showing any significant abno rmalities. He was brought into [facility] on the with chest pain and had about 3 witne ssed seizures in the emergency room. The patient's said he has been compliant with antiepilepti c medications, but continues to drink alcohol on a regular basis. He was found on blood work to be h ypokalemic. Potassium 3.1, anion gap 15.1. Glucose slightly elevated to 159. Normal liver function studies. C-reactive protein slightly elevated and his free T4 is slightly low at 0.71. His urinaly sis for urinary tract infection was negative. Did not have a urine drug screen and perhaps alcohol t est might be helpful. Since his hospitalization and when I saw the patient, has not had an additiona l recent seizure. He was awaiting a brain MRI. Past Medical History: Include dyslipidemia, hypertension, and seizures. Past Surgical History: None. Allergies: NO KNOWN DRUG ALLERGIES. Medications At Home: Lacosamide 100 mg twice daily. He is on Keppra 1500 mg twice daily, atorvastat in 10 mg daily, lisinopril 40 mg daily, Fish Oil daily, aspirin 81 mg daily. Family History: Noncontributory. Social History: The patient continues to drink alcohol on a regular basis despite many times being a dmonished not to drink alcohol. Denies tobacco use or IV drug use. Review of Systems: Does report some chest pain that occurred prior to coming to hospital and that actually brought him i nto the hospital, but no recent fevers. No ongoing nausea or vomiting. No rash. No myalgias, arthr algias. Physical Examination: Vital Signs: Blood pressure 113/69, pulse 64, respiratory rate 16, temperature 97.7, oxygen saturati on 99%. Weight 225 pounds, height 6 feet 1 inch, BMI 29.7. General: Mr. Osman is lying in bed. His is at bedside. HEENT: He appears normocephalic, atraumatic. Sclerae anicteric. Oropharynx pink and moist. Neck: Supple. Chest: Clear. Heart: Regular. Extremities: No significant edema, cyanosis, or clubbing noted. Neurological: He is alert, oriented to person, place, time, and situation. Follows commands appropr iately. Has no focal deficits in face, arm, or leg. No motor, sensory, or gait abnormalities detect ed. Assessment: Mr. Osman is a 59-year-old patient with chronic alcohol use, potentially lowering his seizure threshold and being a contributing factor to multiple seizures. He has had somewhere around [address] scans over 9 years and has had multiple brain MRIs, none showing any signi ficant abnormality. He is even scheduled for an additional MRI of the brain, likely to also find no new or identifiable issues that may be the etiology for his seizures. Most likely etiology is his re peated alcohol use and again strongly encouraged to stop drinking alcohol, to be compliant with antie pileptic medications. Blood levels may be checked. In addition, his hypokalemia is another factor p otentially lowering seizure threshold. Plan: Again, continue with his antiepileptic medications. Continue comorbid condition medications a nd replace potassium. He may require supplementation of thyroid medication that is appropriate. Per haps follow up with Endocrinology. He should not drive or operate heavy machinery for 3 months from the day of his last seizure and after his discharge, he will follow up in Dr. Austin's clinic for c ontinued care, perhaps an ambulatory study may be done to characterize further episodes of possible seizures. STACIE/NEVILLEL Voice ID: [id number] Report ID: [id number]
[2024-11-22] MEDS: ATORVASTATIN 20 MG TAB PO SCH (21:04)
[2024-11-23 04:51] LABS: Absolute Basophils 0.1 K/uL (0-0.5); Absolute Eosinophils 0.3 K/uL (0-0.5); Absolute Monocytes 0.4 K/uL (0.1-1.3); Absolute Neutrophil 1.9 K/uL (1.8-8.0); Basophils % 1.3 % (0-1.3); Eosinophils % 7.1 % (0-4.4); Hematocrit 36.3 % (39.6-49.0); Hemoglobin 12.9 g/dL (13.6-17.9); Lymphocytes % 42.8 % (15.3-44.8); MCHC 35.5 g/dL (32.0-36.0); MCV 87.4 fL (80-100); MPV 8.7 fL (7.6-11.3); Monocytes % 7.8 % (3.3-12.3); Nucleated Red Blood Cells % 0.1 % (0-0); Platelets 190 thou/uL (152-406); RBC Red Blood Cell Count 4.15 M/uL (4.33-5.43); Red Cell Distribution Width 13.1 % (12.1-15.2)
[2024-11-23 05:09] LABS: Anion Gap 7.8 mEq/L (5.0-15.0); Magnesium 1.8 mg/dL (1.6-2.4); Potassium 3.8 mEq/L (3.5-5.1)
[2024-11-23] MEDS ORDERED: ASPIRIN EC 81 MG TAB PO SCH (09:00)
[2024-11-23] MEDS: ACETAMINOPHEN 500 MG TAB PO PRN (09:03)
[2024-11-23] MEDS: LORazepam 2 MG/ML VIAL IV ONE (09:10)
[2024-11-23] MEDS: LORazepam 2 MG/ML VIAL ONE (09:10)
[2024-11-23] MEDS: NA CHLORIDE 0.9% 1,000 ML IV SCH (10:00)
[2024-11-23] MEDS: MAGNESIUM SULFATE 1 gm IVPB 1 GM/100 ML BAG IV ONE (10:21)
[2024-11-23] MEDS: POTASSIUM CL SA 10 MEQ TAB PO ONE (10:22)
[2024-11-23] MEDS: DOCOSAHEXANOIC AC/EPA 1000 MG PO SCH (10:23)
[2024-11-23] MEDS ORDERED: LORazepam 2 MG/ML VIAL IV PRN (10:35)
--- NOTE | 2024-11-23 11:13 | P.PN ---
Subjective Date of Service: 11/23/24 Chief Complaint: Chest pain Subjective: No chest pain or shortness of breath. No nausea or vomiting. No abdominal pain. No obvious bleeding. Looks comfortable in the bed. had a seizure this morning. 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 Chest pain Cardiology to consulted for chest pain troponin mild bump, flat trend, get echo notified dr. hoyt this AM 2. Breakthrough seizure Neurology consulted, appreciate recs Seizure precautions PRN ativan, ?alcohol withdrawal 3. Hypertension Hyperlipidemia home meds 4. Alcohol use: Advised to quit, will start thiamine, folic acid and multivitamin, monitor closely for withdrawal. 5. Hypokalemia, replaced monitor. 6. Normal TSH but low T4, need to follow-up with PCP. Plan discussed with patient and family at bedside, discussed with nursing staff.
[2024-11-23] MEDS: NA CHLORIDE 0.9% 0 ML ONE (11:56)
[2024-11-23] MEDS ORDERED: HEPARIN 5000 UNIT/ML 1 ML VIAL ONE (12:28)
[2024-11-23] MEDS ORDERED: HEPARIN 10,000 UNIT/10 ML VIAL IV ONE (12:28)
[2024-11-23] MEDS ORDERED: LIDOCAINE 1% 20 ML MDV ONE (12:28)
[2024-11-23] MEDS ORDERED: ATROPINE SULF 1 MG/10 ML SYR IV ONE (12:28)
[2024-11-23] MEDS ORDERED: HEPA 1000U/500MLS 2,000 UNIT/1,000 ML BAG IV ONE (12:28)
[2024-11-23] MEDS: FENTANYL CITR 100 MCG/2 ML ONE (12:32)
[2024-11-23] MEDS: DIAZEPAM 10 MG/2 ML INJ SYRINGE ONE (12:33)
[2024-11-23] MEDS: MIDAZOLAM HCL 2 MG/2 ML INJ ONE (12:33)
--- NOTE | 2024-11-23 15:16 | OP ---
Date of Procedure: 11/23/2024 Surgeon: Ramiro Saab Procedure Performed: Selective coronary angiogram. Indication For Procedure: Chest pains, and mild leak in troponin. Complications: None. Estimated Blood Loss: Less than 50 cc. Access: Right radial, closed by TR band. Sedation Time: 20 minutes with 1 of Versed and 25 of fentanyl. Description Of Procedure: After risks, and benefits, and alternatives were explained to the patient, patient agreed to proceed with procedure and signed informed consent. The patient was brought back to the produce laborer, prepped and draped in sterile fashion. Time-out was performed. Sedation was admini stered. Next, right radial access was obtained using ultrasound-guided micropuncture technique. Tig er 4.0 catheter was advanced over a J-wire to the aortic root. Selective angiogram was done using e same catheter. At the end of procedure, catheter was removed over a J-wire. Sheath was removed. TR band was applied. Hemostasis was achieved, and the patient was moved back to recovery in stable c ondition. Findings: 1. Left main normal. 2. LAD normal. 3. Left circ normal. 4. RCA; proximal 20% to 30% disease, then mild luminal irregularities. Assessment And Plan: Mild nonobstructive coronary artery disease. The plan is to continue medical management. ROCAEL/ROBERTO CARLOS Voice ID: [id number] Report ID: [id number]
[2024-11-23 15:36] VITALS: O2SAT 97
[2024-11-23] MEDS: THIAMINE HCL 100 MG TABLET PO SCH (16:00)
[2024-11-23] MEDS: FOLIC ACID 1 MG TABLET PO SCH (16:00)
--- NOTE | 2024-11-23 17:04 | P.PN ---
Subjective Date of Service: 11/23/24 Chief Complaint: Chest pain Subjective: No new changes, No C/O voiced, Tolerating diet, Ambulating, Improving Review of Systems 10-point ROS is otherwise unremarkable Physical Examination - Vital Signs Temperature: 97.7 F Blood Pressure: 115/60 Pulse: 72 Respirations: 16 Pulse Ox (%): 97 - Physical Exam General: Alert, In no apparent distress HEENT: Atraumatic, PERRLA, EOMI Neck: Supple, JVD not distended Respiratory: Clear to auscultation bilaterally, Normal air movement Cardiovascular: Regular rate/rhythm, Normal S1 S2 Gastrointestinal: Normal bowel sounds, No tenderness Musculoskeletal: No tenderness Integumentary: No rashes Neurological: Normal speech, Normal tone, Normal affect Lymphatics: No axilla or inguinal lymphadenopathy - Studies Laboratory Data (last 24 hrs) 11/23/24 11/23/24 04:29 04:29 WBC 4.70 Hgb 12.9 L D Hct 36.3 L Plt Count 190 D Sodium 138 Potassium 3.8 D BUN 9 Creatinine 0.80 Glucose 129 H Magnesium 1.8 Medications List Reviewed: Yes Assessment And Plan - Current Problems (Diagnosis) (1) Hypertension Current Visit: No Status: Acute Plan: reconcile and resume home medications. Qualifiers: Hypertension type: primary hypertension Qualified Code(s): I10 - Essential (primary) hypertension (2) Chest pain Current Visit: Yes Status: Acute Plan: Patient had a mild leak in troponin so coronary angiogram was done today and shown mild CAD. ASA 81 mg daily Lipitor 40 mg daily
[2024-11-24] MEDS: MULTIVITAMIN TAB PO SCH (09:45)
[2024-11-24 11:33] LABS: Anion Gap 6.8 mEq/L (5.0-15.0); Potassium 3.8 mEq/L (3.5-5.1)
[2024-11-24 12:28] VITALS: BP 135/85; TEMP 98
--- NOTE | 2024-11-24 14:15 | P.DS ---
Admission Date: 11/23/24 Discharge Date: 11/24/24 Disposition: DC HOME/HOME HEALTH CARE Discharge Condition: GOOD Reason for Admission: Chest pain Hospital Course: 1. Chest pain Cardiology to consulted for chest pain troponin mild bump, flat trend echo result pending Had a cardiac cath yesterday which showed mild disease, recommended medical management, follow-up as an outpatient 2. Breakthrough seizure Neurology consulted, appreciate recs Seizure precautions ?alcohol withdrawal No further seizures from yesterday, advised to quit alcohol, follow-up with neurology as an outpatient 3. Hypertension Hyperlipidemia home meds 4. Alcohol use: Advised to quit, given thiamine, folic acid and multivitamin no signs of withdrawal today. 5. Hypokalemia, replaced 6. Normal TSH but low T4, need to follow-up with PCP. Hospital course: 59-year-old patient admitted with chest pain and breakthrough seizures, his troponin was mildly elevated, echocardiogram was ordered, cardiology was consulted, he had a cardiac cath yesterday, which showed mild disease, cardiology recommended medical management, his echo result is pending, discussed with Dr. Mccormick today, he is okay to discharge the patient and to follow-up in the clinic as an outpatient next week. patient had breakthrough seizures, neurology was consulted, they felt it may be related to alcohol, he did not have any seizure from yesterday, neurology recommended follow-up as an outpatient, when I see the patient today he is doing well without any acute problems and feels ready to go home, otherwise no other acute issues going on so I am planning to discharge him to go home, follow-up with PCP, cardiology and urology. Subjective: No chest pain or shortness of breath. No nausea or vomiting. No abdominal pain. No obvious bleeding. Looks comfortable in the bed. No further seizures. Objective: General appearance: Alert and comfortable CVS: Normal S1 and S2 Lungs: Clear to auscultation bilaterally Abdomen: Soft, bowel sounds present, no tenderness Extremities: No lower extremity edema Vital Signs/Physical Exam: Temp Pulse Resp BP Pulse Ox 98.0 F 70 16 135/85 97 11/24/24 12:00 11/24/24 12:00 11/24/24 12:00 11/24/24 12:00 11/24/24 12:00 Laboratory Data at Discharge: WBC 4.70 thou/uL (4.3-10.9) 11/23/24 04:29 Hgb 12.9 g/dL (13.6-17.9) L D 11/23/24 04:29 Hct 36.3 % (39.6-49.0) L 11/23/24 04:29 Plt Count 190 thou/uL (152-406) D 11/23/24 04:29 PT 11.8 SECONDS (10-13.0) 11/22/24 05:30 INR 1.04 11/22/24 05:30 Sodium 139 mEq/L (136-145) 11/24/24 10:53 Potassium 3.8 mEq/L (3.5-5.1) 11/24/24 10:53 BUN 5 mg/dL (7-18) L 11/24/24 10:53 Creatinine 0.84 mg/dL (0.70-1.30) 11/24/24 10:53 Glucose 168 mg/dL (74-106) H 11/24/24 10:53 Magnesium 1.8 mg/dL (1.6-2.4) 11/23/24 04:29 Total Bilirubin 0.4 mg/dL (0.2-1.0) 11/22/24 05:52 AST 29 U/L (15-37) 11/22/24 05:52 ALT 57 U/L (16-61) 11/22/24 05:52 Alkaline Phosphatase 60 U/L (45-117) 11/22/24 05:52 Lipase 32 U/L (13-75) 11/22/24 05:52 Home Medications: Albuterol Sulfate [Albuterol Sulfate Hfa] 90 mcg IH Q6HR 09/26/23 Aspirin [Aspirin EC] 81 mg PO DAILY 09/26/23 Atorvastatin Calcium [Lipitor*] 20 mg PO BEDTIME 09/26/23 Lacosamide 200 mg PO BID 09/26/23 levETIRAcetam [Levetiracetam] 1,500 mg PO BID 09/26/23 lisinopriL [Zestril] 40 mg PO DAILY 09/26/23 Docosahexanoic AC/Epa [Fish Oil 1,000 MG*] 2,000 mg PO DAILY 11/22/24 LORazepam [Lorazepam] 2 mg PO Q6H PRN 04/14/25 Diet: AHA Activity: quit alcohol Followup: Duy Austin MD [ASSOCIATE-ACTIVE - CAN ADMIT] - 1-2 Weeks (f/u in 1- 2 weeks) Ramiro Saab MD [ACTIVE - CAN ADMIT] - 2-3 Days (f/u in 3-5 days, echo result will need f/u) Malcolm Sykes DO [Primary Care Provider] - 1 Week (f/u with PCP in 1 week with CBC, CMP and thyroid profile) Time spent managing pt's care (in minutes): 32
== END 2024-11-24 15:00 | disposition home health service (06) | DRG 287 ==
LOC: ER 05:14 → 2ND 07:29 → OBSVTOIN 11-23 15:30
PROVIDERS: ADMIT Hospitalist; ATTEND Hospitalist
PROC: 4A023N7 Measurement of Cardiac Sampling and Pressure, Left Heart, Percutaneous Approach (ICD-10-PCS; principal; 2024-11-23)
PROC: B2111ZZ Fluoroscopy of Multiple Coronary Arteries using Low Osmolar Contrast (ICD-10-PCS; 2024-11-23)
DX: R07.9 Chest pain, unspecified (principal); G40.509 Epileptic seizures related to external causes, not intractable, without status epilepticus; E87.6 Hypokalemia; E78.00 Pure hypercholesterolemia, unspecified; I10 Essential (primary) hypertension; I25.10 Atherosclerotic heart disease of native coronary artery without angina pectoris; Z79.82 Long term (current) use of aspirin; Z86.73 Personal history of transient ischemic attack (TIA), and cerebral infarction without residual deficits; Z79.899 Other long term (current) drug therapy
CPT/HCPCS: 36415; 71045; 76937; 80048; 80076; 81003; 82550; 83690; 83735; 83880; 84439; 84443; 84484; 85025; 85610; 86140; 93005; 93454; 96365; 96372; 96375; 99152; 99153; 99285; C1893; G0378; J0461; J1644; J1953; J2003; J2250; J2405; J3010; J3360; J3475; J7030; J7040; Q9966

== ENCOUNTER 2024-12-05 02:07 | Emergency (ER) | payer MEDICAID ==
[2024-12-05] MEDS ORDERED: ONDANSETRON 4 MG/2 ML VIAL ONE (02:24)
[2024-12-05] MEDS ORDERED: MORPHINE 4 MG/ML SYR ONE ×3 (02:24→06:11)
[2024-12-05] MEDS ORDERED: NA CHLORIDE 0.9% 1,000 ML ONE (02:25)
[2024-12-05] MEDS ORDERED: FAMOTIDINE 20 MG/2 ML VIAL IV ONE (02:25)
[2024-12-05] MEDS ORDERED: LORazepam 2 MG/ML VIAL ONE (02:57)
[2024-12-05 03:36] LABS: Absolute Basophils 0.1 K/uL (0-0.5); Absolute Eosinophils 0.1 K/uL (0-0.5); Absolute Lymphocytes (CBC) 2.3 K/uL (0.7-4.9); Absolute Monocytes 0.4 K/uL (0.1-1.3); Absolute Neutrophil 1.9 K/uL (1.8-8.0); Basophils % 1.1 % (0-1.3); Eosinophils % 3.1 % (0-4.4); Hematocrit 35.1 % (39.6-49.0); Hemoglobin 12.5 g/dL (13.6-17.9); Lymphocytes % 47.3 % (15.3-44.8); MCH 31.3 pg (27.0-35.0); MCHC 35.7 g/dL (32.0-36.0); MCV 87.7 fL (80-100); MPV 8.3 fL (7.6-11.3); Monocytes % 8.3 % (3.3-12.3); Neutrophils % 40.2 % (41.7-73.7); Nucleated Red Blood Cells % 0.4 % (0-0); Platelets 220 thou/uL (152-406); RBC Red Blood Cell Count 4.01 M/uL (4.33-5.43); Red Cell Distribution Width 13.4 % (12.1-15.2)
[2024-12-05 05:26] LABS: Albumin 3.3 g/dL (3.4-5.0); Anion Gap 13.8 mEq/L (5.0-15.0); Bilirubin Total 0.4 mg/dL (0.2-1.0); Globulin 3.2 g/dL (2.3-3.5); Protein, Total 6.5 g/dL (6.4-8.2)
[2024-12-05 05:29] LABS: Potassium 3.8 mEq/L (3.5-5.1)
[2024-12-05] MEDS ORDERED: KETOROLAC 30 MG/ML INJ ONE (06:11)
[2024-12-05 07:02] LABS: Specific Gravity 1.027 (1.005-1.030); Sqamous Epithelial None Seen /HPF (None Seen); Urine Bacteria <20 /HPF (<20); Urine Bilirubin NEGATIVE (Negative); Urine Blood 1+ (Negative); Urine Clarity Extremely Turbid (Clear); Urine Color Light-Yellow (Yellow); Urine Culture Reflex Order NOT NEEDED; Urine Glucose NEGATIVE (Negative); Urine Ketones NEGATIVE (Negative); Urine Microscopic Reflex YN ORDER UMIC; Urine Mucus Slight /HPF (None Seen); Urine Nitrite NEGATIVE (Negative); Urine Protein NEGATIVE (Negative); Urine RBC <5 /HPF (None Seen); Urine Urobilinogen Normal (Normal); Urine WBC <5 /HPF (<5)
--- NOTE | 2024-12-05 07:10 | RAD REPORT ---
CLINICAL HISTORY: Abdominal pain. COMPARISON: None. TECHNIQUE: CT ABDOMEN PELVIS WITH IV CONTRAST on 12/05/2024 2:21 AM CDT This exam was performed according to our departmental dose-optimization program, which includes autom ated exposure control, adjustment of the mA and/or kV according to patient size and/or use of iterative reconstruction technique. FINDINGS: There is moderate bibasilar presumed atelectasis. Abdomen: Liver is mildly fatty in attenuation. There is no biliary dilatation. Gallbladder is normal in appearance. The pancreas and spleen are normal in appearance. Adrenal glands and right kidney are normal. There is mild left hydronephrosis secondary to a 2 mm calculus in the distal aspect of th e left UVJ. Abdominal aorta is normal in course and caliber without aneurysm. There is no free air. There is no r etroperitoneal adenopathy. Pelvis: There is no bowel obstruction. There is an adjacent layering 7 mm left-sided urinary bladder calculus. There is no free fluid. Appendix is not clearly seen. Skeleton: There are no acute osseous findings. No suspicious bony lesions. IMPRESSION: Mildly obstructing 2 mm distal left ureteral calculus. Electronically signed by: Estiven Lujan MD 12/05/2024 07:00 AM CDT RP Due to temporary technical issues with the [email or web address] reporting system, reports are being lillie d by the in-house radiologist without review as a courtesy to ensure prompt reporting the interpreting radiologist is fully responsible for the content of the report. Transcribed Date/Time: 12/05/2024 7:09 AM
--- NOTE | 2024-12-05 07:18 | ER ---
Nurse's Notes [facility] Name: Brenden Osman Age: 59 yrs Sex: Male : 1965 Arrival Date: 12/05/2024 Time: 02:07 Bed 17 Private MD: Diagnosis: Calculus of ureter Presentation: 12/05 02:17 Chief complaint: Patient states: LEFT SIDE ABDOMINAL PAIN, NAUSEA, AND VOMITING. ha1 02:17 Coronavirus screen: Client denies travel out of the [place] in the last 14 days. Ebola ha1 Screen: No symptoms or risks identified at this time. Initial Sepsis Screen: Does the patient meet any 2 criteria? No. Patient's initial sepsis screen is negative. Does the patient have a suspected source of infection? No. Patient's initial sepsis screen is negative. Risk Assessment: Do you want to hurt yourself or someone else? Patient reports no desire to harm self or others. Onset of symptoms was December 05, 2024. 02:17 Method Of Arrival: Ambulatory ha1 02:17 Acuity: LUCITA 3 ha1 Triage Assessment: 02:17 General: Appears comfortable, Behavior is anxious, restless. Pain: Complains of pain in ha1 anterior aspect of left lateral abdomen Pain currently is 10 out of 10 on a pain scale. Quality of pain is described as throbbing. Neuro: Level of Consciousness is awake, alert, obeys commands, Oriented to person, place, time, situation. Cardiovascular: Capillary refill < 3 seconds Patient's skin is warm and dry. Respiratory: Airway is patent Respiratory effort is even, unlabored, Respiratory pattern is regular, symmetrical. GI: Abdomen is round obese, Reports lower abdominal pain, upper abdominal pain, nausea, vomiting. : No signs and/or symptoms were reported regarding the genitourinary system. Derm: Skin is pink, warm \T\ dry. Musculoskeletal: Circulation, motion, and sensation intact. Range of motion: intact in all extremities. Historical: - Allergies: : No Known Allergies; ha1 - Home Meds: :17 lisinopril 40 mg Oral tablet daily [Active]; lorazepam 2 mg Oral tablet 1 tab every 6 ha1 hours for prn seizure [Active]; atorvastatin 10 mg Oral tablet daily [Active]; - PMHx: :17 Hypercholesterolemia; Hypertension; Seizures; ha1 - Immunization history:: Adult Immunizations not up to date. - Infectious Disease History:: Denies. - Social history:: Smoking status: Patient denies any tobacco usage or history of. - Family history:: not pertinent. Screenin:30 [facility] ED Fall Risk Assessment (Adult) History of falling in the last 3 months, rg5 including since admission No falls in past 3 months (0 pts) Confusion or Disorientation No (0 pts) Intoxicated or Sedated No (0 pts) Impaired Gait No (0 pts) Mobility Assist Device Used No (0 pt) Altered Elimination No (0 pt) Score/Fall Risk Level 0 - 2 = Low Risk. 02:30 Abuse screen: Denies threats or abuse. Nutritional screening: No deficits noted. rg5 Tuberculosis screening: No symptoms or risk factors identified. Assessment: 02:52 General: Appears uncomfortable, Behavior is cooperative, appropriate for age. Pain: rg5 Complains of pain in abdomen. Neuro: Level of Consciousness is awake, alert, Oriented to person, place, time, situation. Cardiovascular: Patient's skin is warm and dry. 03:00 Reassessment: No changes from previously documented assessment. Patient and/or family rg5 updated on plan of care and expected duration. Pain level reassessed. Patient is alert, oriented x 3, equal unlabored respirations, skin warm/dry/pink. 04:14 Reassessment: No changes from previously documented assessment. Patient and/or family rg5 updated on plan of care and expected duration. Pain level reassessed. General: Appears in no apparent distress. comfortable, Behavior is calm, cooperative, quiet, SLEEPING. 05:16 Reassessment: No changes from previously documented assessment. Patient and/or family rg5 updated on plan of care and expected duration. Pain level reassessed. General: Appears in no apparent distress. comfortable, Behavior is calm, cooperative, appropriate for age, quiet, sleeping. 06:26 Reassessment: Patient and/or family updated on plan of care and expected duration. Pain rg5 level reassessed. Patient is alert, oriented x 3, equal unlabored respirations, skin warm/dry/pink. Pain: Complains of pain in abdomen Pain currently is 10 out of 10 on a pain scale. 07:12 Reassessment: Patient appears in no apparent distress at this time. No changes from ld1 previously documented assessment. Patient and/or family updated on plan of care and expected duration. Pain level reassessed. Vital Signs: 02:20 BP 150 / 106; Pulse 94; Resp 19 S; Temp 98.4(O); Pulse Ox 98% on R/A; Weight 101.15 kg; ha1 Height 5 ft. 11 in. ; 02:51 BP 145 / 95; Pulse 75; Resp 18; Temp 98; Pulse Ox 100% on R/A; Pain 10/10; rg5 03:09 BP 100 / 64; Pulse 78; Resp 18; Pulse Ox 97% on 3 lpm NC; Pain 5/10; rg5 04:26 BP 133 / 91; Pulse 87; Resp 17; Pulse Ox 97% on 3 lpm NC; Pain 0/10; rg5 05:16 BP 131 / 84; Pulse 82; Resp 17; Pulse Ox 98% on 2 lpm NC; Pain 0/10; rg5 06:25 BP 152 / 101; Pulse 76; Resp 19; Pulse Ox 96% on 3 lpm NC; rg5 07:12 BP 147 / 96; Pulse 85; Resp 18; Pulse Ox 92% on R/A; ld1 02:20 Body Mass Index 31.10 (101.15 kg, 180.34 cm) ha1 02:51 Pain Scale: Adult rg5 03:09 Pain Scale: Adult rg5 04:26 Pain Scale: Adult rg5 05:16 Pain Scale: Adult rg5 ED Course: 02:08 Patient arrived in ED. [id number] 02:12 Sb Christensen MD is Attending Physician. rt 02:18 Rashad Gaxiola RN is Primary Nurse. rg5 02:25 Inserted saline lock: 20 gauge in right wrist, using aseptic technique. Blood rg5 collected. Flushed with 10 mL NS. 02:30 Patient has correct armband on for positive identification. Client placed on continuous rg5 cardiac and pulse oximetry monitoring. NIBP monitoring applied. pondman on. Pulse ox on. NIBP on. 02:30 No provider procedures requiring assistance completed. Inserted saline lock: 20 gauge rg5 in left forearm, using aseptic technique. Blood collected. Flushed with 10 mL NS. 03:21 Triage completed. ha1 05:[address] rg5 06:00 Patient moved back from CT. rg5 06:05 CT Abd/Pelvis - IV Contrast Only In Process Unspecified. EDMS 07:17 Clay Galvez MD is Referral Physician. rt 07:53 Arm band placed on right wrist. ld1 07:53 IV discontinued, intact, bleeding controlled, No redness/swelling at site. ld1 Administered Medications: 02:47 Drug: Famotidine IVP 20 mg IVP once; dilute with 10 mL 0.9% NaCl; give over 2 minutes rg5 Route: IVP; Site: right wrist; 03:52 Follow up: Response: No adverse reaction rg5 02:48 Drug: Ondansetron IVP 4 mg IVP once; over 2 minutes Route: IVP; Site: right wrist; rg5 03:52 Follow up: Response: No adverse reaction rg5 02:48 Drug: morphine IVP or IV 4 mg IVP once over 4 mins Route: IVP; Infused Over: 4 mins; rg5 Site: right wrist; 03:52 Follow up: Response: No adverse reaction rg5 02:48 Drug: NS 0.9% IV 1000 ml IV at 1 bolus Per protocol; to be given as a bolus over 60 rg5 minutes Route: IV; Rate: 1 bolus; Site: right wrist; 03:52 Follow up: IV Status: Completed infusion; IV Intake: 1000ml rg5 02:59 Drug: Ativan IVP 1 mg IVP once Route: IVP; Site: right wrist; rg5 06:21 Follow up: Response: No adverse reaction; Pain is decreased rg5 03:49 Drug: morphine IVP or IV 4 mg IVP once over 4 mins Route: IVP; Infused Over: 4 mins; rg5 Site: right wrist; 06:21 Follow up: Response: No adverse reaction; Pain is decreased rg5 06:22 Drug: Ketorolac IVP 15 mg IVP once Route: IVP; Site: right wrist; rg5 06:57 Follow up: Response: No adverse reaction; Pain is decreased rg5 06:22 Drug: morphine IVP or IV 4 mg IVP once over 4 mins Route: IVP; Infused Over: 4 mins; rg5 Site: right wrist; 06:57 Follow up: Response: No adverse reaction; Pain is decreased rg5 Medication: 02:30 VIS not applicable for this client. rg5 Intake: 03:52 IV: 1000ml; Total: 1000ml. rg5 Outcome: 07:17 Discharge ordered by . rt 07:53 Discharged to home ambulatory, with family, ld1 07:53 Condition: stable 07:53 Discharge instructions given to patient, Instructed on discharge instructions, follow up and referral plans. medication usage, Demonstrated understanding of instructions, follow-up care, medications, Prescriptions given X 3, 07:54 Patient left the ED. ld1 Signatures: Dispatcher [employer] EDMS Soni Nelson RN RN ld1 Margy Garcia jj6 Leilani Barrow RN RN ha1 Sb Christensen MD MD rt Rashad Gaxiola RN RN rg5 Corrections: (The following items were deleted from the chart) 03:21 03:00 Chief complaint: ha1 ha1 03:27 03:25 BP 150 / 106; Pulse 94bpm; Resp 19bpm; Spontaneous; Pulse Ox 98% RA; Temp 98.4F ha1 Oral; 101.15 kg; Height 5 ft. 11 in.; BMI: 31.1; ha1
--- NOTE | 2024-12-05 07:18 | EDPHYS ---
Physician Documentation [facility] Name: Brenden Osman Age: 59 yrs Sex: Male : 1965 Arrival Date: 12/05/2024 Time: 02:07 Bed 17 Private MD: ED Physician Sb Christensen HPI: 12/05 06:07 This 59 yrs old Black Male presents to ER via Ambulatory with complaints of Abdominal rt Pain. 06:07 Patient presents to the ED with an acute onset of the left upper abdominal pain with rt nausea, vomiting. Did not take anything for symptoms, denies aggravating or alleviating factors, symptoms are moderate in severity.. Historical: - Allergies: 02:17 No Known Allergies; ha1 - Home Meds: 02:17 lisinopril 40 mg Oral tablet daily [Active]; lorazepam 2 mg Oral tablet 1 tab every 6 ha1 hours for prn seizure [Active]; atorvastatin 10 mg Oral tablet daily [Active]; - PMHx: 02:17 Hypercholesterolemia; Hypertension; Seizures; ha1 - Immunization history:: Adult Immunizations not up to date. - Infectious Disease History:: Denies. - Social history:: Smoking status: Patient denies any tobacco usage or history of. - Family history:: not pertinent. ROS: 06:07 Constitutional: Negative for fever, chills, and weight loss, Cardiovascular: Negative rt for chest pain, palpitations, and edema, Respiratory: Negative for shortness of breath, cough, wheezing, and pleuritic chest pain, MS/Extremity: Negative for injury and deformity, Skin: Negative for injury, rash, and discoloration, Neuro: Negative for headache, weakness, numbness, tingling, and seizure, 06:07 Abdomen/GI: Positive for abdominal pain, nausea and vomiting, Exam: 06:07 Constitutional: This is a well developed, well nourished patient who is awake, alert, rt and in no acute distress. Head/Face: Normocephalic, atraumatic. Chest/axilla: Normal chest wall appearance and motion. Nontender with no deformity. No lesions are appreciated. Cardiovascular: Regular rate and rhythm with a normal S1 and S2. No gallops, murmurs, or rubs. Normal PMI, no JVD. No pulse deficits. Respiratory: Lungs have equal breath sounds bilaterally, clear to auscultation and percussion. No rales, rhonchi or wheezes noted. No increased work of breathing, no retractions or nasal flaring. Skin: Warm, dry with normal turgor. Normal color with no rashes, no lesions, and no evidence of cellulitis. MS/ Extremity: Pulses equal, no cyanosis. Neurovascular intact. Full, normal range of motion. Neuro: Awake and alert, GCS 15, oriented to person, place, time, and situation. Cranial nerves II-XII grossly intact. Motor strength 5/5 in all extremities. Sensory grossly intact. Cerebellar exam normal. Normal gait. 06:07 Abdomen/GI: Tenderness to the left upper quadrant with mild guarding, no rebound, distention, Vital Signs: 02:20 BP 150 / 106; Pulse 94; Resp 19 S; Temp 98.4(O); Pulse Ox 98% on R/A; Weight 101.15 kg; ha1 Height 5 ft. 11 in. ; 02:51 BP 145 / 95; Pulse 75; Resp 18; Temp 98; Pulse Ox 100% on R/A; Pain 10/10; rg5 03:09 BP 100 / 64; Pulse 78; Resp 18; Pulse Ox 97% on 3 lpm NC; Pain 5/10; rg5 04:26 BP 133 / 91; Pulse 87; Resp 17; Pulse Ox 97% on 3 lpm NC; Pain 0/10; rg5 05:16 BP 131 / 84; Pulse 82; Resp 17; Pulse Ox 98% on 2 lpm NC; Pain 0/10; rg5 06:25 BP 152 / 101; Pulse 76; Resp 19; Pulse Ox 96% on 3 lpm NC; rg5 07:12 BP 147 / 96; Pulse 85; Resp 18; Pulse Ox 92% on R/A; ld1 02:20 Body Mass Index 31.10 (101.15 kg, 180.34 cm) ha1 02:51 Pain Scale: Adult rg5 03:09 Pain Scale: Adult rg5 04:26 Pain Scale: Adult rg5 05:16 Pain Scale: Adult rg5 MDM: 02:17 Medical Screening Exam initiated rt 07:40 Differential Diagnosis Kidney stone, ureterolithiasis, pyelonephritis, bowel rt obstruction. Data reviewed: vital signs, nurses notes, lab test result(s), radiologic studies. I considered the following discharge prescriptions or medication management in the emergency department Medications were administered in the Emergency Department. See MAR. Independent interpretation of the following test(s) in the Emergency Department CT Scan: My interpretation is Ureterolithiasis symptomatic rotation of CT scan images. Care significantly affected by the following chronic conditions: Hypertension. Counseling: I had a detailed discussion with the patient and/or guardian regarding the historical points, exam findings, and any diagnostic results supporting the discharge/admit diagnosis, lab results, radiology results, the need for outpatient follow up, to return to the emergency department if symptoms worsen or persist or if there are any questions or concerns that arise at home. Response to treatment: the patient's symptoms have markedly improved after treatment. 12/05 02:21 Order name: CBC with Diff; Complete Time: 03:42 rt 12/05 02:21 Order name: CMP; Complete Time: 06:02 rt 12/05 02:21 Order name: Lipase; Complete Time: 06:02 rt 12/05 02:21 Order name: Urinalysis w/ reflexes; Complete Time: 07:04 rt 12/05 02:21 Order name: CT Abd/Pelvis - IV Contrast Only rt 12/05 02:21 Order name: IV Saline Lock; Complete Time: 02:48 rt 12/05 02:21 Order name: Labs collected and sent; Complete Time: 02:48 rt Administered Medications: 02:47 Drug: Famotidine IVP 20 mg IVP once; dilute with 10 mL 0.9% NaCl; give over 2 minutes rg5 Route: IVP; Site: right wrist; 03:52 Follow up: Response: No adverse reaction rg5 02:48 Drug: Ondansetron IVP 4 mg IVP once; over 2 minutes Route: IVP; Site: right wrist; rg5 03:52 Follow up: Response: No adverse reaction rg5 02:48 Drug: morphine IVP or IV 4 mg IVP once over 4 mins Route: IVP; Infused Over: 4 mins; rg5 Site: right wrist; 03:52 Follow up: Response: No adverse reaction rg5 02:48 Drug: NS 0.9% IV 1000 ml IV at 1 bolus Per protocol; to be given as a bolus over 60 rg5 minutes Route: IV; Rate: 1 bolus; Site: right wrist; 03:52 Follow up: IV Status: Completed infusion; IV Intake: 1000ml rg5 02:59 Drug: Ativan IVP 1 mg IVP once Route: IVP; Site: right wrist; rg5 06:21 Follow up: Response: No adverse reaction; Pain is decreased rg5 03:49 Drug: morphine IVP or IV 4 mg IVP once over 4 mins Route: IVP; Infused Over: 4 mins; rg5 Site: right wrist; 06:21 Follow up: Response: No adverse reaction; Pain is decreased rg5 06:22 Drug: Ketorolac IVP 15 mg IVP once Route: IVP; Site: right wrist; rg5 06:57 Follow up: Response: No adverse reaction; Pain is decreased rg5 06:22 Drug: morphine IVP or IV 4 mg IVP once over 4 mins Route: IVP; Infused Over: 4 mins; rg5 Site: right wrist; 06:57 Follow up: Response: No adverse reaction; Pain is decreased rg5 Disposition Summary: 12/05/24 07:17 Discharge Ordered Notes: Location: Home rt Condition: Stable rt Diagnosis - Calculus of ureter rt Followup: rt - With: Clay Galvez MD - When: 5 - 6 days - Reason: Discharge Instructions: - Discharge Summary Sheet rt - Kidney Stones rt Forms: - Medication Reconciliation Form rt - Antibiotic Education rt - Prescription Opioid Use rt - Patient Portal Instructions rt - Leadership Thank You Letter rt Prescriptions: - Flomax 0.4 mg Oral capsule - take 1 capsule ORAL route daily; 14 capsule; Refills: 0, Product Selection rt Permitted - ondansetron 4 mg Oral Tablet,disintegrating - take 1 tablet ORAL route every 6 hours as needed for nausea; 15 tablet; rt Refills: 0, Product Selection Permitted - Tylenol-Codeine #3 300mg-30mg Oral tablet - take 1 tablet ORAL route every 4 hours As needed; 15 tablet; Refills: 0, rt Product Selection Permitted Signatures: Dispatcher [employer] Leilani Chopra RN RN ha1 Sb Christensen MD MD rt Rashad Gaxiola RN RN rg5
[2024-12-07 03:17] VITALS: TEMP 98
[2024-12-07 03:26] VITALS: BP 147/96; O2SAT 92
== END 2024-12-05 07:54 | disposition home or self-care (01) ==
LOC: ER 02:07
DX: N20.1 Calculus of ureter (principal)
CPT/HCPCS: 96361; 85025; 81001; 36415; 83690; 80053; 74177; 96375; 96374; 99285; Q9967; J2405; J7030

== ENCOUNTER 2024-12-06 16:13 | Emergency (ER) | payer MEDICAID ==
[2024-12-06] MEDS ORDERED: MORPHINE 4 MG/ML SYR ONE ×2 (16:35→18:50)
[2024-12-06] MEDS ORDERED: ONDANSETRON 4 MG/2 ML VIAL ONE (16:35)
[2024-12-06] MEDS ORDERED: MAGNESIUM SULFATE 1 gm IVPB 1 GM/100 ML BAG IV ONE (16:36)
[2024-12-06 17:01] LABS: Absolute Basophils 0.1 K/uL (0-0.5); Absolute Eosinophils 0.2 K/uL (0-0.5); Absolute Lymphocytes (CBC) 1.8 K/uL (0.7-4.9); Absolute Monocytes 0.6 K/uL (0.1-1.3); Absolute Neutrophil 5.3 K/uL (1.8-8.0); Hematocrit 38.3 % (39.6-49.0); Hemoglobin 13.4 g/dL (13.6-17.9); Lymphocytes % 22.7 % (15.3-44.8); MCH 30.5 pg (27.0-35.0); MCHC 34.9 g/dL (32.0-36.0); MCV 87.4 fL (80-100); Monocytes % 7.5 % (3.3-12.3); Neutrophils % 66.8 % (41.7-73.7); Nucleated Red Blood Cells % 0.1 % (0-0); Platelets 198 thou/uL (152-406); RBC Red Blood Cell Count 4.38 M/uL (4.33-5.43); Red Cell Distribution Width 13.1 % (12.1-15.2)
[2024-12-06 17:25] LABS: Albumin 3.7 g/dL (3.4-5.0); Albumin/Globulin Ratio 1.1 (1.1-1.8); Anion Gap 10.3 mEq/L (5.0-15.0); Bilirubin Total 0.9 mg/dL (0.2-1.0); Globulin 3.5 g/dL (2.3-3.5); Potassium 3.3 mEq/L (3.5-5.1); Protein, Total 7.2 g/dL (6.4-8.2)
[2024-12-06 18:04] LABS: Specific Gravity 1.005 (1.005-1.030); Sqamous Epithelial None Seen /HPF (None Seen); Urine Bacteria None Seen /HPF (<20); Urine Bilirubin NEGATIVE (Negative); Urine Blood 1+ (Negative); Urine Clarity Clear (Clear); Urine Color Colorless (Yellow); Urine Crystals Unidentified Few /HPF (None Seen); Urine Culture Reflex Order NOT NEEDED; Urine Glucose NEGATIVE (Negative); Urine Ketones NEGATIVE (Negative); Urine Microscopic Reflex YN ORDER UMIC; Urine Mucus Slight /HPF (None Seen); Urine Nitrite NEGATIVE (Negative); Urine Protein NEGATIVE (Negative); Urine RBC <5 /HPF (None Seen); Urine Urobilinogen Normal (Normal); Urine WBC <5 /HPF (<5); Urine Yeast (Budding) Trace /HPF (None Seen)
--- NOTE | 2024-12-06 18:32 | RAD REPORT ---
EXAMINATION: CT Stone Protocol CLINICAL INDICATION: Male, 59 years old. persistent pain, LLQ TECHNIQUE: CT abdomen and pelvis was performed, without IV contrast, as per department protocol. Axia l, sagittal and coronal reconstructions were obtained. One or more of the following dose reduction techniques were used: Automated exposure control, adjustment of the mA and kV according to the patien t size, and iterative reconstruction. Unless otherwise specified, incidental findings do not require dedicated imaging follow-up. COMPARISON: 12/05/2024 FINDINGS: The lack of intravenous contrast limits the sensitivity of this exam for evaluation of solid visceral organs, vascular structures, and retroperitoneum. LOWER CHEST: Trace layering bilateral pleural effusions, with segmental opacities and volume loss sug gesting atelectasis. LIVER: Normal in size and contour. Diffuse parenchymal hypoattenuation suggesting steatosis. No focal lesion. BILIARY SYSTEM: No suspicious abnormalities. SPLEEN: Normal size. No focal lesion. PANCREAS: No mass, ductal dilation, or tanya-pancreatic fluid. ADRENALS: Normal; no mass. KIDNEYS AND URETERS: Persistent mild left hydroureteronephrosis. Calculus at the left vesicoureteral junction today's measured at 5 mm. Mild layering debris within the distal left ureter, and along the right ostiomeatal wall of the bladder. Mildly progressive fat stranding along the distal left ure ter. Mild left perinephric fat stranding, stable. URINARY BLADDER: Normal contour. GASTROINTESTINAL TRACT: No evidence of bowel obstruction, significant free fluid, free air or abscess . APPENDIX: Normal appendix. LYMPH NODES: No lymphadenopathy. MUSCULOSKELETAL: No acute or suspicious osseous abnormality. ADDITIONAL FINDINGS: Prostatomegaly. IMPRESSION: Persistent left hydroureteronephrosis. Left vesicoureteral junction calculus today measures 5 mm, whi ch could relate to adjacent gravel or variation in measurement plane. Trace layering bilateral pleural effusions. THIS REPORT CONTAINS FINDINGS THAT MAY BE CRITICAL TO PATIENT CARE. The findings were verbally commun icated via telephone to Alexander Nolasco MD on 12/06/2024 6:26 PM.
[2024-12-06] MEDS ORDERED: CEFTRIAXONE 1000 MG/VIAL ONE (18:49)
[2024-12-06] MEDS ORDERED: KETOROLAC 30 MG/ML INJ ONE (18:50)
[2024-12-06] MEDS ORDERED: NA CHLORIDE 0.9% 50 ML ONE (18:50)
--- NOTE | 2024-12-06 20:07 | ER ---
Nurse's Notes [facility] Name: Brenden Osman Age: 59 yrs Sex: Male : 1965 Arrival Date: 12/06/2024 Time: 16:13 Bed 5 Private MD: Diagnosis: Calculus of ureter Presentation: 12/06 16:23 Chief complaint: Patient states: LLQ pain. Coronavirus screen: At this time, the client ld1 does not indicate any symptoms associated with coronavirus-19. Ebola Screen: No symptoms or risks identified at this time. Initial Sepsis Screen: Does the patient meet any 2 criteria? No. Patient's initial sepsis screen is negative. Does the patient have a suspected source of infection? No. Patient's initial sepsis screen is negative. Risk Assessment: Do you want to hurt yourself or someone else? Patient reports no desire to harm self or others. Onset of symptoms was December 06, 2024. 16:23 Method Of Arrival: Ambulatory ld1 16:23 Acuity: LUCITA 3 ld1 Triage Assessment: 16:24 General: Appears in no apparent distress. uncomfortable, Behavior is anxious, crying. ld1 Pain: Complains of pain in left lower quadrant Pain does not radiate. Pain currently is 10 out of 10 on a pain scale. Quality of pain is described as throbbing, Pain began suddenly, Is continuous. EENT: No signs and/or symptoms were reported regarding the EENT system. Neuro: Level of Consciousness is awake, alert, obeys commands, Oriented to person, place, time, situation. Cardiovascular: Capillary refill < 3 seconds Patient's skin is warm and dry. Respiratory: Airway is patent Respiratory effort is even, unlabored. GI: Abdomen is flat, non-distended, Reports lower abdominal pain. : No signs and/or symptoms were reported regarding the genitourinary system. Derm: No signs and/or symptoms reported regarding the dermatologic system. Musculoskeletal: No signs and/or symptoms reported regarding the musculoskeletal system. Historical: - Allergies: 16:24 No Known Allergies; ld1 - PMHx: 16:24 Hypercholesterolemia; Hypertension; Seizures; ld1 - Immunization history:: Adult Immunizations up to date. - Infectious Disease History:: Denies. - Social history:: Smoking status: Patient denies any tobacco usage or history of. - Family history:: not pertinent. - Hospitalizations: : No recent hospitalization is reported. Screenin:56 [facility] ED Fall Risk Assessment (Adult) History of falling in the last 3 months, ap3 including since admission No falls in past 3 months (0 pts) Confusion or Disorientation No (0 pts) Intoxicated or Sedated No (0 pts) Impaired Gait No (0 pts) Mobility Assist Device Used No (0 pt) Altered Elimination No (0 pt) Score/Fall Risk Level 0 - 2 = Low Risk Oriented to surroundings, Maintained a safe environment, Educated pt \T\ family on fall prevention, incl call for assistance when getting out of bed, Assessed \T\ reinforced patient's understanding of fall precautions, Hourly rounding (assess needs \T\ fall precautionary measures) done, Used ambulatory aids as needed (educated on \T\ assisted with). Abuse screen: Denies threats or abuse. Nutritional screening: No deficits noted. Tuberculosis screening: No symptoms or risk factors identified. Assessment: 16:56 General: Appears uncomfortable, Behavior is calm, cooperative, appropriate for age. ap3 Pain: Complains of pain in left lower quadrant. Neuro: Level of Consciousness is awake, alert, obeys commands, Oriented to person, place, time, situation. Cardiovascular: Patient's skin is warm and dry. Respiratory: Airway is patent Respiratory effort is even, unlabored, Respiratory pattern is regular, symmetrical. 19:34 Reassessment: Patient appears in no apparent distress at this time. Patient and/or bm8 family updated on plan of care and expected duration. Pain level reassessed. Patient is alert, oriented x 3, equal unlabored respirations, skin warm/dry/pink. 20:24 Reassessment: Patient appears in no apparent distress at this time. Patient and/or bm8 family updated on plan of care and expected duration. Pain level reassessed. Patient is alert, oriented x 3, equal unlabored respirations, skin warm/dry/pink. Patient denies pain at this time. Patient states feeling better. Patient states symptoms have improved. Vital Signs: 16:23 BP 169 / 102; Pulse 117; Resp 18; Temp 97.8(TE); Pulse Ox 99% on R/A; Height 5 ft. 10 ld1 in. ; Pain 10/10; 17:02 BP 148 / 91; Pulse 97; Pulse Ox 97% on R/A; ap3 17:52 BP 149 / 89; Pulse 86; Resp 17; Pulse Ox 95% on R/A; ap3 18:34 BP 140 / 87; Pulse 95; Resp 17; Pulse Ox 98% on R/A; ap3 19:00 BP 139 / 93; Pulse 84; Resp 18; Pulse Ox 98% ; al5 20:24 BP 127 / 77; Pulse 77; Resp 16; Temp 97.8; Pulse Ox 95% ; Pain 0/10; bm8 16:23 Pain Scale: Adult ld1 20:24 Pain Scale: Adult bm8 Brandie Coma Score: 20:24 Eye Response: spontaneous(4). Motor Response: obeys commands(6). Verbal Response: bm8 oriented(5). Total: 15. ED Course: 16:17 Patient arrived in ED. gl 16:18 Alexander Nolasco MD is Attending Physician. rn 16:18 Lissette Petersen [facility]C [facility] kb 16:24 Triage completed. ld1 16:24 Arm band placed on right wrist. ld1 16:30 Holly Henry, RISHI is Primary Nurse. ap3 16:55 CT Stone Protocol In Process Unspecified. EDMS 16:55 Inserted saline lock: 22 gauge in right wrist, using aseptic technique. Blood ap3 collected. Flushed with 10 mL NS. 16:56 Patient has correct armband on for positive identification. Bed in low position. Call ap3 light in reach. Side rails up X2. Adult w/ patient. Provided Education on: call light education . Pulse ox on. NIBP on. 20:06 Clay Galvez MD is Referral Physician. rn 20:24 No provider procedures requiring assistance completed. IV discontinued, intact, bm8 bleeding controlled, No redness/swelling at site. Pressure dressing applied. Administered Medications: 16:55 Drug: morphine IVP or IV 4 mg IVP once over 4 mins Route: IVP; Infused Over: 4 mins; ap3 Site: right wrist; 17:52 Follow up: Response: No adverse reaction; Pain is decreased ap3 16:55 Drug: Ondansetron IVP 4 mg IVP once; over 2 minutes Route: IVP; Site: right wrist; ap3 17:52 Follow up: Response: No adverse reaction ap3 17:02 Drug: Magnesium Sulfate IVPB 1 grams IVPB once over 1 hrs Route: IVPB; Infused Over: 1 ap3 hrs; Site: right wrist; 18:02 Follow up: IV Status: Completed infusion; IV Intake: 100ml ap3 19:00 Drug: Rocephin IV 1 grams IV at calculated rate once; Given slow IV push per pharmacy ap3 instructions Route: IV; Rate: calculated rate; Site: right antecubital; 20:26 Follow up: Response: No adverse reaction; IV Status: Completed infusion bm8 19:00 Drug: morphine IVP or IV 4 mg IVP once over 4 mins Route: IVP; Infused Over: 4 mins; ap3 Site: right antecubital; 20:26 Follow up: Response: No adverse reaction bm8 19:00 Drug: Ketorolac IVP 15 mg IVP once Route: IVP; Site: right antecubital; ap3 20:26 Follow up: Response: No adverse reaction bm8 Medication: 20:24 VIS not applicable for this client. bm8 Intake: 18:02 IV: 100ml; Total: 100ml. ap3 Outcome: 20:07 Discharge ordered by . rn 20:24 Discharged to home ambulatory, with family, bm8 20:24 Condition: stable 20:24 Discharge instructions given to patient, family, Instructed on discharge instructions, follow up and referral plans. no drinking with medication, no driving heavy equipment, medication usage, safety practices, Demonstrated understanding of instructions, follow-up care, medications, Prescriptions given X 1, 20:26 Patient left the ED. bm8 Signatures: Dispatcher [employer] EDNM Lissette Petersen, GERM DRIER-C GERM DRIER-Ckb Alexander Nolasco MD MD rn Prokisch, Amanda RN RN ap3 Soni Nelson RN RN ld1 Talha Aparicio RN RN bm8 Holly Cano RN RN al5 Tiana Allen, Reg Reg gl
--- NOTE | 2024-12-06 20:07 | EDPHYS ---
Physician Documentation [facility] Name: Brenden Osman Age: 59 yrs Sex: Male : 1965 Arrival Date: 12/06/2024 Time: 16:13 Bed 5 Private MD: ED Physician Alexander Nolasco HPI: 12/06 16:44 This 59 yrs old Black Male presents to ER via Ambulatory with complaints of Possible rn Kidney Stone, Abdominal Pain. 16:44 The patient presents with abdominal pain. Patient seen here yesterday, diagnosed with 2 rn mm distal ureteral stone on the left side. Patient reports persistent pain on the left side, has migrated slightly towards the groin. Associated with nausea and chills. No fever. Called PCP and directed back to the emergency room. Was not seen by PCP today. Patient reports pink urine but no gross hematuria. Historical: - Allergies: 16:24 No Known Allergies; ld1 - PMHx: 16:24 Hypercholesterolemia; Hypertension; Seizures; ld1 - Immunization history:: Adult Immunizations up to date. - Infectious Disease History:: Denies. - Social history:: Smoking status: Patient denies any tobacco usage or history of. - Family history:: not pertinent. - Hospitalizations: : No recent hospitalization is reported. ROS: 16:44 Constitutional: Negative for fever, positive for chills Cardiovascular: Negative for rn chest pain, palpitations, and edema, Respiratory: Negative for shortness of breath, cough, wheezing, and pleuritic chest pain, Abdomen/GI: Negative for vomiting, diarrhea, and constipation, Back: Negative for injury and pain, : Positive for blood-tinged urine, negative for gross hematuria MS/Extremity: Negative for injury and deformity, Exam: 16:44 Constitutional: This is a well developed, well nourished patient who is awake, alert, rn appears uncomfortable Cardiovascular: Tachycardic, regular. Respiratory: No increased work of breathing, no retractions or nasal flaring. Abdomen/GI: Soft, non-tender Back: No spinal tenderness. No costovertebral tenderness. Full range of motion. Vital Signs: 16:23 BP 169 / 102; Pulse 117; Resp 18; Temp 97.8(TE); Pulse Ox 99% on R/A; Height 5 ft. 10 ld1 in. ; Pain 10/10; 17:02 BP 148 / 91; Pulse 97; Pulse Ox 97% on R/A; ap3 17:52 BP 149 / 89; Pulse 86; Resp 17; Pulse Ox 95% on R/A; ap3 18:34 BP 140 / 87; Pulse 95; Resp 17; Pulse Ox 98% on R/A; ap3 19:00 BP 139 / 93; Pulse 84; Resp 18; Pulse Ox 98% ; al5 20:24 BP 127 / 77; Pulse 77; Resp 16; Temp 97.8; Pulse Ox 95% ; Pain 0/10; bm8 16:23 Pain Scale: Adult ld1 20:24 Pain Scale: Adult bm8 Brandie Coma Score: 20:24 Eye Response: spontaneous(4). Motor Response: obeys commands(6). Verbal Response: bm8 oriented(5). Total: 15. MDM: 16:18 Medical Screening Exam initiated rn 20:04 Differential diagnosis: non-specific abd pain, Ureterolithiasis, urinary tract rn infection. Data reviewed: vital signs, nurses notes, lab test result(s), radiologic studies, CT scan, and as a result, I will discharge patient. Counseling: I had a detailed discussion with the patient and/or guardian regarding the historical points, exam findings, and any diagnostic results supporting the discharge/admit diagnosis, lab results, radiology results, the need for outpatient follow up, to return to the emergency department if symptoms worsen or persist or if there are any questions or concerns that arise at home. Response to treatment: the patient's symptoms have markedly improved after treatment, and as a result, I will discharge patient. Special discussion: I discussed with the patient/guardian in detail that at this point there is no indication for admission to the hospital. It is understood, however, that if the symptoms persist or worsen the patient needs to return immediately for re-evaluation. Based on the history and exam findings, there is no indication for further emergent testing or inpatient evaluation. I discussed with the patient/guardian the need to see the urologist for further evaluation of the symptoms. ED course: Patient still with distal ureteral stone. Mild hydro. Normal WBC and no evidence of infection in the urinalysis. Pain well-controlled and feels much better. They are in the middle of scheduling an appointment with Dr. Galvez for follow-up. Will discharge home with addition of antibiotics given chills and is taking a little longer than expected to pass the stone. Return precautions given and understood.. 12/06 16:30 Order name: CBC with Diff; Complete Time: 17:37 rn 12/06 16:30 Order name: CMP; Complete Time: 17:37 rn 12/06 16:30 Order name: Urinalysis w/ reflexes; Complete Time: 18:04 rn 12/06 16:30 Order name: CT Stone Protocol; Complete Time: 18:33 rn 12/06 16:30 Order name: IV Saline Lock; Complete Time: 16:55 rn 12/06 16:30 Order name: Labs collected and sent; Complete Time: 16:55 rn Administered Medications: 16:55 Drug: morphine IVP or IV 4 mg IVP once over 4 mins Route: IVP; Infused Over: 4 mins; ap3 Site: right wrist; 17:52 Follow up: Response: No adverse reaction; Pain is decreased ap3 16:55 Drug: Ondansetron IVP 4 mg IVP once; over 2 minutes Route: IVP; Site: right wrist; ap3 17:52 Follow up: Response: No adverse reaction ap3 17:02 Drug: Magnesium Sulfate IVPB 1 grams IVPB once over 1 hrs Route: IVPB; Infused Over: 1 ap3 hrs; Site: right wrist; 18:02 Follow up: IV Status: Completed infusion; IV Intake: 100ml ap3 19:00 Drug: Rocephin IV 1 grams IV at calculated rate once; Given slow IV push per pharmacy ap3 instructions Route: IV; Rate: calculated rate; Site: right antecubital; 20:26 Follow up: Response: No adverse reaction; IV Status: Completed infusion bm8 19:00 Drug: morphine IVP or IV 4 mg IVP once over 4 mins Route: IVP; Infused Over: 4 mins; ap3 Site: right antecubital; 20:26 Follow up: Response: No adverse reaction bm8 19:00 Drug: Ketorolac IVP 15 mg IVP once Route: IVP; Site: right antecubital; ap3 20:26 Follow up: Response: No adverse reaction bm8 Disposition Summary: 12/06/24 20:07 Discharge Ordered Notes: Location: Home rn Problem: new rn Symptoms: have improved rn Condition: Stable rn Diagnosis - Calculus of ureter rn Followup: rn - With: Clay Galvez MD - When: As needed - Reason: Recheck today's complaints, Re-evaluation by your physician Discharge Instructions: - Discharge Summary Sheet rn - Kidney Stones rn - Renal Colic rn - Dietary Guidelines to Help Prevent Kidney Stones rn Forms: - Medication Reconciliation Form rn - Antibiotic real estate attorney - Prescription Opioid Use rn - Patient Portal Instructions rn - Leadership Thank You Letter rn Prescriptions: - Cipro 500 mg Oral Tablet - take 1 tablet ORAL route every 12 hours for 10 days; 20 tablet; Refills: 0, rn Product Selection Permitted Signatures: Dispatcher [employer] Alexander Cunningham MD MD rn Holly Henry RN RN ap3 Soni Nelson RN RN ld1 Talha Aparicio RN bm8
[2024-12-07 21:36] VITALS: TEMP 97.8
[2024-12-07 21:45] VITALS: BP 127/77; O2SAT 95
== END 2024-12-06 20:26 | disposition home or self-care (01) ==
LOC: ER 16:13
DX: N20.1 Calculus of ureter (principal)
CPT/HCPCS: 85025; 81001; 36415; 80053; 76377; 74176; 99284; J3475; J2405; J0696

== ENCOUNTER 2024-12-28 13:56 | Emergency (ER) | payer MEDICAID ==
[2024-12-28] MEDS ORDERED: KETOROLAC 30 MG/ML INJ ONE (15:08)
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
[2024-12-28 15:18] LABS: Absolute Basophils 0.1 K/uL (0-0.5); Absolute Eosinophils 0.2 K/uL (0-0.5); Absolute Lymphocytes (CBC) 2.1 K/uL (0.7-4.9); Absolute Monocytes 0.3 K/uL (0.1-1.3); Absolute Neutrophil 2.6 K/uL (1.8-8.0); Basophils % 1.3 % (0-1.3); Eosinophils % 4.4 % (0-4.4); Hematocrit 39.3 % (39.6-49.0); Hemoglobin 13.8 g/dL (13.6-17.9); Lymphocytes % 39.6 % (15.3-44.8); MCHC 35.2 g/dL (32.0-36.0); MCV 85.3 fL (80-100); MPV 8.5 fL (7.6-11.3); Monocytes % 6.2 % (3.3-12.3); Neutrophils % 48.5 % (41.7-73.7); Nucleated Red Blood Cells % 0.1 % (0-0); Platelets 208 thou/uL (152-406); RBC Red Blood Cell Count 4.61 M/uL (4.33-5.43); Red Cell Distribution Width 12.7 % (12.1-15.2)
[2024-12-28 15:36] LABS: Anion Gap 7.6 mEq/L (5.0-15.0); Potassium 3.6 mEq/L (3.5-5.1); Troponin High Sensitivity 29.7 pg/mL (<58.9)
[2024-12-28] MEDS ORDERED: ASPIRIN 81 MG CHEWABLE TABLET ONE (16:46)
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
[2024-12-28 18:57] VITALS: TEMP 98.7; O2SAT 100
[2024-12-28 19:00] VITALS: BP 134/78
== END 2024-12-28 18:29 | disposition home or self-care (01) ==
LOC: ER 13:56
DX: R07.9 Chest pain, unspecified (principal); R06.02 Shortness of breath; I10 Essential (primary) hypertension; E78.00 Pure hypercholesterolemia, unspecified
CPT/HCPCS: 36415; 71046; 80048; 84484; 85025; 93005